=== PATIENT | female | born 1965 | race Caucasian/White ===

== ENCOUNTER 2021-01-22 23:50 | Inpatient (IN) | payer BC, SELFPAY ==
--- NOTE | ~2021-01-22 | XR_ITS ---
XR abdomen NG/feed tube insert DATE: 01/25/2021 14:02 INDICATION: NG tube placement TECHNIQUE: Portable AP view on 01/25/2021 at 1353 hours COMPARISON: 01/25/2021 portable view at 1007 hours FINDINGS: NG tube in the upper body of stomach. IMPRESSION: NG tube in the upper body of stomach Reviewed, dictated and finalized at [facility]. Reviewed, dictated and finalized at location A.
--- NOTE | ~2021-01-22 | XR_ITS ---
XR chest 1V portable DATE: 01/26/2021 10:19 INDICATION: Atelectasis TECHNIQUE: 01/26/2021 portable AP chest at 1006 hours COMPARISON: 01/23/2021 portable AP chest at 1700 hours FINDINGS: Cardiomegaly. There is pulmonary vascular congestion and redistribution. There are congenit ally perihilar and lower lung zone infiltrates and/atelectasis, left greater than right. Diffusion di agnosis includes pulmonary edema as well as pneumonia and atelectasis. NG tube is been removed since 01/23/2021. Right upper extremity PIC catheter overlies proximal superior vena cava. No pneumothorax. No pleural effusion is evident. Diffuse osteopenia IMPRESSION: Cardiomegaly, pulmonary vascular congestion, bilateral pulmonary infiltrates, suggesting congestive heart failure, possible pulmonary edema. Pneumonia and atelectasis are additional consider ations, especially in the left perihilar and lower lung zones Reviewed, dictated and finalized at location B. IMPRESSION: Cardiomegaly, pulmonary vascular congestion, bilateral pulmonary in filtrates, suggesting congestive heart failure, possible pulmonary edema. Pneum onia and atelectasis are additional considerations, especially in the left parrish hilar and lower lung zones
--- NOTE | ~2021-01-22 | XR_ITS ---
XR abdomen NG/feed tube insert DATE: 01/25/2021 10:24 INDICATION: NG tube replacement TECHNIQUE: Portable AP view on 01/25/2021 at 1007 hours COMPARISON: 01/25/2021 portable AP chest at 0 626 FINDINGS: NG tube in gastric fundus, proximal port approximately 6 cm distal to the diaphragmatic hia tus. Gas distended small bowel segments are noted. Bibasilar infiltrate and/atelectasis. IMPRESSION: NG tube in gastric fundus Reviewed, dictated and finalized at [facility]. Reviewed, dictated and finalized at location A. IMPRESSION: NG tube in gastric fundus
--- NOTE | ~2021-01-22 | XR_ITS ---
XR abdomen NG/feed tube insert DATE: 01/25/2021 06:34 INDICATION: NG tube insertion TECHNIQUE: Portable supine AP view on 01/25/2021 at 0626 hours COMPARISON: 01/23/2021 KUB FINDINGS: An NG tube is present in the proximal to mid body of the stomach. There are prominent gas distended small bowel segments. Postoperative change of the abdomen. Degenerative spurring of the thoracic and lumbar spine. Infiltrate and/atelectasis at the included lung bases. IMPRESSION: NG tube in body of stomach Reviewed, dictated and finalized at [facility]. Reviewed, dictated and finalized at location A. IMPRESSION: NG tube in body of stomach
--- NOTE | ~2021-01-22 | US_ITS ---
EXAMINATION: US biopsy liver DATE: 02/04/2021 13:29 INDICATION: Liver nodule. TECHNIQUE: The procedure including the risks and benefits was discussed with the patient. Risks discu ssed included bleeding and infection. The patient understood the risks and agreed to proceed. The sk in overlying the liver was prepped and draped in usual sterile fashion. Anesthetic was administered with 1% lidocaine subcutaneously. An 18 gauge core biopsy needle was advanced under continuous ultra sound observation to the lesion of interest. 3 core biopsy specimens were obtained. The needle was removed and the entry site was cleaned and dressed. Post procedure ultrasound demonstrated no hemorr isabela. COMPARISON: CT dated 01/23/2021 FINDINGS: Ultrasound images demonstrate a subtle approximately 2.5 cm hypoechoic nodule in segment 5 of the liver corresponding in size and location to the hypoenhancing nodule on the prior CT. IMPRESSION: 1. Successful Ultrasound-guided biopsy of a 2.5 cm hypoechoic right hepatic lobe nodule. Reviewed, dictated and finalized at location A. IMPRESSION: 1. Successful Ultrasound-guided biopsy of a 2.5 cm hypoechoic right hepatic lob e nodule.
--- NOTE | ~2021-01-22 | US_ITS ---
US abdomen limited DATE: 01/24/2021 10:56 INDICATION: Gallbladder distention TECHNIQUE: Real-time imaging of the liver, pancreas, gallbladder areas. Technologist notes that the examination is limited due to body habitus, inability of patient to fully cooperate, unable to roll. The patient was moaning through the entire examination, limiting evaluati on of Martinez's sign. COMPARISON: 01/23/2021 CT abdomen pelvis FINDINGS: There are numerous filling defects with associated acoustical shadowing involving the gallb ladder consistent with cholelithiasis. Mild gallbladder wall thickening is evident. Common bile duct measures 5.4 mm, within normal range. There is limited visualization of the liver and pancreas. Please note the right hepatic mass on the 1 CT abdomen pelvis examination IMPRESSION: Cholelithiasis, mild gallbladder wall thickening Reviewed, dictated and finalized at [facility]. Reviewed, dictated and finalized at location A.
--- NOTE | ~2021-01-22 | XR_ITS ---
EXAMINATION: XR abdomen/kub 1V DATE: 01/23/2021 15:50 INDICATION: Bowel perforation. TECHNIQUE: A supine view of the abdomen on 2 radiographs was obtained. COMPARISON: CT abdomen and pelvis 01/23/2021 FINDINGS: There are multiple dilated loops of small bowel. A surgical drain overlies right abdomen. T here are surgical clips from ventral hernia repair. Skin brayan are noted. The nasogastric tube tip is at the gastroesophageal junction. There are changes of gastric bypass procedure. IMPRESSION: 1. Dilated small bowel, consistent with adynamic ileus. 2. Nasogastric tube tip at the gastroesophageal junction with changes of gastric bypass procedure. Reviewed, dictated and finalized at location A. IMPRESSION: 1. Dilated small bowel, consistent with adynamic ileus. 2. Nasogastric tube tip at the gastroesophageal junction with changes of gastri c bypass procedure.
--- NOTE | ~2021-01-22 | XR_ITS ---
EXAMINATION: XR abdomen NG/feed tube insert INDICATION: Nasogastric tube repositioning TECHNIQUE: Portable AP KUB-NG at 2212 hours COMPARISON: 1537 hours FINDINGS: Nasogastric tube appears to coil in the gastric remnant. Could consider withdrawing 2 to 3 cm. In addition, there is rightward deviation of the nasogastric tube is a courses into the upper abd omen. On the earlier examination the nasogastric tube was midline but now projects beyond the right l ateral margin of the spine. Dilated small bowel loops are again noted. IMPRESSION: 1. Advanced nasogastric tube appears to coil within the stomach however there is also rightward devia tion of the tube beyond the right lateral margin of the lower thoracic spine. Although this could be due to pressure from the tube coiled in the stomach translating into the distal esophagus, recommend chest radiograph to assess the position of the proximal nasogastric tube. Reviewed, dictated and finalized at location F. IMPRESSION: 1. Advanced nasogastric tube appears to coil within the stomach however there i s also rightward deviation of the tube beyond the right lateral margin of the l ower thoracic spine. Although this could be due to pressure from the tube coile d in the stomach translating into the distal esophagus, recommend chest radiogr aph to assess the position of the proximal nasogastric tube.
--- NOTE | ~2021-01-22 | XR_ITS ---
EXAMINATION: XR chest PICC line DATE: 01/23/2021 17:06 INDICATION: Central line placement. TECHNIQUE: A single frontal view of the chest was obtained. COMPARISON: Chest single view 01/23/2021 at 3:21 PM, CT abdomen and pelvis 01/23/2021 FINDINGS: The lung volumes are small. There is mild atelectasis in left lower lung zone. No pleural e ffusion or pneumothorax. The nasogastric tube tip is in the stomach. There are changes of gastric byp ass procedure. A right upper extremity peripherally inserted central venous catheter (PICC) is seen w ith tip in the superior vena cava. IMPRESSION: 1. PICC tip in the superior vena cava. Reviewed, dictated and finalized at location A.
--- NOTE | ~2021-01-22 | XR_ITS ---
XR chest 1V portable 01/31/2021 10:56 Indication: Pneumonia. Shortness of breath. Procedure: AP portable chest Comparison: Comparison to multiple prior studies sequentially, with oldest reviewed study dated 12/28. Findings: Patchy bilateral airspace disease, compatible with pneumonia. No significant effusion or pn eumothorax. No acute osseous abnormality. Heart size normal for technique. No acute osseous abnormali ty. Impression: 1: Patchy bilateral airspace disease, compatible with pneumonia. Reviewed, dictated and finalized at location A. Impression: 1: Patchy bilateral airspace disease, compatible with pneumonia.
--- NOTE | ~2021-01-22 | XR_ITS ---
XR chest 1V portable DATE: 01/23/2021 15:50 INDICATION: Respiratory distress, increased oxygen needs. TECHNIQUE: Portable AP chest on 02/09 2021 at 1531 hours COMPARISON: 12/28/2016 PA and lateral chest FINDINGS: An NG tube is noted extending just beyond the diaphragmatic hiatus into the very proximal s tomach. There are patchy infiltrates and/atelectasis involving the upper and lower lung zones, greater in the lower lung stephens, especially on the left. Heart size is likely within normal range considering magnification associated with AP projection. No pleural effusion or pulmonary vascular congestion or pneumothorax. Degenerative spurring of the thoracic spine. IMPRESSION: Patchy bilateral infiltrates and/atelectasis, most prominently in the left lower lung NG tube in very proximal stomach Reviewed, dictated and finalized at location A. IMPRESSION: Patchy bilateral infiltrates and/atelectasis, most prominently in t he left lower lung NG tube in very proximal stomach
--- NOTE | ~2021-01-22 | CT_ITS ---
EXAMINATION: CT abdomen pelvis w con DATE: 01/23/2021 01:16 INDICATION: Right lower quadrant abdominal pain TECHNIQUE: Computed tomography (CT) of the abdomen and pelvis was performed with 100 cc Omnipaque 350 intravenous contrast. Automated exposure control and iterative reconstruction technique were employe d. Exam dose: 1678.30 mGy-cm total exam DLP. COMPARISON: None. FINDINGS: The lung bases are clear of infiltrate or consolidation. Cardiomegaly. No pericardial or pleural effusion. There is mild intraperitoneal free air, best demonstrated around the liver, periappendiceal area and interspersed with fluid in the posterior cul-de-sac. In the absence of any recent surgery, bowel perf oration is suspected. Consider perforated appendicitis. There were multiple mildly dilated gas contai jane small bowel segments, likely due to adynamic ileus. Status post gastric bypass surgery. There is an approximately 3 cm 11 defined mass of the right hepatic lobe; diffusion diagnosis include s hepatic abscess, primary hepatocellular neoplasm, hepatic metastasis. This would be amenable to CT- guided percutaneous needle biopsy as clinically appropriate. The gallbladder is distended. No pancreatic mass lesion, calcification or ductal dilatation. Normal splenic size. Normal morphology of the adrenal glands. 9.5 mm lower pole right renal cyst. There are approximately 4 small nonobstructing left renal calculi. A couple of pinpoint nonobstructin g right renal calculi are noted. No ureteral calculus or hydroureteronephrosis. Normal caliber of the abdominal aorta. No intraperitoneal or retroperitoneal or pelvic mass lesion or adenopathy or ascites. There is an IUD within the uterus. The urinary bladder is unremarkable. Ventral abdominal wall mesh repair. No suspicious osteolytic or osteoblastic lesions. Diffuse idiopathic skeletal hyperostosis of the low er thoracic spine. Degenerative change of the lumbar spine including moderately severe degenerative d isc disease at L3-4. IMPRESSION: Intraperitoneal free air, suggesting bowel perforation. Consider appendiceal perforation Probable adynamic ileus Ill-defined 3 cm right hepatic mass and focal diffusion diagnosis includes hepatic abscess, hepatocel lular primary malignancy or metastasis Status post gastric bypass surgery Reviewed, dictated and finalized at [facility]. Reviewed, dictated and finalized at location A. IMPRESSION: Intraperitoneal free air, suggesting bowel perforation. Consider a ppendiceal perforation Probable adynamic ileus Ill-defined 3 cm right hepatic mass and focal diffusion diagnosis includes hepa tic abscess, hepatocellular primary malignancy or metastasis Status post gastric bypass surgery
[2021-01-22 23:55] VITALS: BP 149/72; PULSE 94; RESP 39; TEMP 36.4; O2SAT 99
[2021-01-23] VITALS (30 sets, daily range): BP systolic 55–140; BP diastolic 27–95; PULSE 91–139; RESP 20–54; TEMP 36.2–36.9; O2SAT 84–100; BMI 66.6
--- NOTE | 2021-01-23 00:01 | ED.ABDPAIN ---
HPI - Abdominal Pain General Chief Complaint: Abdominal Pain Stated Complaint: rt quad pain Time Seen by Provider: 01/22/21 23:58 Source: patient History of Present Illness HPI narrative: Patient presents with abdominal pain. Reports sudden onset abdominal pain this evening. She reports history of bowel obstruction she feels like she is having a bowel obstruction. Her pain is primarily right lower quadrant constant sharp everything makes it worse radiates around her abdomen. She has nausea and vomiting she does report loose stools over the past few days she denies fevers. She reports she was recently seen at [place] where she had a CT scan and MRI and was told that she has a mass on her liver and a bowel obstruction reports she was discharged home from the ER with this findings. Related Data Allergies Allergy/AdvReac Type Severity Reaction Status Date / Time morphine Allergy Mild Unknown Verified 01/23/21 00:08 promethazine Allergy Mild Unknown Verified 01/23/21 00:08 Review of Systems Review of Systems: CONSTITUTIONAL: Denies fever, chills, or sweats. EYES: Denies visual changes, redness, or discharge. ENT: Denies rhinorrhea, congestion, sore throat, or otalgia. CARDIOVASCULAR: Denies chest pain, palpitations, or edema. RESPIRATORY: Denies cough or dyspnea. GASTROINTESTINAL: Reports abdominal pain GENITOURINARY: Denies dysuria or hematuria. SKIN: Denies rash or itching. MUSCULOSKELETAL: Denies back pain, joint pain, or myalgia. NEUROLOGIC: Denies headache, numbness, dizziness, or weakness. PSYCHIATRIC: Denies anxiety or depression. All systems reviewed & are unremarkable except as noted in HPI and below Exam Narrative: GENERAL: Well-appearing, well-nourished, in moderate distress due to pain HEAD: Normocephalic, atraumatic. EYES: PERRLA and EOMI. ENT: Nares clear, no rhinorrhea or epistaxis. Mucous membranes moist. NECK: Supple. No masses. No JVD ABDOMEN: Moderate diffuse pain most noted in the right lower quadrant with guarding soft, nondistended EXTREMITIES: Normal range of motion. No edema. SKIN: Warm, dry, no rash. NEURO: No focal deficits. Alert and oriented x3. PSYCH: Normal mood and affect. Course Reevaluation(s) Reevaluation #1: Patient continues to have pain labs and imaging return. Labs clinically unremarkable imaging concerning for perforated bowel obstruction. Page placed to general surgery Date: 01/23/21 Time: 03:01 Vital Signs Vital signs: Vital Signs Temperature 36.4 C 01/22/21 23:55 Pulse Rate 94 01/22/21 23:55 Respiratory Rate 39 H 01/22/21 23:55 Blood Pressure 149/72 H 01/22/21 23:55 Pulse Oximetry 99 01/22/21 23:55 Temperature 36.4 C 01/22/21 23:55 Pulse Rate 113 H 01/23/21 04:06 Respiratory Rate 33 H 01/23/21 04:06 Blood Pressure 133/85 01/23/21 04:06 Pulse Oximetry 98 01/23/21 04:06 MDM - Abdominal Pain MDM Narrative Medical decision making narrative: Patient presented with right lower quadrant abdominal pain of sudden onset. Patient appeared to be in moderate distress and she had an acute abdominal on exam. Labs and imaging obtained. Initially vital signs were reassuring labs are clinically unremarkable imaging was concerning for perforated appendicitis. Call placed to Dr. Gong initial plan was to admit the patient and likely operative management tomorrow. Patient continued to have severe pain here in the ER patient was given 100 fentanyl by EMS given additional 100 fentanyl here in the ER as well as over 2 mg of Dilaudid in the ER patient is still in severe pain. Dr. Gong was notified of patients sever pain and clinical picture. He coordinated with the OR team and patient was transported to the OR for further management. Lab Data Result diagrams: 01/23/21 00:26 01/23/21 00:26 Labs: Lab Results 01/23/21 01/23/21 01/23/21 Range/Units 00:26 00:26 01:54 WBC 6.7 (4.5-10.0) K/mm3 RBC 4.38 (4.2-5.4) M/mm3 Hgb
[2021-01-23] MEDS: SODIUM CHLORIDE 0.9% IV 1,000 ML 999 ML IV CONT ×4 (00:10→22:47)
[2021-01-23] MEDS: ONDANSETRON INJ 4 MG/2 ML VIAL IV PUSH ×2 (00:11→23:56)
[2021-01-23 00:36] LABS: Basophils Percent Auto 0.4 % (0.2-1.2); Eosinophils Absolute Auto 0.1 K/mm3 (0-0.3); Eosinophils Percent Auto 1.2 % (0-4.4); Hematocrit 39.4 % (37.0-47.0); Hemoglobin 11.5 g/dL (12.0-15.0); Immature Granulocyte Absolute 0.05 K/mm3 (0.00-0.031); Immature Granulocyte Percent A 0.7 % (0-0.5); Lymphocytes Absolute Auto 1.55 K/mm3 (0.9-3.2); Lymphocytes Percent Auto 23.2 % (18.3-44.2); Mean Corpuscular HGB Conc 29.2 g/dl (32-36); Mean Corpuscular Hemoglobin 26.3 pg (26-34); Mean Platelet Volume 10.3 fl (7.4-10.4); Monocytes Absolute Auto 0.3 K/mm3 (0.1-0.6); Monocytes Percent Auto 5.1 % (2.6-8.5); Neutrophils Absolute Auto 4.6 K/mm3 (1.3-6.7); Neutrophils Percent Auto 69.4 % (45.5-73.1); Platelet Count Result 204 k/mm3 (150-375); Red Blood Count 4.38 M/mm3 (4.2-5.4); Red Cell Distribution Width 17.3 % (11.5-14.5); White Blood Count 6.7 K/mm3 (4.5-10.0)
[2021-01-23 00:47] LABS: Hypochromasia 2+ (NORMAL); Platelet Estimate Adequate (Adequate)
[2021-01-23 00:49] LABS: Alanine Aminotransferase 25 U/L (4-35); Albumin Level 3.9 g/dL (3.5-5.1); Alkaline Phosphatase 108 U/L (38-126); Anion Gap 9 mmol/L (8-16); Aspartate Amino Transferase 22 U/L (14-36); Bilirubin,Total 0.5 mg/dL (0.2-1.3); Blood Urea Nitrogen 20 mg/dL (7-17); Calcium 8.4 mg/dL (8.4-10.2); Carbon Dioxide 26 mmol/L (22-30); Chloride 104 mmol/L (98-107); Estimated CRCL calculation 107 ml/min; Estimated Glomerular Filt Rate > 60; Glucose 124 mg/dL (65-110); Lipase 45 U/L (23-300); Potassium 3.8 mmol/L (3.4-5.0); Sodium 139 mmol/L (137-145)
[2021-01-23] MEDS: fentaNYL CITRATE INJ (*CRX) 100 MCG/2 ML VIAL IV PUSH (00:56)
--- NOTE | 2021-01-23 01:01 | PC.NURSE ---
contacted Rikki, patients brother, per pt's request and gave him an update.
--- NOTE | 2021-01-23 01:27 | PC.NURSE ---
pt refusing straight cath at this time for urine sample.
--- NOTE | 2021-01-23 01:57 | PC.NURSE ---
pt states that she urinated on herself. when going in the room to clean her up pt states what are you doing this RN states, We need to get you cleaned up so you are not sitting in your urine pt states, I have a pad on, don't clean me up I am in too much pain. pt has received pain medication and EDP is aware of her pain. This RN told pt multiple times that it is important that she does not sit in her urine and that we need to get her cleaned. pt still refusing to be cleaned. pt is alert and oriented x 4.
--- NOTE | 2021-01-23 02:13 | PC.NURSE ---
Pt pressed call light and requested pain medication. Pt states I need Dilaudid, they gave me that last time and it worked. CHUN Brantley notified.
[2021-01-23] MEDS: HYDROmorphone HCL INJ (*CRX) 1 MG/ML SYR 0.5 MG IV PUSH ×4 (02:26→23:24)
[2021-01-23 02:27] LABS: Lactic Acid Reflex 1.6 mmol/L (0.7-2.1)
--- NOTE | 2021-01-23 03:25 | PC.NURSE ---
Assumed care of pt at this time, report taken from Leann. Pt moved to room 4. ED charge Anisa, mike RN, Amber RN, and Bri (pathology tech) at bedside at this time to attempt to move pt off soiled linen. Pt is unable to tolerate any movement at this time, unable to sit up, and unable to roll. Pt yelling out in pain asking for RNs to stop attempting to move her. This RN attempted to utilize ceiling janette lift in room, but appropriate size sling was not stocked. ED charge Anisa called ICU in an attempt to obtain correct size for pt, but were sent a sling incompatible with ED janette.
--- NOTE | 2021-01-23 03:28 | ECG_ITS ---
Measurements Intervals Boon Rate: 116 P: 30 NV: 183 QRS: -29 QRSD: 77 T: 16 QT: 433 QTc: 602 Interpretive Statements SINUS TACHYCARDIA POSSIBLE LEFT ATRIAL ENLARGEMENT LEFT VENTRICULAR HYPERTROPHY WITH ST-T CHANGE EXTENSIVE ANTERIOR INFARCT, AGE INDETERMINATE INFERIOR INFARCT, AGE INDETERMINATE BASELINE ARTIFACT- I, III, AVR, AVL, AVF, V1 ABNORMAL ECG Electronically Signed On 01-23-2021 7:33:45 CDT by Bret Beckman D.O.
--- NOTE | 2021-01-23 03:45 | PC.NURSE ---
Per EDP Fercho, NG tube placement can be postponed until surgery.
--- NOTE | 2021-01-23 03:50 | PC.NURSE ---
Anesthesiologist and surgeon at bedside at this time.
--- NOTE | 2021-01-23 03:59 | PM.IMHP ---
H&P: HPI History of Present Illness Date/Time: 01/23/21 03:59 Pt is a 55 y/o F c multiple med issues including morbid obesity presenting to ED c/o sudden onset of RLQ abd pain. Pt reports pain started tonight and is constant, severe. Pt denies previous episodes. Pt also c/o N/V and reports pain radiates to R flank. Pt recently seen in ED at [place] for different abdominal pain and is setup for colonoscopy and bx of liver mass. Chief Complaint: abdominal pain, perforated appendicitis Review of Systems Constitutional: Constitutional: Reports anorexia, Denies chills, Reports fatigue, Denies fever(s), Denies headache(s), Reports lethargy, Reports malaise, Reports poor appetite, Reports weakness, Denies weight gain and Denies weight loss Eyes: Eyes: Reports no additional eye complaints ENT: Reports system reviewed and no additional complaints, except as documented Cardiovascular: Cardiovascular: Reports no additional cardiovascular complaints Respiratory: Respiratory: Reports no additional respiratory complaints Gastrointestinal: Gastrointestinal: Reports as per HPI, Reports abdominal pain, Denies belching, Reports bloating, Reports change in bowel habits, Reports change in stool character, Reports GI cramping, Reports diarrhea, Reports nausea and Reports vomiting Genitourinary: Genitourinary: Reports no additional female genitourinary complaints Musculoskeletal: Musculoskeletal: Reports no additional musculoskeletal complaints Integumentary/Breasts: Skin/Breast: Reports system reviewed and no additional complaints, except as docu Neurologic: Reports system reviewed and no additional complaints, except as documented Psychiatric: Psychiatric: Reports no additional psychiatric complaints Endocrine: Endocrine: Reports no additional endocrine complaints Hematologic/Lymphatic: Hematologic/Lymphatic: Reports no additional hematologic/lymphatic complaints Allergic/Immunologic: Allergic/Immunologic: Reports no additional allergic/immunologic complaints PMFSH Comments PMH - morbid obesity, anxiety PSH - gastric bypass, hernia repair SH - pt denies any ETOH, tobacco, illicit drug abuse FH - pt denies any h/o CRC, IBS Meds Home Medications and Allergies Allergies Allergy/AdvReac Type Severity Reaction Status Date / Time morphine Allergy Mild Unknown Verified 01/23/21 00:08 promethazine Allergy Mild Unknown Verified 01/23/21 00:08 Vital Signs Vital Signs - 24 hr 01/22/21 23:55 01/23/21 01:28 01/23/21 02:20 Temperature 36.4 C Pulse Rate 94 91 103 H Respiratory Rate 39 H 23 H 27 H Blood Pressure 149/72 H 140/73 137/87 Pulse Oximetry 99 99 98 Exam Const: General: acute distress severe, anxious, ill appearing and poor hygiene Nutritional Appearance: obese Orientation/consciousness: patient oriented x3 HENMT: Head: normal to inspection, normocephalic and atraumatic Ears: hearing grossly normal bilaterally General nose exam: Normal external nose present Mouth: Yes Normal oral and palatal mucosa present Eyes: General: appearance normal, both eyes and all related structures Pupils: Equal, round and reactive pupils present EOM: EOMs intact bilaterally Neck: Neck: normal visual inspection, full ROM and no lymphadenopathy Resp: Effort & Inspection: normal respiratory effort Auscultation: clear to auscultation bilaterally Cardio: Rate: tachycardic Rhythm: regular rhythm GI: Inspection: normal to inspection, distended and incision GI Palp: Yes abdominal tenderness and Yes Tenderness to palpation present (GI) Other: soft, sl dist, focal TTP RLQ, vol guard Skin: General skin exam: normal color and no rashes or lesions noted Neuro: General: patient oriented x3 and CN's II-XI intact bilaterally Extrem: General: normal to inspection and full ROM Psych: Appearance: disheveled H&P: Results Labs Labs: Short CBC 01/23/21 Range/Units 00:26 WBC 6.7 (4.5-10.0) K/mm3 Hgb 11.5 L (12.0-15.0) g/dL Hct 3
--- NOTE | 2021-01-23 04:06 | PC.NURSE ---
Recovery Nurse notified that we have actively been working on attempting to clean the patients soiled bed for over an hour and we have not been able to do so d/t patients in ability to tolerate any movement. Per Recovery Nurse she will call us right back.
--- NOTE | 2021-01-23 04:10 | PC.NURSE ---
Recover nurses at charge desk to assist with attempt to change patient and clean up her soiled sheets/bedding.
--- NOTE | 2021-01-23 04:13 | WPDHPUPDATE1 ---
History and Physical Update Update Date/Time: 01/23/21 04:13 History and Physical has been reviewed, including an updated exam of the patient. There are NO changes in the patient's condition. Risks, benefits, and alternatives have been discussed and questions answered. Patient agrees to proceed with procedure.
--- NOTE | 2021-01-23 04:15 | PC.NURSE ---
MD Kumari at bedside we will take patient to OR on the er stretcher, sedate on the stretcher, then clean the patient and move the patient all in one. Bedside RN asked if he would like us to start the patient antibiotics at this time and he said we can start them in the or, let's just get her ove there. Bedside RN and tech with OR team to the OR to assist with moving patient once sedated/intubated.
--- NOTE | 2021-01-23 04:15 | PC.NURSE ---
OR here to assist in transportation of pt at this time
[2021-01-23] MEDS: LACTATED RINGERS 1,000 ML 30 ML IV CONT ×2 (06:48)
--- NOTE | 2021-01-23 06:54 | WPDANESEPPF ---
Anes - Initial Pre Proc Eval Procedure: Operation Date: 01/23/21 04:00 Proposed Procedures p Laparoscopic Appendectomy - Christine Gong MD Date/Time: 01/23/21 06:54 Surgeon: Chrisitne Gong MD Pre Op Diagnosis: rt quad pain Patient Data Age: 55 Gender: F Height: 1.68 m Weight: 187.4 kg Last Vital Signs Temp 36.4 C 01/22/21 23:55 Pulse 113 H 01/23/21 04:06 Resp 33 H 01/23/21 04:06 BP 133/85 01/23/21 04:06 Pulse Ox 98 01/23/21 04:06 Allergies Allergy/AdvReac Type Severity Reaction Status Date / Time morphine Allergy Mild Unknown Verified 01/23/21 00:08 promethazine Allergy Mild Unknown Verified 01/23/21 00:08 Laboratory Tests 01/23/21 01/23/21 01/23/21 00:26 00:26 01:54 WBC 6.7 K/mm3 K/mm3 (4.5-10.0) RBC 4.38 M/mm3 M/mm3 (4.2-5.4) Hgb 11.5 g/dL L g/dL (12.0-15.0) Hct 39.4 % % (37.0-47.0) MCV 90.0 fl fl (80-100) MCH 26.3 pg pg (26-34) MCHC 29.2 g/dl L g/dl (32-36) RDW 17.3 % H % (11.5-14.5) Plt Count 204 k/mm3 k/mm3 (150-375) MPV 10.3 fl fl (7.4-10.4) Immature Gran % (Auto) 0.7 % H % (0-0.5) Neut % (Auto) 69.4 % % (45.5-73.1) Lymph % (Auto) 23.2 % % (18.3-44.2) Sullivan % (Auto) 5.1 % % (2.6-8.5) Eos % (Auto) 1.2 % % (0-4.4) Baso % (Auto) 0.4 % % (0.2-1.2) Lymph # (Auto) 1.55 K/mm3 K/mm3 (0.9-3.2) Sullivan # (Auto) 0.3 K/mm3 K/mm3 (0.1-0.6) Eos # (Auto) 0.1 K/mm3 K/mm3 (0-0.3) Baso # (Auto) 0.0 K/mm3 K/mm3 (0.0-0.1) Abs Immat Gran (auto) 0.05 K/mm3 H K/mm3 (0.00-0.031) Absolute Neuts (auto) 4.6 K/mm3 K/mm3 (1.3-6.7) Absolute Nucleated RBC 0.0 K/mm3 K/mm3 (0.0-0.012) Nucleated RBC % 0.0 % % (0.0-0.2) Platelet Estimate Adequate (Adequate) Hypochromasia 2+ (NORMAL) Sodium 139 mmol/L mmol/L (137-145) Potassium 3.8 mmol/L mmol/L (3.4-5.0) Chloride 104 mmol/L mmol/L (98-107) Carbon Dioxide 26 mmol/L mmol/L (22-30) Anion Gap 9 mmol/L mmol/L (8-16) BUN 20 mg/dL H mg/dL (7-17) Creatinine 0.90 mg/dL mg/dL (0.7-1.0) Estim Creat Clear Calc 107 ml/min ml/min Estimated GFR > 60 (59 - ) Glucose 124 mg/dL H mg/dL (65-110) Lactic Acid 1.6 mmol/L mmol/L (0.7-2.1) Calcium 8.4 mg/dL mg/dL (8.4-10.2) Total Bilirubin 0.5 mg/dL mg/dL (0.2-1.3) AST 22 U/L U/L (14-36) ALT 25 U/L U/L (4-35) Alkaline Phosphatase 108 U/L U/L (38-126) Total Protein 7.0 g/dL g/dL (6.3-8.2) Albumin 3.9 g/dL g/dL (3.5-5.1) Lipase 45 U/L U/L (23-300) Patient hx anesthesia problems: none Family hx anesthesia problems: none Results Review: All pre-operative results and documents have been reviewed as part of the pre-operative evaluation. [facility] Surgical History Surgical History (Updated 01/23/21 @ 06:54 by Bernardo Kumari MD) History of gastric bypass Anes - Eval Final PreProcedure Day of Procedure 01/23/21 06:54 Patient weight: super morbidly obese Heart: regular rate and rhythm Lungs: clear to auscultation Airway: Mallampati scale class II Neurological: alert and oriented Last oral intake: >/= 8 hours ASA classification: IV Emergent: yes Anesthetic plan: proceed Anesthesia type and monitoring: general ETT and standard monitoring Results Review: All pre-operative results and documents have been reviewed as part of the pre-operative evaluation. Informed Consent: The patient's anesthetic plan and its attendant risks and benefits were discussed before surgery in ER at 0330 with the patient/family/POA. Questions were solicited and answers provided to the satisfaction of the patient/family/POA.
[2021-01-23] MEDS: fentaNYL CITRATE INJ (*CRX) 100 MCG/2 ML VIAL 25 MCG IV PUSH ×6 (07:12→07:36)
--- NOTE | 2021-01-23 07:36 | W.PM.PROC2 ---
Procedure Note - Detailed Date of Procedure 01/23/21 Pre-op Diagnosis Perforated appendicitis Post-op Diagnosis other ( perforated cecum, acute appendicitis) Procedure Performed exploratory laparoscopy, laparoscopic appendectomy, conversion to open laparotomy with right hemicolectomy and mobilization of hepatic flexure, extensive intra-abdominal washout Surgeon Christine Gong MD Anesthesia general Indications 55-year-old female presenting with severe right lower quadrant abdominal pain that started acutely last night. Workup in the emergency department including CT scan was consistent with perforated appendicitis. Patient was unable to have her pain controlled in the emergency department despite heavy doses of narcotics. Her exam coupled with worsening vital signs dictated emergent laparoscopy. Findings Acute appendicitis, perforated cecum, extensive intra-abdominal soilage Description of Procedure The patient was taken to the operating room and placed in the supine position. After adequate induction of general anesthesia, the patient was prepped and draped in the normal sterile fashion. A time-out was then done to verify the patient's identity, as well as the procedure being performed. I began by making a 5 mm incision in the infraumbilical region. Through this incision I placed a Veress needle into the peritoneal cavity and CO2 gas was then insufflated. After adequate pneumoperitoneum was achieved, the Veress needle was removed and placed a 5 mm Optiview trocar under direct visualization. I then placed the laparoscope through this trocar site and noted extensive inflammation throughout the abdominal cavity. There was also noted to be a large amount of intra-abdominal soilage, succus. The entirety of the intestine was noted to be very dilated. It was difficult to visualize given the amount of intestinal dilation, however I was able to place a further 5 mm port in the suprapubic region and an additional 12 mm port in the left lower quadrant. I was able to identify the cecum, which was noted to be very distended and inflamed. I then located the appendix, which was noted to be inflamed but not obviously perforated. I was able to locate the base of the appendix with the cecum and I created a window with the [place] dissected between the appendix and the mesoappendix. I then used a vascular staple load on the Endo-ALEXANDRA to take down the mesoappendix. The stapler was re-loaded with a blue thick tissue staple load and I transected the base of the appendix with the cecum. An Endo pouch was placed through the 12 mm port site and the appendiceal specimen was placed into the Endo pouch and removed. Upon evaluation of the appendix, it was noted that there was no obvious perforation. I then continued to exam the cecum and it was noted at this point that there was a perforation of the cecum. Given the body habitus of the patient, decision was made to convert to an open procedure. The abdomen was desufflated and the ports were removed. I then made a generous midline incision incorporating the previously used 5 mm infraumbilical port. Once into the abdominal cavity, there was noted to be mesh in the upper midline we went ahead and cut. Once I got access into the abdominal cavity, there was noted to be an extensive amount succus. I was able to suction out approximately 1 L of succus at this point. I then was able to locate the perforation in the distal cecum, proximal ascending colon. I began by mobilizing the right colon laterally by taking down the white line of Toldt. I then went ahead and mobilized the hepatic flexure as well. Once this was mobilized, I was able to proceed with the transection. I 1st transected the terminal ileum approximately 10 cm from the ileocecal valve using a 75 ALEXANDRA stapler. I then transected the the colon approximately 10 cm distal to the perforation. I then used the LigaSure device to take down the mesenteric attachments, santa
--- NOTE | 2021-01-23 07:55 | SUR.PHASEI ---
[address] Gong no KUB needed he confirmed placement of NG in the OR
--- NOTE | 2021-01-23 08:05 | ADMGEN ---
This patient, Tori Miller, was admitted to 2 Medical Room 241-01. Patient/family oriented to hospital policies and general routines including ID bracelet, bed and alarms, visiting hours, pain management, procedures, bathroom and other care routines, personal items, smoking policy, room service/diet, and visiting hours. Information on how to activate the Rapid Response Team has been discussed. Patient/Family are encouraged to report perceived risks to care and to ask questions if they do not understand what they are told or what they should do.
[2021-01-23] MEDS: LACTATED RINGERS 1,000 ML 100 ML IV CONT (08:16)
[2021-01-23] MEDS: HYDROmorphone HCL INJ (*CRX) 1 MG/ML SYR IV PUSH ×2 (08:20→11:09)
[2021-01-23 08:52] LABS: Prothrombin Time 13.4 Seconds (11.1-14.7)
[2021-01-23 08:53] LABS: Partial Thromboplastin Time 26.4 SECONDS (22.3-36.8)
[2021-01-23] MEDS: FAMOTIDINE 20 MG/2 ML VIAL IV PUSH ×2 (10:03→20:57)
[2021-01-23] MEDS: ENOXAPARIN 40 MG/0.4 ML SYRINGE SUB-Q (10:03)
[2021-01-23 14:27] LABS: Add Urine Microscopic? YES; Appearance Urine Clear (Clear); Bacteria Urine Trace /hpf; Bilirubin Urine Negative (Negative); Blood Urine Negative (Negative); Color Urine Yellow (Yellow); Glucose Urine UA Negative (Negative); Ketones Urine 1+ mg/dL (Negative); Leukocyte Esterase Ur Negative LEU/UL (Negative); Mucus Urine Rare /lpf; Nitrate Urine Negative (Negative); Protein Urine 2+ mg/dL (Negative); RBC Urine 0-2 /hpf (0-2); Squamous Epithelial Cell Urine Occasional /hpf (Few); Urobilinogen Urine Negative mg/dL (<2.0); WBC Urine 0-3 /hpf
[2021-01-23 14:30] LABS: Specific Grav Ur 1.057 (1.001-1.035)
[2021-01-23] MEDS: SODIUM CHLORIDE 0.9% IV 250 ML 999 ML IV CONT (15:13)
[2021-01-23 15:19] LABS: Alveolar/Arterial O2 Gradient 209.6 mmHg; Base Excess ABG -11.7 mEq/l (+/-2.0); Fractional Inspired Oxygen 45 %; HCO3 ABG 12.4 mEq/l (22.0-26.0); Oxygen Content ABG 20.5 %vol (16.0-22.0); Oxygen Saturation ABG 95.6 % (95.0-100.0); Oxyhemoglobin 93.8 % THb (90.0-100.0); PO2 ABG 82.8 mmHg (80.0-100.0); PO2 FiO2 Ratio Arterial Blood 1.84 %; Total Hemoglobin 15.5 g/dL (12.0-18.0); pH ABG 7.315 (7.350-7.450)
[2021-01-23 15:20] LABS: Modified Allen's Test Unable to perform; Site Drawn LEFT RADIAL
[2021-01-23 15:21] LABS: Device NASAL CANNULA
--- NOTE | 2021-01-23 15:37 | PC.NURSE ---
Report called to Opal ELECTRONIC TEST TECHNICIAN.
--- NOTE | 2021-01-23 15:45 | PC.NURSE ---
To ICU via bed.
[2021-01-23 15:57] LABS: Glucose Point of Care 193 mg/dl (65-105)
[2021-01-23 16:01] LABS: Anion Gap 19 mmol/L (8-16); Blood Urea Nitrogen 21 mg/dL (7-17); Calcium 8.1 mg/dL (8.4-10.2); Carbon Dioxide 15 mmol/L (22-30); Chloride 105 mmol/L (98-107); Estimated CRCL calculation 50 ml/min; Estimated Glomerular Filt Rate 26; Glucose 207 mg/dL (65-110); Potassium 4.1 mmol/L (3.4-5.0); Sodium 139 mmol/L (137-145)
[2021-01-23 16:02] LABS: Lactic Acid Reflex 10.3 mmol/L (0.7-2.1)
--- NOTE | 2021-01-23 16:10 | PM.IMCN ---
Assessment and Plan Assessment and plan (1) Acute perforated appendicitis: Code(s): K35.32 - Acute appendicitis with perforation and localized peritonitis, without abscess Status: Acute Assessment and Plan: the patient underwent exploratory laparoscopy and laparoscopic appendectomy conversion to open laparotomy with right hemicolectomy and mobilization of hepatic flexure extensive intra-abdominal washoy. postop care per surgery team. Pain management per surgery. The patient's blood pressure is soft today so I did order her some IV Tylenol. I was called to rapid response as the patient was lethargic and was hypoxic. The patient was complaining of severe lower abdominal discomfort. The patient is going to the intensive care unit for sepsis. ABGs have been ordered and she has metabolic acidosis which could be secondary to her sepsis or her elevated blood sugar. I also ordered blood cultures. The patient is currently on Zosyn. (2) Respiratory distress: Code(s): R06.03 - Acute respiratory distress Status: Acute Assessment and Plan: The patient was placed on oxygen at 5 L due to hypoxia. I did order a chest x-ray. Which shows possible pneumonia versus atelectasis. When the patient wakes up she will need to use incentive spirometer the patient is currently on Zosyn. (3) Sepsis: Code(s): A41.9 - Sepsis, unspecified organism Status: Acute Assessment and Plan: I repeated her CBC and her lactic. Her lactic is up to 10.3. The patient's blood pressure was soft today. If the patient is fluid responsive will need to continue with her IV fluids. (4) Depression with anxiety: Code(s): F41.8 - Other specified anxiety disorders Status: Acute Assessment and Plan: The patient is NPO at this time. (5) Bowel obstruction: Code(s): K56.609 - Unspecified intestinal obstruction, unspecified as to partial versus complete obstruction Status: Acute Assessment and Plan: Patient has NG tube in the left near. (6) Liver mass: Code(s): R16.0 - Hepatomegaly, not elsewhere classified Status: Acute Assessment and Plan: Ill-defined 3 cm right hepatic mass and focal diffusion diagnosis includes hepatic abscess, hepatocellular primary malignancy or metastasis. From what I understand this is being worked up as outpatient. (7) Morbid obesity due to excess calories: Code(s): E66.01 - Morbid (severe) obesity due to excess calories Status: Acute HPI Data of Consult Consult date: 01/23/21 Requesting Physician: Christine Gong MD Primary Care Provider: PHYSICIAN NOT ON STAFF Consult Narrative Narrative: Tori Miller is a 55 year old female who came into the emergency room last night with the sudden onset of lower abdominal pain. She does have a history of obesity and about obstruction. Pain was mostly in the right lower quadrant consistent with sharp and radiates to her lower abdomen. She had nausea and vomiting and loose stools. It was reported that the patient was recently at [facility] and she had a CT scan and MRI and was told that she has a mass on her liver and a bowel obstruction and was discharged to home with these findings. She has had a history of gastric bypass as well. Patient was admitted for acute appendicitis with perforation and localized peritonitis without abscess. The patient had a laparoscopic appendectomy today early this morning. The patient has a WILLIAM drain. The patient became unresponsive today and had a low blood pressure which was difficulty here per nursing. A rapid response was called and the hospitalist group was asked to consult. The patient was complaining of severe lower abdominal pain. Her WILLIAM drain was draining without difficulty. Her abdomen was soft. The patient was also short of breath and oxygen was applied at 5 L per nasal cannula. When I came into the room the patient was more awake. ABGs h
[2021-01-23] MEDS: SODIUM BICARBONATE 8.4% 50 MEQ/50 ML SYRINGE 100 MEQ IV PUSH (17:13)
[2021-01-23 17:32] LABS: Hematocrit 41.5 % (37.0-47.0); Hemoglobin 12.2 g/dL (12.0-15.0); Mean Corpuscular HGB Conc 29.4 g/dl (32-36); Mean Corpuscular Hemoglobin 26.2 pg (26-34); Mean Corpuscular Volume 89.1 fl (80-100); Mean Platelet Volume 11.3 fl (7.4-10.4); Platelet Count Result 210 k/mm3 (150-375); Red Blood Count 4.66 M/mm3 (4.2-5.4); Red Cell Distribution Width 17.9 % (11.5-14.5); White Blood Count 6.1 K/mm3 (4.5-10.0)
[2021-01-23] MEDS: NOREPINEPHRINE 8 MG/D5W 250 ML 8 MG/250 ML BAG 9.38 MG IV CONT (17:33)
[2021-01-23 17:47] LABS: Lactic Acid Reflex 5.8 mmol/L (0.7-2.1)
[2021-01-23] MEDS: SODIUM CHLORIDE 0.9% IV 1,000 ML 150 ML IV CONT (18:06)
[2021-01-23] MEDS: FLUCONAZOLE 100 MG/NACL 50 ML 100 MG/50 ML BTL 50 MG IVPB (18:34)
[2021-01-23 18:43] LABS: Reflex Lactic Acid Yes or No Add Lactic
--- NOTE | 2021-01-23 19:46 | PC.NURSE ---
1530 PATIENT TRANSFERRED FROM 241 TO ICU 3. ORIENTED TO UNIT AND POLICIES. DR. VERDUGO UPDATED ON PATIENTS SITUATION AND ORDERS RECEIVED. WILL CONTINUE TO MONITOR.
[2021-01-23] MEDS: CENTRAL LINE FLUSH 10 ML IV PUSH (20:57)
[2021-01-23 21:28] LABS: Alveolar/Arterial O2 Gradient 143.8 mmHg; Base Excess ABG -8.4 mEq/l (+/-2.0); Carboxyhemoglobin 1.2 % THb (0-2.0); Fractional Inspired Oxygen 34 %; HCO3 ABG 14.1 mEq/l (22.0-26.0); Methemoglobin ABG 0.3 %THb (0-1.5); Oxygen Content ABG 19.5 %vol (16.0-22.0); Oxygen Saturation ABG 94.9 % (95.0-100.0); Oxyhemoglobin 93.7 % THb (90.0-100.0); PO2 ABG 71.7 mmHg (80.0-100.0); PO2 FiO2 Ratio Arterial Blood 2.11 %; Reduced Hemoglobin 4.8 %THb (0-5.0); Total Hemoglobin 14.8 g/dL (12.0-18.0); pH ABG 7.404 (7.350-7.450)
[2021-01-23 21:30] LABS: PCO2 ABG 23.1 mmHg (35.0-45.0)
[2021-01-23 21:31] LABS: Device NASAL CANNULA; Liters per Minute 3.5 LPM; Modified Allen's Test Pass; Site Drawn LEFT RADIAL
[2021-01-23 21:51] LABS: Lactic Acid Reflex 5.1 mmol/L (0.7-2.1)
--- NOTE | 2021-01-23 22:22 | PM.EVENT ---
Event Note Event Note Event Note: 01/23/2021 at 9:00 p.m. Nursing staff called to notify hospitalist service if the patient's respiratory rate was between 40 and 50. The patient's oxygen saturations were stable on 3 L nasal cannula. Patient was tachycardic with heart rates in the 130s. He was reporting intractable severe abdominal pain. The patient was not having any output from her NG. The patient had only minimal urine output despite a little over 2 L of fluid bolus during rapid response earlier in the day. High the patient was persistently hypotensive despite Levophed at 27. She was afebrile. Repeat lactic acid was obtained and demonstrated persistent lactic acidosis. Stat ABG was ordered which demonstrated severe metabolic acidosis with respiratory compensation with pH of 7.4 and pCO2 23. On exam the patient had absent bowel sounds. Her postsurgical dressing was clean dry and intact. She has shallow rapid respirations without any increased work of breathing. She had NG in place without any drainage. On further review the patient's chart abdominal x-ray was reviewed and could not identify in G-tube. Nursing staff evaluate the patient's NG in found curled it curled in the back of the patient's throat. The patient was alert and oriented x4, speech is clear. She did have generalized pallor and delayed cap refill. Given her low urine output tachycardia order was given for normal saline bolus. Given the patient's worsening renal function and persistent hypotension will aim for maps around 70. An order was given for a vasopressin. Initially I also given order for bicarb pushes however guest services assistant wanted to hold off on bicarb pushes currently. Nursing staff replace the patient's NG and I reviewed the KUB which demonstrated NG tube past the diaphragm. The patient had a small amount of white cottage cheese and blood-tinged material present. The patient is on GI prophylaxis with Pepcid. Assessment: 1. Metabolic acidosis with respiratory compensation: The patient's tachypnea is a likely due to respiratory compensation firm a severe metabolic acidosis. She does have a history of obstructive sleep apnea bowel hold off on placing patient on CPAP at this time as she is maintaining her oxygen saturations and is no evidence hypercarbia or decompensation. Specially in the setting of recent abdominal surgery. 2. Septic shock with severe lactic acidosis and acute renal failure--patient is on Levophed and vasopressin with bolus fluid administration as discussed above. Continue antimicrobial therapy with fluconazole and Zosyn. Will defer further management to the guest services assistant. 35 minutes spent in critical care activities. Due to a high probability of clinically significant, life threatening deterioration, the patient required my highest level of preparedness to intervene emergently and I personally spent this critical care time directly and personally managing the patient. This critical care time included obtaining a history; examining the patient; pulse oximetry; ordering and review of studies; arranging urgent treatment with development of a management plan; evaluation of patient's response to treatment; frequent reassessment; and discussions with other providers. It was exclusive of separately billable procedures and treating other patients and teaching time. Please see Assessment and Plan section and the rest of the note for further information on patient assessment and treatment.
[2021-01-23] MEDS: VASOPRESSIN INJ 100 UNITS in DEXTROSE 5% 95 ML IV CONT (22:29)
[2021-01-23] MEDS: SODIUM BICARBONATE 8.4% 150 MEQ in WATER, STERILE FOR INJECTION 950 ML IV CONT (23:24)
[2021-01-23] MEDS: HYDROCORTISONE SODIUM SUCCINATE 100 MG/2 ML VIAL IV PUSH (23:56)
[2021-01-24] VITALS (28 sets, daily range): BP systolic 77–136; BP diastolic 49–89; PULSE 104–140; RESP 25–52; TEMP 36.1–38.5; O2SAT 91–95
[2021-01-24 00:20] LABS: Glucose Point of Care 167 mg/dl (65-105)
[2021-01-24] MEDS: NOREPINEPHRINE 8 MG/D5W 250 ML 8 MG/250 ML BAG 48.75 MG IV CONT (00:46)
[2021-01-24] MEDS: HYDROmorphone HCL INJ (*CRX) 1 MG/ML SYR IV PUSH ×5 (01:25→15:10)
[2021-01-24 05:41] LABS: Hematocrit 46.1 % (37.0-47.0); Hemoglobin 13.6 g/dL (12.0-15.0); Mean Corpuscular HGB Conc 29.5 g/dl (32-36); Mean Corpuscular Hemoglobin 26.3 pg (26-34); Mean Corpuscular Volume 89.2 fl (80-100); Mean Platelet Volume 11.6 fl (7.4-10.4); Platelet Count Result 259 k/mm3 (150-375); Red Blood Count 5.17 M/mm3 (4.2-5.4); Red Cell Distribution Width 18.8 % (11.5-14.5)
[2021-01-24] MEDS: HYDROCORTISONE SODIUM SUCCINATE 100 MG/2 ML VIAL IV PUSH ×3 (05:41→21:59)
[2021-01-24] MEDS: LEVOTHYROXINE SODIUM INJ 100 MCG/5 ML VIAL 125 MCG IV PUSH (05:42)
[2021-01-24] MEDS: CENTRAL LINE FLUSH 10 ML IV PUSH ×3 (05:42→22:16)
[2021-01-24] MEDS: NOREPINEPHRINE 8 MG/D5W 250 ML 8 MG/250 ML BAG 52.5 MG IV CONT ×3 (05:45→17:01)
[2021-01-24 05:50] LABS: Lactic Acid Reflex 4.9 mmol/L (0.7-2.1)
[2021-01-24 05:51] LABS: Alveolar/Arterial O2 Gradient 139.5 mmHg; Carboxyhemoglobin 1.3 % THb (0-2.0); Fractional Inspired Oxygen 34 %; HCO3 ABG 16.1 mEq/l (22.0-26.0); Methemoglobin ABG 0.3 %THb (0-1.5); Oxygen Content ABG 18.5 %vol (16.0-22.0); Oxygen Saturation ABG 94.8 % (95.0-100.0); Oxyhemoglobin 93.1 % THb (90.0-100.0); PCO2 ABG 26.6 mmHg (35.0-45.0); PO2 ABG 71.9 mmHg (80.0-100.0); PO2 FiO2 Ratio Arterial Blood 2.11 %; Reduced Hemoglobin 5.3 %THb (0-5.0); Total Hemoglobin 14.1 g/dL (12.0-18.0); pH ABG 7.399 (7.350-7.450)
[2021-01-24 05:52] LABS: Device NASAL CANNULA; Liters per Minute 3.5 LPM; Modified Allen's Test Pass; Site Drawn LEFT RADIAL
[2021-01-24 05:58] LABS: Alanine Aminotransferase 44 U/L (4-35); Albumin Level 2.7 g/dL (3.5-5.1); Alkaline Phosphatase 82 U/L (38-126); Anion Gap 11 mmol/L (8-16); Aspartate Amino Transferase 88 U/L (14-36); Bilirubin,Total 1.1 mg/dL (0.2-1.3); Blood Urea Nitrogen 30 mg/dL (7-17); Calcium 6.7 mg/dL (8.4-10.2); Carbon Dioxide 19 mmol/L (22-30); Chloride 106 mmol/L (98-107); Estimated CRCL calculation 40 ml/min; Estimated Glomerular Filt Rate 20; Glucose 166 mg/dL (65-110); Magnesium 1.7 mg/dL (1.6-2.3); Potassium 5.1 mmol/L (3.4-5.0); Sodium 136 mmol/L (137-145)
[2021-01-24] MEDS: SODIUM CHLORIDE 0.9% IV 1,000 ML 500 ML (06:12)
[2021-01-24] MEDS: SODIUM CHLORIDE 0.9% IV 1,000 ML 999 ML IV CONT ×2 (06:20→15:06)
[2021-01-24 07:01] LABS: Hemoglobin A1C 5.4 % (<5.7)
[2021-01-24 07:08] LABS: Band Neutrophils Percent 26 % (0-6); Metamyelocytes Percent 4 %; Monocytes Absolute Manual 0.36 K/mm3 (0.1-0.90); Monocytes Percent Manual 2 % (3-9); Neutrophils Absolute Manual 14.22 K/mm3 (1.7-7.2); Neutrophils Percent Manual 53 % (46-73); Total Cells Counted 100
[2021-01-24 07:09] LABS: Platelet Estimate Adequate (Adequate)
[2021-01-24 07:10] LABS: Hypochromasia 1+ (NORMAL)
[2021-01-24 08:26] LABS: Reflex Lactic Acid Yes or No Add Lactic
[2021-01-24] MEDS: SODIUM BICARBONATE 8.4% 150 MEQ in WATER, STERILE FOR INJECTION 950 ML IV CONT ×2 (08:57→17:03)
[2021-01-24] MEDS: SODIUM BICARBONATE 8.4% 50 MEQ/50 ML SYRINGE 100 MEQ IV PUSH (09:03)
[2021-01-24] MEDS: CALCIUM GLUC 2,000 MG/NS 100ML 2,000 MG/100 ML BAG 100 MG IVPB (09:10)
[2021-01-24] MEDS: ALBUMIN HUMAN 5% 25 GM/500 ML BTL IV CONT (09:15)
[2021-01-24] MEDS: FAMOTIDINE 20 MG/2 ML VIAL IV PUSH ×2 (09:16→21:59)
[2021-01-24] MEDS: ENOXAPARIN 40 MG/0.4 ML SYRINGE SUB-Q (09:16)
[2021-01-24 09:57] LABS: Lactic Acid 4.3 mmol/L (0.7-2.1)
--- NOTE | 2021-01-24 10:25 | PM.IMPN ---
Progress Note: A&P Additional Plan START OF DOCTOR TAJ?S PROGRESS NOTE Subjective: The patient complains of diffuse abdominal pain. However upon further questions she indicates that is most prominent in the periumbilical region. She denies fever, rigors, nausea, vomiting, cough, wheeze, abdominal pain, chest pain, dyspnea, or any other concerns complaints. I have explained to the patient her current medical condition plan of care and I have answered all her questions Objective: General: -Alert -No acute distress -No dyspnea -No tachypnea -morbidly obese Heart: -iRegular rate -Regular rhythm -No murmurs -No gallops -No rubs Lungs: -No wheeze -No rhonchi -No rales Abdomen: -hypoactive bowel sounds in all 4 quadrants -No rebound -No guarding -tenderness to palpation of the periumbilical area and the right upper quadrant Extremities: -2/4 pulse in all four extremities -No clubbing -No cyanosis -No edema Additional Details / Additional Findings / Exceptions / Miscellaneous: Pertinent Laboratory Results / Pertinent Radiology Results / Pertinent Diagnostic Results / Pertinent Vital Signs: Heart rate 133, respirations 30, blood pressure 98/68, patient saturating 92% on 4 L, white blood count 80290, creatinine 2.5, calcium 7.9, AST 88, ALT 44 Assessment / Plan: Acute perforated appendicitis. Patient status post January 23, 2021 with General surgery: exploratory laparoscopy, laparoscopic appendectomy, conversion to open laparotomy with right hemicolectomy and mobilization of hepatic flexure, extensive intra-abdominal washout. Zosyn 3.375 g IV q.6 hours Hypotension. IV water +1 50 mEq sodium bicarbonate at 150 mL/hour plus hydrocortisone 100 mg IV q.8 hours plus IV Levophed drip per protocol was IV vasopressin drip per protocol Pneumonia. Zosyn 3.375 g IV q.6 hours 3 cm right hepatic lobe mass. Outpatient follow-up with her pcat instructor/oncologist Ileus. Nasogastric tube in place Gallbladder wall distention. Zosyn 3.375 g IV q.6 hours. Right upper quadrant ultrasound pending Obesity. Patient counseled regarding lifestyle modification Anxiety Depression Acute renal insufficiency. Will monitor creatinine intermittently. IV water +1 50 mEq sodium bicarbonate at 150 mL/hour plus albumin 25 g IV q.6 hours Hypocalcemia. Will monitor calcium levels intermittently and supplements as necessary Transaminitis. Will monitor LFTs periodically with CMP along with PT/INR. Right upper quadrant ultrasound pending Hypothyroidism. Synthroid 125 mg IV daily. Check TSH, free T4 GI prophylaxis. Pepcid 20 mg IV q.12 hours DVT prophylaxis. Lovenox 40 mg subcutaneously daily Disposition: END OF DOCTOR TAJ?S PROGRESS NOTE Subjective Date/time seen: 01/24/21 10:25 Objective Data Vital Signs Vital Signs: Vital Signs - 24 hr 01/23/21 15:05 01/23/21 15:10 01/23/21 15:12 Temperature 97.4 F L Pulse Rate Respiratory Rate Blood Pressure 56/27 L 118/81 Pulse Oximetry 96 01/23/21 15:15 01/23/21 15:28 01/23/21 16:15 Temperature Pulse Rate 130 H Respiratory Rate 45 H Blood Pressure 68/47 L 92/41 L Pulse Oximetry 94 96 92 01/23/21 16:31 01/23/21 16:35 01/23/21 17:00 Temperature 98 F Pulse Rate 130 H 130 H 129 H Respiratory Rate 41 H 20 43 H Blood Pressure 101/49 L 55/42 L 88/59 L Pulse Oximetry 92 84 L 95 01/23/21 17:33 01/23/21 18:07 01/23/21 19:43 Temperature Pulse Rate 124 H 131 H 125 H Respiratory Rate 42 H Blood Pressure 91/67 L 99/35 L 99/35 L Pulse Oximetry 94 01/23/21 20:00 01/23/21 20:15 01/23/21 21:20 Temperature 98.4 F Pulse Rate 132 H Respiratory Rate 54 H Blood Pressure 79/58 L 67/58 L Pulse Oximetry 93 94 01/23/21 22:00 01/23/21 22:29 01/24/21 00:00 Temperature 98.8 F Pulse Rate 139 H 138 H 134 H Respiratory Rate 52 H 52 H Blood Pressure 82/66 L 76/51 L 96/61 L Pulse O
--- NOTE | 2021-01-24 10:39 | WPDCNINT ---
Assessment and Plan Assessment and plan (1) Septic shock: Code(s): A41.9 - Sepsis, unspecified organism; R65.21 - Severe sepsis with septic shock Status: Acute Assessment and Plan: Septic shock secondary to perforated cecum acute appendicitis and fecal peritonitis Patient has received 4 L of fluids overnight Will give 500 mL of IV albumin 5% bolus now At 25% albumin Continue Levophed and vasopressin Continue maintenance IV IV bicarb for metabolic acidosis Her lactate is improving but is still elevated. Will continue to monitor Discuss with General surgery Dr. connolly and he does not think there is any benefit in repeating CT abdomen pelvis at this time If lactate increase further, will consider repeat CT Continue stress dose hydrocortisone Continue Zosyn and fluconazole IV Blood cultures have been sent and are pending (2) Acute kidney injury: Code(s): N17.9 - Acute kidney failure, unspecified Status: Acute Assessment and Plan: Likely secondary to septic shock CT showed for small nonobstructing renal stones on the left and right but no hydronephrosis Check CK Patient is getting fluids bicarb for metabolic acidosis and hyperkalemia Replace low calcium Two amps of bicarb given this morning for slightly elevated K and acidosis Monitor potassium other electrolytes urine output and creatinine (3) Liver mass: Code(s): R16.0 - Hepatomegaly, not elsewhere classified Status: Acute Assessment and Plan: Management as outpatient per physician team at [facility] (4) Hypothyroidism: Code(s): E03.9 - Hypothyroidism, unspecified Status: Chronic Assessment and Plan: Continue levothyroxine IV TSH, T3 and T4 ordered (5) Peritonitis: Code(s): K65.9 - Peritonitis, unspecified Status: Acute Assessment and Plan: Pain control p.r.n. Dilaudid (6) Acute appendicitis: Qualifiers: Acute appendicitis type: with generalized peritonitis Appendicitis abscess presence: unspecified whether abscess present Appendicitis gangrene presence: without gangrene Appendicitis perforation presence: with perforation Qualified Code(s): K35.20 - Acute appendicitis with generalized peritonitis, without abscess Code(s): K35.80 - Unspecified acute appendicitis Status: Acute Assessment and Plan: See above (7) Perforation of cecum: Code(s): K35.32 - Acute appendicitis with perforation and localized peritonitis, without abscess Status: Acute Assessment and Plan: See above Additional Plan DVT prophylaxis -SCDs, Lovenox Stress ulcer prophylaxis -Pepcid Nutrition -NPO Code Status - Full Code Family updated at bedside Total Critical Care Time - 40 minutes Due to a high probability of clinically significant, life threatening deterioration, the patient required my highest level of preparedness to intervene emergently and I personally spent this critical care time directly and personally managing the patient. This critical care time included obtaining a history; examining the patient; pulse oximetry; ordering and review of studies; arranging urgent treatment with development of a management plan; evaluation of patient's response to treatment; frequent reassessment; and discussions with other providers. It was exclusive of separately billable procedures and treating other patients and teaching time. Please see Assessment and Plan section and the rest of the note for further information on patient assessment and treatment Retail Warehouse Supervisor Consult Note Consult date: 01/24/21 Time Seen: 09:00 HPI: Tori Miller is a 55 year old morbidly obese female female who came into the emergency room on 1008 pot holder binder with the sudden onset of lower abdominal pain. She also complained of nausea vomiting. She was scheduled for colonoscopy and liver biopsy as an outpatient. CT abdomen pelvis showed Intraperitoneal free air, suggesting bowel per
[2021-01-24] MEDS: ONDANSETRON INJ 4 MG/2 ML VIAL IV PUSH (11:57)
--- NOTE | 2021-01-24 11:58 | PM.PNGS ---
Progress Note: A&P Assessment and Plan (1) Septic shock: Code(s): A41.9 - Sepsis, unspecified organism; R65.21 - Severe sepsis with septic shock Status: Acute Assessment and Plan: remains on 2 vasopressor agents. However it is very good sign that her mental status is reasonable and she is not on a mechanical ventilator. Continue aggressive critical care with IV antibiotics vasopressors and close monitoring. Lactic acid is slowly decreasing, another good sign. (2) Fecal peritonitis: Code(s): K65.8 - Other peritonitis Status: Acute Assessment and Plan: Significant degree of fecal soiling of the peritoneal cavity very high risk for septic shock, multiorgan system failure and . Patient actually doing better than I thought she would be considering the intraoperative findings. Discussed with and nursing. Probably will need a little more analgesics then she is getting. Continue bowel rest IV fluids antibiotics and critical care monitoring. (3) Perforation of cecum: Code(s): K35.32 - Acute appendicitis with perforation and localized peritonitis, without abscess Status: Acute Assessment and Plan: Very serious site to have perforation as stool is very liquid and extremely toxic. Status post ileocolic resection per Dr. Schmid. Wound healing well. Will start dressing changes. No signs of bowel function returning which is not at all surprising. (4) Acute kidney injury: Code(s): N17.9 - Acute kidney failure, unspecified Status: Acute Assessment and Plan: Creatinine up to 2.5 but is making reasonable amounts of urine. Continue to monitor closely. (5) Morbid obesity due to excess calories: Code(s): E66.01 - Morbid (severe) obesity due to excess calories Status: Chronic Subjective Subjective Date/Time Seen: 01/24/21 11:58 Post Op day: 1 Patient reports: still having pain, no flatus and no bowel movement Interval history: Patient pretty awake, not intubated or on mechanical ventilator. Still requiring 2 vasopressor agents. Review of Systems Review of Systems: All systems reviewed & are unremarkable except as noted in HPI and below Constitutional: Constitutional: Reports body ache(s), Denies headache(s) and Reports lethargy Cardiovascular: Cardiovascular: Denies chest pain and Denies dyspnea Respiratory: Respiratory: Denies cough and Denies dyspnea Gastrointestinal: Gastrointestinal: Reports as per HPI, Reports abdominal pain and Denies nausea Exam Const: General: no acute distress, awake, ill appearing and uncomfortable Nutritional Appearance: obese Orientation/consciousness: confusion GI: Inspection: incision ( Dry, intact, no significant drainage, no hematoma, looks good.) and obesity GI Palp: Yes abdominal tenderness, Yes Firmness to palpation present (GI), Yes Tenderness to palpation present (GI) and Yes Guarding due to palpation present (GI) Auscultation: absent bowel sounds Objective Data Vital Signs Vital Signs: Vital Signs - 24 hr 01/23/21 15:05 01/23/21 15:10 01/23/21 15:12 Temperature 36.3 C L Pulse Rate Respiratory Rate Blood Pressure 56/27 L 118/81 Pulse Oximetry 96 01/23/21 15:15 01/23/21 15:28 01/23/21 16:15 Temperature Pulse Rate 130 H Respiratory Rate 45 H Blood Pressure 68/47 L 92/41 L Pulse Oximetry 94 96 92 01/23/21 16:31 01/23/21 16:35 01/23/21 17:00 Temperature 36.6 C Pulse Rate 130 H 130 H 129 H Respiratory Rate 41 H 20 43 H Blood Pressure 101/49 L 55/42 L 88/59 L Pulse Oximetry 92 84 L 95 01/23/21 17:33 01/23/21 18:07 01/23/21 19:43 Temperature Pulse Rate 124 H 131 H 125 H Respiratory Rate 42 H Blood Pressure 91/67 L 99/35 L 99/35 L Pulse Oximetry 94 01/23/21 20:00 01/23/21 20:15 01/23/21 21:20 Temperature 36.9 C Pulse Rate 132 H Respiratory Rate 54 H Blood Pressure 79/58 L 67/58 L Pulse Oximetry 93 94 01/23/21
--- NOTE | 2021-01-24 12:11 | WPDANESPN ---
Anes - Prog Note Post-Op Date/Time: 01/24/21 12:11 Cardiovascular status: normal Respiratory status: normal Airway patency: baseline Mental status: baseline Post-Op hydration status: normal Vital Signs: Last Vital Signs Temp 37.1 C 01/24/21 08:00 Pulse 137 H 01/24/21 10:00 Resp 28 H 01/24/21 10:00 BP 90/63 L 01/24/21 10:00 Pulse Ox 93 01/24/21 10:00 Pain Score (VAS): 0 I/O: Intake & Output 01/23/21 01/24/21 01/24/21 23:59 07:59 15:59 Intake Total 3800 2450 1000 Output Total 0 460 Balance 3800 1990 1000 Laboratory Tests 01/24/21 05:03 01/24/21 05:03 01/23/21 01/23/21 01/23/21 13:54 15:05 15:13 WBC RBC Hgb Hct MCV MCH MCHC RDW Plt Count MPV Immature Gran % (Auto) Neut % (Auto) Lymph % (Auto) [place] % (Auto) Eos % (Auto) Baso % (Auto) Lymph # (Auto) [place] # (Auto) Eos # (Auto) Baso # (Auto) Abs Immat Gran (auto) Absolute Neuts (auto) Absolute Nucleated RBC Total Counted Neutrophils % (Manual) Band Neutrophils % Lymphocytes % (Manual) Monocytes % (Manual) Metamyelocytes % Nucleated RBC % Abs Neuts (Manual) Abs Lymphs (Manual) Abs Monocytes (Manual) Platelet Estimate Hypochromasia Puncture Site Left radial ABG pH 7.315 L ABG pCO2 25.0 L ABG pO2 82.8 ABG PO2/FiO2 Ratio 1.84 ABG HCO3 12.4 L ABG O2 Saturation 95.6 ABG O2 Content 20.5 ABG Base Excess -11.7 A-a Gradient 209.6 Oxyhemoglobin 93.8 Carboxyhemoglobin Methemoglobin Reduced Hemoglobin Total Hemoglobin 15.5 O2 Delivery Device Nasal cannula O2 Liters/Min 5.0 FiO2 45 Sodium Potassium Chloride Carbon Dioxide Anion Gap BUN Creatinine Estim Creat Clear Calc Estimated GFR Glucose POC Capillary Glucose 193 H Hemoglobin A1c Lactic Acid Calcium Magnesium Total Bilirubin AST ALT Alkaline Phosphatase Total Protein Albumin Urine Color Yellow Urine Appearance Clear Urine pH 5.0 Ur Specific [place] 1.057 H Urine Protein 2+ H Urine Glucose (UA) Negative Urine Ketones 1+ H Ur Blood (Man) Negative Urine Nitrate Negative Urine Bilirubin Negative Urine Urobilinogen Negative Leukocyte Esterase Rfl Negative Urine RBC 0-2 Urine WBC 0-3 Ur Squamous Epith Cells Occasional Urine Bacteria Trace Urine Mucus Rare 01/23/21 01/23/21 01/23/21 15:28 15:28 17:10 WBC 6.1 RBC 4.66 Hgb 12.2 Hct 41.5 MCV 89.1 MCH 26.2 MCHC 29.4 L RDW 17.9 H Plt Count 210 MPV 11.3 H Immature Gran % (Auto) Neut % (Auto) Lymph % (Auto) [place] % (Auto) Eos % (Auto) Baso % (Auto) Lymph # (Auto) [place] # (Auto) Eos # (Auto) Baso # (Auto) Abs Immat Gran (auto) Absolute Neuts (auto) Absolute Nucleated RBC Total Counted Neutrophils % (Manual) Band Neutrophils % Lymphocytes % (Manual) Monocytes % (Manual) Metamyelocytes % Nucleated RBC % Abs Neuts (Manual) Abs Lymphs (Manual) Abs Monocytes (Manual) Platelet Estimate Hypochromasia Puncture Site ABG pH ABG pCO2 ABG pO2 ABG PO2/FiO2 Ratio ABG HCO3 ABG O2 Saturation ABG O2 Content ABG Base Excess A-a Gradient Oxyhemoglobin Carboxyhemoglobin Methemoglobin Reduced Hemoglobin Total Hemoglobin O2 Delivery Device O2 Liters/Min FiO2 Sodium 139 Potassium 4.1 Chloride 105 Carbon Dioxide 15 L Anion Gap 19 H BUN 21 H Creatinine 2.00 H Estim Creat Clear Calc 50 Estimated GFR 26 L Glucose 207 H POC Capillary Glucose Hemoglobin A1c Lactic Acid 10.3 H* Calcium 8.1 L Magnesium Total Bilirubin AST ALT Alkaline Phosphatase Total Protein Albumin Urine Color Urine Appearance Urine pH
[2021-01-24] MEDS: ALBUMIN HUMAN 25% 25 GM/100 ML 100 ML IVPB ×2 (13:27→17:07)
[2021-01-24 13:56] LABS: Glucose Point of Care 136 mg/dl (65-105)
[2021-01-24 14:07] LABS: Lactic Acid Reflex 4.5 mmol/L (0.7-2.1)
[2021-01-24 14:23] LABS: Anion Gap 13 mmol/L (8-16); Blood Urea Nitrogen 32 mg/dL (7-17); Calcium 6.1 mg/dL (8.4-10.2); Carbon Dioxide 20 mmol/L (22-30); Chloride 95 mmol/L (98-107); Estimated CRCL calculation 40 ml/min; Estimated Glomerular Filt Rate 20; Glucose 412 mg/dL (65-110); Potassium 4.3 mmol/L (3.4-5.0); Sodium 128 mmol/L (137-145)
[2021-01-24 15:17] LABS: Free T4 Free Thyroxine 3.81 ng/mL (0.78-2.19)
[2021-01-24] MEDS: CALCIUM CHLOR 1,000MG/100ML NS 1,000 MG/100 ML BAG 100 MG IVPB (15:21)
[2021-01-24] MEDS: FLUCONAZOLE 100 MG/NACL 50 ML 100 MG/50 ML BTL 50 MG IVPB (17:40)
[2021-01-24 18:24] LABS: Glucose Point of Care 137 mg/dl (65-105)
[2021-01-24 19:37] LABS: Anion Gap 13 mmol/L (8-16); Blood Urea Nitrogen 37 mg/dL (7-17); Calcium 6.9 mg/dL (8.4-10.2); Carbon Dioxide 20 mmol/L (22-30); Chloride 104 mmol/L (98-107); Estimated CRCL calculation 36 ml/min; Estimated Glomerular Filt Rate 17; Glucose 150 mg/dL (65-110); Potassium 4.7 mmol/L (3.4-5.0); Sodium 137 mmol/L (137-145)
[2021-01-24 19:58] LABS: Lactic Acid Reflex 4.5 mmol/L (0.7-2.1)
[2021-01-24] MEDS: NOREPINEPHRINE 8 MG/D5W 250 ML 8 MG/250 ML BAG 45 MG IV CONT (21:55)
[2021-01-24 22:26] LABS: Reflex Lactic Acid Yes or No Add Lactic
[2021-01-25] VITALS (28 sets, daily range): BP systolic 117–140; BP diastolic 55–85; PULSE 102–113; RESP 22–37; TEMP 36.2–36.9; O2SAT 90–100
[2021-01-25] MEDS: ALBUMIN HUMAN 25% 25 GM/100 ML 100 ML IVPB ×4 (00:01→17:03)
[2021-01-25 00:23] LABS: Glucose Point of Care 162 mg/dl (65-105)
[2021-01-25] MEDS: SODIUM BICARBONATE 8.4% 150 MEQ in WATER, STERILE FOR INJECTION 950 ML IV CONT ×3 (02:46→18:43)
[2021-01-25] MEDS: HYDROmorphone HCL INJ (*CRX) 1 MG/ML SYR 0.5 MG IV PUSH ×3 (04:31→21:26)
[2021-01-25 04:36] LABS: INR 1.7; Prothrombin Time 19.7 Seconds (11.1-14.7)
[2021-01-25 04:36] LABS: Lactic Acid Reflex 3.1 mmol/L (0.7-2.1)
[2021-01-25 04:37] LABS: Alanine Aminotransferase 38 U/L (4-35); Albumin Level 3.1 g/dL (3.5-5.1); Alkaline Phosphatase 82 U/L (38-126); Anion Gap 10 mmol/L (8-16); Aspartate Amino Transferase 55 U/L (14-36); Bilirubin,Total 1.4 mg/dL (0.2-1.3); Blood Urea Nitrogen 42 mg/dL (7-17); Calcium 6.7 mg/dL (8.4-10.2); Carbon Dioxide 26 mmol/L (22-30); Chloride 101 mmol/L (98-107); Estimated CRCL calculation 34 ml/min; Estimated Glomerular Filt Rate 16; Glucose 149 mg/dL (65-110); Magnesium 1.6 mg/dL (1.6-2.3); Phosphorus 4.4 mg/dL (2.5-4.5); Potassium 4.2 mmol/L (3.4-5.0); Sodium 137 mmol/L (137-145)
[2021-01-25 04:50] LABS: Lipase < 10 U/L (23-300)
[2021-01-25 05:07] LABS: Hemoglobin 8.8 g/dL (12.0-15.0); Immature Platelet Fraction Pct 3.5 % (0.9-11.2); Mean Corpuscular HGB Conc 31.4 g/dl (32-36); Mean Corpuscular Hemoglobin 27.1 pg (26-34); Mean Corpuscular Volume 86.2 fl (80-100); Mean Platelet Volume 11.6 fl (7.4-10.4); Platelet Count Result 90 k/mm3 (150-375); Red Blood Count 3.25 M/mm3 (4.2-5.4); Red Cell Distribution Width 18.1 % (11.5-14.5); White Blood Count 10.7 K/mm3 (4.5-10.0)
[2021-01-25] MEDS: HYDROCORTISONE SODIUM SUCCINATE 100 MG/2 ML VIAL IV PUSH (05:32)
[2021-01-25] MEDS: LEVOTHYROXINE SODIUM INJ 100 MCG/5 ML VIAL 125 MCG IV PUSH (05:33)
[2021-01-25] MEDS: CENTRAL LINE FLUSH 10 ML IV PUSH ×3 (05:33→21:23)
--- NOTE | 2021-01-25 08:47 | WPDINTPN ---
Progress Note: A&P Assessment and Plan (1) Septic shock: Code(s): A41.9 - Sepsis, unspecified organism; R65.21 - Severe sepsis with septic shock Status: Acute Assessment and Plan: Septic shock secondary to perforated cecum acute appendicitis and fecal peritonitis Patient has received> 5 L of fluids in last 24-48 hours Continue 25% albumin Yesterday she was on Levophed and vasopressin which have been weaned off Continue maintenance IV fluids with bicarb for metabolic acidosis Her lactate has significantly improved DC stress dose hydrocortisone Continue Zosyn and fluconazole IV Blood cultures have been sent and are pending (2) Acute kidney injury: Code(s): N17.9 - Acute kidney failure, unspecified Status: Acute Assessment and Plan: Likely prerenal versus ATN secondary to septic shock Although her urine output has improved her creatinine is slightly worse at 3.[address] showed for small nonobstructing renal stones on the left and right but no hydronephrosis Patient is getting fluids bicarb for metabolic acidosis . Will re-evaluate after a BMP later today Replace low calcium Monitor potassium other electrolytes urine output and creatinine (3) Liver mass: Code(s): R16.0 - Hepatomegaly, not elsewhere classified Status: Acute Assessment and Plan: Management as outpatient per physician team at [facility] (4) Hypothyroidism: Code(s): E03.9 - Hypothyroidism, unspecified Status: Chronic Assessment and Plan: Continue levothyroxine IV TSH, T3 and T4 ordered (5) Peritonitis: Code(s): K65.9 - Peritonitis, unspecified Status: Deleted Assessment and Plan: Pain control p.r.n. Dilaudid (6) Acute appendicitis: Qualifiers: Acute appendicitis type: with generalized peritonitis Appendicitis abscess presence: unspecified whether abscess present Appendicitis gangrene presence: without gangrene Appendicitis perforation presence: with perforation Qualified Code(s): K35.20 - Acute appendicitis with generalized peritonitis, without abscess Code(s): K35.80 - Unspecified acute appendicitis Status: Deleted Assessment and Plan: See above (7) Perforation of cecum: Code(s): K35.32 - Acute appendicitis with perforation and localized peritonitis, without abscess Status: Acute Assessment and Plan: See above (8) Anemia: Code(s): D64.9 - Anemia, unspecified Status: Acute Assessment and Plan: Patient's hemoglobin was 8.8 this morning when she presented hemoglobin was 11.5 which increased to 13.6 after surgery which was likely from hemoconcentration from hypovolemia. Hemoglobin 8.8 today could be dilutional versus bleeding. Patient did receive significant amount IV fluids for her septic shock She did not had any significant output from her NG tube when it was in place. Patient is morbidly obese hence making abdominal exam limited Check CT abdomen pelvis without contrast to rule out any hematoma DC Lovenox and use SCDs Q4H are hemoglobin monitoring PPI IV q.12 hours Transfuse as needed (9) Thrombocytopenia: Code(s): D69.6 - Thrombocytopenia, unspecified Status: Acute Assessment and Plan: Likely secondary to sepsis and antibiotics Change Pepcid to Protonix Monitor platelet levels DC Lovenox (10) Delirium: Code(s): R41.0 - Disorientation, unspecified Status: Acute Assessment and Plan: Patient mildly confused as she is alert oriented x1, repeats answers, pulls out NG is couple of times But on orientation she is able to answer questions Likely delirium from surgery anesthesia pain and metabolic derangements Continue monitor May need to apply restraints to protect NG Additional Plan DVT prophylaxis -SCDs, Stress ulcer prophylaxis -PPI Nutrition -NPO Code Status - Full Code she states her sister Margaux and brother to make decisions on her behalf
--- NOTE | 2021-01-25 09:36 | PM.IMPN ---
Progress Note: A&P Additional Plan START OF DOCTOR JADON PROGRESS NOTE Subjective: Per nursing staff, overnight the patient was encephalopathic and needed to be restrained as she was attempting to remove her nasogastric tube. At the present time the patient is alert and oriented to name and year but not place. She endorses no complaints at this time. She denies fever, rigors, nausea, vomiting, cough, wheeze, abdominal pain, chest pain, or any other concerns complaints. Objective: General: -Alert -No acute distress -No dyspnea -No tachypnea -morbidly obese Heart: -iRegular rate -Regular rhythm -No murmurs -No gallops -No rubs Lungs: -No wheeze -No rhonchi -No rales Abdomen: -hypoactive bowel sounds in all 4 quadrants -No rebound -No guarding -tenderness to palpation of the periumbilical area and the right upper quadrant Extremities: -2/4 pulse in all four extremities -No clubbing -No cyanosis -No edema Additional Details / Additional Findings / Exceptions / Miscellaneous: Pertinent Laboratory Results / Pertinent Radiology Results / Pertinent Diagnostic Results / Pertinent Vital Signs: White blood cell count 10.7, hemoglobin 8.8, platelet count 03053, INR 1.7, creatinine 3, calcium 7.58, 2 runs 1.4, AST 55, ALT 34, heart rate 111, respirations 22, patient saturating 94% 2 L Assessment / Plan: Acute perforated appendicitis. Patient status post January 23, 2021 with General surgery: exploratory laparoscopy, laparoscopic appendectomy, conversion to open laparotomy with right hemicolectomy and mobilization of hepatic flexure, extensive intra-abdominal washout. Zosyn 3.375 g IV q.6 hours Hypotension. IV water +1 50 mEq sodium bicarbonate at 150 mL/hour plus IV Levophed drip per protocol was IV vasopressin drip per protocol Anemia. Will monitor hemoglobin level intermittently Thrombocytopenia. Monitor platelet count intermittently Pneumonia. Zosyn 3.375 g IV q.6 hours 3 cm right hepatic lobe mass. Outpatient follow-up with her heater furnace/oncologist Ileus. Nasogastric tube in place Gallbladder wall distention. Zosyn 3.375 g IV q.6 hours. Right upper quadrant ultrasound equivocal Cholelithiasis Coagulopathy. Will monitor PT/INR periodically Obesity. Patient counseled regarding lifestyle modification Anxiety Depression Acute renal insufficiency. Will monitor creatinine intermittently. IV water +1 50 mEq sodium bicarbonate at 150 mL/hour plus albumin 25 g IV q.6 hours Hypocalcemia. Will monitor calcium levels intermittently and supplements as necessary Transaminitis. Will monitor LFTs periodically with CMP along with PT/INR. Right upper quadrant ultrasound pending Hypothyroidism. Synthroid 125 mg IV daily. GI prophylaxis. Protonix 40 mg IV q.12 hours DVT prophylaxis. Lovenox 40 mg subcutaneously daily Disposition: END OF DOCTOR TAJ?S PROGRESS NOTE Subjective Date/time seen: 01/25/21 09:36 Objective Data Vital Signs Vital Signs: Vital Signs - 24 hr 01/24/21 10:00 01/24/21 12:00 01/24/21 12:39 Temperature 98.7 F Pulse Rate 137 H 136 H 135 H Respiratory Rate 28 H 37 H Blood Pressure 90/63 L 111/89 96/79 L Pulse Oximetry 93 94 01/24/21 14:00 01/24/21 16:00 01/24/21 17:01 Temperature 98.9 F Pulse Rate 133 H 125 H 125 H Respiratory Rate 28 H 27 H Blood Pressure 111/64 120/72 112/62 Pulse Oximetry 95 92 01/24/21 18:00 01/24/21 20:00 01/24/21 20:13 Temperature 96.9 F L Pulse Rate 120 H 114 H 119 H Respiratory Rate 27 H 29 H Blood Pressure 127/72 134/66 135/66 Pulse Oximetry 94 95 01/24/21 21:23 01/24/21 21:45 01/24/21 21:55 Temperature Pulse Rate 113 H 114 H 113 H Respiratory Rate 25 H Blood Pressure 130/69 116/87 Pulse Oximetry 94 01/24/21 22:00 01/24/21 22:15 01/24/21 22:30 Temperature 97.3 F L Pulse Rate 112 H 108 H 108 H Respiratory Rate 34 H Blood Pressure 123/72 123
--- NOTE | 2021-01-25 09:44 | PC.NURSE ---
Traveled to CT scan for CT abd/pelvis - patient was not able to advance into CT scanner. Dr. Cai notified.
[2021-01-25 10:20] LABS: Hematocrit 26.9 % (37.0-47.0); Hemoglobin 8.4 g/dL (12.0-15.0); Mean Corpuscular HGB Conc 31.2 g/dl (32-36); Mean Corpuscular Hemoglobin 26.8 pg (26-34); Mean Corpuscular Volume 85.9 fl (80-100); Mean Platelet Volume 11.3 fl (7.4-10.4); Platelet Count Result 88 k/mm3 (150-375); Red Blood Count 3.13 M/mm3 (4.2-5.4); Red Cell Distribution Width 18.4 % (11.5-14.5); White Blood Count 10.1 K/mm3 (4.5-10.0)
[2021-01-25] MEDS: CALCIUM GLUC 2,000 MG/NS 100ML 2,000 MG/100 ML BAG 100 MG IVPB (10:28)
[2021-01-25] MEDS: PANTOPRAZOLE SODIUM IV 40 MG VIAL IV PUSH ×2 (10:28→21:19)
[2021-01-25] MEDS: CALCIUM CHLOR 1,000MG/100ML NS 1,000 MG/100 ML BAG 100 MG IVPB (10:28)
[2021-01-25 11:46] LABS: Glucose Point of Care 124 mg/dl (65-105)
--- NOTE | 2021-01-25 13:17 | PM.PNGS ---
Progress Note: A&P Assessment and Plan (1) Perforation of cecum: Code(s): K35.32 - Acute appendicitis with perforation and localized peritonitis, without abscess Status: Acute Assessment and Plan: Status post ileal colic resection 2 days ago. No sign of surgical complication. Patient did have bowel movement. Is been pulling out NG tube. Will probably restrain to try and keep the NG tube in place. Continue critical care management. (2) Septic shock: Code(s): A41.9 - Sepsis, unspecified organism; R65.21 - Severe sepsis with septic shock Status: Acute Assessment and Plan: Continue IV antibiotics. Making progress. Has been weaned off vasopressor of agents. Urine output slightly better but creatinine up to 3.0. (3) Fecal peritonitis: Code(s): K65.8 - Other peritonitis Status: Acute Assessment and Plan: Source controlled but still has severe peritonitis and abdominal pain. (4) Delirium: Code(s): R41.0 - Disorientation, unspecified Status: Acute Assessment and Plan: Multifactorial. (5) Acute kidney injury: Code(s): N17.9 - Acute kidney failure, unspecified Status: Acute Assessment and Plan: Making urine, creatinine up to 3. Probably will reverse. Subjective Subjective Date/Time Seen: 01/25/21 13:17 Post Op day: 2 Patient reports: still having pain Interval history: Confused and restless, pulled out her NG tube and is pulling off her oxygen. Her hypotension however is much improved. She has been weaned off all her vasopressin of agents. She remains off mechanical ventilator. She still complains of abdominal pain and is restless and agitated from time to time. Review of Systems Review of Systems: All systems reviewed & are unremarkable except as noted in HPI and below Constitutional: Constitutional: Reports as per HPI, Reports daytime sleepiness and Denies fever(s) Cardiovascular: Cardiovascular: Reports no additional cardiovascular complaints, Denies chest pain and Denies dyspnea Respiratory: Respiratory: Reports no additional respiratory complaints, Denies cough and Denies dyspnea Gastrointestinal: Gastrointestinal: Reports abdominal pain, Denies nausea and Denies vomiting Neurologic: Reports confusion Psychiatric: Psychiatric: Reports as per HPI and Reports confusion Exam Const: General: no acute distress, awake, confusion, ill appearing and uncomfortable Nutritional Appearance: obese Orientation/consciousness: confusion and lethargic Limitations: altered mental status GI: Inspection: incision ( Dry, intact, no significant drainage, no hematoma, looks good.) and obesity GI Palp: Yes Firmness to palpation present (GI) and Yes Tenderness to palpation present (GI) Auscultation: absent bowel sounds Neuro: General: confusion Psych: Appearance: disheveled Speech and movement: Restless speech present Affect: Blunted affect present Insight: Poor insight present (Psych) Judgement: Poor judgement present (Psych) Objective Data Vital Signs Vital Signs: Vital Signs - 24 hr 01/24/21 14:00 01/24/21 16:00 01/24/21 17:01 Temperature 37.2 C Pulse Rate 133 H 125 H 125 H Respiratory Rate 28 H 27 H Blood Pressure 111/64 120/72 112/62 Pulse Oximetry 95 92 01/24/21 18:00 01/24/21 20:00 01/24/21 20:13 Temperature 36.1 C L Pulse Rate 120 H 114 H 119 H Respiratory Rate 27 H 29 H Blood Pressure 127/72 134/66 135/66 Pulse Oximetry 94 95 01/24/21 21:23 01/24/21 21:45 01/24/21 21:55 Temperature Pulse Rate 113 H 114 H 113 H Respiratory Rate 25 H Blood Pressure 130/69 116/87 Pulse Oximetry 94 01/24/21 22:00 01/24/21 22:15 01/24/21 22:30 Temperature 36.3 C L Pulse Rate 112 H 108 H 108 H Respiratory Rate 34 H Blood Pressure 123/72 123/77 136/65 Pulse Oximetry 94 01/24/21 22:45 01/24/21 22:54 01/24/21 23:00 Temperature Pulse Rate 108 H 108 H 106 H Respiratory Rate Blood P
[2021-01-25 15:03] LABS: Mean Corpuscular HGB Conc 30.8 g/dl (32-36); Mean Corpuscular Hemoglobin 26.5 pg (26-34); Mean Corpuscular Volume 86.1 fl (80-100); Mean Platelet Volume 11.1 fl (7.4-10.4); Platelet Count Result 81 k/mm3 (150-375); Red Blood Count 3.02 M/mm3 (4.2-5.4); Red Cell Distribution Width 18.2 % (11.5-14.5); White Blood Count 9.7 K/mm3 (4.5-10.0)
[2021-01-25 15:21] LABS: Anion Gap 9 mmol/L (8-16); Blood Urea Nitrogen 46 mg/dL (7-17); Calcium 7.7 mg/dL (8.4-10.2); Carbon Dioxide 33 mmol/L (22-30); Chloride 98 mmol/L (98-107); Estimated CRCL calculation 34 ml/min; Estimated Glomerular Filt Rate 16; Glucose 118 mg/dL (65-110); Sodium 140 mmol/L (137-145)
[2021-01-25 15:28] LABS: Potassium 4.1 mmol/L (3.4-5.0)
[2021-01-25 18:29] LABS: Glucose Point of Care 101 mg/dl (65-105)
[2021-01-25] MEDS: FLUCONAZOLE 100 MG/NACL 50 ML 100 MG/50 ML BTL 50 MG IVPB (18:42)
[2021-01-25 19:07] LABS: Hemoglobin 7.8 g/dL (12.0-15.0); Mean Corpuscular HGB Conc 31.2 g/dl (32-36); Mean Corpuscular Hemoglobin 26.3 pg (26-34); Mean Corpuscular Volume 84.2 fl (80-100); Platelet Count Result 77 k/mm3 (150-375); Red Blood Count 2.97 M/mm3 (4.2-5.4); Red Cell Distribution Width 18.2 % (11.5-14.5)
[2021-01-25 21:00] LABS: Glucose Point of Care 100 mg/dl (65-105)
[2021-01-26] VITALS (15 sets, daily range): BP systolic 111–144; BP diastolic 62–80; PULSE 106–117; RESP 22–38; TEMP 36.9–37.8; O2SAT 89–99; BMI 69.7
[2021-01-26] MEDS: ALBUMIN HUMAN 25% 25 GM/100 ML 100 ML IVPB ×2 (00:09→05:40)
[2021-01-26 00:22] LABS: Glucose Point of Care 101 mg/dl (65-105)
[2021-01-26] MEDS: SODIUM BICARBONATE 8.4% 150 MEQ in WATER, STERILE FOR INJECTION 950 ML IV CONT (02:14)
[2021-01-26] MEDS: HYDROmorphone HCL INJ (*CRX) 1 MG/ML SYR IV PUSH ×3 (03:06→22:10)
[2021-01-26 05:03] LABS: Hematocrit 25.2 % (37.0-47.0); Hemoglobin 7.8 g/dL (12.0-15.0); Immature Platelet Fraction Pct 5.5 % (0.9-11.2); Mean Corpuscular Hemoglobin 26.7 pg (26-34); Mean Corpuscular Volume 86.3 fl (80-100); Mean Platelet Volume 10.4 fl (7.4-10.4); Platelet Count Result 60 k/mm3 (150-375); Red Blood Count 2.92 M/mm3 (4.2-5.4); Red Cell Distribution Width 18.5 % (11.5-14.5); White Blood Count 7.2 K/mm3 (4.5-10.0)
[2021-01-26 05:11] LABS: INR 1.5
[2021-01-26 05:16] LABS: Alanine Aminotransferase 38 U/L (4-35); Albumin Level 3.7 g/dL (3.5-5.1); Alkaline Phosphatase 87 U/L (38-126); Anion Gap 8 mmol/L (8-16); Aspartate Amino Transferase 60 U/L (14-36); Bilirubin,Total 1.6 mg/dL (0.2-1.3); Blood Urea Nitrogen 49 mg/dL (7-17); Calcium 7.3 mg/dL (8.4-10.2); Carbon Dioxide 34 mmol/L (22-30); Chloride 97 mmol/L (98-107); Estimated CRCL calculation 36 ml/min; Estimated Glomerular Filt Rate 17; Glucose 116 mg/dL (65-110); Magnesium 1.8 mg/dL (1.6-2.3); Phosphorus 4.2 mg/dL (2.5-4.5); Sodium 139 mmol/L (137-145)
[2021-01-26] MEDS: CENTRAL LINE FLUSH 10 ML IV PUSH ×3 (05:40→20:50)
[2021-01-26] MEDS: LEVOTHYROXINE SODIUM INJ 100 MCG/5 ML VIAL 125 MCG IV PUSH (05:41)
[2021-01-26] MEDS: SODIUM CHLORIDE 0.9% IV 1,000 ML 75 ML IV CONT (08:05)
[2021-01-26] MEDS: CALCIUM CHLOR 1,000MG/100ML NS 1,000 MG/100 ML BAG 100 MG IVPB (08:21)
[2021-01-26] MEDS: PANTOPRAZOLE SODIUM IV 40 MG VIAL IV PUSH ×2 (08:26→20:49)
[2021-01-26 08:40] LABS: Glucose Point of Care 112 mg/dl (65-105)
--- NOTE | 2021-01-26 09:23 | PCOTNOTE ---
Attempted OT evaluation, patient unable to follow one step commands safety to complete OT evaluation at this time. will follow and attempt at later time.
--- NOTE | 2021-01-26 09:52 | PM.IMPN ---
Progress Note: A&P Additional Plan START OF DOCTOR TAJ?S PROGRESS NOTE Subjective: The patient is encephalopathic at the present time. Because of this I am unable to obtain information regarding symptomatology from her Objective: General: -Alert but encephalopathic -No acute distress -No dyspnea -mildly tachypnea -morbidly obese Heart: -iRegular rate -Regular rhythm -No murmurs -No gallops -No rubs Lungs: -No wheeze -No rhonchi -No rales Abdomen: -hypoactive bowel sounds in all 4 quadrants -No rebound -No guarding -tenderness to palpation of the periumbilical area and the right upper quadrant Extremities: -2/4 pulse in all four extremities -No clubbing -No cyanosis -No edema Additional Details / Additional Findings / Exceptions / Miscellaneous: Pertinent Laboratory Results / Pertinent Radiology Results / Pertinent Diagnostic Results / Pertinent Vital Signs: Heart rate 111 beats per minute, 89% on 5 L, respirations 36, hemoglobin 7.8, platelet count 43568, INR 1.5, creatinine 2.9, troponins 1.6, AST 60, ALT 38, calcium 7.63 Assessment / Plan: Acute perforated appendicitis. Patient status post January 23, 2021 with General surgery: exploratory laparoscopy, laparoscopic appendectomy, conversion to open laparotomy with right hemicolectomy and mobilization of hepatic flexure, extensive intra-abdominal washout. Zosyn 3.375 g IV q.6 hours Hypotension. IV normal saline 75 mL/hour Anemia. Will monitor hemoglobin level intermittently Thrombocytopenia. Monitor platelet count intermittently Pneumonia. Zosyn 3.375 g IV q.6 hours 3 cm right hepatic lobe mass. Outpatient follow-up with her retail cashier/oncologist Ileus. Nasogastric tube in place Gallbladder wall distention. Zosyn 3.375 g IV q.6 hours. Right upper quadrant ultrasound equivocal Cholelithiasis Coagulopathy. Will monitor PT/INR periodically Obesity. Patient counseled regarding lifestyle modification Anxiety Depression Acute renal insufficiency. Will monitor creatinine intermittently. IV normal saline 75 mL/hour Hypocalcemia. Will monitor calcium levels intermittently and supplements as necessary Transaminitis. Will monitor LFTs periodically with CMP along with PT/INR. Right upper quadrant ultrasound pending Hypothyroidism. Synthroid 125 mg IV daily. GI prophylaxis. Protonix 40 mg IV q.12 hours DVT prophylaxis. Lovenox 40 mg subcutaneously daily Disposition: END OF DOCTOR TAJ?S PROGRESS NOTE Subjective Date/time seen: 01/26/21 09:52 Objective Data Vital Signs Vital Signs: Vital Signs - 24 hr 01/25/21 10:00 01/25/21 12:00 01/25/21 14:00 Temperature 98.4 F Pulse Rate 112 H 109 H 109 H Respiratory Rate 35 H 28 H 32 H Blood Pressure 140/74 137/71 127/69 Pulse Oximetry 94 90 01/25/21 16:00 01/25/21 18:00 01/25/21 20:00 Temperature 98.2 F 98.0 F Pulse Rate 106 H 104 H 111 H Respiratory Rate 34 H 33 H 37 H Blood Pressure 134/68 138/79 140/78 Pulse Oximetry 91 90 01/25/21 22:00 01/25/21 23:57 01/26/21 00:00 Temperature 98.6 F Pulse Rate 112 H 106 H Respiratory Rate 28 H 33 H Blood Pressure 130/85 142/73 H Pulse Oximetry 90 93 94 01/26/21 02:00 01/26/21 04:00 01/26/21 06:00 Temperature 98.7 F Pulse Rate 109 H 114 H 108 H Respiratory Rate 33 H 29 H 31 H Blood Pressure 132/77 115/78 139/70 Pulse Oximetry 99 92 91 01/26/21 08:00 Temperature 98.5 F Pulse Rate 111 H Respiratory Rate 36 H Blood Pressure 136/80 Pulse Oximetry 89 L Intake/Output Intake/Output: Intake & Output 01/23/21 01/24/21 01/25/21 01/26/21 23:59 23:59 23:59 23:59 Intake Total 5950 7100 4040 2099.6 Output Total 755 836 3545 [facility] Balance 5340 6280 2100 1019.6 Meds/Results Medications: Active Medications Generic Name Dose Route Start Last Admin Trade Name Freq PRN Reason Stop Dose Admin Acetaminophen 650 mg 01/26/21 08:10 Acetaminophen 32
[2021-01-26] MEDS: CALCIUM GLUC 1,000 MG/NS 50 ML 1,000 MG/50 ML BAG 100 MG IVPB (10:45)
--- NOTE | 2021-01-26 11:01 | WPDINTPN ---
Progress Note: A&P Assessment and Plan (1) Septic shock: Code(s): A41.9 - Sepsis, unspecified organism; R65.21 - Severe sepsis with septic shock Status: Acute Assessment and Plan: Septic shock secondary to perforated cecum acute appendicitis and fecal peritonitis Patient has received significant amount of IV fluids And now currently off of vasopressors DC 25% albumin. Off hydrocortisone Her lactate has significantly improved Continue Zosyn and fluconazole IV Blood cultures have been sent and are negative (2) Acute kidney injury: Code(s): N17.9 - Acute kidney failure, unspecified Status: Acute Assessment and Plan: Likely prerenal versus ATN secondary to septic shock Her urine output has improved creatinine is trending down CT showed for small nonobstructing renal stones on the left and right but no hydronephrosis Patient is getting fluids bicarb for metabolic acidosis . Which I will DC Will discontinue IV fluids at this time Replace low calcium Monitor electrolytes urine output and creatinine (3) Peritonitis: Code(s): K65.9 - Peritonitis, unspecified Status: Deleted Assessment and Plan: Pain control p.r.n. Dilaudid (4) Acute appendicitis: Qualifiers: Acute appendicitis type: with generalized peritonitis Appendicitis abscess presence: unspecified whether abscess present Appendicitis gangrene presence: without gangrene Appendicitis perforation presence: with perforation Qualified Code(s): K35.20 - Acute appendicitis with generalized peritonitis, without abscess Code(s): K35.80 - Unspecified acute appendicitis Status: Deleted Assessment and Plan: See above (5) Perforation of cecum: Code(s): K35.32 - Acute appendicitis with perforation and localized peritonitis, without abscess Status: Acute Assessment and Plan: See above (6) Anemia: Code(s): D64.9 - Anemia, unspecified Status: Acute Assessment and Plan: Patient's hemoglobin was 8.8 yesterday when she presented hemoglobin was 11.5 which increased to 13.6 after surgery which was likely from hemoconcentration from hypovolemia. Hemoglobin 8.8 10/10 could be dilutional versus bleeding. Patient did receive significant amount IV fluids for her septic shock She did not had any significant output from her NG tube when it was in place. Patient was sent for CT scan but she was too big for our CT scanner and did not fit. Her hemoglobin was monitored q.4 hours and has only gradually trended down to 7.8 this morning. Patient also remains off of vasopressors and has stable blood pressure suggesting against any active bleeding Continue monitoring but less frequent and transfuse if less than 7 Patient is morbidly obese hence making abdominal exam limited Continue to hold Lovenox and use SCDs Continue PPI IV q.12 hours Transfuse if needed (7) Thrombocytopenia: Code(s): D69.6 - Thrombocytopenia, unspecified Status: Acute Assessment and Plan: Likely secondary to sepsis and antibiotics Changed Pepcid to Protonix Monitor platelet levels Continue to hold Lovenox (8) Delirium: Code(s): R41.0 - Disorientation, unspecified Status: Acute Assessment and Plan: Patient mildly confused as she is alert oriented x1, repeats answers, pulled out NG multiple times yesterday But on orientation she is able to answer questions Likely delirium from surgery anesthesia pain and metabolic derangements Continue monitor Sitter at bedside Avoid sedative except pain control (9) Liver mass: Code(s): R16.0 - Hepatomegaly, not elsewhere classified Status: Acute Assessment and Plan: Management as outpatient per physician team at [facility] (10) Hypothyroidism: Code(s): E03.9 - Hypothyroidism, unspecified Status: Chronic Assessment and Plan: Continue levothyroxine IV TSH, T3 and T4 ordered (11) Atelectas
[2021-01-26 11:47] LABS: Glucose Point of Care 113 mg/dl (65-105)
--- NOTE | 2021-01-26 13:38 | PM.PNGS ---
Progress Note: A&P Assessment and Plan (1) Perforation of cecum: Code(s): K35.32 - Acute appendicitis with perforation and localized peritonitis, without abscess Status: Acute Assessment and Plan: S/p lap appendectomy converted to open laparotomy with right hemicolectomy, POD3 and slowly improving. No longer requiring vasopressors. NG left out and soft-wrist restraints have been discontinued. Bowels reportedly moved yesterday. Will order a bedside swallow evaluation and if she passes, then she can start a clear liquid diet. Plan to transfer her out of the ICU today to med/surg with telemetry. Agree with PT/OT orders to start increasing activity and get her out of bed, which will be difficult given her abdominal pain and morbid obesity. Continue post-op management. Encourage IS use from staff given her delirium. Pathology pending. Repeat labs tomorrow. (2) Septic shock: Code(s): A41.9 - Sepsis, unspecified organism; R65.21 - Severe sepsis with septic shock Status: Acute Assessment and Plan: Secondary to #1 above. Continue IV antibiotics. WBC normal. Blood cx NGTD. Urine output improving. No longer requiring vasopressors and blood pressure is stable. (3) Fecal peritonitis: Code(s): K65.8 - Other peritonitis Status: Acute Assessment and Plan: Source controlled but still has severe peritonitis and abdominal pain. Continue IV abx and analgesics PRN. See plan above. (4) Delirium: Code(s): R41.0 - Disorientation, unspecified Status: Acute Assessment and Plan: Multifactorial. (5) Acute kidney injury: Code(s): N17.9 - Acute kidney failure, unspecified Status: Acute Assessment and Plan: Urine output continues to improve. Creatinine down to 2.9 today. Monitor labs. Additional Plan I have discussed the plan of care with Dr. Gong. Subjective Subjective Date/Time Seen: 01/26/21 11:38 Post Op day: 3 (exploratory laparoscopy, laparoscopic appendectomy, conversion to open laparotomy with right hemicolectomy and mobilization of hepatic flexure, extensive intra-abdominal washout) Patient reports: still having pain, flatus, bowel movement (bowels have moved since surgery, none reported yet today) and afebrile Interval history: 55 yo F who presented to the ER with abdominal pain and CT scan suggested possible perforated appendicitis. She was taken to the OR on 01/23/[address] Gong and had an exploratory laparoscopy, laparoscopic appendectomy, conversion to open laparotomy with right hemicolectomy and mobilization of hepatic flexure, extensive intra-abdominal washout. She was found to have a perforated cecum in surgery with fecal peritonitis. Following surgery, she was hypotensive on vasopressor requirements and in the ICU. She has had issues with encephalopathy and had pulled her NG tube out on multiple occasions. Due to inability to place the NG tube yesterday and her moving her bowels, this has remained out and she is currently NPO. The patient has had a sitter at the beside due to her delirium and pulling at lines/tubes, for her safety. Patient seen and examined today in the ICU with a sitter at the bedside. She is alert and oriented to the year and self, but does not answer appropriately to most of the rest of the questions I asked her, such as when asked to name the president she would answer yes. She did say yes to having pain but could not tell me where. At one point, she said all over pain . She could not follow commands to point to where she is having pain. Per the sitter and nurse, she has not had a BM today and no vomiting. No acute events overnight. She is no longer on vasopressors. She has not ambulated since surgery. Review of Systems Review of Systems: ROS unobtainable: Yes unobtainable due to medical condition Exam Const: General: comfortable, no acute distress, alert and awake Orientation/consciousness: oriented to person, No oriented to place, or
--- NOTE | 2021-01-26 16:00 | PCSTNOTE ---
Please refer to the Bedside Swallow Evaluation in the EMR. Please note, silent aspiration cannot be ruled out at bedside.
--- NOTE | 2021-01-26 16:12 | PC.NURSE ---
This patient, Tori Miller, was transferred to [ [facility]] on 01/26/21 at 1610. Personal belongings sent with patient. Report given to [ JUANY Sharp @ [phone]]. Appropriate documentation sent with patient.
[2021-01-26 16:38] LABS: Glucose Point of Care 106 mg/dl (65-105)
[2021-01-26 17:35] LABS: Hematocrit 25.2 % (37.0-47.0); Hemoglobin 7.8 g/dL (12.0-15.0); Immature Platelet Fraction Pct 7.4 % (0.9-11.2); Mean Corpuscular Hemoglobin 26.8 pg (26-34); Mean Corpuscular Volume 86.6 fl (80-100); Mean Platelet Volume 10.5 fl (7.4-10.4); Platelet Count Result 53 k/mm3 (150-375); Red Blood Count 2.91 M/mm3 (4.2-5.4); Red Cell Distribution Width 18.4 % (11.5-14.5); White Blood Count 6.6 K/mm3 (4.5-10.0)
[2021-01-26] MEDS: FLUCONAZOLE 100 MG/NACL 50 ML 100 MG/50 ML BTL 50 MG IVPB (17:48)
[2021-01-26 20:45] LABS: Glucose Point of Care 142 mg/dl (65-105)
[2021-01-27] VITALS (13 sets, daily range): BP systolic 131–145; BP diastolic 73–91; PULSE 93–104; RESP 18–22; TEMP 36.6–37.2; O2SAT 95–98; BMI 11.0
[2021-01-27] MEDS: CENTRAL LINE FLUSH 20 ML IV PUSH (05:08)
[2021-01-27 05:22] LABS: Hematocrit 24.8 % (37.0-47.0); Hemoglobin 7.6 g/dL (12.0-15.0); Immature Platelet Fraction Pct 7.1 % (0.9-11.2); Mean Corpuscular HGB Conc 30.6 g/dl (32-36); Mean Corpuscular Hemoglobin 26.5 pg (26-34); Mean Corpuscular Volume 86.4 fl (80-100); Mean Platelet Volume 10.6 fl (7.4-10.4); Platelet Count Result 47 k/mm3 (150-375); Red Blood Count 2.87 M/mm3 (4.2-5.4); Red Cell Distribution Width 18.5 % (11.5-14.5)
[2021-01-27 05:41] LABS: INR 1.4; Prothrombin Time 16.8 Seconds (11.1-14.7)
[2021-01-27 05:46] LABS: Alanine Aminotransferase 36 U/L (4-35); Albumin Level 3.5 g/dL (3.5-5.1); Alkaline Phosphatase 92 U/L (38-126); Anion Gap 11 mmol/L (8-16); Aspartate Amino Transferase 45 U/L (14-36); Bilirubin,Total 1.3 mg/dL (0.2-1.3); Blood Urea Nitrogen 50 mg/dL (7-17); Calcium 7.5 mg/dL (8.4-10.2); Carbon Dioxide 33 mmol/L (22-30); Chloride 98 mmol/L (98-107); Estimated CRCL calculation 33 ml/min; Estimated Glomerular Filt Rate 15; Glucose 141 mg/dL (65-110); Phosphorus 3.9 mg/dL (2.5-4.5); Potassium 3.6 mmol/L (3.4-5.0); Sodium 142 mmol/L (137-145)
[2021-01-27] MEDS: CENTRAL LINE FLUSH 10 ML IV PUSH ×3 (06:00→20:39)
[2021-01-27] MEDS: LEVOTHYROXINE SODIUM INJ 100 MCG/5 ML VIAL 125 MCG IV PUSH (06:01)
[2021-01-27 06:54] LABS: Glucose Point of Care 136 mg/dl (65-105)
[2021-01-27] MEDS: PANTOPRAZOLE SODIUM IV 40 MG VIAL IV PUSH ×2 (08:22→20:37)
--- NOTE | 2021-01-27 09:48 | PCPTNOTE ---
On 01/27/21, the student, Adolfo Waldrop, provided care and completed [facility] documentation on this patient. I have reviewed the student's documentation and agree with the findings.
--- NOTE | 2021-01-27 10:30 | PM.PNGS ---
Progress Note: A&P Assessment and Plan (1) Perforation of cecum: Code(s): K35.32 - Acute appendicitis with perforation and localized peritonitis, without abscess Status: Acute Assessment and Plan: S/p lap appendectomy converted to open laparotomy with right hemicolectomy, POD4 and slowly improving. Will start advancing diet as tolerated to soft diet. Ok to switch to oral medications and restart home meds per medicine. Continue IV antibiotics and IV fluconazole. She is deconditioned. Continue PT/OT to increase activity/mobilize patient. Will consult care coordination for possible placement after discharge for rehab. Pathology noted and was discussed with patient by Dr. Gong today. (Moderately differentiated colonic adenocarcinoma with perforation, pT4a pNO pMX) (2) Septic shock: Code(s): A41.9 - Sepsis, unspecified organism; R65.21 - Severe sepsis with septic shock Status: Acute Assessment and Plan: Secondary to #1 above. Continue IV antibiotics. WBC normal. Blood cx NGTD. Hemodynamically stable. Low-grade fever 100.1F last night, which resolved. Tachycardia also improving. She had a chest x-ray yesterday showing pulmonary congestion and possible pneumonia/atelectasis -- management per Hospitalist. Continue to encourage IS use. Oxygen requirement coming down. If fever recurs, then need to consider further workup with UA and/or repeat chest x-ray. (3) Fecal peritonitis: Code(s): K65.8 - Other peritonitis Status: Acute Assessment and Plan: See plan above. (4) Delirium: Code(s): R41.0 - Disorientation, unspecified Status: Acute Assessment and Plan: Improving. Much more alert and answering questions appropriately today. If continues to improve, may be able to stop using the sitter. (5) Acute kidney injury: Code(s): N17.9 - Acute kidney failure, unspecified Status: Acute Assessment and Plan: Urine output continues to improve. Creatinine 3.2 today. Management per hospitalist, monitor labs. Additional Plan I have discussed the plan of care with Dr. Gong. Subjective Subjective Date/Time Seen: 01/27/21 10:30 Post Op day: 4 Patient reports: no new complaints, feels better, tolerating liquids well, flatus and fever (100.1F last night, afebrile this morning) Interval history: Patient seen and examined this morning. Overall, she looks better. She is more alert and is oriented x 3 today. She is able to answer questions appropriately. She does not recall coming into the hospital or that she had surgery, but other memory seems more intact today. She reports still having some abdominal pain but appears more comfortable this morning. Reports some shortness of breath at rest, but no cough or sputum production. No chest pain or calf pain. She passed her swallow test yesterday and is tolerating liquids. Reports flatus but cannot recall if she had a BM overnight or this morning. Per the sitter, she worked with PT this morning and was able to sit on the side of the bed, still has not gotten up to chair or ambulated. Review of Systems Review of Systems: All systems reviewed & are unremarkable except as noted in HPI and below Constitutional: Constitutional: Reports as per HPI, Reports no additional constitutional complaints and Denies chills Cardiovascular: Cardiovascular: Reports no additional cardiovascular complaints, Denies chest pain and Denies leg edema Respiratory: Respiratory: Reports no additional respiratory complaints, Denies cough and Reports dyspnea Gastrointestinal: Gastrointestinal: Reports as per HPI and Reports no additional gastrointestinal complaints Neurologic: Reports system reviewed and no additional complaints, except as documented, Denies Abnormal speech present and Denies focal weakness Exam Const: General: comfortable, no acute distress, alert and awake Nutritional Appearance: obese Orientation/consciousness: patient oriented x3 Re
--- NOTE | 2021-01-27 11:22 | PC.NURSE ---
Pt's brother, Rikki, called asking about an update on pt. I answered his questions and informed him that we are still waiting on the pathology report. I also updated him on pt's lack of orientation. He asked if pt's sister called between 3-4pm today, if it could be put on speaker phone so pt could hear everyone's voices.
--- NOTE | 2021-01-27 12:22 | PM.IMPN ---
Progress Note: A&P Assessment and Plan (1) Liver mass: Code(s): R16.0 - Hepatomegaly, not elsewhere classified Status: Acute (2) Hypothyroidism: Code(s): E03.9 - Hypothyroidism, unspecified Status: Chronic (3) Morbid obesity due to excess calories: Code(s): E66.01 - Morbid (severe) obesity due to excess calories Status: Chronic (4) Septic shock: Code(s): A41.9 - Sepsis, unspecified organism; R65.21 - Severe sepsis with septic shock Status: Acute (5) Fecal peritonitis: Code(s): K65.8 - Other peritonitis Status: Acute (6) Delirium: Code(s): R41.0 - Disorientation, unspecified Status: Acute Additional Plan Acute perforated appendicitis. Patient status post January 23, 2021 with General surgery: exploratory laparoscopy, laparoscopic appendectomy, conversion to open laparotomy with right hemicolectomy and mobilization of hepatic flexure, extensive intra-abdominal washout. Zosyn 3.375 g IV q.6 hours Anemia. Hb is 7 today continue to watch Thrombocytopenia. Monitor platelet count intermittently Pneumonia. Zosyn 3.375 g IV q.6 hours 3 cm right hepatic lobe mass. Outpatient follow-up with her cable coverer/oncologist Ileus. resolved sp NG tube Gallbladder wall distention. Zosyn 3.375 g IV q.6 hours. Right upper quadrant ultrasound equivocal Cholelithiasis Coagulopathy. Will monitor PT/INR periodically Obesity. Patient counseled regarding lifestyle modification Anxiety Depression Acute renal insufficiency. creat is 3.2 IV normal saline 75 mL/hour Hypocalcemia. continue to watch Transaminitis. Will monitor LFTs periodically with CMP along with PT/INR. Right upper quadrant ultrasound pending Hypothyroidism. Synthroid 125 mg IV daily. Subjective Date/time seen: 01/27/21 12:22 Interval history: From admission history and physical 55 y/o F c multiple med issues including morbid obesity presenting to ED c/o sudden onset of RLQ abd pain. It was reported that the patient was recently at [facility] and she had a CT scan and MRI and was told that she has a mass on her liver and a bowel obstruction and was discharged to home with these findings. She has had a history of gastric bypass as well. Patient was admitted for acute appendicitis with perforation and localized peritonitis without abscess. Pt had rapid response was admitted to ICU was on pressors for septic shock. pt is pod day 4 S/p lap appendectomy converted to open laparotomy with right hemicolectomy. pathology report shows Moderately differentiated colonic adenocarcinoma. Pt is out of icu but has been pulling at her lines and drain, and appears vague with her answers. sitter in the room. Continue to watch closely Review of Systems Review of Systems: All systems reviewed & are unremarkable except as noted in HPI and below Exam Const: General: cooperative, ill appearing and other (tired vague ) Nutritional Appearance: other (morbidly obese) Resp: Effort & Inspection: normal respiratory effort Auscultation: clear to auscultation bilaterally Percussion: percussion normal Cardio: Palpation: normal PMI Rate: regular rate Rhythm: regular rhythm Heart sounds: S1 normal heart sound present and S2 normal heart sound present Peripheral pulses: Peripheral pulses 2+ throughout Skin: Wounds: wounds noted (dressing to mid abd d/i) Neuro: General: oriented to person Cranial nerves: Yes Equal, round and reactive pupils present and Yes Normal hearing present Extrem: General: normal to inspection Right upper extremity: normal to inspection Left upper extremity: normal to inspection Psych: Attitude: cooperative Insight: Limited insight present (Psych) Judgement: Limited judgement present (Psych) Objective Data Vital Signs Vital Signs: Vital Signs - 24 hr 01/26/21 14:00 01/26/21 16:10 01/26/21 16:15 Temperature 37.2 C Pulse Rate 107 H 107 H 108 H Respirato
[2021-01-27] MEDS: SODIUM CHLORIDE 0.9% IV 1,000 ML 100 ML IV CONT (12:52)
[2021-01-27 13:13] LABS: Glucose Point of Care 144 mg/dl (65-105)
[2021-01-27] MEDS: FLUCONAZOLE 100 MG/NACL 50 ML 100 MG/50 ML BTL IVPB (17:17)
[2021-01-27 17:32] LABS: Glucose Point of Care 116 mg/dl (65-105)
[2021-01-27 20:34] LABS: Glucose Point of Care 114 mg/dl (65-105)
[2021-01-27] MEDS: HYDROmorphone HCL INJ (*CRX) 1 MG/ML SYR IV PUSH (21:35)
[2021-01-28] VITALS (10 sets, daily range): BP systolic 131–146; BP diastolic 66–84; PULSE 86–100; RESP 20–22; TEMP 36.2–37; O2SAT 90–98
[2021-01-28 05:00] LABS: Hematocrit 26.8 % (37.0-47.0); Hemoglobin 8.2 g/dL (12.0-15.0); Immature Platelet Fraction Pct 8.3 % (0.9-11.2); Mean Corpuscular HGB Conc 30.6 g/dl (32-36); Mean Corpuscular Hemoglobin 26.8 pg (26-34); Mean Corpuscular Volume 87.6 fl (80-100); Mean Platelet Volume 11.1 fl (7.4-10.4); Platelet Count Result 52 k/mm3 (150-375); Red Blood Count 3.06 M/mm3 (4.2-5.4); Red Cell Distribution Width 18.6 % (11.5-14.5); White Blood Count 6.4 K/mm3 (4.5-10.0)
[2021-01-28 05:13] LABS: Alanine Aminotransferase 30 U/L (4-35); Alkaline Phosphatase 90 U/L (38-126); Anion Gap 6 mmol/L (8-16); Aspartate Amino Transferase 37 U/L (14-36); Blood Urea Nitrogen 53 mg/dL (7-17); Calcium 7.2 mg/dL (8.4-10.2); Carbon Dioxide 35 mmol/L (22-30); Chloride 100 mmol/L (98-107); Estimated CRCL calculation 41 ml/min; Estimated Glomerular Filt Rate 17; Glucose 114 mg/dL (65-110); Phosphorus 3.6 mg/dL (2.5-4.5); Potassium 3.4 mmol/L (3.4-5.0); Sodium 141 mmol/L (137-145)
[2021-01-28] MEDS: SODIUM CHLORIDE 0.9% IV 1,000 ML 100 ML IV CONT ×2 (05:18→18:21)
[2021-01-28] MEDS: CENTRAL LINE FLUSH 10 ML IV PUSH ×2 (05:45→12:21)
[2021-01-28] MEDS: CENTRAL LINE FLUSH 20 ML IV PUSH (05:45)
[2021-01-28] MEDS: LEVOTHYROXINE SODIUM INJ 100 MCG/5 ML VIAL 125 MCG IV PUSH (06:13)
[2021-01-28 06:43] LABS: Glucose Point of Care 123 mg/dl (65-105)
[2021-01-28] MEDS: PANTOPRAZOLE SODIUM IV 40 MG VIAL IV PUSH ×2 (08:22→20:39)
[2021-01-28] MEDS: HYDROmorphone HCL INJ (*CRX) 1 MG/ML SYR IV PUSH ×3 (08:34→20:48)
[2021-01-28] MEDS: ONDANSETRON INJ 4 MG/2 ML VIAL IV PUSH (08:34)
--- NOTE | 2021-01-28 10:04 | PC.NURSE ---
At approximately 0830, I passed pt's meds at which time pt was alert, awake, oriented x4. Pt stated she was nauseated and had back pain of 8/10. Pt stated she did not feel any more short of breath than normal. The CHIEF PSYCHOLOGIST came in and took pt's vitals at that same approximate time of which I observed pt's oxygenation was 90% and the wall oxygen meter showed 3L. I finished passing meds and assessing pt before leaving briefly to obtain pain and nausea meds for pt. I returned, passed the additional meds, and talked with pt for approximately 10 more minutes. During this time, pt was alert, oriented, talkative, and showing no signs of distress. I returned to the room approximately an hour later to assess the effectiveness of the pain med and found pt sleeping. Pt began stirring so I called her name and asked her about her pain level. Pt answered but her breathing seemed labored. I asked her if she was feeling short of breath to which she replied no. I applied a pulse ox to pt's left hand and it showed a pulse of 107 and oxygenation at 71%. I tried a different finger but got the same results. I tried a different hand and got the same results. I was talking to pt the entire time. I applied the pulse ox reader to my finger thinking the machine may be malfunctioning but the readings immediately changed to 80 and 100%. I asked pt again if she was feeling short of breath to which she replied that she was not. I reapplied the pulse ox to pt's finger and went and called for assistance. Another RN came to help and began assessing the situation. It was during this time that I noticed that the humidifier was not connected and the tubing was tucked along side the mattress. Assuming that there may be a kink in the oxygen tubing, I followed the tubing and removed it free from the bed (it was not kinked) and followed it to its source. It was at this time that I discovered that the oxygen tubing was run through the cpap machine beside pt's bed and the machine was turned off. The oxygen tubing from the wall distribution was not connected to the pt but to the cpap machine that was not connected to the pt. I immediately disconnected the tubing from the machine, connected it to the pt, and then to the wall distribution nozzle. At the instruction of the experienced RN who was assisting, I raised the oxygen level to 6L so pt could catch up. WPt's oxygenation immediately jumped up to within normal levels
--- NOTE | 2021-01-28 10:27 | PC.NURSE ---
I stayed with pt for 20 minutes with pulse ox continuously monitoring pt's levels to ensure that she has returned to within acceptable levels. On 4L of humidified nasal cannula oxygen, pt has been satting between 96-97. I lowered pt's oxygen down to 3L and it dropped to 94-95%. I will continue to monitor
[2021-01-28] MEDS: ALBUTEROL SULFATE (*SP) AEROSOL 1 PUFF 2 PUFF INHALATION (10:38)
--- NOTE | 2021-01-28 10:47 | PCDIET ---
Nutrition Follow-Up Complete: Nutrition Diagnosis: Inadequate oral intake related to appendicitis, peritonitis as evidenced by NPO diet. Nutrition Goal: Patient to meet estimated nutritional needs. Goal in progress. Patient reports tolerating full liquid diet, but eating little. Recommend 4oz Ensure Compact (220kcal, 9g protein) TID with meals. Patient agreeable to this. Last recorded weight is 238.5 kg which is significantly increased, possibly related to change in bed/scale. Bowel Motility: No documented BM. Labs Reviewed: RBC (3.06), Hgb (8.2), Ht (26.8), Glu (114), BUN (53), Cr (2.9), Alb (3.0), Gertrude Ca (8.0) Meds Noted: Albuterol, Diflucan, Dilaudid, Synthroid, Protonix, Zosyn Additional Notes: WILLIAM drain and incision to abdomen. Coccyx with friction area. Will continue to monitor with same goal. Nutrition Monitoring and Evaluation: Follow up every 5 days.
[2021-01-28 11:49] LABS: Glucose Point of Care 130 mg/dl (65-105)
--- NOTE | 2021-01-28 12:00 | PM.IMPN ---
Progress Note: A&P Assessment and Plan (1) Liver mass: Code(s): R16.0 - Hepatomegaly, not elsewhere classified Status: Acute Assessment and Plan: SEE BELOW (2) Hypothyroidism: Code(s): E03.9 - Hypothyroidism, unspecified Status: Chronic (3) Morbid obesity due to excess calories: Code(s): E66.01 - Morbid (severe) obesity due to excess calories Status: Chronic (4) Septic shock: Code(s): A41.9 - Sepsis, unspecified organism; R65.21 - Severe sepsis with septic shock Status: Acute Assessment and Plan: SEE BELOW (5) Fecal peritonitis: Code(s): K65.8 - Other peritonitis Status: Acute (6) Delirium: Code(s): R41.0 - Disorientation, unspecified Status: Acute Additional Plan Delirium improving post op day 5, sitter can be removed from room. Acute perforated appendicitis. Sp surgery January 23, 2021: exploratory laparoscopy, laparoscopic appendectomy, conversion to open laparotomy with right hemicolectomy and mobilization of hepatic flexure, extensive intra-abdominal washout for fecal peritonitis . 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 Anemia. Hb is 8 today continue to watch Thrombocytopenia. Monitor platelet count intermittently, low at 52 today Pneumonia. Zosyn 3.375 g IV q.6 hours, lactic level was high secondary to septic shock pt was in icu on vasopressors Septic shock resolved. 3 cm right hepatic lobe mass. Outpatient follow-up with her sewer maintenance supervisor/oncologist. Pt was meant to have a biopsy. Ileus. resolved sp NG tube Gallbladder wall distention. Zosyn 3.375 g IV q.6 hours. Right upper quadrant ultrasound equivocal Cholelithiasis Coagulopathy. Will monitor PT/INR intermittently Obesity. Patient counseled regarding lifestyle modification Anxiety chronic and stable Depression chronic and stable Acute renal insufficiency. creat is 2.9 IV normal saline 75 mL/hour Hypocalcemia. continue to watch Transaminitis. Will monitor LFTs periodically with CMP along with PT/INR. Right upper quadrant ultrasound pending Hypothyroidism. Synthroid 125 mg IV daily. Subjective Date/time seen: 01/28/21 12:00 Interval history: From admission history and physical 55 y/o F c multiple med issues including morbid obesity presenting to ED c/o sudden onset of RLQ abd pain. It was reported that the patient was recently at [facility] and she had a CT scan and MRI and was told that she has a mass on her liver and a bowel obstruction and was discharged to home with these findings. She has had a history of gastric bypass as well. Patient was admitted for acute appendicitis with perforation and localized peritonitis without abscess. Pt had rapid response was admitted to ICU was on pressors for septic shock. pt is pod day 5 S/p lap appendectomy converted to open laparotomy with right hemicolectomy. pathology report shows Moderately differentiated colonic adenocarcinoma. Pt looks less confused today, surgery has informed her of the pathology results. Pt does not appear aware when i talked to her. Review of Systems Review of Systems: All systems reviewed & are unremarkable except as noted in HPI and below Exam Const: General: cooperative, ill appearing and other (tired vague ) Nutritional Appearance: other (morbidly obese) Orientation/consciousness: oriented to person Eyes: Pupils: Equal, round and reactive pupils present Resp: Effort & Inspection: normal respiratory effort Auscultation: clear to auscultation bilaterally Cardio: Rate: regular rate Rhythm: regular rhythm Heart sounds: S1 normal heart sound present and S2 normal heart sound present Peripheral pulses: Peripheral pulses 2+ throughout GI: Inspection: other (pannus ) Skin: Wounds: no wounds (wounds to mid abdomen, pig tail drain in situ ) Neuro: General: orie
--- NOTE | 2021-01-28 12:10 | PM.PNGS ---
Progress Note: A&P Assessment and Plan (1) Perforation of cecum: Code(s): K35.32 - Acute appendicitis with perforation and localized peritonitis, without abscess Status: Acute Assessment and Plan: path reviewed, will get CEA, ?liver mets vs abscess, will need further oncologic workup as outpt, cont to encourage po, work on disposition Subjective Subjective Date/Time Seen: 01/28/21 12:10 much more alert today, jessie full liquids Review of Systems Review of Systems: All systems reviewed & are unremarkable except as noted in HPI and below Exam Const: General: cooperative, comfortable, no acute distress and ill appearing Nutritional Appearance: obese Orientation/consciousness: patient oriented x3 Resp: Effort & Inspection: normal respiratory effort Auscultation: diminished lung sounds Cardio: Rate: regular rate Rhythm: regular rhythm GI: Inspection: normal to inspection, distended and incision GI Palp: Yes Soft to palpation and Yes Tenderness to palpation present (GI) Other: soft, sl dist, trav TTP, incision C/D/I, WILLIAM c mod s/s output Objective Data Vital Signs Vital Signs: Vital Signs - 24 hr 01/27/21 14:00 01/27/21 16:00 01/27/21 19:34 Temperature 37.2 C 36.6 C Pulse Rate 101 H 99 93 Respiratory Rate 18 22 H Blood Pressure 145/91 H 144/74 H Pulse Oximetry 96 98 01/27/21 19:40 01/27/21 20:00 01/27/21 20:06 Temperature Pulse Rate 93 93 Respiratory Rate 22 H Blood Pressure Pulse Oximetry 98 98 01/27/21 21:30 01/28/21 00:00 01/28/21 02:21 Temperature 36.6 C Pulse Rate 95 Respiratory Rate 20 Blood Pressure 134/66 Pulse Oximetry 97 92 97 01/28/21 03:35 01/28/21 04:00 01/28/21 08:00 Temperature 36.2 C L 37.0 C Pulse Rate 96 90 95 Respiratory Rate 22 H 22 H Blood Pressure 143/70 H 146/84 H Pulse Oximetry 90 90 01/28/21 10:36 Temperature Pulse Rate Respiratory Rate Blood Pressure Pulse Oximetry 93 Intake/Output Intake/Output: Intake & Output 01/25/21 01/26/21 01/27/21 01/28/21 23:59 23:59 23:59 23:59 Intake Total 4040 2950.0 1910 1460 Output Total 1940 1950 1780 935 Balance 2100 1000.0 130 525 Meds/Results Medications: Active Medications Generic Name Dose Route Start Last Admin Trade Name Freq PRN Reason Stop Dose Admin Acetaminophen 650 mg 01/26/21 08:10 Acetaminophen 325 Mg Tablet PO Q4H PRN Fever Albuterol 2 puff 01/23/21 16:49 01/28/21 10:38 Albuterol Sulfate (*Sp) Aerosol 1 Puff INHALATION 2 puff Q6HRT PRN Administration Shortness Of Breath Dextrose 12.5 gm 01/24/21 14:38 Dextrose 50% 25 Gm/50 Ml Syringe IV PUSH PRN PRN Hypoglycemia Protocol Enoxaparin Sodium 40 mg 01/23/21 09:00 01/24/21 09:16 Enoxaparin 40 Mg/0.4 Ml Syringe SUB-Q 40 mg DAILY MAGGIE Administration Glucagon 1 mg 01/24/21 14:38 Glucagon For Inj 1 Mg Vial IM PRN PRN Hypoglycemia Protocol Glucose 15 gm 01/24/21 14:38 Glucose Oral Gel 15 Gm Of Glucse In 37.5 Gm Tube PO PRN PRN Hypoglycemia Protocol Hydromorphone HCl 0.5 mg 01/23/21 06:46 01/25/21 21:26 Hydromorphone Hcl Inj (*Crx) 1 Mg/Ml Syr IV PUSH 0.5 mg Q2H PRN Administration Pain Rated 4-6 Hydromorphone HCl 1 mg 01/23/21 06:46 01/28/21 08:34 Hydromorphone Hcl Inj (*Crx) 1 Mg/Ml Syr IV PUSH 1 mg Q3H PRN Administration Pain Rated 7-10 Fluconazole/Dextrose 100 mg in 50 mls @ 50 mls/hr 01/23/21 18:00 01/27/21 18:00 Diflucan 100 Mg/Nacl 50 Ml IVPB Infused QPM MAGGIE Infusion Dextrose 1,000 mls @ 100 mls/hr 01/24/21 14:38 Dextrose 5% 1,000 Ml IVPB PRN PRN Hypoglycemia Protocol Piperacillin Sod/Tazobactam Sod 2.25 gm in 50 mls @ 100 mls/hr 01/27/21 06:00 01/28/21 06:15 Zosyn 2.25 Gm/D5w 50 Ml IVPB Infused Q6HR MAGGIE Infusion Sodium Chloride 1,000 mls @ 100 mls/hr 01/27/21 12:35 01/28/21 08:22 Normal Saline Iv IV CONT No
[2021-01-28 13:10] LABS: Carcinoembryonic Antigen 22.7 ng/mL (0.0-3.0)
--- NOTE | 2021-01-28 13:54 | PC.NURSE ---
Slight discrepancy noted in patients documented weight from admission versus most recent documentation. Patent was hoyered out of bed, bed zeroed, and pt reweighed. Weight reading at 198kg.
--- NOTE | 2021-01-28 14:10 | PC.NURSE ---
Pt's brother, Rikki, called for an update on pt's condition. I answered his questions. I also informed him that pt is now alert and oriented x4. Rikki had additional questions regarding rehab placement for pt so I directed him to care coordination as they would be more informed to answer his specific questions.
[2021-01-28 17:08] LABS: Glucose Point of Care 129 mg/dl (65-105)
[2021-01-28] MEDS: FLUCONAZOLE 100 MG/NACL 50 ML 100 MG/50 ML BTL 50 MG IVPB (18:08)
[2021-01-28 20:59] LABS: Glucose Point of Care 128 mg/dl (65-105)
[2021-01-29] VITALS (17 sets, daily range): BP systolic 126–147; BP diastolic 59–81; PULSE 81–98; RESP 18–24; TEMP 33.2–37.3; O2SAT 92–100
[2021-01-29] MEDS: CENTRAL LINE FLUSH 10 ML IV PUSH ×4 (00:12→22:45)
[2021-01-29] MEDS: LEVOTHYROXINE SODIUM INJ 100 MCG/5 ML VIAL 125 MCG IV PUSH (05:43)
[2021-01-29 06:43] LABS: Hematocrit 27.8 % (37.0-47.0); Hemoglobin 8.5 g/dL (12.0-15.0); Mean Corpuscular HGB Conc 30.6 g/dl (32-36); Mean Corpuscular Hemoglobin 26.5 pg (26-34); Mean Corpuscular Volume 86.6 fl (80-100); Mean Platelet Volume 11.7 fl (7.4-10.4); Platelet Count Result 60 k/mm3 (150-375); Red Blood Count 3.21 M/mm3 (4.2-5.4); Red Cell Distribution Width 18.5 % (11.5-14.5); White Blood Count 7.8 K/mm3 (4.5-10.0)
[2021-01-29 07:00] LABS: Alanine Aminotransferase 28 U/L (4-35); Albumin Level 2.7 g/dL (3.5-5.1); Alkaline Phosphatase 108 U/L (38-126); Anion Gap 5 mmol/L (8-16); Aspartate Amino Transferase 38 U/L (14-36); Bilirubin,Total 0.8 mg/dL (0.2-1.3); Blood Urea Nitrogen 52 mg/dL (7-17); Calcium 7.2 mg/dL (8.4-10.2); Carbon Dioxide 34 mmol/L (22-30); Chloride 99 mmol/L (98-107); Estimated CRCL calculation 43 ml/min; Estimated Glomerular Filt Rate 21; Glucose 115 mg/dL (65-110); Magnesium 1.9 mg/dL (1.6-2.3); Phosphorus 3.4 mg/dL (2.5-4.5); Potassium 3.5 mmol/L (3.4-5.0); Sodium 138 mmol/L (137-145)
[2021-01-29 07:49] LABS: Glucose Point of Care 96 mg/dl (65-105)
[2021-01-29] MEDS: PANTOPRAZOLE SODIUM IV 40 MG VIAL IV PUSH ×2 (08:14→20:00)
[2021-01-29] MEDS: SODIUM CHLORIDE 0.9% IV 1,000 ML 100 ML IV CONT (08:25)
--- NOTE | 2021-01-29 08:51 | PM.IMPN ---
Progress Note: A&P Assessment and Plan (1) Perforation of cecum: Code(s): K35.32 - Acute appendicitis with perforation and localized peritonitis, without abscess Status: Acute Assessment and Plan: The sepsis has resolved. The patient remains afebrile. She is tolerating a clear liquid diet. She is now passing flatulence. Slowly improving. Management per his primary service. (2) Obstructive sleep apnea: Code(s): G47.33 - Obstructive sleep apnea (adult) (pediatric) Status: Acute Assessment and Plan: CPAP ordered (3) Delirium: Code(s): R41.0 - Disorientation, unspecified Status: Acute Assessment and Plan: Hospital associated delirium. The patient is actually alert oriented x3 currently. She is much more appropriate and during my prior exams. (4) Atelectasis: Code(s): J98.11 - Atelectasis Status: Acute Assessment and Plan: Incentive spirometer (5) Thrombocytopenia: Code(s): D69.6 - Thrombocytopenia, unspecified Status: Acute Assessment and Plan: Likely due to septic shock. Platelet count rebounding. Continue to monitor (6) Anemia: Qualifiers: Anemia type: unspecified type Qualified Code(s): D64.9 - Anemia, unspecified Code(s): D64.9 - Anemia, unspecified Status: Acute Assessment and Plan: Hemoglobin stable continue monitor (7) Fecal peritonitis: Code(s): K65.8 - Other peritonitis Status: Acute Assessment and Plan: Due to perforated cecum (8) Acute kidney injury: Code(s): N17.9 - Acute kidney failure, unspecified Status: Acute Assessment and Plan: Likely due to ATN in volume depletion with septic shock. Creatinine trending inappropriate direction. Time Spent With Patient Time with patient: 15 - 25 minutes Subjective Date/time seen: 01/29/21 08:51 Interval history: Patient has been afebrile overnight. She has been tolerating a clear liquid diet. She has had 285 out of her WILLIAM drains. She has had 2.9 L out in urine. Her fluid balance is-180 mL. She has not had a bowel movement. She has been passing gas. She has been compliant with CPAP. Review of Systems Constitutional: Constitutional: Reports as per HPI Exam Narrative: PHYSICAL EXAM: WEIGHT 198 kg BMI 70.5 General: Morbidly obese, no acute distress HEENT: Nasal cannula in place, mucous membranes are tacky, positive conjunctival pallor Respiratory: Decreased breath sounds at the bases, no increased work breathing Cardiovascular: Regular rate, regular rhythm, 2+ bilateral radial pedal pulses Gastrointestinal: Surgical dressing in place, right edge of surgical dressing is lifted with moist gauze underneath, WILLIAM drain in place, hypoactive bowel sounds Skin: Generalized pallor, non jaundice Musculoskeletal: No cyanosis, no clubbing Neurological: Alert and oriented x3, speech is clear, no facial asymmetry Psychiatric: Appropriate mood and affect, cooperative, pleasant : Cruz catheter in place draining clear yellow urine Hematologic/lymphatic: No petechiae, no excessive bruising Objective Data Vital Signs Vital Signs: Vital Signs - 24 hr 01/28/21 10:36 01/28/21 12:00 01/28/21 16:00 Temperature 98.1 F Pulse Rate 95 89 Respiratory Rate 22 H Blood Pressure 131/73 Pulse Oximetry 93 98 01/28/21 20:00 01/28/21 20:32 01/29/21 00:00 Temperature 97.1 F L 96.9 F L Pulse Rate 87 88 91 Respiratory Rate 22 H 22 H 20 Blood Pressure 141/72 H 147/81 H Pulse Oximetry 97 97 100 01/29/21 00:29 01/29/21 00:46 01/29/21 03:09 Temperature 91.8 F L Pulse Rate Respiratory Rate Blood Pressure Pulse Oximetry 96 98 01/29/21 03:50 01/29/21 04:00 01/29/21 07:36 Temperature 97.1 F L Pulse Rate 86 81 86 Respiratory Rate 20 Blood Pressure 137/76 Pulse Oximetry 94 92 Intake/Output Intake/Output: Intake & Output 01/26
[2021-01-29] MEDS: HYDROmorphone HCL INJ (*CRX) 1 MG/ML SYR 0.5 MG IV PUSH ×2 (09:21→17:22)
[2021-01-29 11:21] LABS: Glucose Point of Care 130 mg/dl (65-105)
--- NOTE | 2021-01-29 13:07 | PM.PNGS ---
Progress Note: A&P Assessment and Plan (1) Perforation of cecum: Code(s): K35.32 - Acute appendicitis with perforation and localized peritonitis, without abscess Status: Acute Assessment and Plan: With her post-op delirium and confusion, I reviewed pathology in detail again today. CEA 22.7. Concern of liver lesion. Will need further outpatient work-up. Tolerating her diet, peritonitis improving. Continue IV antibiotics and fluconazole. Increase activity, continue PT/OT. Care coordination working on plans for discharge disposition. Additional Plan I have discussed the plan of care with Dr. Gong. Subjective Subjective Date/Time Seen: 01/29/21 13:07 Post Op day: 6 Patient reports: no new complaints, feels better, tolerating a regular diet, flatus, no bowel movement and afebrile Interval history: Patient seems to be doing well. She is even more alert and able to conversate more today. Memory seems to be improving. She reports some mild nausea but no vomiting. No other acute issues or complaints. Review of Systems Review of Systems: All systems reviewed & are unremarkable except as noted in HPI and below Exam Const: General: comfortable, no acute distress, alert and awake Orientation/consciousness: patient oriented x3 Resp: Effort & Inspection: normal respiratory effort Auscultation: diminished lung sounds Cardio: Rate: regular rate Rhythm: regular rhythm GI: Inspection: non-distended, incision (Abdominal incisions with no erythema, but mod yellow/brown drainage w odor), Pannus present and obesity GI Palp: Yes Soft to palpation, Yes Tenderness to palpation present (GI) (incisional), No Guarding due to palpation present (GI) and No Rebound tenderness present Auscultation: normal bowel sounds Other: WILLIAM drain with serosanguineous drainage Skin: General skin exam: normal color Neuro: General: moves all extremities and no focal motor deficits Extrem: General: no clubbing, cyanosis or edema and no calf tenderness Psych: Mental Status: mental status grossly normal Insight: Fair insight present (Psych) (improving) Objective Data Vital Signs Vital Signs: Vital Signs - 24 hr 01/28/21 16:00 01/28/21 20:00 01/28/21 20:32 Temperature 98.1 F 97.1 F L Pulse Rate 89 87 88 Respiratory Rate 22 H 22 H 22 H Blood Pressure 131/73 141/72 H Pulse Oximetry 98 97 97 01/29/21 00:00 01/29/21 00:29 01/29/21 00:46 Temperature 96.9 F L 91.8 F L Pulse Rate 91 Respiratory Rate 20 Blood Pressure 147/81 H Pulse Oximetry 100 96 01/29/21 03:09 01/29/21 03:50 01/29/21 04:00 Temperature 97.1 F L Pulse Rate 86 81 Respiratory Rate 20 Blood Pressure 137/76 Pulse Oximetry 98 94 01/29/21 07:36 01/29/21 08:00 01/29/21 08:30 Temperature 99.1 F Pulse Rate 86 98 Respiratory Rate 20 Blood Pressure 126/71 Pulse Oximetry 92 93 93 Intake/Output Intake/Output: Intake & Output 01/26/21 01/27/21 01/28/21 01/29/21 23:59 23:59 23:59 23:59 Intake Total 2950.0 1910 3230 1820 Output Total 1950 1780 2365 1375 Balance 1000.0 130 865 445 Meds/Results Medications: Active Medications Generic Name Dose Route Start Last Admin Trade Name Freq PRN Reason Stop Dose Admin Acetaminophen 650 mg 01/26/21 08:10 Acetaminophen 325 Mg Tablet PO Q4H PRN Fever Albuterol 2 puff 01/23/21 16:49 01/28/21 10:38 Albuterol Sulfate (*Sp) Aerosol 1 Puff INHALATION 2 puff Q6HRT PRN Administration Shortness Of Breath Dextrose 12.5 gm 01/24/21 14:38 Dextrose 50% 25 Gm/50 Ml Syringe IV PUSH PRN PRN Hypoglycemia Protocol Enoxaparin Sodium 40 mg 01/23/21 09:00 01/24/21 09:16 Enoxaparin 40 Mg/0.4 Ml Syringe SUB-Q 40 mg DAILY MAGGIE Administration Glucagon 1 mg 01/24/21 14:38 Glucagon For Inj 1 Mg Vial IM PRN PRN Hypoglycemia Protocol Glucose 15 gm 01/24/21 14:38 Glucose Oral Gel 15 Gm Of Glucse In 37.5 Gm Tube PO PRN
[2021-01-29 16:43] LABS: Glucose Point of Care 99 mg/dl (65-105)
[2021-01-29] MEDS: FLUCONAZOLE 100 MG/NACL 50 ML 100 MG/50 ML BTL 50 MG IVPB (17:14)
[2021-01-29] MEDS: HYDROmorphone HCL INJ (*CRX) 1 MG/ML SYR IV PUSH (19:48)
[2021-01-29 22:48] LABS: Glucose Point of Care 104 mg/dl (65-105)
[2021-01-30] VITALS (13 sets, daily range): BP systolic 132–148; BP diastolic 52–57; PULSE 81–104; RESP 18–26; TEMP 36.6–36.7; O2SAT 91–99
[2021-01-30] MEDS: SODIUM CHLORIDE 0.9% IV 1,000 ML 100 ML IV CONT ×2 (01:03→23:51)
[2021-01-30] MEDS: CENTRAL LINE FLUSH 10 ML IV PUSH ×3 (05:56→20:24)
[2021-01-30] MEDS: LEVOTHYROXINE SODIUM INJ 100 MCG/5 ML VIAL 125 MCG IV PUSH (05:57)
[2021-01-30] MEDS: ALTEPLASE 2 MG VIAL (CATHFLO) IV PUSH ×2 (06:22→06:23)
[2021-01-30 07:53] LABS: Hematocrit 26.8 % (37.0-47.0); Hemoglobin 8.1 g/dL (12.0-15.0); Mean Corpuscular HGB Conc 30.2 g/dl (32-36); Mean Corpuscular Hemoglobin 26.7 pg (26-34); Mean Corpuscular Volume 88.4 fl (80-100); Mean Platelet Volume 12.1 fl (7.4-10.4); Platelet Count Result 76 k/mm3 (150-375); Red Blood Count 3.03 M/mm3 (4.2-5.4); Red Cell Distribution Width 18.2 % (11.5-14.5); White Blood Count 7.6 K/mm3 (4.5-10.0)
[2021-01-30 07:54] LABS: Glucose Point of Care 93 mg/dl (65-105)
[2021-01-30 08:12] LABS: Anion Gap 5 mmol/L (8-16); Blood Urea Nitrogen 49 mg/dL (7-17); Carbon Dioxide 32 mmol/L (22-30); Chloride 99 mmol/L (98-107); Estimated CRCL calculation 50 ml/min; Estimated Glomerular Filt Rate 24; Glucose 98 mg/dL (65-110); Potassium 3.7 mmol/L (3.4-5.0); Sodium 136 mmol/L (137-145)
[2021-01-30] MEDS: PANTOPRAZOLE SODIUM IV 40 MG VIAL IV PUSH ×2 (08:18→20:24)
--- NOTE | 2021-01-30 10:17 | PM.PNGS ---
Progress Note: A&P Assessment and Plan (1) Perforation of cecum: Code(s): K35.32 - Acute appendicitis with perforation and localized peritonitis, without abscess Status: Acute Assessment and Plan: doing well, soft diet, cont local wound care, WILLIAM drain care, encourage OOB/IS, will need rehab Subjective Subjective Date/Time Seen: 01/30/21 10:17 feels ok, no acute issues Review of Systems Review of Systems: All systems reviewed & are unremarkable except as noted in HPI and below Exam Const: General: comfortable and no acute distress Nutritional Appearance: obese Orientation/consciousness: patient oriented x3 Resp: Auscultation: diminished lung sounds Cardio: Rate: regular rate Rhythm: regular rhythm GI: Inspection: normal to inspection and incision GI Palp: Yes Soft to palpation, No Tenderness to palpation present (GI), No Guarding due to palpation present (GI) and No Rigid due to palpation Other: WILLIAM - serous output, wound - moderate dk brownish drainage Objective Data Vital Signs Vital Signs: Vital Signs - 24 hr 01/29/21 12:00 01/29/21 14:06 01/29/21 16:00 Temperature 36.9 C Pulse Rate 87 89 88 Respiratory Rate 20 Blood Pressure 130/72 Pulse Oximetry 93 01/29/21 19:53 01/29/21 20:00 01/29/21 20:21 Temperature 37.1 C Pulse Rate 89 91 89 Respiratory Rate 18 Blood Pressure 132/59 L Pulse Oximetry 97 97 93 01/29/21 23:00 01/29/21 23:24 01/30/21 00:00 Temperature Pulse Rate 83 84 89 Respiratory Rate 24 H Blood Pressure Pulse Oximetry 98 93 01/30/21 02:15 01/30/21 04:00 01/30/21 08:00 Temperature Pulse Rate 86 81 83 Respiratory Rate 23 H Blood Pressure Pulse Oximetry 95 01/30/21 09:05 Temperature Pulse Rate Respiratory Rate Blood Pressure Pulse Oximetry 91 Intake/Output Intake/Output: Intake & Output 01/27/21 01/28/21 01/29/21 01/30/21 23:59 23:59 23:59 23:59 Intake Total 1910 3230 4054 600 Output Total 1780 2365 3185 1860 Balance 130 865 869 -1260 Meds/Results Medications: Active Medications Generic Name Dose Route Start Last Admin Trade Name Freq PRN Reason Stop Dose Admin Acetaminophen 650 mg 01/26/21 08:10 Acetaminophen 325 Mg Tablet PO Q4H PRN Fever Albuterol 2 puff 01/23/21 16:49 01/28/21 10:38 Albuterol Sulfate (*Sp) Aerosol 1 Puff INHALATION 2 puff Q6HRT PRN Administration Shortness Of Breath Alteplase, Recombinant 2 mg 01/30/21 05:50 01/30/21 06:22 Alteplase 2 Mg Vial (Cathflo) IV PUSH 2 mg ONCE PRN Administration Line Occlusion Alteplase, Recombinant 2 mg 01/30/21 05:52 01/30/21 06:23 Alteplase 2 Mg Vial (Cathflo) IV PUSH 2 mg ONCE PRN Administration Line Occlusion Dextrose 12.5 gm 01/24/21 14:38 Dextrose 50% 25 Gm/50 Ml Syringe IV PUSH PRN PRN Hypoglycemia Protocol Enoxaparin Sodium 40 mg 01/23/21 09:00 01/24/21 09:16 Enoxaparin 40 Mg/0.4 Ml Syringe SUB-Q 40 mg DAILY MAGGIE Administration Glucagon 1 mg 01/24/21 14:38 Glucagon For Inj 1 Mg Vial IM PRN PRN Hypoglycemia Protocol Glucose 15 gm 01/24/21 14:38 Glucose Oral Gel 15 Gm Of Glucse In 37.5 Gm Tube PO PRN PRN Hypoglycemia Protocol Hydromorphone HCl 0.5 mg 01/23/21 06:46 01/29/21 17:22 Hydromorphone Hcl Inj (*Crx) 1 Mg/Ml Syr IV PUSH 0.5 mg Q2H PRN Administration Pain Rated 4-6 Hydromorphone HCl 1 mg 01/23/21 06:46 01/29/21 19:48 Hydromorphone Hcl Inj (*Crx) 1 Mg/Ml Syr IV PUSH 1 mg Q3H PRN Administration Pain Rated 7-10 Piperacillin/Tazobactam/Dextrose 3.375 gm in 50 mls @ 100 mls/hr 01/30/21 12:00 Zosyn 3.375 Gm/D5w 50ml Pm IVPB Q6H MAGGIE Fluconazole/Dextrose 100 mg in 50 mls @ 50 mls/hr 01/23/21 18:00 01/29/21 18:14 Diflucan 100 Mg/Nacl 50 Ml IVPB Infused QPM MAGGIE Infusion Dextrose 1,000 mls @ 100 mls/hr 01/24/21 14:38 Dextrose 5% 1,000 Ml
[2021-01-30 11:44] LABS: Glucose Point of Care 112 mg/dl (65-105)
[2021-01-30] MEDS: HYDROmorphone HCL INJ (*CRX) 1 MG/ML SYR IV PUSH (13:32)
--- NOTE | 2021-01-30 14:01 | PC.NURSE ---
Caitlin Brand RN came to look at [facility] PICC as it is positional , sluggish at times, then when Pt moves are to up by her head, flushes and has good blood return. Cathflo attempted this AM. Patency remains unchanged. Caitlin view Catheter with ultrasound, and it appears the catheter was placed at a steep angle against the vein causing it to be sluggish and occluded at times. She reports this is something Cathflo can not fix will need to continue to repositions arm PRN.
--- NOTE | 2021-01-30 15:17 | PM.IMPN ---
Progress Note: A&P Assessment and Plan (1) Perforation of cecum: Code(s): K35.32 - Acute appendicitis with perforation and localized peritonitis, without abscess Status: Acute Assessment and Plan: The sepsis has resolved. The patient remains hemodynamically stale and afebrile. Continue local wound care, WILLIAM drain care, encourage OOB/IS, She is tolerating a clear liquid diet. She is now passing flatus Slowly improving. Management per his primary service. (2) Obstructive sleep apnea: Code(s): G47.33 - Obstructive sleep apnea (adult) (pediatric) Status: Acute Assessment and Plan: CPAP ordered (3) Delirium: Code(s): R41.0 - Disorientation, unspecified Status: Acute Assessment and Plan: Hospital associated delirium, now resoloved. The patient is actually alert oriented x3 currently. She is much more appropriate and during my prior exams. (4) Atelectasis: Code(s): J98.11 - Atelectasis Status: Acute Assessment and Plan: Incentive spirometer (5) Thrombocytopenia: Code(s): D69.6 - Thrombocytopenia, unspecified Status: Acute Assessment and Plan: Likely due to septic shock. Platelet count rebounding. Continue to monitor (6) Anemia: Qualifiers: Anemia type: unspecified type Qualified Code(s): D64.9 - Anemia, unspecified Code(s): D64.9 - Anemia, unspecified Status: Acute Assessment and Plan: Moderate anemia, well tolerated. Hemoglobin stable continue monitor (7) Fecal peritonitis: Code(s): K65.8 - Other peritonitis Status: Acute Assessment and Plan: Due to perforated cecum; manage per primary service. (8) Acute kidney injury: Code(s): N17.9 - Acute kidney failure, unspecified Status: Acute Assessment and Plan: Likely prerenal versus ischemic ATN in volume depletion with septic shock. Baseline kidney function is presumed to be normal with a creatinine of 0.9 on 01/23/2021. Creatinine trending inappropriate direction. Additional Plan Acute perforated appendicitis. S/P surgery January 23, 2021: exploratory laparoscopy, laparoscopic appendectomy, conversion to open laparotomy with right hemicolectomy and mobilization of hepatic flexure, extensive intra-abdominal washout for fecal peritonitis . 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 Anemia. Hb is 8 today continue to watch Thrombocytopenia. Monitor platelet count intermittently, low at 52 today Pneumonia. Zosyn 3.375 g IV q.6 hours, lactic level was high secondary to septic shock pt was in icu on vasopressors Septic shock resolved. 3 cm right hepatic lobe mass. Outpatient follow-up with her technical business analyst/oncologist. Pt was meant to have a biopsy. Ileus. resolved sp NG tube Gallbladder wall distention. Zosyn 3.375 g IV q.6 hours. Right upper quadrant ultrasound equivocal Cholelithiasis Coagulopathy. Will monitor PT/INR intermittently Obesity. Patient counseled regarding lifestyle modification Anxiety chronic and stable Depression chronic and stable Acute renal insufficiency. creat is 2.1 Continue gentle hydration IV normal saline 75 mL/hour Hypocalcemia. continue to watch Transaminitis. Will monitor LFTs periodically with CMP along with PT/INR. Right upper quadrant ultrasound: Cholelithiasis, mild gallbladder wall thickening Hypothyroidism. Synthroid 125 mg IV daily. Discharge planning; will need rehab. Subjective Date/time seen: 01/30/21 11:17 Interval history: Patient has been afebrile overnight. She has been tolerating soft diet. She has had 290 out of her WILLIAM drains. She has had 3.8 L out in urine. Her fluid balance is -1.2L. She has not had a bowel movement. She has been passing gas. She has been compliant with CPAP. Review of [employer] [facility] [employer]
[2021-01-30 16:42] LABS: Glucose Point of Care 91 mg/dl (65-105)
[2021-01-30] MEDS: FLUCONAZOLE 100 MG/NACL 50 ML 100 MG/50 ML BTL 50 MG IVPB (17:07)
[2021-01-30] MEDS: ONDANSETRON INJ 4 MG/2 ML VIAL IV PUSH (20:26)
[2021-01-30] MEDS: HYDROmorphone HCL INJ (*CRX) 1 MG/ML SYR 0.5 MG IV PUSH (20:27)
[2021-01-30 21:29] LABS: Glucose Point of Care 178 mg/dl (65-105)
[2021-01-31] VITALS (11 sets, daily range): BP systolic 129–135; BP diastolic 60–65; PULSE 80–96; RESP 16–24; TEMP 36.6; O2SAT 96–98
[2021-01-31] MEDS: HYDROmorphone HCL INJ (*CRX) 1 MG/ML SYR 0.5 MG IV PUSH ×2 (04:27→20:46)
[2021-01-31] MEDS: LEVOTHYROXINE SODIUM INJ 100 MCG/5 ML VIAL 125 MCG IV PUSH (05:49)
[2021-01-31] MEDS: CENTRAL LINE FLUSH 10 ML IV PUSH ×3 (05:49→20:46)
[2021-01-31 07:54] LABS: Glucose Point of Care 117 mg/dl (65-105)
[2021-01-31] MEDS: PANTOPRAZOLE SODIUM IV 40 MG VIAL IV PUSH ×2 (08:40→20:46)
--- NOTE | 2021-01-31 09:22 | PM.PNGS ---
Progress Note: A&P Assessment and Plan (1) Perforation of cecum: Code(s): K35.32 - Acute appendicitis with perforation and localized peritonitis, without abscess Status: Acute Assessment and Plan: doing better, ADAT, await full return of bowel fxn, local wound care, PT/OT, await rehab disposition Subjective Subjective Date/Time Seen: 01/31/21 09:22 feels a little better today, getting stronger Review of Systems Review of Systems: All systems reviewed & are unremarkable except as noted in HPI and below Exam Const: General: cooperative and no acute distress Nutritional Appearance: obese Orientation/consciousness: patient oriented x3 Resp: Effort & Inspection: normal respiratory effort Auscultation: clear to auscultation bilaterally Cardio: Rate: regular rate Rhythm: regular rhythm GI: Inspection: normal to inspection and incision GI Palp: Yes Soft to palpation and Yes Tenderness to palpation present (GI) Other: soft, sl dist, trav TTP, dressing C/D/I, WILLIAM serous output Objective Data Vital Signs Vital Signs: Vital Signs - 24 hr 01/30/21 12:00 01/30/21 14:00 01/30/21 16:00 Temperature 36.6 C Pulse Rate 81 104 H 87 Respiratory Rate 18 Blood Pressure 148/52 H Pulse Oximetry 99 01/30/21 20:00 01/30/21 20:09 01/30/21 20:25 Temperature 36.7 C Pulse Rate 102 H 100 Respiratory Rate 18 Blood Pressure 132/57 L Pulse Oximetry 98 94 01/30/21 20:42 01/30/21 23:02 01/31/21 00:00 Temperature Pulse Rate 97 83 92 Respiratory Rate 26 H Blood Pressure Pulse Oximetry 94 97 01/31/21 02:22 01/31/21 04:00 01/31/21 04:48 Temperature 36.6 C Pulse Rate 83 88 90 Respiratory Rate 24 H 18 Blood Pressure 133/61 Pulse Oximetry 96 96 Intake/Output Intake/Output: Intake & Output 01/28/21 01/29/21 01/30/21 01/31/21 23:59 23:59 23:59 23:59 Intake Total 3230 4054 2530 870 Output Total 9404 1638 7936 2009 Balance 948 947 -1370 -0518 Meds/Results Medications: Active Medications Generic Name Dose Route Start Last Admin Trade Name Freq PRN Reason Stop Dose Admin Acetaminophen 650 mg 01/26/21 08:10 Acetaminophen 325 Mg Tablet PO Q4H PRN Fever Albuterol 2 puff 01/23/21 16:49 01/28/21 10:38 Albuterol Sulfate (*Sp) Aerosol 1 Puff INHALATION 2 puff Q6HRT PRN Administration Shortness Of Breath Alteplase, Recombinant 2 mg 01/30/21 05:50 01/30/21 06:22 Alteplase 2 Mg Vial (Cathflo) IV PUSH 2 mg ONCE PRN Administration Line Occlusion Alteplase, Recombinant 2 mg 01/30/21 05:52 01/30/21 06:23 Alteplase 2 Mg Vial (Cathflo) IV PUSH 2 mg ONCE PRN Administration Line Occlusion Dextrose 12.5 gm 01/24/21 14:38 Dextrose 50% 25 Gm/50 Ml Syringe IV PUSH PRN PRN Hypoglycemia Protocol Enoxaparin Sodium 40 mg 01/23/21 09:00 01/24/21 09:16 Enoxaparin 40 Mg/0.4 Ml Syringe SUB-Q 40 mg DAILY MAGGIE Administration Glucagon 1 mg 01/24/21 14:38 Glucagon For Inj 1 Mg Vial IM PRN PRN Hypoglycemia Protocol Glucose 15 gm 01/24/21 14:38 Glucose Oral Gel 15 Gm Of Glucse In 37.5 Gm Tube PO PRN PRN Hypoglycemia Protocol Hydromorphone HCl 0.5 mg 01/23/21 06:46 01/31/21 04:27 Hydromorphone Hcl Inj (*Crx) 1 Mg/Ml Syr IV PUSH 0.5 mg Q2H PRN Administration Pain Rated 4-6 Hydromorphone HCl 1 mg 01/23/21 06:46 01/30/21 13:32 Hydromorphone Hcl Inj (*Crx) 1 Mg/Ml Syr IV PUSH 1 mg Q3H PRN Administration Pain Rated 7-10 Piperacillin/Tazobactam/Dextrose 3.375 gm in 50 mls @ 100 mls/hr 01/30/21 12:00 01/31/21 05:49 Zosyn 3.375 Gm/D5w 50ml Pm IVPB 100 mls/hr Q6H MAGGIE Administration Fluconazole/Dextrose 100 mg in 50 mls @ 50 mls/hr 01/23/21 18:00 01/30/21 18:10 Diflucan 100 Mg/Nacl 50 Ml IVPB Infused QPM MAGGIE Infusion Dextrose 1,000 mls @ 100 mls/hr 01/24/21 14:38 Dextrose 5% 1,000 Ml IVPB PRN PRN Hy
--- NOTE | 2021-01-31 09:52 | PM.IMPN ---
Progress Note: A&P Assessment and Plan (1) Perforation of cecum: Code(s): K35.32 - Acute appendicitis with perforation and localized peritonitis, without abscess Status: Acute Assessment and Plan: Acute perforated appendicitis. S/P surgery January 23, 2021: exploratory laparoscopy, laparoscopic appendectomy, conversion to open laparotomy with right hemicolectomy and mobilization of hepatic flexure, extensive intra-abdominal washout for fecal peritonitis . Pt is on Zosyn 3.375 g IV q.6 hours. No bowel movement. She requests to speak with an oncology about future chemotherapy plans. The sepsis has resolved. The patient remains hemodynamically stale and afebrile. Continue local wound care, WILLIAM drain care, encourage OOB/IS, She is tolerating a clear liquid diet. She is now passing flatus Slowly improving. Management per his primary service. (2) Obstructive sleep apnea: Code(s): G47.33 - Obstructive sleep apnea (adult) (pediatric) Status: Acute Assessment and Plan: CPAP tolerated at [facility]. Currently on oxygen at 2 liters. (3) Delirium: Code(s): R41.0 - Disorientation, unspecified Status: Acute Assessment and Plan: Hospital associated delirium, now resolved. The patient is actually alert oriented x3 currently. (4) Atelectasis: Code(s): J98.11 - Atelectasis Status: Acute Assessment and Plan: Encourage the use of incentive spirometer (5) Thrombocytopenia: Code(s): D69.6 - Thrombocytopenia, unspecified Status: Acute Assessment and Plan: Likely due to septic shock. Platelet count is improving slowly. Continue to monitor (6) Anemia: Qualifiers: Anemia type: unspecified type Qualified Code(s): D64.9 - Anemia, unspecified Code(s): D64.9 - Anemia, unspecified Status: Acute Assessment and Plan: Moderate anemia, well tolerated. Hemoglobin stable continue monitor (7) Fecal peritonitis: Code(s): K65.8 - Other peritonitis Status: Acute Assessment and Plan: Due to perforated cecum; manage per primary service. (8) Acute kidney injury: Code(s): N17.9 - Acute kidney failure, unspecified Status: Acute Assessment and Plan: Likely prerenal versus ischemic ATN in volume depletion with septic shock. Baseline kidney function is presumed to be normal with a creatinine of 0.9 on 01/23/2021. Creatinine trending inappropriate direction. Creatinine is improving slowly with adequate urinary output which is very reassuring. Additional Plan Acute perforated appendicitis. S/P surgery January 23, 2021: exploratory laparoscopy, laparoscopic appendectomy, conversion to open laparotomy with right hemicolectomy and mobilization of hepatic flexure, extensive intra-abdominal washout for fecal peritonitis . 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 Anemia. Hb is 8 today continue to watch Thrombocytopenia. Monitor platelet count intermittently, improving at 76 today. Pneumonia. Zosyn 3.375 g IV q.6 hours, lactic level was high secondary to septic shock pt was in icu on vasopressors Septic shock resolved. 3 cm right hepatic lobe mass. Outpatient follow-up with her ribbon blocker/oncologist. Pt was meant to have a biopsy and is now requesting to speak with the local oncologist. Ileus. resolved sp NG tube Gallbladder wall distention. Zosyn 3.375 g IV q.6 hours. Right upper quadrant ultrasound equivocal Cholelithiasis Coagulopathy. Will monitor PT/INR intermittently Obesity. Patient counseled regarding lifestyle modification Anxiety chronic and stable Depression chronic and stable Acute renal insufficiency. creat is 2.1 Continue gentle hydration IV normal saline 75 mL/hour Hypocalcemia. continue to watch Transaminitis. Will monitor LFTs periodical
[2021-01-31] MEDS: SODIUM CHLORIDE 0.9% IV 1,000 ML 100 ML IV CONT (11:02)
[2021-01-31] MEDS: HYDROmorphone HCL INJ (*CRX) 1 MG/ML SYR IV PUSH (11:14)
[2021-01-31 12:10] LABS: Glucose Point of Care 121 mg/dl (65-105)
[2021-01-31 17:21] LABS: Glucose Point of Care 117 mg/dl (65-105)
[2021-01-31] MEDS: FLUCONAZOLE 100 MG/NACL 50 ML 100 MG/50 ML BTL 50 MG IVPB (19:08)
[2021-02-01] VITALS (16 sets, daily range): BP systolic 129–138; BP diastolic 55–60; PULSE 69–96; RESP 16–26; TEMP 36.4–36.7; O2SAT 92–100
[2021-02-01] MEDS: SODIUM CHLORIDE 0.9% IV 1,000 ML 100 ML IV CONT ×2 (05:24→17:44)
[2021-02-01] MEDS: CENTRAL LINE FLUSH 10 ML IV PUSH ×3 (05:25→22:00)
[2021-02-01] MEDS: HYDROmorphone HCL INJ (*CRX) 1 MG/ML SYR IV PUSH ×3 (05:25→22:43)
[2021-02-01] MEDS: LEVOTHYROXINE SODIUM INJ 100 MCG/5 ML VIAL 125 MCG IV PUSH (05:30)
[2021-02-01 05:42] LABS: Basophils Percent Auto 0.4 % (0.2-1.2); Eosinophils Absolute Auto 0.1 K/mm3 (0-0.3); Eosinophils Percent Auto 0.7 % (0-4.4); Hemoglobin 7.9 g/dL (12.0-15.0); Immature Granulocyte Absolute 0.09 K/mm3 (0.00-0.031); Immature Granulocyte Percent A 1.2 % (0-0.5); Lymphocytes Absolute Auto 1.36 K/mm3 (0.9-3.2); Lymphocytes Percent Auto 18.7 % (18.3-44.2); Mean Corpuscular HGB Conc 30.4 g/dl (32-36); Mean Corpuscular Hemoglobin 26.8 pg (26-34); Mean Corpuscular Volume 88.1 fl (80-100); Mean Platelet Volume 12.2 fl (7.4-10.4); Monocytes Absolute Auto 0.7 K/mm3 (0.1-0.6); Platelet Count Result 123 k/mm3 (150-375); Red Blood Count 2.95 M/mm3 (4.2-5.4); Red Cell Distribution Width 17.7 % (11.5-14.5); White Blood Count 7.3 K/mm3 (4.5-10.0)
[2021-02-01 05:57] LABS: Anion Gap 4 mmol/L (8-16); Blood Urea Nitrogen 41 mg/dL (7-17); Calcium 7.1 mg/dL (8.4-10.2); Carbon Dioxide 29 mmol/L (22-30); Chloride 102 mmol/L (98-107); Estimated CRCL calculation 58 ml/min; Estimated Glomerular Filt Rate 29; Glucose 113 mg/dL (65-110); Potassium 3.8 mmol/L (3.4-5.0); Sodium 135 mmol/L (137-145)
[2021-02-01 07:48] LABS: Glucose Point of Care 104 mg/dl (65-105)
--- NOTE | 2021-02-01 08:11 | PM.PNGS ---
Progress Note: A&P Assessment and Plan (1) Perforation of cecum: Code(s): K35.32 - Acute appendicitis with perforation and localized peritonitis, without abscess Status: Acute Assessment and Plan: recovering well, await CEA level, await rehab disposition Subjective Subjective Date/Time Seen: 02/01/21 08:11 no acute issues, pain cont to steadily improve Review of Systems Review of Systems: All systems reviewed & are unremarkable except as noted in HPI and below Exam Const: General: cooperative, comfortable, no acute distress and ill appearing Nutritional Appearance: obese Orientation/consciousness: patient oriented x3 Resp: Effort & Inspection: normal respiratory effort Auscultation: diminished lung sounds Cardio: Rate: regular rate Rhythm: regular rhythm GI: Inspection: normal to inspection, distended and incision GI Palp: Yes abdominal tenderness, Yes Soft to palpation and Yes Tenderness to palpation present (GI) Other: dressing C/D/I, WILLIAM c serous output Objective Data Vital Signs Vital Signs: Vital Signs - 24 hr 01/31/21 12:00 01/31/21 14:00 01/31/21 16:00 Temperature 36.6 C Pulse Rate 85 92 80 Respiratory Rate 18 Blood Pressure 135/60 Pulse Oximetry 98 01/31/21 20:45 01/31/21 21:06 01/31/21 23:05 Temperature 36.6 C Pulse Rate 96 Respiratory Rate 16 Blood Pressure 129/65 Pulse Oximetry 97 97 96 02/01/21 00:00 02/01/21 00:30 02/01/21 04:00 Temperature Pulse Rate 93 93 86 Respiratory Rate 26 H Blood Pressure Pulse Oximetry 96 02/01/21 07:21 Temperature 36.4 C Pulse Rate 89 Respiratory Rate 16 Blood Pressure 129/60 Pulse Oximetry 96 Intake/Output Intake/Output: Intake & Output 01/29/21 01/30/21 01/31/21 02/01/21 23:59 23:59 23:59 23:59 Intake Total 4054 2530 4300 350 Output Total 3185 4105 4345 1300 Balance 869 -1575 -45 -950 Meds/Results Medications: Active Medications Generic Name Dose Route Start Last Admin Trade Name Freq PRN Reason Stop Dose Admin Acetaminophen 650 mg 01/26/21 08:10 Acetaminophen 325 Mg Tablet PO Q4H PRN Fever Albuterol 2 puff 01/23/21 16:49 01/28/21 10:38 Albuterol Sulfate (*Sp) Aerosol 1 Puff INHALATION 2 puff Q6HRT PRN Administration Shortness Of Breath Alteplase, Recombinant 2 mg 01/30/21 05:50 01/30/21 06:22 Alteplase 2 Mg Vial (Cathflo) IV PUSH 2 mg ONCE PRN Administration Line Occlusion Alteplase, Recombinant 2 mg 01/30/21 05:52 01/30/21 06:23 Alteplase 2 Mg Vial (Cathflo) IV PUSH 2 mg ONCE PRN Administration Line Occlusion Dextrose 12.5 gm 01/24/21 14:38 Dextrose 50% 25 Gm/50 Ml Syringe IV PUSH PRN PRN Hypoglycemia Protocol Enoxaparin Sodium 40 mg 01/23/21 09:00 01/24/21 09:16 Enoxaparin 40 Mg/0.4 Ml Syringe SUB-Q 40 mg DAILY MAGGIE Administration Glucagon 1 mg 01/24/21 14:38 Glucagon For Inj 1 Mg Vial IM PRN PRN Hypoglycemia Protocol Glucose 15 gm 01/24/21 14:38 Glucose Oral Gel 15 Gm Of Glucse In 37.5 Gm Tube PO PRN PRN Hypoglycemia Protocol Hydromorphone HCl 0.5 mg 01/23/21 06:46 01/31/21 20:46 Hydromorphone Hcl Inj (*Crx) 1 Mg/Ml Syr IV PUSH 0.5 mg Q2H PRN Administration Pain Rated 4-6 Hydromorphone HCl 1 mg 01/23/21 06:46 02/01/21 05:25 Hydromorphone Hcl Inj (*Crx) 1 Mg/Ml Syr IV PUSH 1 mg Q3H PRN Administration Pain Rated 7-10 Piperacillin/Tazobactam/Dextrose 3.375 gm in 50 mls @ 100 mls/hr 01/30/21 12:00 02/01/21 05:55 Zosyn 3.375 Gm/D5w 50ml Pm IVPB Infused Q6H MAGGIE Infusion Fluconazole/Dextrose 100 mg in 50 mls @ 50 mls/hr 01/23/21 18:00 01/31/21 20:08 Diflucan 100 Mg/Nacl 50 Ml IVPB Infused QPM MAGGIE Infusion Dextrose 1,000 mls @ 100 mls/hr 01/24/21 14:38 Dextrose 5% 1,000 Ml IVPB PRN PRN Hypoglycemia Protocol Sodium Chloride 1,000 mls @ 100 mls/hr 01/27/21 12:35
[2021-02-01] MEDS: PANTOPRAZOLE SODIUM IV 40 MG VIAL IV PUSH ×2 (09:06→21:35)
[2021-02-01 11:41] LABS: Glucose Point of Care 126 mg/dl (65-105)
[2021-02-01 16:39] LABS: Glucose Point of Care 130 mg/dl (65-105)
--- NOTE | 2021-02-01 17:17 | PM.IMPN ---
Progress Note: A&P Assessment and Plan (1) Perforation of cecum: Code(s): K35.32 - Acute appendicitis with perforation and localized peritonitis, without abscess Status: Acute Assessment and Plan: Acute perforated appendicitis. S/P surgery January 23, 2021: exploratory laparoscopy, laparoscopic appendectomy, conversion to open laparotomy with right hemicolectomy and mobilization of hepatic flexure, extensive intra-abdominal washout for fecal peritonitis . Pt is on Zosyn 3.375 g IV q.6 hours. No bowel movement.She is feeling better today. The sepsis has resolved. The patient remains hemodynamically stale and afebrile. Continue local wound care, WILLIAM drain care, encourage OOB/IS, She is tolerating a clear liquid diet. She is now passing flatus; no bowel movement. Slowly improving. Management per his primary service. (2) Obstructive sleep apnea: Code(s): G47.33 - Obstructive sleep apnea (adult) (pediatric) Status: Acute Assessment and Plan: CPAP tolerated at [facility]. Currently on oxygen at 2 liters. (3) Delirium: Code(s): R41.0 - Disorientation, unspecified Status: Acute Assessment and Plan: Hospital associated delirium, now resolved. The patient is actually alert oriented x3 currently. (4) Atelectasis: Code(s): J98.11 - Atelectasis Status: Acute Assessment and Plan: Encourage the use of incentive spirometer (5) Thrombocytopenia: Code(s): D69.6 - Thrombocytopenia, unspecified Status: Acute Assessment and Plan: Likely due to septic shock. Platelet count is improving slowly. Continue to monitor (6) Anemia: Qualifiers: Anemia type: unspecified type Qualified Code(s): D64.9 - Anemia, unspecified Code(s): D64.9 - Anemia, unspecified Status: Acute Assessment and Plan: Moderate anemia, well tolerated. Hemoglobin stable continue monitor (7) Fecal peritonitis: Code(s): K65.8 - Other peritonitis Status: Acute Assessment and Plan: Due to perforated cecum; manage per primary service. (8) Acute kidney injury: Code(s): N17.9 - Acute kidney failure, unspecified Status: Acute Assessment and Plan: Likely prerenal versus ischemic ATN in volume depletion with septic shock. Baseline kidney function is presumed to be normal with a creatinine of 0.9 on 01/23/2021. Creatinine trending inappropriate direction. Creatinine is improving slowly with adequate urinary output which is very reassuring. Additional Plan Hypothyroidism. Synthroid 125 mg IV daily. Discharge planning; will need rehab. Subjective Date/time seen: 02/01/21 09:45 AM S: Patient is examined at the bedside. Pain control is better. Still no bowel movement. Review of Systems Review of Systems: All systems reviewed & are unremarkable except as noted in HPI and below Constitutional: Constitutional: Reports no additional constitutional complaints Eyes: Eyes: Reports no additional eye complaints ENT: Reports system reviewed and no additional complaints, except as documented Cardiovascular: Cardiovascular: Reports no additional cardiovascular complaints Respiratory: Respiratory: Reports no additional respiratory complaints Gastrointestinal: Gastrointestinal: Reports abdominal pain and Reports constipation Genitourinary: Genitourinary: Reports no additional female genitourinary complaints Musculoskeletal: Musculoskeletal: Reports no additional musculoskeletal complaints Integumentary/Breasts: Skin/Breast: Reports system reviewed and no additional complaints, except as docu Neurologic: Reports system reviewed and no additional complaints, except as documented Psychiatric: Psychiatric: Reports no additional psychiatric complaints Exam Narrative: PHYSICAL EXAM: WEIGHT 198 kg BMI 70.5 General: Morbidly obese, mild acute distress due to abdominal pain. HEENT: Nasal
--- NOTE | 2021-02-01 17:33 | PC.NURSE ---
when changing the patient's abdominal incision dressing this evening, I noticed some purulent, zayas drainage that had a strong odor. I notified Dr. Gong about the finding and he said he will look at it in the morning.
[2021-02-01] MEDS: FLUCONAZOLE 100 MG/NACL 50 ML 100 MG/50 ML BTL 50 MG IVPB (18:25)
[2021-02-01 23:06] LABS: Glucose Point of Care 101 mg/dl (65-105)
[2021-02-02] VITALS (13 sets, daily range): BP systolic 137–145; BP diastolic 54–62; PULSE 82–98; RESP 16–28; TEMP 36.4–37.1; O2SAT 93–98
[2021-02-02] MEDS: CENTRAL LINE FLUSH 10 ML IV PUSH ×3 (05:50→20:58)
[2021-02-02] MEDS: LEVOTHYROXINE SODIUM INJ 100 MCG/5 ML VIAL 125 MCG IV PUSH (05:51)
[2021-02-02] MEDS: SODIUM CHLORIDE 0.9% IV 1,000 ML 100 ML IV CONT ×2 (05:55→20:57)
[2021-02-02 06:02] LABS: Basophils Percent Auto 0.5 % (0.2-1.2); Eosinophils Absolute Auto 0.1 K/mm3 (0-0.3); Eosinophils Percent Auto 0.6 % (0-4.4); Hematocrit 25.7 % (37.0-47.0); Hemoglobin 7.8 g/dL (12.0-15.0); Immature Granulocyte Absolute 0.07 K/mm3 (0.00-0.031); Immature Granulocyte Percent A 0.9 % (0-0.5); Lymphocytes Absolute Auto 1.36 K/mm3 (0.9-3.2); Lymphocytes Percent Auto 17.4 % (18.3-44.2); Mean Corpuscular HGB Conc 30.4 g/dl (32-36); Mean Corpuscular Hemoglobin 26.9 pg (26-34); Mean Corpuscular Volume 88.6 fl (80-100); Mean Platelet Volume 11.9 fl (7.4-10.4); Monocytes Percent Auto 12.4 % (2.6-8.5); Neutrophils Absolute Auto 5.3 K/mm3 (1.3-6.7); Neutrophils Percent Auto 68.2 % (45.5-73.1); Platelet Count Result 154 k/mm3 (150-375); Red Cell Distribution Width 17.9 % (11.5-14.5); White Blood Count 7.8 K/mm3 (4.5-10.0)
[2021-02-02 06:13] LABS: Anion Gap 3 mmol/L (8-16); Blood Urea Nitrogen 35 mg/dL (7-17); Calcium 7.1 mg/dL (8.4-10.2); Carbon Dioxide 28 mmol/L (22-30); Chloride 104 mmol/L (98-107); Estimated CRCL calculation 58 ml/min; Estimated Glomerular Filt Rate 29; Glucose 102 mg/dL (65-110); Potassium 3.8 mmol/L (3.4-5.0); Sodium 135 mmol/L (137-145)
[2021-02-02] MEDS: HYDROmorphone HCL INJ (*CRX) 1 MG/ML SYR IV PUSH (06:26)
[2021-02-02 07:37] LABS: Glucose Point of Care 104 mg/dl (65-105)
[2021-02-02] MEDS: PANTOPRAZOLE SODIUM IV 40 MG VIAL IV PUSH ×2 (08:34→20:58)
--- NOTE | 2021-02-02 11:06 | PCWOUND ---
WOCN NOTE At patient's bedside with Radha Lopez PSYCHOLOGIST for Dr. Gong to assess abdominal incision to remove brayan and possibly apply wound vac to abdominal incision due to increased drainage and foul smelling exudate. Patient refuses to have abdomen looked at due to having a Counselor appointment that just can't be missed. Explained to patient that delaying care is not good for skin and that due to scheduling it may have to be delayed until tomorrow which not optimal due to overall health of the wound, patient understands and still refuses to have abdomen assessed. Radha PSYCHOLOGIST to reach out to wound center later today to see if available.
--- NOTE | 2021-02-02 11:07 | PCNFU ---
Nutrition Follow-Up Complete: Inadequate oral intake related to appendicitis, peritonitis as evidenced by NPO diet. Goal; Patient to meet estimated nutritional needs. Patient is progressing towards goal. We will continue current goal. Pt current nutrition is Low fiber with Ensure compact PRN. Last recorded weight is 203.5 kg, up from 196 kg on admit. Bowel Motility:+BM reported 02/01 Labs Reviewed:Na 135, BUN 35, Cr 1.8,Hct 25.7,Hgb 7.8 Meds Noted:Zosyn,Synthroid, NS, Protonix. Additional Notes: Nutrition follow up. Spoke with patient today,tolerating low fiber diet. Eating 20-50% of most meals. Patient is receiving Ensure Compact TID patient is wanting supplements PRN. Skin:Left lower ab drain, coccyx-friction. Agree with diet orders. Monitoring: Follow up every 5 days.
[2021-02-02 11:27] LABS: Glucose Point of Care 99 mg/dl (65-105)
--- NOTE | 2021-02-02 12:44 | PM.PNGS ---
Progress Note: A&P Assessment and Plan (1) Perforation of cecum: Code(s): K35.32 - Acute appendicitis with perforation and localized peritonitis, without abscess Status: Acute Assessment and Plan: Continues to slowly improve. CEA high at 22.7. Midline incision with large amounts of foul drainage. Brayan removed today and wound care consulted for potential wound vac. They feel it would be appropriate to start packing the wound for now, but the open wounds would not be adequate enough to pack the foam for the wound vac yet today. Depending on how the wound progresses, could consider the wound VAC in the near future if this opens up more. I also started oral analgesics now that she is tolerating a diet to help with controlling her post-op pain. Stop IV fluconazole. Continue IV Zosyn. Encouraged to increase activity and try standing at the side of the bed today. PT/OT following. Patient requested to speak to care coordination again today regarding SNF disposition, discussed with the nurse. Okay to remove the Cruz from a surgical standpoint if okay with the Hospitalist. May help mobilize her some more. Additional Plan I have discussed the plan of care with Dr. Gong. Subjective Subjective Date/Time Seen: 02/02/21 12:44 Post Op day: 10 Patient reports: tolerating a regular diet, flatus, bowel movement and afebrile Interval history: Patient seen and examined. She is frustrated this morning with social issues but otherwise feeling well. Tolerating a diet and bowels are moving. She has had issues with stool incontinence per the nurse and she actually has stool in the bed on my exam. She reports that she can tell when she is passing gas but not a BM. Still having incisional pain but feels it is improving. No other complaints at this time. Per the nurse, patient still has not gotten out of bed with PT/OT. Wound care at the bedside to examine the patient with me now. Review of Systems Review of Systems: All systems reviewed & are unremarkable except as noted in HPI and below Constitutional: Constitutional: Reports as per HPI, Reports no additional constitutional complaints, Denies chills and Denies fever(s) Cardiovascular: Cardiovascular: Reports no additional cardiovascular complaints, Denies chest pain and Denies leg edema Respiratory: Respiratory: Reports no additional respiratory complaints, Denies cough and Denies dyspnea Gastrointestinal: Gastrointestinal: Reports as per HPI and Reports no additional gastrointestinal complaints Neurologic: Reports system reviewed and no additional complaints, except as documented, Denies Abnormal speech present and Denies focal weakness Exam Const: General: comfortable, no acute distress, alert and awake Nutritional Appearance: obese Orientation/consciousness: patient oriented x3 Resp: Effort & Inspection: normal respiratory effort Auscultation: clear to auscultation bilaterally Cardio: Rate: regular rate Rhythm: regular rhythm GI: Inspection: Pannus present, obesity and other (WILLIAM drain with scant serous drainage) GI Palp: Yes Soft to palpation, Yes Tenderness to palpation present (GI) (incisional) and No Guarding due to palpation present (GI) Auscultation: normal bowel sounds Other: Midline incision with copious amount of zayas purulent drainage with foul-odor and superficial skin dehiscence near umbilicus and at the top of the incision. All brayan were removed. The wound undermines along the entire length of the incision with some yellow necrotic slough in the wound bed. Three open wounds but the skin in between these openings remained intact. Clean dry dressing applied. Skin: General skin exam: normal color Neuro: General: moves all extremities and no focal motor deficits Extrem: General: no clubbing, cyanosis or edema and no calf tenderness Psych: Mental Status: mental status grossly normal Judgement: Fair judgement present (Psych) Objective Data Vital Signs Vital Signs: Vi
[2021-02-02] MEDS: HYDROcodone/acetaminophen (*CRX) 10-325 MG TABLET 1 TAB PO ×2 (13:46→20:55)
--- NOTE | 2021-02-02 15:13 | P.PNIM_ITS ---
Progress Note: A&P Assessment and Plan (1) Perforation of cecum: Code(s): K35.32 - Acute appendicitis with perforation and localized peritonitis, without abscess Status: Acute Assessment and Plan: * Acute perforated appendicitis. S/P surgery January 23, 2021: exploratory laparoscopy, laparoscopic appendectomy, conversion to open laparotomy with right hemicolectomy and mobilization of hepatic flexure, extensive intra- abdominal washout for fecal peritonitis . Pt is on Zosyn 3.375 g IV q.6 hours. No bowel movement.She is feeling better today. * The sepsis has resolved. The patient remains hemodynamically stale and afebrile. * Currently improving slowly. Encourage physical activity and OOBC. * Continue local wound care, WILLIAM drain care, encourage OOB/IS, * She is tolerating her regular diet. She is now passing flatus; having bowel movement, complaining of incontinence. * Slowly improving. Management per his primary service. * Agree with coleman removal. (2) Obstructive sleep apnea: Code(s): G47.33 - Obstructive sleep apnea (adult) (pediatric) Status: Acute Assessment and Plan: * CPAP tolerated at [facility]. Currently on oxygen at 2 liters. (3) Delirium: Code(s): R41.0 - Disorientation, unspecified Status: Acute Assessment and Plan: * Hospital associated delirium, now resolved. The patient is actually alert oriented x3 currently. Good insight and fair judgement. (4) Atelectasis: Code(s): J98.11 - Atelectasis Status: Acute Assessment and Plan: * Encourage the use of incentive spirometer. OOBC and attempt at standig up every day. (5) Thrombocytopenia: Code(s): D69.6 - Thrombocytopenia, unspecified Status: Acute Assessment and Plan: * Likely due to septic shock. Platelet count is improving slowly. Continue to monitor (6) Anemia: Qualifiers: Anemia type: unspecified type Qualified Code(s): D64.9 - Anemia, unspecified Code(s): D64.9 - Anemia, unspecified Status: Acute Assessment and Plan: * Moderate anemia, well tolerated. * Hemoglobin stable continue monitor (7) Fecal peritonitis: Code(s): K65.8 - Other peritonitis Status: Acute Assessment and Plan: * Due to perforated cecum; manage per primary service. (8) Acute kidney injury: Code(s): N17.9 - Acute kidney failure, unspecified Status: Acute Assessment and Plan: * Likely prerenal versus ischemic ATN in volume depletion with septic shock. * Baseline kidney function is presumed to be normal with a creatinine of 0.9 on 01/23/2021. * Creatinine trending inappropriate direction. Creatinine is improving slowly with adequate urinary output which is very reassuring. Additional Plan Hypothyroidism. Synthroid 125 mg IV daily. Discharge planning; will need rehab. Subjective Date/time seen: 02/02/21 09:13 S: Patient was examined at the bedside. She reports incisional pain 11/25 and has already been medicated; she complains of fecal incontience; had a large bowel movement yesterday. Interval history: Patient has been afebrile overnight. She has been tolerating soft diet. She has had 25 mL out of her WILLIAM drains. She has had 2.0 L out in urine. Her fluid balance is -1.8L. She has not had a bowel movement. She has been passing gas. She has been compliant with CPAP. Exam Narrative: PHYSICAL EXAM: WEIGHT 198 kg BMI 70.5 General: Morbidly obese, mild acute distress due to
--- NOTE | 2021-02-02 15:13 | PM.IMPN ---
Progress Note: A&P Assessment and Plan (1) Perforation of cecum: Code(s): K35.32 - Acute appendicitis with perforation and localized peritonitis, without abscess Status: Acute Assessment and Plan: Acute perforated appendicitis. S/P surgery January 23, 2021: exploratory laparoscopy, laparoscopic appendectomy, conversion to open laparotomy with right hemicolectomy and mobilization of hepatic flexure, extensive intra-abdominal washout for fecal peritonitis . Pt is on Zosyn 3.375 g IV q.6 hours. No bowel movement.She is feeling better today. The sepsis has resolved. The patient remains hemodynamically stale and afebrile. Currently improving slowly. Encourage physical activity and OOBC. Continue local wound care, WILLIAM drain care, encourage OOB/IS, She is tolerating her regular diet. She is now passing flatus; having bowel movement, complaining of incontinence. Slowly improving. Management per his primary service. Agree with coleman removal. (2) Obstructive sleep apnea: Code(s): G47.33 - Obstructive sleep apnea (adult) (pediatric) Status: Acute Assessment and Plan: CPAP tolerated at [facility]. Currently on oxygen at 2 liters. (3) Delirium: Code(s): R41.0 - Disorientation, unspecified Status: Acute Assessment and Plan: Hospital associated delirium, now resolved. The patient is actually alert oriented x3 currently. Good insight and fair judgement. (4) Atelectasis: Code(s): J98.11 - Atelectasis Status: Acute Assessment and Plan: Encourage the use of incentive spirometer. OOBC and attempt at standig up every day. (5) Thrombocytopenia: Code(s): D69.6 - Thrombocytopenia, unspecified Status: Acute Assessment and Plan: Likely due to septic shock. Platelet count is improving slowly. Continue to monitor (6) Anemia: Qualifiers: Anemia type: unspecified type Qualified Code(s): D64.9 - Anemia, unspecified Code(s): D64.9 - Anemia, unspecified Status: Acute Assessment and Plan: Moderate anemia, well tolerated. Hemoglobin stable continue monitor (7) Fecal peritonitis: Code(s): K65.8 - Other peritonitis Status: Acute Assessment and Plan: Due to perforated cecum; manage per primary service. (8) Acute kidney injury: Code(s): N17.9 - Acute kidney failure, unspecified Status: Acute Assessment and Plan: Likely prerenal versus ischemic ATN in volume depletion with septic shock. Baseline kidney function is presumed to be normal with a creatinine of 0.9 on 01/23/2021. Creatinine trending inappropriate direction. Creatinine is improving slowly with adequate urinary output which is very reassuring. Additional Plan Hypothyroidism. Synthroid 125 mg IV daily. Discharge planning; will need rehab. Subjective Date/time seen: 02/02/21 09:13 S: Patient was examined at the bedside. She reports incisional pain 11/25 and has already been medicated; she complains of fecal incontience; had a large bowel movement yesterday. Interval history: Patient has been afebrile overnight. She has been tolerating soft diet. She has had 25 mL out of her WILLIAM drains. She has had 2.0 L out in urine. Her fluid balance is -1.8L. She has not had a bowel movement. She has been passing gas. She has been compliant with CPAP. Exam Narrative: PHYSICAL EXAM: WEIGHT 198 kg BMI 70.5 General: Morbidly obese, mild acute distress due to abdominal pain. HEENT: Nasal cannula in place, mucous membranes are tacky, positive conjunctival pallor Respiratory: Decreased breath sounds at the bases, no increased work breathing Cardiovascular: Regular rate, regular rhythm, 2+ bilateral radial pedal pulses Gastrointestinal: Surgical dressing in place, right edge of surgical dressing is lifted with moist gauze underneath, WILLIAM drain in place, hypoactive bowel sounds Skin: Generalized pallor, non jaundic
[2021-02-02 17:07] LABS: Glucose Point of Care 103 mg/dl (65-105)
[2021-02-02 23:56] LABS: Glucose Point of Care 114 mg/dl (65-105)
[2021-02-03] VITALS (11 sets, daily range): BP systolic 136–149; BP diastolic 55–61; PULSE 86–95; RESP 16–24; TEMP 36–37.1; O2SAT 94–99
[2021-02-03] MEDS: CENTRAL LINE FLUSH 10 ML IV PUSH (06:32)
[2021-02-03] MEDS: LEVOTHYROXINE SODIUM INJ 100 MCG/5 ML VIAL 125 MCG IV PUSH (06:34)
[2021-02-03 06:58] LABS: Basophils Percent Auto 0.4 % (0.2-1.2); Eosinophils Absolute Auto 0.1 K/mm3 (0-0.3); Eosinophils Percent Auto 0.8 % (0-4.4); Hemoglobin 7.7 g/dL (12.0-15.0); Immature Granulocyte Absolute 0.07 K/mm3 (0.00-0.031); Immature Granulocyte Percent A 0.9 % (0-0.5); Lymphocytes Absolute Auto 1.17 K/mm3 (0.9-3.2); Mean Corpuscular HGB Conc 30.8 g/dl (32-36); Mean Corpuscular Hemoglobin 26.6 pg (26-34); Mean Corpuscular Volume 86.2 fl (80-100); Mean Platelet Volume 11.2 fl (7.4-10.4); Monocytes Absolute Auto 1.1 K/mm3 (0.1-0.6); Monocytes Percent Auto 13.7 % (2.6-8.5); Neutrophils Absolute Auto 5.4 K/mm3 (1.3-6.7); Neutrophils Percent Auto 69.2 % (45.5-73.1); Platelet Count Result 182 k/mm3 (150-375); Red Cell Distribution Width 17.8 % (11.5-14.5); White Blood Count 7.8 K/mm3 (4.5-10.0)
[2021-02-03] MEDS: ALTEPLASE 2 MG VIAL (CATHFLO) IV PUSH ×2 (07:00→07:02)
[2021-02-03 07:30] LABS: Glucose Point of Care 79 mg/dl (65-105)
[2021-02-03 07:43] LABS: Anion Gap 7 mmol/L (8-16); Blood Urea Nitrogen 32 mg/dL (7-17); Carbon Dioxide 26 mmol/L (22-30); Chloride 106 mmol/L (98-107); Estimated CRCL calculation 62 ml/min; Estimated Glomerular Filt Rate 31; Glucose 96 mg/dL (65-110); Potassium 3.7 mmol/L (3.4-5.0); Sodium 139 mmol/L (137-145)
--- NOTE | 2021-02-03 08:46 | PM.IMPN ---
Progress Note: A&P Assessment and Plan (1) Perforation of cecum: Code(s): K35.32 - Acute appendicitis with perforation and localized peritonitis, without abscess Status: Acute Assessment and Plan: Acute perforated appendicitis. S/P surgery January 23, 2021: exploratory laparoscopy, laparoscopic appendectomy, conversion to open laparotomy with right hemicolectomy and mobilization of hepatic flexure, extensive intra-abdominal washout for fecal peritonitis . Pt is on Zosyn 3.375 g IV q.6 hours. pt is improving post op day 11 opening bowels, tolerating diet continue dressing causes and pt for possible vac treatments (2) Obstructive sleep apnea: Code(s): G47.33 - Obstructive sleep apnea (adult) (pediatric) Status: Acute Assessment and Plan: CPAP tolerated at night. (3) Delirium: Code(s): R41.0 - Disorientation, unspecified Status: Acute Assessment and Plan: Hospital associated delirium, resolved. Pt was very confused initally days in hospital pulling at lines etc (4) Atelectasis: Code(s): J98.11 - Atelectasis Status: Acute Assessment and Plan: Cont with incentive spirometry (5) Thrombocytopenia: Code(s): D69.6 - Thrombocytopenia, unspecified Status: Acute Assessment and Plan: plts are 182, Continue to monitor (6) Anemia: Qualifiers: Anemia type: unspecified type Qualified Code(s): D64.9 - Anemia, unspecified Code(s): D64.9 - Anemia, unspecified Status: Acute Assessment and Plan: Hb is 7 cont to monitor (7) Fecal peritonitis: Code(s): K65.8 - Other peritonitis Status: Acute Assessment and Plan: Due to perforated cecum; manage per surgery and medical teams (8) Acute kidney injury: Code(s): N17.9 - Acute kidney failure, unspecified Status: Acute Assessment and Plan: Likely prerenal versus ischemic ATN in volume depletion with septic shock. creat is 1.7 improving on fluids NS at 100cc per hour Subjective Date/time seen: 02/03/21 08:46 Interval history: Pt pod day 11 S/p lap appendectomy converted to open laparotomy with right hemicolectomy with mobilization of hepatic flexure, extensive intra-abdominal washout for fecal peritonitis. Pathology report shows Moderately differentiated colonic adenocarcinoma. Doing better, wound was opened up today, pt will benefit from wound vac treatments, awaiting placement. Pt is treated for peritonitis in the hospital and post op management. Pt had vac therapy started today. Pt to have CT guided liver biospy soon. Review of Systems Review of Systems: All systems reviewed & are unremarkable except as noted in HPI and below Exam Narrative: General: Morbidly obese lady HEENT: Nasal cannula in place Cardiovascular: Regular rate, regular rhythm, 2+ bilateral radial pedal pulses Gastrointestinal: midline wound with dehiscence pt will benefit from vac treatment Lungs: clear to ausculation BL Skin: Generalized pallor, non jaundice Musculoskeletal: No cyanosis, no clubbing Neurological: Alert and oriented x3, speech is clear, no facial asymmetry Psychiatric: Appropriate mood and affect, cooperative, pleasant Objective Data Vital Signs Vital Signs: Vital Signs - 24 hr 02/02/21 09:15 02/02/21 12:00 02/02/21 13:50 Temperature 37.0 C Pulse Rate 91 93 Respiratory Rate 20 Blood Pressure 137/54 L Pulse Oximetry 93 96 02/02/21 16:00 02/02/21 19:56 02/02/21 21:00 Temperature Pulse Rate 88 88 92 Respiratory Rate 20 Blood Pressure Pulse Oximetry 93 02/02/21 21:04 02/02/21 23:33 02/03/21 00:30 Temperature 37.1 C Pulse Rate 95 88 90 Respiratory Rate 16 28 H Blood Pressure 145/54 H Pulse Oximetry 95 94 02/03/21 01:56 02/03/21 04:00 02/03/21 05:02 Temperature 37.1 C Pulse Rate 92 86 89 Respiratory Rate 24 H 16 Blood Pressure 13
--- NOTE | 2021-02-03 09:34 | PM.PNGS ---
Progress Note: A&P Assessment and Plan (1) Perforation of cecum: Code(s): K35.32 - Acute appendicitis with perforation and localized peritonitis, without abscess Status: Acute Assessment and Plan: Continues to slowly improve. Midline incision has opened up and would be suitable for a wound VAC. I asked the wound care nurses to go by an apply a wound VAC today. Will reassess on Tuesday or sooner if necessary. WBC normal and afebrile, received 12 days of IV Zosyn. Will stop IV Zosyn today. Asked the nurse to remove Cruz catheter today if okay with Hospitalist. This will also help mobilize the patient more. Encouraged to continue increasing activity, PT/OT following. (2) Malfunction of peripheral inserted central catheter: Code(s): T82.598A - Other mechanical complication of other cardiac and vascular devices and implants, initial encounter Status: Acute Assessment and Plan: PICC line no longer functioning and is no longer in good placement, possibly kinked. Will remove PICC line today. Asked vascular access nurse to attempt a peripheral IV line for now to administer her IV medications. Additional Plan I have discussed the plan of care with Dr. Gong. Subjective Subjective Date/Time Seen: 02/03/21 09:34 Post Op day: 11 Patient reports: tolerating a regular diet, flatus, bowel movement and afebrile Interval history: Patient seen and examined today. She reports that she is still having some issues with stool incontinence but it sounds like this is primarily during flatus. She reportedly got up to the chair for a short period of time with therapy today using the janette lift. BM today. Tolerating her diet. No other complaints at this time. Per the nurse, her PICC line is no longer able to be flushed, and she has no peripheral line access. They attempted cathflo this morning without any improvement. IV access nurse reviewed the chest x-ray from 01/31 which shows the line appears pulled back and kinked in the arm. She has not received her 0600 and 1200 dose of IV Zosyn today due to this issue. Review of Systems Review of Systems: All systems reviewed & are unremarkable except as noted in HPI and below Constitutional: Constitutional: Reports as per HPI, Reports no additional constitutional complaints, Denies chills and Denies fever(s) Cardiovascular: Cardiovascular: Reports no additional cardiovascular complaints, Denies chest pain and Denies leg edema Respiratory: Respiratory: Reports no additional respiratory complaints, Denies cough and Denies dyspnea Gastrointestinal: Gastrointestinal: Reports as per HPI and Reports no additional gastrointestinal complaints Neurologic: Reports system reviewed and no additional complaints, except as documented, Denies Abnormal speech present and Denies focal weakness Exam Const: General: comfortable, no acute distress, alert and awake Orientation/consciousness: patient oriented x3 Resp: Effort & Inspection: normal respiratory effort Auscultation: clear to auscultation bilaterally (diminished in bases) Cardio: Rate: regular rate Rhythm: regular rhythm GI: Inspection: Pannus present and obesity GI Palp: Yes Soft to palpation, Yes Tenderness to palpation present (GI) (incisional), No Guarding due to palpation present (GI) and No Rigid due to palpation Auscultation: normal bowel sounds Other: Midline incision has superficial dehiscence of the skin and subcutaneous tissue with now an open wound the entire length of the incision. There is some yellow slough in the wound bed and zayas purulent drainage, but also noted are some islands of pink granulation tissue. Fascia appears to be intact. Urinary Catheter: Urinary Catheter: patent and draining and urine clear Skin: General skin exam: normal color Neuro: General: moves all extremities and no focal motor deficits Extrem: General: no clubbing, cyanosis or edema and no calf tenderness Psych: Mental Status: mental status gross
[2021-02-03 09:38] LABS: Hypochromasia 2+ (NORMAL); Platelet Estimate Adequate (Adequate)
[2021-02-03] MEDS: HYDROcodone/acetaminophen (*CRX) 10-325 MG TABLET 1 TAB PO ×2 (10:33→15:50)
[2021-02-03 11:42] LABS: Glucose Point of Care 107 mg/dl (65-105)
--- NOTE | 2021-02-03 12:47 | PDONCCN ---
HPI - Date of Consult Date/Time: 02/03/21 12:47 Requesting Physician: Christine Gong MD Primary Care Provider: PHYSICIAN NOT ON STAFF - Consult Narrative Reason for consult: Adenocarcinoma of colon Narrative: Tori Miller is a 55 year old morbidly obese female status post gastric bypass surgery 10 years ago with strong family history of cervical cancer in the mother as well as colon cancer in the mother and brother came into the hospital with sudden onset of right lower quadrant abdominal pain. She denies any nausea vomiting. Patient was trying to set up colonoscopy due to diffuse abdominal pain as well as biopsy of the liver mass seen previously. CT scan done on January 23 showed 3 cm right hepatic lobe mass as well as appendiceal perforation. Patient had emergent exploratory laparotomy, laparoscopic appendectomy in color regimen to open laparotomy with right hemicolectomy done on January 23, 2021. Pathology showed moderately differentiated adenocarcinoma of colon with perforation in cecum and extensive pericolonic disease and extension to the serosal surface. There was 12 benign pericolonic lymph nodes. Labs showed hemoglobin of 7.7 and CEA was elevated at 22.7. Review of Systems - Review of Systems All systems reviewed & are unremarkable except as noted in HPI and bel - Neurologic Reports system reviewed and no additional complaints, except as documented, Reports hearing normal, Reports confusion, Reports weakness, Denies abnormal speech, Denies headache(s), Denies focal weakness PMFSH Medical History: Medical History (Last Updated 01/26/21 @ 11:10 by Pedro Cai MD) Bowel obstruction Depression with anxiety Hypothyroidism Liver mass Obstructive sleep apnea Surgical History: Surgical History (Last Reviewed 01/24/21 @ 10:46 by Pedro Cai MD) H/O hernia repair History of gastric bypass S/P appendectomy Family History: Family History (Last Reviewed 01/24/21 @ 10:46 by Pedro Cai MD) Unknown Unknown family medical history - Social History Social History: Social History (Last Reviewed 01/24/21 @ 10:46 by Pedro Cai MD) Alcohol Use: Alcohol intake: current Drinks per week: 1 Substance Use: Substance use: never Substance use type: does not use Others: Spiritual care concerns: No Smoking Status: Smoking status: Never smoker Meds Home Medications Medication Instructions Recorded Confirmed Type albuterol sulfate 2 puff INHALATION QID PRN 01/23/21 01/23/21 History diclofenac sodium 75 mg PO DAILY 01/23/21 01/23/21 History levothyroxine 50 mcg PO DAILY 01/23/21 01/23/21 History levothyroxine 200 mcg PO DAILY 01/23/21 01/23/21 History meloxicam 15 mg PO DAILY 01/23/21 01/23/21 History omeprazole 40 mg PO DAILY 01/23/21 01/23/21 History ondansetron 4 mg PO QID 01/23/21 01/23/21 History oxycodone-acetaminophen 1 tablet PO TID PRN 01/23/21 01/26/21 History trazodone 100 mg PO HS PRN 01/23/21 01/23/21 History venlafaxine 150 mg PO DAILY 01/23/21 01/23/21 History venlafaxine 75 mg PO DAILY 01/26/21 01/26/21 History Allergies Allergy/AdvReac Type Severity Reaction Status Date / Time morphine Allergy Mild Unknown Verified 01/23/21 00:08 promethazine Allergy Mild Unknown Verified 01/23/21 00:08 Results - Labs CBC & Chem 7: 02/03/21 06:45 02/03/21 06:45 Labs: Short CBC 02/03/21 Range/Units 06:45 WBC 7.8 (4.5-10.0) K/mm3 Hgb 7.7 L (12.0-15.0) g/dL Hct 25.0 L (37.0-47.0) % Plt Count 182 (150-375) k/mm3 BMP 02/03/21 06:45 Sodium 139 Potassium 3.7 Chloride 106 Carbon Dioxide 26 BUN 32 H Creatinine 1.70 H Glucose 96 Calcium 7.0 L Assessment and Plan - Additional Plan Likely metastatic adenocarcinoma of colon status post exploratory laparotomy, laparoscopic appendectomy and conversion to open laparotomy with right hemicolectomy done on January 23, 2021. Pathology showed well-differe
[2021-02-03 14:19] LABS: Iron 12 ug/dL (37-170)
[2021-02-03 14:36] LABS: Percent Iron Saturation 6 % (20-50)
--- NOTE | 2021-02-03 14:49 | PCPTNOTE ---
Attempted to see patient for PT this afternoon. Patient emotional when I entered the room. Patient states she was not having a good day. Patient states a wound vac was applied today and she aslo spoke to the oncologist today. Plan made with patient for PT to return tomorrow in AM and practice bed mobility for sitting up EOB and transfers as tolerated.
--- NOTE | 2021-02-03 15:14 | PC.NURSE ---
On 02/03/21, the student, [ Violet Kenyon], provided care and completed [facility] documentation on this patient. I have reviewed the student's documentation and agree with the findings.
[2021-02-03] MEDS: SODIUM CHLORIDE 0.9% IV 1,000 ML 100 ML IV CONT (15:44)
[2021-02-03] MEDS: NEOMYCIN/POLYMYXIN/BACITRACIN OINTMENT PACKET 1 PACKET (15:45)
[2021-02-03 16:28] LABS: Folic Acid > 20.0 ng/mL (2.76->20); Vitamin B12 > 1000.0 pg/mL (239-931)
[2021-02-03 16:58] LABS: Glucose Point of Care 112 mg/dl (65-105)
[2021-02-03] MEDS: PANTOPRAZOLE SODIUM IV 40 MG VIAL IV PUSH (21:02)
[2021-02-03 22:02] LABS: Glucose Point of Care 89 mg/dl (65-105)
[2021-02-04] VITALS (12 sets, daily range): BP systolic 103–147; BP diastolic 56–67; PULSE 88–100; RESP 16–32; TEMP 35.9–36.9; O2SAT 96–100
[2021-02-04] MEDS: SODIUM CHLORIDE 0.9% IV 1,000 ML 100 ML IV CONT ×2 (02:04→13:56)
[2021-02-04 05:38] LABS: Basophils Absolute Auto 0.1 K/mm3 (0.0-0.1); Basophils Percent Auto 0.8 % (0.2-1.2); Eosinophils Percent Auto 0.5 % (0-4.4); Hematocrit 26.8 % (37.0-47.0); Immature Granulocyte Absolute 0.12 K/mm3 (0.00-0.031); Immature Granulocyte Percent A 1.6 % (0-0.5); Lymphocytes Absolute Auto 1.31 K/mm3 (0.9-3.2); Lymphocytes Percent Auto 17.5 % (18.3-44.2); Mean Corpuscular HGB Conc 29.9 g/dl (32-36); Mean Corpuscular Hemoglobin 26.7 pg (26-34); Mean Corpuscular Volume 89.3 fl (80-100); Mean Platelet Volume 11.3 fl (7.4-10.4); Monocytes Absolute Auto 1.2 K/mm3 (0.1-0.6); Monocytes Percent Auto 15.6 % (2.6-8.5); Neutrophils Absolute Auto 4.8 K/mm3 (1.3-6.7); Nucleated Red Blood Cells Perc 0.3 % (0.0-0.2); Platelet Count Result 221 k/mm3 (150-375); Red Cell Distribution Width 17.9 % (11.5-14.5); White Blood Count 7.5 K/mm3 (4.5-10.0)
[2021-02-04] MEDS: LEVOTHYROXINE SODIUM INJ 100 MCG/5 ML VIAL 125 MCG IV PUSH (05:42)
[2021-02-04 05:50] LABS: Anion Gap 6 mmol/L (8-16); Blood Urea Nitrogen 27 mg/dL (7-17); Calcium 7.2 mg/dL (8.4-10.2); Carbon Dioxide 26 mmol/L (22-30); Chloride 106 mmol/L (98-107); Estimated CRCL calculation 70 ml/min; Estimated Glomerular Filt Rate 36; Glucose 109 mg/dL (65-110); Potassium 3.4 mmol/L (3.4-5.0); Sodium 138 mmol/L (137-145)
[2021-02-04 06:59] LABS: Glucose Point of Care 90 mg/dl (65-105)
[2021-02-04] MEDS: PANTOPRAZOLE SODIUM IV 40 MG VIAL IV PUSH ×2 (08:02→21:31)
[2021-02-04] MEDS: POTASSIUM CHLORIDE 20 MEQ PACKET (FOR LIQUID) PO (08:02)
[2021-02-04] MEDS: HYDROcodone/acetaminophen (*CRX) 10-325 MG TABLET 1 TAB PO ×3 (10:07→21:31)
--- NOTE | 2021-02-04 10:44 | PC.NURSE ---
Pt and her advocate (her sister in law that works here) are concerned about where pt will go for rehab upon discharge. They did not want pt to go to [facility]. This information was passed along to care coordination with instruction to contact the sister in law regarding alternative locations.
--- NOTE | 2021-02-04 11:13 | PC.NURSE ---
This patient, Tori Miller, was transferred to [ID ] on 02/04/21 at 1113.
--- NOTE | 2021-02-04 11:15 | P.PNIM_ITS ---
Progress Note: A&P Assessment and Plan (1) Perforation of cecum: Code(s): K35.32 - Acute appendicitis with perforation and localized peritonitis, without abscess Status: Acute Assessment and Plan: * Acute perforated appendicitis. S/P surgery January 23, 2021: exploratory laparoscopy, laparoscopic appendectomy, conversion to open laparotomy with right hemicolectomy and mobilization of hepatic flexure, extensive intra- abdominal washout for fecal peritonitis . Pt is on Zosyn 3.375 g IV q.6 hours. Patient is having daily large bowel movemens and feels incontinent. She is feeling better today. * Pathology showed moderately differentiated adenocarcinoma of colon with perforation in cecum and extensive pericolonic disease and extension to the serosal surface. There was 12 benign pericolonic lymph nodes. Labs showed hemoglobin of 8 and CEA was elevated at 22.7. * Pathology showed well-differentiated adenocarcinoma with perforation in the cecum with extensive pericolonic disease and extension to the serosal surface T4 disease. [address] abdomen showed 3 cm hepatic mass. This is concerning for metastatic colon cancer. Patient is scheduled for a CT-guided biopsy of the liver mass. PET scan will be done as an outpatient * The sepsis has resolved. The patient remains hemodynamically stale and afebrile. * Currently improving slowly. Encourage physical activity and OOBC. * Continue local wound care, WILLIAM drain care, encourage OOB/IS, * She is tolerating her regular diet. She is now passing flatus; having bowel movement, complaining of incontinence. * Slowly improving. Management per his primary service. * OOBC adn stand up daily with PT. (2) Obstructive sleep apnea: Code(s): G47.33 - Obstructive sleep apnea (adult) (pediatric) Status: Acute Assessment and Plan: * CPAP tolerated at [facility]. Currently on oxygen at 2 liters. (3) Delirium: Code(s): R41.0 - Disorientation, unspecified Status: Acute Assessment and Plan: * Hospital associated delirium, now resolved. The patient is actually alert oriented x3 currently. Good insight and fair judgement. (4) Atelectasis: Code(s): J98.11 - Atelectasis Status: Acute Assessment and Plan: * Encourage the use of incentive spirometer. OOBC and attempt at standig up every day. (5) Thrombocytopenia: Code(s): D69.6 - Thrombocytopenia, unspecified Status: Acute Assessment and Plan: * Likely due to septic shock. Platelet count is improving slowly. Continue to monitor (6) Anemia: Qualifiers: Anemia type: unspecified type Qualified Code(s): D64.9 - Anemia, unspecified Code(s): D64.9 - Anemia, unspecified Status: Acute Assessment and Plan: * Moderate anemia, well tolerated. * Hemoglobin stable continue monitor (7) Fecal peritonitis: Code(s): K65.8 - Other peritonitis Status: Acute Assessment and Plan: * Due to perforated cecum; manage per primary service. (8) Acute kidney injury: Code(s): N17.9 - Acute kidney failure, unspecified Status: Acute Assessment and Plan: * Recovering acute kidney injury with 4 liters urinary output overnight. Likely represents the recovering phase of ATN. * Likely prerenal versus ischemic ATN in volume depletion with septic shock. * Baseline kidney function is presumed to be normal with a creatinine of 0.9 on 01/23/2021. * Creatinine trending inappropriate direction. Creatinine is improving slowly
--- NOTE | 2021-02-04 11:15 | PM.IMPN ---
Progress Note: A&P Assessment and Plan (1) Perforation of cecum: Code(s): K35.32 - Acute appendicitis with perforation and localized peritonitis, without abscess Status: Acute Assessment and Plan: Acute perforated appendicitis. S/P surgery January 23, 2021: exploratory laparoscopy, laparoscopic appendectomy, conversion to open laparotomy with right hemicolectomy and mobilization of hepatic flexure, extensive intra-abdominal washout for fecal peritonitis . Pt is on Zosyn 3.375 g IV q.6 hours. Patient is having daily large bowel movemens and feels incontinent. She is feeling better today. Pathology showed moderately differentiated adenocarcinoma of colon with perforation in cecum and extensive pericolonic disease and extension to the serosal surface. There was 12 benign pericolonic lymph nodes. Labs showed hemoglobin of 8 and CEA was elevated at 22.7. Pathology showed well-differentiated adenocarcinoma with perforation in the cecum with extensive pericolonic disease and extension to the serosal surface T4 disease. [address] abdomen showed 3 cm hepatic mass. This is concerning for metastatic colon cancer. Patient is scheduled for a CT-guided biopsy of the liver mass. PET scan will be done as an outpatient The sepsis has resolved. The patient remains hemodynamically stale and afebrile. Currently improving slowly. Encourage physical activity and OOBC. Continue local wound care, WILLIAM drain care, encourage OOB/IS, She is tolerating her regular diet. She is now passing flatus; having bowel movement, complaining of incontinence. Slowly improving. Management per his primary service. OOBC adn stand up daily with PT. (2) Obstructive sleep apnea: Code(s): G47.33 - Obstructive sleep apnea (adult) (pediatric) Status: Acute Assessment and Plan: CPAP tolerated at [facility]. Currently on oxygen at 2 liters. (3) Delirium: Code(s): R41.0 - Disorientation, unspecified Status: Acute Assessment and Plan: Hospital associated delirium, now resolved. The patient is actually alert oriented x3 currently. Good insight and fair judgement. (4) Atelectasis: Code(s): J98.11 - Atelectasis Status: Acute Assessment and Plan: Encourage the use of incentive spirometer. OOBC and attempt at standig up every day. (5) Thrombocytopenia: Code(s): D69.6 - Thrombocytopenia, unspecified Status: Acute Assessment and Plan: Likely due to septic shock. Platelet count is improving slowly. Continue to monitor (6) Anemia: Qualifiers: Anemia type: unspecified type Qualified Code(s): D64.9 - Anemia, unspecified Code(s): D64.9 - Anemia, unspecified Status: Acute Assessment and Plan: Moderate anemia, well tolerated. Hemoglobin stable continue monitor (7) Fecal peritonitis: Code(s): K65.8 - Other peritonitis Status: Acute Assessment and Plan: Due to perforated cecum; manage per primary service. (8) Acute kidney injury: Code(s): N17.9 - Acute kidney failure, unspecified Status: Acute Assessment and Plan: Recovering acute kidney injury with 4 liters urinary output overnight. Likely represents the recovering phase of ATN. Likely prerenal versus ischemic ATN in volume depletion with septic shock. Baseline kidney function is presumed to be normal with a creatinine of 0.9 on 01/23/2021. Creatinine trending inappropriate direction. Creatinine is improving slowly with adequate urinary output which is very reassuring. Additional Plan Hypothyroidism. Resume oral synthroid 200 mg daily. Discharge planning; Dischrge to acute rehab. Patient prefers [facility]. Subjective Date/time seen: Narrative.55 year old lady with acute perforated appendicitis, recently diagnosed with metastatic adenocarcinoma of colon status post exploratory laparotomy, laparoscopic appendectomy and co
--- NOTE | 2021-02-04 12:19 | PM.PNGS ---
Progress Note: A&P Assessment and Plan (1) Perforation of cecum: Code(s): K35.32 - Acute appendicitis with perforation and localized peritonitis, without abscess Status: Acute Assessment and Plan: doing well overall, vac working well, awaiting disposition Subjective Subjective Date/Time Seen: 02/04/21 12:19 no acute issues overnight, vac working well Review of Systems Review of Systems: All systems reviewed & are unremarkable except as noted in HPI and below Exam Const: General: cooperative, comfortable and no acute distress Nutritional Appearance: obese Resp: Effort & Inspection: normal respiratory effort Auscultation: diminished lung sounds Cardio: Rate: regular rate Rhythm: regular rhythm GI: Inspection: normal to inspection and incision GI Palp: Yes Soft to palpation and Yes Tenderness to palpation present (GI) Other: vac C/D/I, WILLIAM c serous drainage Objective Data Vital Signs Vital Signs: Vital Signs - 24 hr 02/03/21 14:00 02/03/21 16:00 02/03/21 19:29 Temperature 36.3 C L 36.0 C L Pulse Rate 87 89 90 Respiratory Rate 20 18 Blood Pressure 136/61 149/60 H Pulse Oximetry 99 98 02/03/21 20:00 02/03/21 20:32 02/04/21 00:00 Temperature Pulse Rate 95 90 100 Respiratory Rate 18 Blood Pressure Pulse Oximetry 96 02/04/21 03:03 02/04/21 04:00 02/04/21 07:59 Temperature 36.6 C 36.9 C Pulse Rate 96 96 89 Respiratory Rate 16 32 H Blood Pressure 134/56 L 147/67 H Pulse Oximetry 98 98 02/04/21 08:00 Temperature Pulse Rate 91 Respiratory Rate Blood Pressure Pulse Oximetry Intake/Output Intake/Output: Intake & Output 02/01/21 02/02/21 02/03/21 02/04/21 23:59 23:59 23:59 23:59 Intake Total 2230 5050 2646 2140 Output Total 7056 5055 2158 1200 Balance -1045 8335 -4454 940 Meds/Results Medications: Active Medications Generic Name Dose Route Start Last Admin Trade Name Freq PRN Reason Stop Dose Admin Acetaminophen 650 mg 01/26/21 08:10 Acetaminophen 325 Mg Tablet PO Q4H PRN Fever Hydrocodone Bitart/Acetaminophen 1 tab 02/02/21 12:46 Hydrocodone/Acetaminophen (*Crx) 5-325 Mg Tablet PO Q4H PRN Pain Rated 4-6 Hydrocodone Bitart/Acetaminophen 1 tab 02/02/21 12:49 02/04/21 10:07 Hydrocodone/Acetaminophen (*Crx) 10-325 Mg Tablet PO 1 tab Q4H PRN Administration Pain Rated 7-10 Albuterol 2 puff 01/23/21 16:49 01/28/21 10:38 Albuterol Sulfate (*Sp) Aerosol 1 Puff INHALATION 2 puff Q6HRT PRN Administration Shortness Of Breath Alteplase, Recombinant 2 mg 01/30/21 05:50 02/03/21 07:00 Alteplase 2 Mg Vial (Cathflo) IV PUSH 2 mg ONCE PRN Administration Line Occlusion Alteplase, Recombinant 2 mg 01/30/21 05:52 02/03/21 07:02 Alteplase 2 Mg Vial (Cathflo) IV PUSH 2 mg ONCE PRN Administration Line Occlusion Dextrose 12.5 gm 01/24/21 14:38 Dextrose 50% 25 Gm/50 Ml Syringe IV PUSH PRN PRN Hypoglycemia Protocol Enoxaparin Sodium 40 mg 01/23/21 09:00 01/24/21 09:16 Enoxaparin 40 Mg/0.4 Ml Syringe SUB-Q 40 mg DAILY MAGGIE Administration Glucagon 1 mg 01/24/21 14:38 Glucagon For Inj 1 Mg Vial IM PRN PRN Hypoglycemia Protocol Glucose 15 gm 01/24/21 14:38 Glucose Oral Gel 15 Gm Of Glucse In 37.5 Gm Tube PO PRN PRN Hypoglycemia Protocol Hydromorphone HCl 0.5 mg 02/02/21 12:49 Hydromorphone Hcl Inj (*Crx) 1 Mg/Ml Syr IV PUSH Q3H PRN Pain Rated 7-10 Sodium Chloride 1,000 mls @ 100 mls/hr 02/03/21 13:25 02/04/21 08:00 Normal Saline Iv IV CONT Not Given .Q10H MAGGIE Dextrose 1,000 mls @ 100 mls/hr 01/24/21 14:38 Dextrose 5% 1,000 Ml IVPB PRN PRN Hypoglycemia Protocol Insulin Aspart 3 - 6 units 01/27/21 08:00 02/04/21 07:42 Insulin Aspart (*Bkc) 100 Units/Ml SUB-Q Not Given TIDWM MAGGIE Protocol Levothyroxine Sodium 250 mcg 02/05/21 0
[2021-02-04 13:35] LABS: Glucose Point of Care 78 mg/dl (65-105)
--- NOTE | 2021-02-04 13:46 | PC.NURSE ---
This patient, Tori Miller, was received from [CT/US ] on 02/04/21 at 1346.
[2021-02-04 17:22] LABS: Glucose Point of Care 111 mg/dl (65-105)
[2021-02-04 21:38] LABS: Glucose Point of Care 111 mg/dl (65-105)
[2021-02-05] MEDS: SODIUM CHLORIDE 0.9% IV 1,000 ML 100 ML IV CONT ×2 (01:19→11:19)
[2021-02-05] MEDS: HYDROcodone/acetaminophen (*CRX) 10-325 MG TABLET 1 TAB PO ×3 (01:21→14:30)
[2021-02-05 03:25] VITALS: BP 104/47; PULSE 91; RESP 18; TEMP 36; O2SAT 99
[2021-02-05] MEDS: LEVOTHYROXINE SODIUM 125 MCG TABLET 250 MCG PO (06:03)
[2021-02-05 07:02] LABS: Hematocrit 25.8 % (37.0-47.0); Hemoglobin 7.8 g/dL (12.0-15.0); Mean Corpuscular HGB Conc 30.2 g/dl (32-36); Mean Corpuscular Hemoglobin 26.1 pg (26-34); Mean Corpuscular Volume 86.3 fl (80-100); Mean Platelet Volume 10.2 fl (7.4-10.4); Platelet Count Result 270 k/mm3 (150-375); Red Blood Count 2.99 M/mm3 (4.2-5.4); Red Cell Distribution Width 17.8 % (11.5-14.5); White Blood Count 7.8 K/mm3 (4.5-10.0)
[2021-02-05 07:12] LABS: Anion Gap 8 mmol/L (8-16); Blood Urea Nitrogen 23 mg/dL (7-17); Calcium 7.4 mg/dL (8.4-10.2); Carbon Dioxide 24 mmol/L (22-30); Chloride 106 mmol/L (98-107); Estimated CRCL calculation 70 ml/min; Estimated Glomerular Filt Rate 36; Glucose 98 mg/dL (65-110); Potassium 3.2 mmol/L (3.4-5.0); Sodium 138 mmol/L (137-145)
--- NOTE | 2021-02-05 07:14 | P.PNIM_ITS ---
Progress Note: A&P Assessment and Plan (1) Perforation of cecum: Code(s): K35.32 - Acute appendicitis with perforation and localized peritonitis, without abscess Status: Acute Assessment and Plan: * Acute perforated appendicitis. S/P surgery January 23, 2021: exploratory laparoscopy, laparoscopic appendectomy, conversion to open laparotomy with right hemicolectomy and mobilization of hepatic flexure, extensive intra- abdominal washout for fecal peritonitis . Pt remains on Zosyn 3.375 g IV q.6 hours. Patient is having daily large bowel movements and feels incontinent. She is feeling better today. * Pathology showed moderately differentiated adenocarcinoma of colon with perforation in cecum and extensive pericolonic disease and extension to the serosal surface. There was 12 benign pericolonic lymph nodes. Labs showed hemoglobin of 8 and CEA was elevated at 22.7. * Pathology showed well-differentiated adenocarcinoma with perforation in the cecum with extensive pericolonic disease and extension to the serosal surface T4 disease. [address] abdomen showed 3 cm hepatic mass. This is concerning for metastatic colon cancer. Patient underwent a CT-guided biopsy of the liver mass. PET scan will be done as an outpatient * The sepsis has resolved. The patient remains hemodynamically stale and afebrile. * Currently improving slowly. Encourage physical activity and OOBC. * Continue local wound care, WILLIAM drain care, encourage OOB/IS, * She is tolerating her regular diet. She is now passing flatus; having bowel movement, complaining of incontinence. * Slowly improving. Management per his primary service. * OOBC and stand up daily with PT. * Remove coleman catheter. (2) Obstructive sleep apnea: Code(s): G47.33 - Obstructive sleep apnea (adult) (pediatric) Status: Acute Assessment and Plan: * CPAP tolerated at [facility]. Currently on oxygen at 2 liters. (3) Delirium: Code(s): R41.0 - Disorientation, unspecified Status: Acute Assessment and Plan: * Hospital associated delirium, now resolved. The patient is actually alert oriented x3 currently. Good insight and fair judgement. (4) Atelectasis: Code(s): J98.11 - Atelectasis Status: Acute Assessment and Plan: * Encourage the use of incentive spirometer. OOBC and attempt at standig up every day. (5) Thrombocytopenia: Code(s): D69.6 - Thrombocytopenia, unspecified Status: Acute Assessment and Plan: * Likely due to septic shock. Platelet count is improving slowly. Continue to monitor (6) Anemia: Qualifiers: Anemia type: unspecified type Qualified Code(s): D64.9 - Anemia, unspecified Code(s): D64.9 - Anemia, unspecified Status: Acute Assessment and Plan: * Moderate anemia, well tolerated. * Hemoglobin stable continue monitor (7) Fecal peritonitis: Code(s): K65.8 - Other peritonitis Status: Acute Assessment and Plan: * Due to perforated cecum; manage per primary service. (8) Acute kidney injury: Code(s): N17.9 - Acute kidney failure, unspecified Status: Acute Assessment and Plan: * Recovering acute kidney injury with 4 liters urinary output overnight. Likely represents the recovering phase of ATN. * Likely prerenal versus ischemic ATN in volume depletion with septic shock. * Baseline kidney function is presumed to be normal with a creatinine of 0.9 on 01/23/2021. * Creatinine trending inappropriate direction. Deannaati
--- NOTE | 2021-02-05 07:14 | PM.IMPN ---
Progress Note: A&P Assessment and Plan (1) Perforation of cecum: Code(s): K35.32 - Acute appendicitis with perforation and localized peritonitis, without abscess Status: Acute Assessment and Plan: Acute perforated appendicitis. S/P surgery January 23, 2021: exploratory laparoscopy, laparoscopic appendectomy, conversion to open laparotomy with right hemicolectomy and mobilization of hepatic flexure, extensive intra-abdominal washout for fecal peritonitis . Pt remains on Zosyn 3.375 g IV q.6 hours. Patient is having daily large bowel movements and feels incontinent. She is feeling better today. Pathology showed moderately differentiated adenocarcinoma of colon with perforation in cecum and extensive pericolonic disease and extension to the serosal surface. There was 12 benign pericolonic lymph nodes. Labs showed hemoglobin of 8 and CEA was elevated at 22.7. Pathology showed well-differentiated adenocarcinoma with perforation in the cecum with extensive pericolonic disease and extension to the serosal surface T4 disease. [address] abdomen showed 3 cm hepatic mass. This is concerning for metastatic colon cancer. Patient underwent a CT-guided biopsy of the liver mass. PET scan will be done as an outpatient The sepsis has resolved. The patient remains hemodynamically stale and afebrile. Currently improving slowly. Encourage physical activity and OOBC. Continue local wound care, WILLIAM drain care, encourage OOB/IS, She is tolerating her regular diet. She is now passing flatus; having bowel movement, complaining of incontinence. Slowly improving. Management per his primary service. OOBC and stand up daily with PT. Remove coleman catheter. (2) Obstructive sleep apnea: Code(s): G47.33 - Obstructive sleep apnea (adult) (pediatric) Status: Acute Assessment and Plan: CPAP tolerated at [facility]. Currently on oxygen at 2 liters. (3) Delirium: Code(s): R41.0 - Disorientation, unspecified Status: Acute Assessment and Plan: Hospital associated delirium, now resolved. The patient is actually alert oriented x3 currently. Good insight and fair judgement. (4) Atelectasis: Code(s): J98.11 - Atelectasis Status: Acute Assessment and Plan: Encourage the use of incentive spirometer. OOBC and attempt at standig up every day. (5) Thrombocytopenia: Code(s): D69.6 - Thrombocytopenia, unspecified Status: Acute Assessment and Plan: Likely due to septic shock. Platelet count is improving slowly. Continue to monitor (6) Anemia: Qualifiers: Anemia type: unspecified type Qualified Code(s): D64.9 - Anemia, unspecified Code(s): D64.9 - Anemia, unspecified Status: Acute Assessment and Plan: Moderate anemia, well tolerated. Hemoglobin stable continue monitor (7) Fecal peritonitis: Code(s): K65.8 - Other peritonitis Status: Acute Assessment and Plan: Due to perforated cecum; manage per primary service. (8) Acute kidney injury: Code(s): N17.9 - Acute kidney failure, unspecified Status: Acute Assessment and Plan: Recovering acute kidney injury with 4 liters urinary output overnight. Likely represents the recovering phase of ATN. Likely prerenal versus ischemic ATN in volume depletion with septic shock. Baseline kidney function is presumed to be normal with a creatinine of 0.9 on 01/23/2021. Creatinine trending inappropriate direction. Creatinine is improving slowly with adequate urinary output which is very reassuring. Additional Plan Hypothyroidism. Resume oral synthroid 200 mg daily. Discharge planning; Discharge to acute rehab. Patient prefers [facility]. Subjective Date/time seen: 02/05/21 07:14 S: No acute issues overnight, vac working well. Interval history: Pt pod day 13 S/p lap appendectomy converted to open laparotomy with right hemic
[2021-02-05 08:02] VITALS: PULSE 95; RESP 18; O2SAT 96
[2021-02-05 08:08] LABS: Glucose Point of Care 76 mg/dl (65-105)
[2021-02-05 08:31] LABS: Anisocytosis 2+ (NORMAL); Band Neutrophils Percent 19 % (0-6); Lymphocytes Absolute Manual 1.71 K/mm3 (1.1-4.5); Monocytes Absolute Manual 0.54 K/mm3 (0.1-0.90); Monocytes Percent Manual 7 % (3-9); Neutrophils Absolute Manual 5.53 K/mm3 (1.7-7.2); Neutrophils Percent Manual 52 % (46-73); Platelet Estimate Adequate (Adequate); Total Cells Counted 100
[2021-02-05 08:32] LABS: Atypical Lymphocytes Present; Stomatocytes 1+ (NORMAL); Target Cells 1+ (NORMAL)
[2021-02-05 08:33] LABS: Tear Drop Cells 1+ (NORMAL)
[2021-02-05] MEDS: PANTOPRAZOLE SODIUM IV 40 MG VIAL IV PUSH ×2 (08:43→22:34)
--- NOTE | 2021-02-05 11:35 | PCOTNOTE ---
Attempted to see pt. at 11:35am this date. Pt. currently being cleaned up by nursing staff. Asked to come back later. Will attempt again if time allows.
[2021-02-05 12:21] LABS: Glucose Point of Care 84 mg/dl (65-105)
[2021-02-05 13:45] VITALS: BP 110/62; PULSE 94; RESP 20; TEMP 36.5; O2SAT 100
--- NOTE | 2021-02-05 14:02 | PM.PNGS ---
Progress Note: A&P Assessment and Plan (1) Perforation of cecum: Code(s): K35.32 - Acute appendicitis with perforation and localized peritonitis, without abscess Status: Acute Assessment and Plan: Doing well and making overall progress. No longer on IV antibiotics. Mostly wound care and physical therapy at this point. Will remove Cruz today. Wound vac is working well. Wound care plans to change this tomorrow. Care coordination still working on SNF placement for discharge. (2) Acute kidney injury: Code(s): N17.9 - Acute kidney failure, unspecified Status: Acute Assessment and Plan: Continues to improve. Creatinine 1.5 today. Discussed with the Hospitalist. Will stop her IV fluids. Labs ordered for tomorrow. (3) Morbid obesity due to excess calories: Code(s): E66.01 - Morbid (severe) obesity due to excess calories Status: Chronic Assessment and Plan: Mobility is a big issue for her right now, likely from significant deconditioning while hospitalized complicated by her morbid obesity and post-operative pain. Encouraged her to mobilize more and try to increase activity daily. Encouraged her not to refuse therapy and focus on working on her strength. Additional Plan I have discussed the plan of care with Dr. Gong. Subjective Subjective Date/Time Seen: 02/05/21 14:02 Post Op day: 13 Patient reports: no new complaints, tolerating a regular diet, flatus, bowel movement and afebrile Interval history: Patient was seen and examined this afternoon. She reports feeling exhausted. She reports having abdominal pain at the incision with any movement, otherwise no other pain or complaints. She still has not stood on her own out of bed and has not gotten up to the chair with the janette with PT today. She cannot recall doing that yesterday either. Review of Systems Review of Systems: All systems reviewed & are unremarkable except as noted in HPI and below Constitutional: Constitutional: Reports as per HPI, Reports no additional constitutional complaints, Denies chills and Denies fever(s) Cardiovascular: Cardiovascular: Reports no additional cardiovascular complaints, Denies chest pain and Reports other (no more swelling to lower extremities than normal) Respiratory: Respiratory: Reports no additional respiratory complaints, Denies cough and Denies dyspnea Gastrointestinal: Gastrointestinal: Reports as per HPI and Reports no additional gastrointestinal complaints Neurologic: Reports system reviewed and no additional complaints, except as documented, Denies Abnormal speech present and Denies focal weakness Exam Const: General: comfortable, no acute distress and awake Nutritional Appearance: obese Resp: Auscultation: clear to auscultation bilaterally (diminished in bases) Cardio: Rate: regular rate Rhythm: regular rhythm GI: Inspection: Pannus present, obesity and other (WILLIAM drain with zayas drainage) GI Palp: Yes Soft to palpation, Yes Tenderness to palpation present (GI) (incisional), No Guarding due to palpation present (GI) and No Rebound tenderness present Auscultation: normal bowel sounds Other: wound vac in place in open abdominal wound, functioning well, dry and intact. Urinary Catheter: Urinary Catheter: patent and draining and urine clear Skin: General skin exam: normal color Neuro: General: moves all extremities and no focal motor deficits Extrem: General: no pedal edema and no calf tenderness Psych: Mental Status: mental status grossly normal Insight: Good insight present (Psych) Judgement: Fair judgement present (Psych) Objective Data Vital Signs Vital Signs: Vital Signs - 24 hr 02/04/21 14:15 02/04/21 14:41 02/04/21 16:00 Temperature 97.7 F 98.0 F Pulse Rate 95 92 92 Respiratory Rate 24 H 28 H Blood Pressure 131/63 103/66 Pulse Oximetry 100 98 02/04/21 19:05 02/04/21 20:00 02/04/21 20:29 Temperature 96.6 F L Pulse Rate 95 88 97 Respiratory Ra
[2021-02-05] MEDS: POTASSIUM CHLORIDE 20 MEQ TABLET 40 MEQ PO (14:30)
[2021-02-05 16:49] LABS: Glucose Point of Care 94 mg/dl (65-105)
[2021-02-05 19:37] VITALS: BP 145/75; PULSE 97; RESP 20; TEMP 36.6; O2SAT 98
[2021-02-05 22:15] VITALS: O2SAT 97
[2021-02-06 03:27] VITALS: BP 148/62; PULSE 99; RESP 20; TEMP 36; O2SAT 97
[2021-02-06] MEDS: HYDROcodone/acetaminophen (*CRX) 10-325 MG TABLET 1 TAB PO ×3 (03:39→14:43)
[2021-02-06 05:42] LABS: Hematocrit 25.1 % (37.0-47.0); Hemoglobin 7.5 g/dL (12.0-15.0); Mean Corpuscular HGB Conc 29.9 g/dl (32-36); Mean Corpuscular Hemoglobin 26.6 pg (26-34); Mean Platelet Volume 10.2 fl (7.4-10.4); Platelet Count Result 289 k/mm3 (150-375); Red Blood Count 2.82 M/mm3 (4.2-5.4); Red Cell Distribution Width 17.7 % (11.5-14.5); White Blood Count 8.5 K/mm3 (4.5-10.0)
[2021-02-06 05:53] LABS: Anion Gap 4 mmol/L (8-16); Blood Urea Nitrogen 24 mg/dL (7-17); Calcium 7.5 mg/dL (8.4-10.2); Carbon Dioxide 24 mmol/L (22-30); Chloride 108 mmol/L (98-107); Estimated CRCL calculation 80 ml/min; Estimated Glomerular Filt Rate 42; Glucose 110 mg/dL (65-110); Potassium 3.1 mmol/L (3.4-5.0); Sodium 136 mmol/L (137-145)
[2021-02-06] MEDS: LEVOTHYROXINE SODIUM 125 MCG TABLET 250 MCG PO (06:04)
[2021-02-06] MEDS: HYDROmorphone HCL INJ (*CRX) 1 MG/ML SYR 0.5 MG IV PUSH ×2 (06:10→15:35)
[2021-02-06 07:13] LABS: Band Neutrophils Percent 12 % (0-6); Lymphocytes Absolute Manual 0.59 K/mm3 (1.1-4.5); Monocytes Absolute Manual 0.51 K/mm3 (0.1-0.90); Monocytes Percent Manual 6 % (3-9); Neutrophils Absolute Manual 7.39 K/mm3 (1.7-7.2); Neutrophils Percent Manual 75 % (46-73); Platelet Estimate Adequate (Adequate); Total Cells Counted 100
[2021-02-06 07:15] LABS: Anisocytosis 2+ (NORMAL)
[2021-02-06 07:16] LABS: Ovalocytes 2+ (NORMAL); Target Cells 1+ (NORMAL)
--- NOTE | 2021-02-06 08:20 | PM.PNGS ---
Progress Note: A&P Assessment and Plan (1) Perforation of cecum: Code(s): K35.32 - Acute appendicitis with perforation and localized peritonitis, without abscess Status: Acute Assessment and Plan: overall doing well, jessie diet, having bowel fxn, vac change today, awaiting disposition Subjective Subjective Date/Time Seen: 02/06/21 08:20 no acute issues, some nausea overnight Review of Systems Review of Systems: All systems reviewed & are unremarkable except as noted in HPI and below Exam Const: General: cooperative and comfortable Nutritional Appearance: obese Resp: Auscultation: diminished lung sounds Cardio: Rate: regular rate Rhythm: regular rhythm GI: Inspection: normal to inspection and incision GI Palp: Yes Soft to palpation, No Tenderness to palpation present (GI) and No Guarding due to palpation present (GI) Other: vac - C/D/I, WILLIAM c serous drainage Objective Data Vital Signs Vital Signs: Vital Signs - 24 hr 02/05/21 13:45 02/05/21 19:37 02/05/21 22:15 Temperature 36.5 C 36.6 C Pulse Rate 94 97 Respiratory Rate 20 20 Blood Pressure 110/62 145/75 H Pulse Oximetry 100 98 97 02/06/21 03:27 Temperature 36.0 C L Pulse Rate 99 Respiratory Rate 20 Blood Pressure 148/62 H Pulse Oximetry 97 Intake/Output Intake/Output: Intake & Output 02/03/21 02/04/21 02/05/21 02/06/21 23:59 23:59 23:59 23:59 Intake Total 2645 5250 2960 190 Output Total 6725 4700 2430 Balance -4080 550 530 190 Meds/Results Medications: Active Medications Generic Name Dose Route Start Last Admin Trade Name Freq PRN Reason Stop Dose Admin Acetaminophen 650 mg 01/26/21 08:10 Acetaminophen 325 Mg Tablet PO Q4H PRN Fever Hydrocodone Bitart/Acetaminophen 1 tab 02/02/21 12:46 Hydrocodone/Acetaminophen (*Crx) 5-325 Mg Tablet PO Q4H PRN Pain Rated 4-6 Hydrocodone Bitart/Acetaminophen 1 tab 02/02/21 12:49 02/06/21 03:39 Hydrocodone/Acetaminophen (*Crx) 10-325 Mg Tablet PO 1 tab Q4H PRN Administration Pain Rated 7-10 Albuterol 2 puff 01/23/21 16:49 10/13/21 10:38 Albuterol Sulfate (*Sp) Aerosol 1 Puff INHALATION 2 puff Q6HRT PRN Administration Shortness Of Breath Alteplase, Recombinant 2 mg 01/30/21 05:50 02/03/21 07:00 Alteplase 2 Mg Vial (Cathflo) IV PUSH 2 mg ONCE PRN Administration Line Occlusion Alteplase, Recombinant 2 mg 01/30/21 05:52 02/03/21 07:02 Alteplase 2 Mg Vial (Cathflo) IV PUSH 2 mg ONCE PRN Administration Line Occlusion Enoxaparin Sodium 40 mg 01/23/21 09:00 01/24/21 09:16 Enoxaparin 40 Mg/0.4 Ml Syringe SUB-Q 40 mg DAILY MAGGIE Administration Hydromorphone HCl 0.5 mg 02/02/21 12:49 02/06/21 06:10 Hydromorphone Hcl Inj (*Crx) 1 Mg/Ml Syr IV PUSH 0.5 mg Q3H PRN Administration Pain Rated 7-10 Potassium Chloride 20 meq/ 260 mls @ 130 mls/hr 02/06/21 07:30 Dextrose IVPB 02/06/21 09:29 ONCE ONE Levothyroxine Sodium 250 mcg 02/05/21 06:30 02/06/21 06:04 Levothyroxine Sodium 125 Mcg Tablet PO 250 mcg DAILY@0630 MAGGIE Administration Naloxone HCl 0.1 mg 01/23/21 06:46 Naloxone Hcl 0.4 Mg/Ml Vial IV PUSH Q2M PRN Opiate Reversal Ondansetron HCl 4 mg 01/23/21 06:46 01/30/21 20:26 Ondansetron Inj 4 Mg/2 Ml Vial IV PUSH 4 mg Q4H PRN Administration Nausea And Vomiting Pantoprazole Sodium 40 mg 01/25/21 09:00 02/05/21 22:34 Pantoprazole Sodium Iv 40 Mg Vial IV PUSH 40 mg Q12HR MAGGIE Administration Potassium Chloride 40 meq 02/06/21 07:30 Potassium Chloride 20 Meq Packet (For Liquid) PO 02/06/21 11:31 Q4H [facility] Radiology Results: ITS Impressions Abdomen/Pelvis CT 01/23/21 07:20 IMPRESSION: Intraperitoneal free air, suggesting bowel perforation. Consider appendiceal perforation Probable adynamic ileus Ill-defined 3 cm right hepatic mass and focal diffusion diagnosis includes hepatic abscess, hep
[2021-02-06] MEDS: POTASSIUM CHLORIDE 20 MEQ PACKET (FOR LIQUID) 40 MEQ PO ×2 (09:27→12:03)
[2021-02-06] MEDS: PANTOPRAZOLE SODIUM IV 40 MG VIAL IV PUSH ×2 (09:28→20:15)
[2021-02-06] MEDS: ONDANSETRON INJ 4 MG/2 ML VIAL IV PUSH (12:03)
--- NOTE | 2021-02-06 12:07 | PCNFU ---
Nutrition Follow-Up Complete: Inadequate oral intake related to appendicitis, peritonitis as evidenced by NPO diet. Goal: Patient to meet estimated nutritional needs. Patient is progressing towards goal. We will continue current goal. Pt current nutrition is Low Fiber diet, with Ensure Compact PRN. Last recorded weight is 203.5 kg, up from 196 kg on admit. Bowel Motility:+BM reported 02/05 Labs Reviewed:Cr 1.3,BUN 24, Na 136, K 3.1,Hct 25.1,Hgb 7.5 Meds Noted:Leighton, Dilaudid, Synthroid, Zofran,Protonix. Additional Notes: Nutrition follow up. Spoke with patient today, she did not sleep well last night. Nausea noted. Skin: left lower WILLIAM drain, wound vac-medial abdomen, to be changed today. Oral Intake has been 50-100% of a low fiber diet. Patient has been consuming Ensure compact which as been ordered PRN providing an additional 220 kcals and 9 gms protein. Monitoring: Follow up every 5 days.
--- NOTE | 2021-02-06 12:54 | P.PNIM_ITS ---
Progress Note: A&P Assessment and Plan (1) Perforation of cecum: Code(s): K35.32 - Acute appendicitis with perforation and localized peritonitis, without abscess Status: Acute Assessment and Plan: * Acute perforated appendicitis. S/P surgery January 23, 2021: exploratory laparoscopy, laparoscopic appendectomy, conversion to open laparotomy with right hemicolectomy and mobilization of hepatic flexure, extensive intra- abdominal washout for fecal peritonitis . Pt remains on Zosyn 3.375 g IV q.6 hours. Patient is having daily large bowel movements and feels incontinent. She is feeling better today, with complaints of mild nausea and incisional pain relieved with prescribed medications. * Pathology showed moderately differentiated adenocarcinoma of colon with perforation in cecum and extensive pericolonic disease and extension to the serosal surface. There was 12 benign pericolonic lymph nodes. Labs showed hemoglobin of 8 and CEA was elevated at 22.7. * CT abdomen showed 3 cm hepatic mass. This is concerning for metastatic colon cancer. Patient underwent a CT-guided biopsy of the liver mass. PET scan will be done as an outpatient * The sepsis has resolved. The patient remains hemodynamically stale and afebrile. * Currently improving slowly. Encourage physical activity: OOBC, stand up daily with PT.. * Continue local wound care, WILLIAM drain care, encourage OOB/IS, * She is tolerating her regular diet. She is now passing flatus; having bowel movement, complaining of incontinence. * Slowly improving. Management per his primary service. * Removed coleman catheter. * Plan to discharge to rehab at [facility]. (2) Obstructive sleep apnea: Code(s): G47.33 - Obstructive sleep apnea (adult) (pediatric) Status: Acute Assessment and Plan: * CPAP tolerated at [facility]. Currently on oxygen at 2 liters. (3) Delirium: Code(s): R41.0 - Disorientation, unspecified Status: Acute Assessment and Plan: * Hospital associated delirium, now resolved. The patient is actually alert oriented x3 currently. Good insight and fair judgement. (4) Atelectasis: Code(s): J98.11 - Atelectasis Status: Acute Assessment and Plan: * Encourage the use of incentive spirometer. OOBC and attempt at standig up every day. (5) Thrombocytopenia: Code(s): D69.6 - Thrombocytopenia, unspecified Status: Acute Assessment and Plan: * Likely due to septic shock. Platelet count is improving slowly. Continue to monitor (6) Anemia: Qualifiers: Anemia type: unspecified type Qualified Code(s): D64.9 - Anemia, unspecified Code(s): D64.9 - Anemia, unspecified Status: Acute Assessment and Plan: * Moderate anemia, well tolerated. Hemoglobin 7.5. Send iron panel. * Hemoglobin stable continue monitor (7) Fecal peritonitis: Code(s): K65.8 - Other peritonitis Status: Acute Assessment and Plan: * Due to perforated cecum; manage per primary service as above. (8) Acute kidney injury: Code(s): N17.9 - Acute kidney failure, unspecified Status: Acute Assessment and Plan: * Recovering acute kidney injury with 1.1 liters urinary output overnight. Creatinine has improved from 1.5-1.3. Creatinine is likely to continue to improve. * Likely prerenal versus ischemic ATN in volume depletion with septic shock. * Baseline kidney function is presumed to be normal with a creatinine of 0.9 on 01/23/2021. * Creatinine trending inappropriate
--- NOTE | 2021-02-06 12:54 | PM.IMPN ---
Progress Note: A&P Assessment and Plan (1) Perforation of cecum: Code(s): K35.32 - Acute appendicitis with perforation and localized peritonitis, without abscess Status: Acute Assessment and Plan: Acute perforated appendicitis. S/P surgery January 23, 2021: exploratory laparoscopy, laparoscopic appendectomy, conversion to open laparotomy with right hemicolectomy and mobilization of hepatic flexure, extensive intra-abdominal washout for fecal peritonitis . Pt remains on Zosyn 3.375 g IV q.6 hours. Patient is having daily large bowel movements and feels incontinent. She is feeling better today, with complaints of mild nausea and incisional pain relieved with prescribed medications. Pathology showed moderately differentiated adenocarcinoma of colon with perforation in cecum and extensive pericolonic disease and extension to the serosal surface. There was 12 benign pericolonic lymph nodes. Labs showed hemoglobin of 8 and CEA was elevated at 22.7. CT abdomen showed 3 cm hepatic mass. This is concerning for metastatic colon cancer. Patient underwent a CT-guided biopsy of the liver mass. PET scan will be done as an outpatient The sepsis has resolved. The patient remains hemodynamically stale and afebrile. Currently improving slowly. Encourage physical activity: OOBC, stand up daily with PT.. Continue local wound care, WILLIAM drain care, encourage OOB/IS, She is tolerating her regular diet. She is now passing flatus; having bowel movement, complaining of incontinence. Slowly improving. Management per his primary service. Removed coleman catheter. Plan to discharge to rehab at [facility]. (2) Obstructive sleep apnea: Code(s): G47.33 - Obstructive sleep apnea (adult) (pediatric) Status: Acute Assessment and Plan: CPAP tolerated at [facility] [place]. Currently on oxygen at 2 liters. (3) Delirium: Code(s): R41.0 - Disorientation, unspecified Status: Acute Assessment and Plan: Hospital associated delirium, now resolved. The patient is actually alert oriented x3 currently. Good insight and fair judgement. (4) Atelectasis: Code(s): J98.11 - Atelectasis Status: Acute Assessment and Plan: Encourage the use of incentive spirometer. OOBC and attempt at standig up every day. (5) Thrombocytopenia: Code(s): D69.6 - Thrombocytopenia, unspecified Status: Acute Assessment and Plan: Likely due to septic shock. Platelet count is improving slowly. Continue to monitor (6) Anemia: Qualifiers: Anemia type: unspecified type Qualified Code(s): D64.9 - Anemia, unspecified Code(s): D64.9 - Anemia, unspecified Status: Acute Assessment and Plan: Moderate anemia, well tolerated. Hemoglobin 7.5. Send iron panel. Hemoglobin stable continue monitor (7) Fecal peritonitis: Code(s): K65.8 - Other peritonitis Status: Acute Assessment and Plan: Due to perforated cecum; manage per primary service as above. (8) Acute kidney injury: Code(s): N17.9 - Acute kidney failure, unspecified Status: Acute Assessment and Plan: Recovering acute kidney injury with 1.1 liters urinary output overnight. Creatinine has improved from 1.5-1.3. Creatinine is likely to continue to improve. Likely prerenal versus ischemic ATN in volume depletion with septic shock. Baseline kidney function is presumed to be normal with a creatinine of 0.9 on 01/23/2021. Creatinine trending inappropriate direction. Creatinine is improving slowly with adequate urinary output which is very reassuring. (9) Hypokalemia: Code(s): E87.6 - Hypokalemia Status: Acute Assessment and Plan: Currently supplemented with oral and IV potassium. Monitor repeat potassium level in morning. Additional Plan Hypothyroidism. Continue oral synthroid 200 mg daily. Discharge planning; Discharge to acute rehab. Patient pref
[2021-02-06 14:00] VITALS: BP 133/63; PULSE 90; RESP 18; TEMP 36.4; O2SAT 100
--- NOTE | 2021-02-06 14:46 | PCPTNOTE ---
PT attempted to see patient 3x today. Patient receiving RT treatment and then with nursing on first attempt in A.M. Attempted again at 1310 and patient declined stating I need some time to do nothing and asked PT to return in ~ 45 min. PT returned at ~1415 and patient refused PT stating she had wound vac changed and does not want to move. Educated patient in the importance of increasing her activity and begin sitting EOB and transfers. Patient voices understanding and stets I know I need to move. I want to get out of here!
[2021-02-06 19:55] VITALS: BP 136/65; PULSE 96; RESP 20; TEMP 36.2; O2SAT 97
[2021-02-06 22:25] VITALS: O2SAT 96
[2021-02-06] MEDS: HYDROcodone/acetaminophen (*CRX) 5-325 MG TABLET 1 TAB PO (23:36)
[2021-02-07 04:23] VITALS: BP 126/57; PULSE 94; RESP 20; TEMP 37.2; O2SAT 100
[2021-02-07] MEDS: HYDROcodone/acetaminophen (*CRX) 10-325 MG TABLET 1 TAB PO ×5 (04:40→22:31)
[2021-02-07 05:45] LABS: Hematocrit 25.5 % (37.0-47.0); Hemoglobin 7.6 g/dL (12.0-15.0); Mean Corpuscular HGB Conc 29.8 g/dl (32-36); Mean Corpuscular Hemoglobin 26.6 pg (26-34); Mean Corpuscular Volume 89.2 fl (80-100); Mean Platelet Volume 10.2 fl (7.4-10.4); Platelet Count Result 341 k/mm3 (150-375); Red Blood Count 2.86 M/mm3 (4.2-5.4); Red Cell Distribution Width 17.9 % (11.5-14.5); White Blood Count 9.8 K/mm3 (4.5-10.0)
[2021-02-07 05:56] LABS: Anion Gap 8 mmol/L (8-16); Blood Urea Nitrogen 22 mg/dL (7-17); Calcium 7.7 mg/dL (8.4-10.2); Carbon Dioxide 23 mmol/L (22-30); Chloride 107 mmol/L (98-107); Estimated CRCL calculation 74 ml/min; Estimated Glomerular Filt Rate 39; Glucose 94 mg/dL (65-110); Potassium 3.5 mmol/L (3.4-5.0); Sodium 138 mmol/L (137-145)
[2021-02-07] MEDS: LEVOTHYROXINE SODIUM 125 MCG TABLET 250 MCG PO (06:11)
[2021-02-07 07:42] LABS: Band Neutrophils Percent 30 % (0-6); Basophils Absolute Manual 0.19 K/mm3 (0.0-0.1); Basophils Percent Manual 2 % (0-1); Eosinophils Absolute Manual 0.09 K/mm3 (0.02-0.5); Eosinophils Percent Manual 1 % (0-4); Lymphocytes Absolute Manual 1.27 K/mm3 (1.1-4.5); Monocytes Absolute Manual 0.88 K/mm3 (0.1-0.90); Monocytes Percent Manual 9 % (3-9); Neutrophils Absolute Manual 7.35 K/mm3 (1.7-7.2); Neutrophils Percent Manual 45 % (46-73); Total Cells Counted 100
--- NOTE | 2021-02-07 07:56 | P.PNIM_ITS ---
Progress Note: A&P Assessment and Plan (1) Perforation of cecum: Code(s): K35.32 - Acute appendicitis with perforation and localized peritonitis, without abscess Status: Acute Assessment and Plan: * Acute perforated appendicitis. S/P surgery January 23, 2021: exploratory laparoscopy, laparoscopic appendectomy, conversion to open laparotomy with right hemicolectomy and mobilization of hepatic flexure, extensive intra- abdominal washout for fecal peritonitis . Pt remains on Zosyn 3.375 g IV q.6 hours. Patient is having daily large bowel movements and feels incontinent. She is feeling better today, with complaints of incisional pain relieved with prescribed medications. * Pathology showed moderately differentiated adenocarcinoma of colon with perforation in cecum and extensive pericolonic disease and extension to the serosal surface. There was 12 benign pericolonic lymph nodes. Labs showed hemoglobin of 8 and CEA was elevated at 22.7. * CT abdomen showed 3 cm hepatic mass. This is concerning for metastatic colon cancer. Patient underwent a CT-guided biopsy of the liver mass. PET scan will be done as an outpatient * The sepsis has resolved. The patient remains hemodynamically stale and afebr ile. * Currently improving slowly. Encourage physical activity: OOBC, stand up daily with PT.. * Continue local wound care, WILLIAM drain care, encourage OOB/IS, * She is tolerating her regular diet. She is now passing flatus; having bowel movement, complaining of incontinence. * Slowly improving. Management per his primary service. * Plan to discharge to rehab at [facility] [place]. (2) Obstructive sleep apnea: Code(s): G47.33 - Obstructive sleep apnea (adult) (pediatric) Status: Acute Assessment and Plan: * CPAP tolerated at night. Currently on oxygen at 2 liters. (3) Delirium: Code(s): R41.0 - Disorientation, unspecified Status: Acute Assessment and Plan: * Hospital associated delirium, now resolved. The patient is actually alert oriented x3 currently. Good insight and fair judgement. (4) Atelectasis: Code(s): J98.11 - Atelectasis Status: Acute Assessment and Plan: * Encourage the use of incentive spirometer. OOBC and attempt at standig up e very day. (5) Thrombocytopenia: Code(s): D69.6 - Thrombocytopenia, unspecified Status: Acute Assessment and Plan: * Likely due to septic shock. Platelet count is improving slowly. Continue to monitor (6) Anemia: Qualifiers: Anemia type: unspecified type Qualified Code(s): D64.9 - Anemia, unspecified Code(s): D64.9 - Anemia, unspecified Status: Acute Assessment and Plan: * Moderate anemia, well tolerated. Hemoglobin 7.5. start oral iron supplementation. * Hemoglobin stable continue monitor (7) Fecal peritonitis: Code(s): K65.8 - Other peritonitis Status: Acute Assessment and Plan: * Due to perforated cecum; manage per primary service as above. (8) Acute kidney injury: Code(s): N17.9 - Acute kidney failure, unspecified Status: Acute Assessment and Plan: * Recovering acute kidney injury with 1.1 liters urinary output overnight. Creatinine has plateaued at 1.4. Creatinine is likely to continue to improve. * Likely prerenal versus ischemic ATN in volume depletion with septic shock. * Baseline kidney function is presumed to be normal with a creatinine of 0.9 on 01/23/2021. * Creatinine trending inappropriate direction. Creatinine is improving s
--- NOTE | 2021-02-07 07:56 | PM.IMPN ---
Progress Note: A&P Assessment and Plan (1) Perforation of cecum: Code(s): K35.32 - Acute appendicitis with perforation and localized peritonitis, without abscess Status: Acute Assessment and Plan: Acute perforated appendicitis. S/P surgery January 23, 2021: exploratory laparoscopy, laparoscopic appendectomy, conversion to open laparotomy with right hemicolectomy and mobilization of hepatic flexure, extensive intra-abdominal washout for fecal peritonitis . Pt remains on Zosyn 3.375 g IV q.6 hours. Patient is having daily large bowel movements and feels incontinent. She is feeling better today, with complaints of incisional pain relieved with prescribed medications. Pathology showed moderately differentiated adenocarcinoma of colon with perforation in cecum and extensive pericolonic disease and extension to the serosal surface. There was 12 benign pericolonic lymph nodes. Labs showed hemoglobin of 8 and CEA was elevated at 22.7. CT abdomen showed 3 cm hepatic mass. This is concerning for metastatic colon cancer. Patient underwent a CT-guided biopsy of the liver mass. PET scan will be done as an outpatient The sepsis has resolved. The patient remains hemodynamically stale and afebrile. Currently improving slowly. Encourage physical activity: OOBC, stand up daily with PT.. Continue local wound care, WILLIAM drain care, encourage OOB/IS, She is tolerating her regular diet. She is now passing flatus; having bowel movement, complaining of incontinence. Slowly improving. Management per his primary service. Plan to discharge to rehab at [facility]. (2) Obstructive sleep apnea: Code(s): G47.33 - Obstructive sleep apnea (adult) (pediatric) Status: Acute Assessment and Plan: CPAP tolerated at night. Currently on oxygen at 2 liters. (3) Delirium: Code(s): R41.0 - Disorientation, unspecified Status: Acute Assessment and Plan: Hospital associated delirium, now resolved. The patient is actually alert oriented x3 currently. Good insight and fair judgement. (4) Atelectasis: Code(s): J98.11 - Atelectasis Status: Acute Assessment and Plan: Encourage the use of incentive spirometer. OOBC and attempt at standig up every day. (5) Thrombocytopenia: Code(s): D69.6 - Thrombocytopenia, unspecified Status: Acute Assessment and Plan: Likely due to septic shock. Platelet count is improving slowly. Continue to monitor (6) Anemia: Qualifiers: Anemia type: unspecified type Qualified Code(s): D64.9 - Anemia, unspecified Code(s): D64.9 - Anemia, unspecified Status: Acute Assessment and Plan: Moderate anemia, well tolerated. Hemoglobin 7.5. start oral iron supplementation. Hemoglobin stable continue monitor (7) Fecal peritonitis: Code(s): K65.8 - Other peritonitis Status: Acute Assessment and Plan: Due to perforated cecum; manage per primary service as above. (8) Acute kidney injury: Code(s): N17.9 - Acute kidney failure, unspecified Status: Acute Assessment and Plan: Recovering acute kidney injury with 1.1 liters urinary output overnight. Creatinine has plateaued at 1.4. Creatinine is likely to continue to improve. Likely prerenal versus ischemic ATN in volume depletion with septic shock. Baseline kidney function is presumed to be normal with a creatinine of 0.9 on 01/23/2021. Creatinine trending inappropriate direction. Creatinine is improving slowly with adequate urinary output which is very reassuring. (9) Hypokalemia: Code(s): E87.6 - Hypokalemia Status: Acute Assessment and Plan: Currently supplemented with oral and IV potassium. Monitor repeat potassium level in morning. Additional Plan Hypothyroidism. Continue oral synthroid 200 mg daily. Discharge planning; Discharge to acute rehab. Patient prefers [facility] Subjective
[2021-02-07 08:01] LABS: Platelet Estimate Adequate (Adequate); Smudge Cells FEW
[2021-02-07] MEDS: PANTOPRAZOLE SODIUM IV 40 MG VIAL IV PUSH ×2 (09:05→19:51)
[2021-02-07 10:00] VITALS: O2SAT 99
--- NOTE | 2021-02-07 10:52 | PCOTNOTE ---
Patient declined treatment x1 due to pain; recieving [facility]SE [employer]ACTITIONER care x1 and not available x1 attempt this date.
[2021-02-07 14:35] VITALS: BP 128/52; PULSE 91; RESP 18; TEMP 36.1; O2SAT 100
--- NOTE | 2021-02-07 18:08 | PM.PNGS ---
Progress Note: A&P Assessment and Plan (1) Perforation of cecum: Code(s): K35.32 - Acute appendicitis with perforation and localized peritonitis, without abscess Status: Acute Assessment and Plan: overall doing well, jessie diet, having bowel fxn, vac change yesterday -- canister has brownish cloudy fluid within it , awaiting disposition for ECF /rehab. pathology was back from the ultrasound-guided liver biopsy I let her know that this also showed adenocarcinoma most likely related to the tumor from the cecum. (2) Morbid obesity due to excess calories: Code(s): E66.01 - Morbid (severe) obesity due to excess calories Status: Chronic Assessment and Plan: Patient tolerating diet and we are following following calorie count. (3) Obstructive sleep apnea: Code(s): G47.33 - Obstructive sleep apnea (adult) (pediatric) Status: Acute Assessment and Plan: using CPAP. (4) Primary adenocarcinoma of ascending colon: Code(s): C18.2 - Malignant neoplasm of ascending colon Status: Acute Assessment and Plan: Path returned from the right colon resection. Also from the liver biopsy so pathologic diagnosis is now pT4a, pN0, pM1a. Subjective Subjective Date/Time Seen: 02/07/21 16:08 Post Op day: Patient reports: no new complaints and feels better Interval history: Patient is approximately 2 weeks postop. Still waiting on PT to get further equipment to allow her to start walking with them. Complained to the hospitalist that she was having difficulty detecting when she was about to have a bowel movement but states to me this afternoon that this is gradually improving and she is able to sense this now. She states she is planning to go to rehab to try to get back to walking. Review of Systems Review of Systems: All systems reviewed & are unremarkable except as noted in HPI and below Eyes: Eyes: Reports no additional eye complaints ENT: Reports system reviewed and no additional complaints, except as documented and Denies headache(s) Cardiovascular: Cardiovascular: Reports no additional cardiovascular complaints, Denies chest pain, Denies dyspnea and Reports other (no more swelling to lower extremities than normal) Respiratory: Respiratory: Reports no additional respiratory complaints, Denies cough and Denies dyspnea Gastrointestinal: Gastrointestinal: Reports as per HPI, Denies abdominal pain, Reports loose stools and Denies nausea Genitourinary: Genitourinary: Reports no additional female genitourinary complaints Musculoskeletal: Musculoskeletal: Reports no additional musculoskeletal complaints Integumentary/Breasts: Skin/Breast: Reports system reviewed and no additional complaints, except as docu Neurologic: Reports system reviewed and no additional complaints, except as documented, Denies Abnormal speech present, Reports confusion, Denies headache(s), Denies focal weakness and Reports weakness Psychiatric: Psychiatric: Reports no additional psychiatric complaints and Reports as per HPI Endocrine: Endocrine: Reports no additional endocrine complaints and Reports fatigue Hematologic/Lymphatic: Hematologic/Lymphatic: Reports no additional hematologic/lymphatic complaints Allergic/Immunologic: Allergic/Immunologic: Reports no additional allergic/immunologic complaints Exam Const: General: cooperative, comfortable, no acute distress, alert, awake, acute distress severe, anxious, confusion, ill appearing, lethargic, poor hygiene and uncomfortable Nutritional Appearance: obese Orientation/consciousness: oriented to person, No oriented to place, oriented to time, confusion and lethargic Limitations: altered mental status Eyes: General: appearance normal, both eyes and all related structures Pupils: Equal, round and reactive pupils present EOM: EOMs intact bilaterally Neck: Neck: normal visual inspection, full ROM and no lymphadenopathy Resp: Effort & Inspection:
[2021-02-07] MEDS: HYDROmorphone HCL INJ (*CRX) 1 MG/ML SYR 0.5 MG IV PUSH (19:49)
[2021-02-07 21:15] VITALS: BP 123/50; PULSE 64; RESP 16; TEMP 36.9; O2SAT 92
[2021-02-08] MEDS: HYDROmorphone HCL INJ (*CRX) 1 MG/ML SYR 0.5 MG IV PUSH ×3 (01:22→18:00)
[2021-02-08] MEDS: ONDANSETRON INJ 4 MG/2 ML VIAL IV PUSH ×2 (01:30→06:34)
[2021-02-08 05:22] VITALS: BP 108/53; PULSE 101; RESP 16; TEMP 37.1; O2SAT 95
[2021-02-08 05:24] LABS: Hematocrit 25.5 % (37.0-47.0); Hemoglobin 7.4 g/dL (12.0-15.0); Mean Corpuscular Hemoglobin 26.1 pg (26-34); Mean Corpuscular Volume 89.8 fl (80-100); Mean Platelet Volume 10.1 fl (7.4-10.4); Platelet Count Result 354 k/mm3 (150-375); Red Blood Count 2.84 M/mm3 (4.2-5.4); Red Cell Distribution Width 17.9 % (11.5-14.5); White Blood Count 11.4 K/mm3 (4.5-10.0)
[2021-02-08 05:43] LABS: Anion Gap 10 mmol/L (8-16); Blood Urea Nitrogen 24 mg/dL (7-17); Calcium 7.4 mg/dL (8.4-10.2); Carbon Dioxide 21 mmol/L (22-30); Chloride 109 mmol/L (98-107); Estimated CRCL calculation 86 ml/min; Estimated Glomerular Filt Rate 46; Glucose 88 mg/dL (65-110); Potassium 3.5 mmol/L (3.4-5.0); Sodium 140 mmol/L (137-145)
[2021-02-08 06:26] VITALS: O2SAT 98
[2021-02-08] MEDS: HYDROcodone/acetaminophen (*CRX) 10-325 MG TABLET 1 TAB PO ×4 (06:33→22:47)
[2021-02-08] MEDS: LEVOTHYROXINE SODIUM 125 MCG TABLET 250 MCG PO (06:34)
--- NOTE | 2021-02-08 08:01 | P.PNIM_ITS ---
Progress Note: A&P Assessment and Plan (1) Perforation of cecum: Code(s): K35.32 - Acute appendicitis with perforation and localized peritonitis, without abscess Status: Acute Assessment and Plan: * Acute perforated appendicitis. S/P surgery January 23, 2021: exploratory laparoscopy, laparoscopic appendectomy, conversion to open laparotomy with right hemicolectomy and mobilization of hepatic flexure, extensive intra- abdominal washout for fecal peritonitis . Pt remains on Zosyn 3.375 g IV q.6 hours. Patient is having daily large bowel movements and feels incontinent. She is feeling better today, with complaints of incisional pain relieved with prescribed medications. * Pathology showed moderately differentiated adenocarcinoma of colon with perforation in cecum and extensive pericolonic disease and extension to the serosal surface. There was 12 benign pericolonic lymph nodes. Labs showed hemoglobin of 8 and CEA was elevated at 22.7. * CT abdomen showed 3 cm hepatic mass. This is concerning for metastatic colon cancer. Patient underwent a CT-guided biopsy of the liver mass. Liver my ass biopsy positive for adenocarcinoma. PET scan will be done as an outpatient. Consult oncology. * The sepsis has resolved. The patient remains hemodynamically stale and afebrile. * Currently improving slowly. Encourage physical activity: OOBC, stand up daily with PT.. * Continue local wound care, WILLIAM drain care, encourage OOB/IS, * She is tolerating her regular diet. She is now passing flatus; having bowel movement, complaining of incontinence. * Slowly improving. Management per his primary service. * Plan to discharge to rehab at [facility]. (2) Obstructive sleep apnea: Code(s): G47.33 - Obstructive sleep apnea (adult) (pediatric) Status: Acute Assessment and Plan: * CPAP tolerated at night. Currently on oxygen at 2 liters. (3) Delirium: Code(s): R41.0 - Disorientation, unspecified Status: Acute Assessment and Plan: * Hospital associated delirium, now resolved. The patient is alert oriented x3 currently. Good insight and fair judgement. (4) Atelectasis: Code(s): J98.11 - Atelectasis Status: Acute Assessment and Plan: * Encourage the use of incentive spirometer. OOBC and attempt at standig up every day. (5) Thrombocytopenia: Code(s): D69.6 - Thrombocytopenia, unspecified Status: Acute Assessment and Plan: * Likely due to septic shock. Platelet count is improving slowly. Continue to monitor This has resolved (6) Anemia: Qualifiers: Anemia type: unspecified type Qualified Code(s): D64.9 - Anemia, unspecified Code(s): D64.9 - Anemia, unspecified Status: Acute Assessment and Plan: * Postoperative blood loss anemia baseline hemoglobin on admission was 12.2. Moderate anemia, well tolerated. Hemoglobin 7.5. start oral iron supplementation. * Hemoglobin stable continue monitor (7) Fecal peritonitis: Code(s): K65.8 - Other peritonitis Status: Acute Assessment and Plan: * Due to perforated cecum; manage per primary service as above. (8) Acute kidney injury: Code(s): N17.9 - Acute kidney failure, unspecified Status: Acute Assessment and Plan: * Recovering acute kidney injury; urinary output not charted overnight. Creatinine still improving down to 1.2. Creatinine is likely to continue to improve. * Likely prerenal versus ischemic ATN in volume depletion with septic shock.
--- NOTE | 2021-02-08 08:01 | PM.IMPN ---
Progress Note: A&P Assessment and Plan (1) Perforation of cecum: Code(s): K35.32 - Acute appendicitis with perforation and localized peritonitis, without abscess Status: Acute Assessment and Plan: Acute perforated appendicitis. S/P surgery January 23, 2021: exploratory laparoscopy, laparoscopic appendectomy, conversion to open laparotomy with right hemicolectomy and mobilization of hepatic flexure, extensive intra-abdominal washout for fecal peritonitis . Pt remains on Zosyn 3.375 g IV q.6 hours. Patient is having daily large bowel movements and feels incontinent. She is feeling better today, with complaints of incisional pain relieved with prescribed medications. Pathology showed moderately differentiated adenocarcinoma of colon with perforation in cecum and extensive pericolonic disease and extension to the serosal surface. There was 12 benign pericolonic lymph nodes. Labs showed hemoglobin of 8 and CEA was elevated at 22.7. CT abdomen showed 3 cm hepatic mass. This is concerning for metastatic colon cancer. Patient underwent a CT-guided biopsy of the liver mass. Liver my ass biopsy positive for adenocarcinoma. PET scan will be done as an outpatient. Consult oncology. The sepsis has resolved. The patient remains hemodynamically stale and afebrile. Currently improving slowly. Encourage physical activity: OOBC, stand up daily with PT.. Continue local wound care, WILLIAM drain care, encourage OOB/IS, She is tolerating her regular diet. She is now passing flatus; having bowel movement, complaining of incontinence. Slowly improving. Management per his primary service. Plan to discharge to rehab at [facility]. (2) Obstructive sleep apnea: Code(s): G47.33 - Obstructive sleep apnea (adult) (pediatric) Status: Acute Assessment and Plan: CPAP tolerated at night. Currently on oxygen at 2 liters. (3) Delirium: Code(s): R41.0 - Disorientation, unspecified Status: Acute Assessment and Plan: Hospital associated delirium, now resolved. The patient is alert oriented x3 currently. Good insight and fair judgement. (4) Atelectasis: Code(s): J98.11 - Atelectasis Status: Acute Assessment and Plan: Encourage the use of incentive spirometer. OOBC and attempt at standig up every day. (5) Thrombocytopenia: Code(s): D69.6 - Thrombocytopenia, unspecified Status: Acute Assessment and Plan: Likely due to septic shock. Platelet count is improving slowly. Continue to monitor This has resolved (6) Anemia: Qualifiers: Anemia type: unspecified type Qualified Code(s): D64.9 - Anemia, unspecified Code(s): D64.9 - Anemia, unspecified Status: Acute Assessment and Plan: Postoperative blood loss anemia baseline hemoglobin on admission was 12.2. Moderate anemia, well tolerated. Hemoglobin 7.5. start oral iron supplementation. Hemoglobin stable continue monitor (7) Fecal peritonitis: Code(s): K65.8 - Other peritonitis Status: Acute Assessment and Plan: Due to perforated cecum; manage per primary service as above. (8) Acute kidney injury: Code(s): N17.9 - Acute kidney failure, unspecified Status: Acute Assessment and Plan: Recovering acute kidney injury; urinary output not charted overnight. Creatinine still improving down to 1.2. Creatinine is likely to continue to improve. Likely prerenal versus ischemic ATN in volume depletion with septic shock. Baseline kidney function is presumed to be normal with a creatinine of 0.9 on 01/23/2021. Creatinine trending inappropriate direction. Creatinine is improving slowly with adequate urinary output which is very reassuring. (9) Hypokalemia: Code(s): E87.6 - Hypokalemia Status: Acute Assessment and Plan: Currently supplemented with oral potassium. Monitor repeat potassium level in morning. Place potassium
[2021-02-08 08:12] LABS: Band Neutrophils Percent 13 % (0-6); Lymphocytes Absolute Manual 2.39 K/mm3 (1.1-4.5); Metamyelocytes Percent 1 %; Monocytes Absolute Manual 0.79 K/mm3 (0.1-0.90); Monocytes Percent Manual 7 % (3-9); Neutrophils Absolute Manual 8.09 K/mm3 (1.7-7.2); Neutrophils Percent Manual 58 % (46-73); Nucleated Red Blood Cells 1 %; Total Cells Counted 100
[2021-02-08 08:13] LABS: Anisocytosis 1+ (NORMAL); Platelet Estimate Adequate (Adequate)
[2021-02-08] MEDS: PANTOPRAZOLE 40 MG TABLET PO (09:35)
[2021-02-08] MEDS: POTASSIUM CHLORIDE 20 MEQ PACKET (FOR LIQUID) PO (09:35)
--- NOTE | 2021-02-08 13:07 | PM.PNGS ---
Progress Note: A&P Assessment and Plan (1) Perforation of cecum: Code(s): K35.32 - Acute appendicitis with perforation and localized peritonitis, without abscess Status: Acute Assessment and Plan: overall doing well, jessie diet, having bowel fxn, vac change planned for Tuesday -- canister has brownish cloudy fluid within it , awaiting disposition for ECF /rehab. pathology was back from the ultrasound-guided liver biopsy so I let her know that this also showed adenocarcinoma most likely related to the tumor from the cecum. (2) Morbid obesity due to excess calories: Code(s): E66.01 - Morbid (severe) obesity due to excess calories Status: Chronic Assessment and Plan: Patient tolerating diet and we are following following calorie count. (3) Obstructive sleep apnea: Code(s): G47.33 - Obstructive sleep apnea (adult) (pediatric) Status: Acute Assessment and Plan: using CPAP. (4) Primary adenocarcinoma of ascending colon: Code(s): C18.2 - Malignant neoplasm of ascending colon Status: Acute Assessment and Plan: Path returned from the right colon resection. Also from the liver biopsy so pathologic diagnosis is now pT4a, pN0, pM1a. Additional Plan I have discussed the plan of care with Dr. Birch (hospitalist) she agreed it might be toth for this patient to see medical oncology during the hospitalization as she awaits for placement since it will be difficult for her to get to their office. I believe she will be putting in a medical oncology consultation for Tuesday02/09/2021 ( all path reports her now back because the patient has had to stay longer so they will have plenty of information to discussed with the patient). Subjective Subjective Date/Time Seen: 02/08/21 13:07 Interval history: The patient states she is feeling all right although had some nausea overnight. States all she did was drink some coffee or juice for breakfast. Yesterday she was able to start feeling the sensation of knowing when she needs to have a bowel movement. She states she is not nauseated now and will try some lunch. The patient confirms today that she did have a gastric bypass in her 40s at [place] with Dr. Zack Mcintosh who I believe is still there. She is interested in trying to go back to him to consider further care/possible revision. Review of Systems Review of Systems: All systems reviewed & are unremarkable except as noted in HPI and below ROS unobtainable: Yes unobtainable due to medical condition Constitutional: Constitutional: Reports fatigue, Denies fever(s) and Reports weakness Eyes: Eyes: Reports no additional eye complaints ENT: Reports system reviewed and no additional complaints, except as documented and Denies headache(s) Cardiovascular: Cardiovascular: Reports no additional cardiovascular complaints, Denies chest pain, Denies dyspnea and Reports other (no more swelling to lower extremities than normal) Respiratory: Respiratory: Reports no additional respiratory complaints, Denies cough and Denies dyspnea Gastrointestinal: Gastrointestinal: Reports loose stools and Reports nausea ( Some during the evening yesterday but this has now passed.) Genitourinary: Genitourinary: Reports no additional female genitourinary complaints Musculoskeletal: Musculoskeletal: Reports no additional musculoskeletal complaints Integumentary/Breasts: Skin/Breast: Reports system reviewed and no additional complaints, except as docu Neurologic: Reports system reviewed and no additional complaints, except as documented, Denies Abnormal speech present, Denies headache(s), Denies focal weakness and Reports weakness Psychiatric: Psychiatric: Reports no additional psychiatric complaints and Reports as per HPI Endocrine: Endocrine: Reports no additional endocrine complaints and Reports fatigue Hematologic/Lymphatic: Hematologic/Lymphatic: Reports no additional hematologic/lymphatic compl
[2021-02-08 14:00] VITALS: BP 117/50; PULSE 95; RESP 20; TEMP 36.4; O2SAT 100
[2021-02-08] MEDS: HYDROGEN PEROXIDE 3% SOLN(*SP) 473 ML BOTTLE IRRIGATION (18:27)
[2021-02-08 22:00] VITALS: BP 112/56; PULSE 93; RESP 21; TEMP 37.2; O2SAT 100
[2021-02-09] MEDS: HYDROmorphone HCL INJ (*CRX) 1 MG/ML SYR 0.5 MG IV PUSH ×4 (00:20→21:39)
[2021-02-09] MEDS: HYDROcodone/acetaminophen (*CRX) 10-325 MG TABLET 1 TAB PO ×4 (03:28→20:35)
[2021-02-09 05:35] LABS: Hematocrit 24.1 % (37.0-47.0); Hemoglobin 7.3 g/dL (12.0-15.0); Mean Corpuscular HGB Conc 30.3 g/dl (32-36); Mean Corpuscular Hemoglobin 26.2 pg (26-34); Mean Corpuscular Volume 86.4 fl (80-100); Mean Platelet Volume 9.7 fl (7.4-10.4); Platelet Count Result 377 k/mm3 (150-375); Red Blood Count 2.79 M/mm3 (4.2-5.4); Red Cell Distribution Width 17.9 % (11.5-14.5); White Blood Count 9.8 K/mm3 (4.5-10.0)
[2021-02-09 06:00] VITALS: BP 119/61; PULSE 97; RESP 18; TEMP 36.4; O2SAT 96
[2021-02-09 06:00] LABS: Anion Gap 10 mmol/L (8-16); Blood Urea Nitrogen 26 mg/dL (7-17); Calcium 7.3 mg/dL (8.4-10.2); Carbon Dioxide 21 mmol/L (22-30); Chloride 107 mmol/L (98-107); Estimated CRCL calculation 86 ml/min; Estimated Glomerular Filt Rate 46; Glucose 94 mg/dL (65-110); Magnesium 1.4 mg/dL (1.6-2.3); Potassium 3.3 mmol/L (3.4-5.0); Sodium 138 mmol/L (137-145)
[2021-02-09] MEDS: LEVOTHYROXINE SODIUM 125 MCG TABLET 250 MCG PO (06:06)
[2021-02-09 06:38] LABS: Band Neutrophils Percent 13 % (0-6); Eosinophils Absolute Manual 0.09 K/mm3 (0.02-0.5); Eosinophils Percent Manual 1 % (0-4); Lymphocytes Absolute Manual 2.25 K/mm3 (1.1-4.5); Monocytes Absolute Manual 0.58 K/mm3 (0.1-0.90); Monocytes Percent Manual 6 % (3-9); Neutrophils Absolute Manual 6.86 K/mm3 (1.7-7.2); Neutrophils Percent Manual 57 % (46-73); Nucleated Red Blood Cells 3 %; Total Cells Counted 100
[2021-02-09] MEDS: ONDANSETRON INJ 4 MG/2 ML VIAL IV PUSH ×3 (06:54→18:04)
[2021-02-09 07:46] VITALS: O2SAT 99
--- NOTE | 2021-02-09 07:48 | P.PNIM_ITS ---
Progress Note: A&P Assessment and Plan (1) Perforation of cecum: Code(s): K35.32 - Acute appendicitis with perforation and localized peritonitis, without abscess Status: Acute Assessment and Plan: * Acute perforated appendicitis. S/P surgery January 23, 2021: exploratory laparoscopy, laparoscopic appendectomy, conversion to open laparotomy with right hemicolectomy and mobilization of hepatic flexure, extensive intra- abdominal washout for fecal peritonitis . Pt remains on Zosyn 3.375 g IV q.6 hours. Patient is having daily large bowel movements and feels incontinent. She is feeling better today, with complaints of incisional pain relieved with prescribed medications. * Pathology showed moderately differentiated adenocarcinoma of colon with perforation in cecum and extensive pericolonic disease and extension to the serosal surface. There was 12 benign pericolonic lymph nodes. Labs showed hemoglobin of 8 and CEA was elevated at 22.7. * CT abdomen showed 3 cm hepatic mass. This is concerning for metastatic colon cancer. Patient underwent a CT-guided biopsy of the liver mass. Liver my ass biopsy positive for adenocarcinoma. PET scan will be done as an outpatient * The sepsis has resolved. The patient remains hemodynamically stale and afebrile. * Currently improving slowly. Encourage physical activity: OOBC, stand up daily with PT.. * Continue local wound care, WILLIAM drain care, encourage OOB/IS, * She is tolerating her regular diet. She is now passing flatus; having bowel movement, complaining of incontinence. * Slowly improving. Management per his primary service. * Plan to discharge to rehab at [facility]. (2) Obstructive sleep apnea: Code(s): G47.33 - Obstructive sleep apnea (adult) (pediatric) Status: Acute Assessment and Plan: * CPAP tolerated at night. Currently on oxygen at 2 liters. (3) Delirium: Code(s): R41.0 - Disorientation, unspecified Status: Acute Assessment and Plan: * Hospital associated delirium, now resolved. The patient is alert oriented x3 currently. Good insight and fair judgement. (4) Atelectasis: Code(s): J98.11 - Atelectasis Status: Acute Assessment and Plan: * Encourage the use of incentive spirometer. OOBC and attempt at standig up every day. (5) Thrombocytopenia: Code(s): D69.6 - Thrombocytopenia, unspecified Status: Acute Assessment and Plan: * Likely due to septic shock. Platelet count is improving slowly. Continue to monitor This has resolved (6) Anemia: Qualifiers: Anemia type: unspecified type Qualified Code(s): D64.9 - Anemia, unspecified Code(s): D64.9 - Anemia, unspecified Status: Acute Assessment and Plan: * Postoperative blood loss anemia baseline hemoglobin on admission was 12.2. Moderate anemia, well tolerated. Hemoglobin 7.5. start oral iron sup plementation. * Hemoglobin stable continue monitor (7) Fecal peritonitis: Code(s): K65.8 - Other peritonitis Status: Acute Assessment and Plan: * Due to perforated cecum; manage per primary service as above. (8) Acute kidney injury: Code(s): N17.9 - Acute kidney failure, unspecified Status: Acute Assessment and Plan: * Recovering acute kidney injury with 1.1 liters urinary output overnight. Creatinine has plateaued at 1.4. Creatinine is likely to continue to improve. * Likely prerenal versus ischemic ATN in volume depletion with septic shock. * Baseline kidney function is pr
--- NOTE | 2021-02-09 07:48 | PM.IMPN ---
Progress Note: A&P Assessment and Plan (1) Perforation of cecum: Code(s): K35.32 - Acute appendicitis with perforation and localized peritonitis, without abscess Status: Acute Assessment and Plan: Acute perforated appendicitis. S/P surgery January 23, 2021: exploratory laparoscopy, laparoscopic appendectomy, conversion to open laparotomy with right hemicolectomy and mobilization of hepatic flexure, extensive intra-abdominal washout for fecal peritonitis . Pt remains on Zosyn 3.375 g IV q.6 hours. Patient is having daily large bowel movements and feels incontinent. She is feeling better today, with complaints of incisional pain relieved with prescribed medications. Pathology showed moderately differentiated adenocarcinoma of colon with perforation in cecum and extensive pericolonic disease and extension to the serosal surface. There was 12 benign pericolonic lymph nodes. Labs showed hemoglobin of 8 and CEA was elevated at 22.7. CT abdomen showed 3 cm hepatic mass. This is concerning for metastatic colon cancer. Patient underwent a CT-guided biopsy of the liver mass. Liver my ass biopsy positive for adenocarcinoma. PET scan will be done as an outpatient The sepsis has resolved. The patient remains hemodynamically stale and afebrile. Currently improving slowly. Encourage physical activity: OOBC, stand up daily with PT.. Continue local wound care, WILLIAM drain care, encourage OOB/IS, She is tolerating her regular diet. She is now passing flatus; having bowel movement, complaining of incontinence. Slowly improving. Management per his primary service. Plan to discharge to rehab at [facility]. (2) Obstructive sleep apnea: Code(s): G47.33 - Obstructive sleep apnea (adult) (pediatric) Status: Acute Assessment and Plan: CPAP tolerated at night. Currently on oxygen at 2 liters. (3) Delirium: Code(s): R41.0 - Disorientation, unspecified Status: Acute Assessment and Plan: Hospital associated delirium, now resolved. The patient is alert oriented x3 currently. Good insight and fair judgement. (4) Atelectasis: Code(s): J98.11 - Atelectasis Status: Acute Assessment and Plan: Encourage the use of incentive spirometer. OOBC and attempt at standig up every day. (5) Thrombocytopenia: Code(s): D69.6 - Thrombocytopenia, unspecified Status: Acute Assessment and Plan: Likely due to septic shock. Platelet count is improving slowly. Continue to monitor This has resolved (6) Anemia: Qualifiers: Anemia type: unspecified type Qualified Code(s): D64.9 - Anemia, unspecified Code(s): D64.9 - Anemia, unspecified Status: Acute Assessment and Plan: Postoperative blood loss anemia baseline hemoglobin on admission was 12.2. Moderate anemia, well tolerated. Hemoglobin 7.5. start oral iron supplementation. Hemoglobin stable continue monitor (7) Fecal peritonitis: Code(s): K65.8 - Other peritonitis Status: Acute Assessment and Plan: Due to perforated cecum; manage per primary service as above. (8) Acute kidney injury: Code(s): N17.9 - Acute kidney failure, unspecified Status: Acute Assessment and Plan: Recovering acute kidney injury with 1.1 liters urinary output overnight. Creatinine has plateaued at 1.4. Creatinine is likely to continue to improve. Likely prerenal versus ischemic ATN in volume depletion with septic shock. Baseline kidney function is presumed to be normal with a creatinine of 0.9 on 01/23/2021. Creatinine trending inappropriate direction. Creatinine is improving slowly with adequate urinary output which is very reassuring. (9) Hypokalemia: Code(s): E87.6 - Hypokalemia Status: Acute Assessment and Plan: Currently supplemented with oral and IV potassium. Monitor repeat potassium level in morning. Place potassium today so replace m
[2021-02-09] MEDS: POTASSIUM CHLORIDE 20 MEQ PACKET (FOR LIQUID) 40 MEQ PO (08:28)
[2021-02-09] MEDS: HYDROGEN PEROXIDE 3% SOLN(*SP) 473 ML BOTTLE IRRIGATION (08:28)
[2021-02-09] MEDS: MAGNESIUM SULF 2 GM/WATER 50ML 2 GM/50 ML BAG IVPB (08:28)
[2021-02-09] MEDS: PANTOPRAZOLE 40 MG TABLET PO (08:29)
--- NOTE | 2021-02-09 09:40 | PM.PNGS ---
Progress Note: A&P Assessment and Plan (1) Primary adenocarcinoma of ascending colon: Code(s): C18.2 - Malignant neoplasm of ascending colon Status: Acute Assessment and Plan: stable, cont diet, cont PT/OT, vac change today, oncology consult Subjective Subjective Date/Time Seen: 02/09/21 09:40 feels ok, had large incontinent stool this am, jessie diet Review of Systems Review of Systems: All systems reviewed & are unremarkable except as noted in HPI and below Exam GI: Inspection: normal to inspection and incision GI Palp: Yes Soft to palpation and No Tenderness to palpation present (GI) Other: vac - C/D/I Objective Data Vital Signs Vital Signs: Vital Signs - 24 hr 02/08/21 14:00 02/08/21 22:00 02/09/21 06:00 Temperature 36.4 C 37.2 C 36.4 C Pulse Rate 95 93 97 Respiratory Rate 20 21 H 18 Blood Pressure 117/50 L 112/56 L 119/61 Pulse Oximetry 100 100 96 02/09/21 07:46 Temperature Pulse Rate Respiratory Rate Blood Pressure Pulse Oximetry 99 Intake/Output Intake/Output: Intake & Output 02/06/21 02/07/21 02/08/21 02/09/21 23:59 23:59 23:59 23:59 Intake Total 2590 816 500 990 Output Total 308 625 Balance 2590 508 -125 990 Meds/Results Medications: Active Medications Generic Name Dose Route Start Last Admin Trade Name Freq PRN Reason Stop Dose Admin Acetaminophen 650 mg 01/26/21 08:10 Acetaminophen 325 Mg Tablet PO Q4H PRN Fever Hydrocodone Bitart/Acetaminophen 1 tab 02/02/21 12:46 02/06/21 23:36 Hydrocodone/Acetaminophen (*Crx) 5-325 Mg Tablet PO 1 tab Q4H PRN Administration Pain Rated 4-6 Hydrocodone Bitart/Acetaminophen 1 tab 02/02/21 12:49 02/09/21 03:28 Hydrocodone/Acetaminophen (*Crx) 10-325 Mg Tablet PO 1 tab Q4H PRN Administration Pain Rated 7-10 Albuterol 2 puff 01/23/21 16:49 01/28/21 10:38 Albuterol Sulfate (*Sp) Aerosol 1 Puff INHALATION 2 puff Q6HRT PRN Administration Shortness Of Breath Alteplase, Recombinant 2 mg 10/15/21 05:50 02/03/21 07:00 Alteplase 2 Mg Vial (Cathflo) IV PUSH 2 mg ONCE PRN Administration Line Occlusion Alteplase, Recombinant 2 mg 01/30/21 05:52 02/03/21 07:02 Alteplase 2 Mg Vial (Cathflo) IV PUSH 2 mg ONCE PRN Administration Line Occlusion Enoxaparin Sodium 40 mg 01/23/21 09:00 01/24/21 09:16 Enoxaparin 40 Mg/0.4 Ml Syringe SUB-Q 40 mg DAILY MAGGIE Administration Hydrogen Peroxide/Benzyl Alcohol 0 ml 02/08/21 09:00 02/09/21 08:28 Hydrogen Peroxide 3% Soln(*Sp) 473 Ml Bottle IRRIGATION 5 ml DAILY MAGGIE Administration Hydromorphone HCl 0.5 mg 02/02/21 12:49 02/09/21 00:20 Hydromorphone Hcl Inj (*Crx) 1 Mg/Ml Syr IV PUSH 0.5 mg Q3H PRN Administration Pain Rated 7-10 Levothyroxine Sodium 250 mcg 02/05/21 06:30 02/09/21 06:06 Levothyroxine Sodium 125 Mcg Tablet PO 250 mcg DAILY@0630 MAGGIE Administration Naloxone HCl 0.1 mg 01/23/21 06:46 Naloxone Hcl 0.4 Mg/Ml Vial IV PUSH Q2M PRN Opiate Reversal Ondansetron HCl 4 mg 01/23/21 06:46 02/09/21 06:54 Ondansetron Inj 4 Mg/2 Ml Vial IV PUSH 4 mg Q4H PRN Administration Nausea And Vomiting Pantoprazole Sodium 40 mg 02/08/21 09:00 02/09/21 08:29 Pantoprazole 40 Mg Tablet PO 40 mg QAM MAGGIE Administration Radiology Results: ITS Impressions Abdomen/Pelvis CT 01/23/21 07:20 IMPRESSION: Intraperitoneal free air, suggesting bowel perforation. Consider appendiceal perforation Probable adynamic ileus Ill-defined 3 cm right hepatic mass and focal diffusion diagnosis includes hepatic abscess, hepatocellular primary malignancy or metastasis Status post gastric bypass surgery Abdomen Ultrasound 01/24/21 11:38 IMPRESSION: Cholelithiasis, mild gallbladder wall thickening Abdomen X-Ray 01/25/21 14:29 IMPRESSION: NG tube in the upper body of stomach Chest X-Ray 01/31/21 11:07 Impre
[2021-02-09 11:30] VITALS: BMI 10.0
[2021-02-09 13:35] VITALS: BP 112/56; PULSE 94; RESP 18; TEMP 36.6; O2SAT 99
[2021-02-09 20:10] VITALS: BP 123/57; PULSE 90; RESP 22; TEMP 36.3; O2SAT 100
--- NOTE | 2021-02-09 22:41 | PC.NURSE ---
1049 pain reassessment for Dilaudid admin pt states pain still 9/10 but closer to tolerable. Pt having difficulty keeping eyes open during conversation.
[2021-02-10] MEDS: HYDROcodone/acetaminophen (*CRX) 10-325 MG TABLET 1 TAB PO ×5 (00:12→23:08)
[2021-02-10] MEDS: HYDROcodone/acetaminophen (*CRX) 5-325 MG TABLET 1 TAB PO (01:54)
[2021-02-10 03:21] VITALS: BP 132/59; PULSE 95; RESP 22; TEMP 36.1; O2SAT 100
[2021-02-10 05:52] LABS: Hematocrit 24.6 % (37.0-47.0); Hemoglobin 7.3 g/dL (12.0-15.0); Mean Corpuscular HGB Conc 29.7 g/dl (32-36); Mean Corpuscular Volume 91.1 fl (80-100); Mean Platelet Volume 9.5 fl (7.4-10.4); Platelet Count Result 347 k/mm3 (150-375); White Blood Count 8.5 K/mm3 (4.5-10.0)
[2021-02-10 06:07] LABS: Anion Gap 8 mmol/L (8-16); Blood Urea Nitrogen 26 mg/dL (7-17); Calcium 7.6 mg/dL (8.4-10.2); Carbon Dioxide 21 mmol/L (22-30); Chloride 109 mmol/L (98-107); Estimated CRCL calculation 88 ml/min; Estimated Glomerular Filt Rate 51; Glucose 88 mg/dL (65-110); Potassium 3.8 mmol/L (3.4-5.0); Sodium 138 mmol/L (137-145)
[2021-02-10] MEDS: LEVOTHYROXINE SODIUM 125 MCG TABLET 250 MCG PO (06:12)
[2021-02-10 06:43] LABS: Band Neutrophils Percent 15 % (0-6); Eosinophils Absolute Manual 0.08 K/mm3 (0.02-0.5); Eosinophils Percent Manual 1 % (0-4); Metamyelocytes Percent 1 %; Monocytes Absolute Manual 0.76 K/mm3 (0.1-0.90); Monocytes Percent Manual 9 % (3-9); Neutrophils Absolute Manual 6.46 K/mm3 (1.7-7.2); Neutrophils Percent Manual 61 % (46-73); Platelet Estimate Adequate (Adequate); Total Cells Counted 100
[2021-02-10 06:44] LABS: Anisocytosis 1+ (NORMAL); Poikilocytosis 1+ (NORMAL)
[2021-02-10 07:31] LABS: Magnesium 1.8 mg/dL (1.6-2.3)
[2021-02-10] MEDS: HYDROGEN PEROXIDE 3% SOLN(*SP) 473 ML BOTTLE IRRIGATION (08:26)
[2021-02-10] MEDS: PANTOPRAZOLE 40 MG TABLET PO (08:26)
[2021-02-10] MEDS: ONDANSETRON INJ 4 MG/2 ML VIAL IV PUSH (08:30)
--- NOTE | 2021-02-10 13:35 | PM.IMPN ---
Progress Note: A&P Assessment and Plan (1) Perforation of cecum: Code(s): K35.32 - Acute appendicitis with perforation and localized peritonitis, without abscess Status: Acute Assessment and Plan: Acute perforated appendicitis. S/P surgery January 23, 2021: exploratory laparoscopy, laparoscopic appendectomy, conversion to open laparotomy with right hemicolectomy and mobilization of hepatic flexure, extensive intra-abdominal washout for fecal peritonitis . Pt remains on Zosyn 3.375 g IV q.6 hours. Patient is having daily large bowel movements and feels incontinent. She is feeling better today, with complaints of incisional pain relieved with prescribed medications. Pathology showed moderately differentiated adenocarcinoma of colon with perforation in cecum and extensive pericolonic disease and extension to the serosal surface. There was 12 benign pericolonic lymph nodes. Labs showed hemoglobin of 8 and CEA was elevated at 22.7. CT abdomen showed 3 cm hepatic mass. This is concerning for metastatic colon cancer. Patient underwent a CT-guided biopsy of the liver mass. Liver my ass biopsy positive for adenocarcinoma. PET scan will be done as an outpatient. Consult oncology. The sepsis has resolved. The patient remains hemodynamically stale and afebrile. Currently improving slowly. Encourage physical activity: OOBC, stand up daily with PT.. Continue local wound care, WILLIAM drain care, encourage OOB/IS, She is tolerating her regular diet. She is now passing flatus; having bowel movement, complaining of incontinence. Slowly improving. Management per his primary service. Plan to discharge to rehab at [facility]. 02/10/21 13:35 Interval history Patient is a 55 year morbidly obese female presented emergency department with a complaint abdominal pain CT scan of the abdomen 01/[address] scan done on January 23 showed 3 cm right hepatic lobe mass as well as appendiceal perforation. Patient had emergent exploratory laparotomy, laparoscopic appendectomy in color regimen to open laparotomy with right hemicolectomy done on January 23, 2021, patient clinical symptoms improved is able to tolerate diet had a BM, wound is managed by wound team and wound VAC is placed, patient seen by surgery service, patient seen by Oncology and suspect patient has liver metastasis and further recommendation to follow, patient is seen by PT OT and patient will benefit going to assisted living for wound management and rehabilitation (2) Obstructive sleep apnea: Code(s): G47.33 - Obstructive sleep apnea (adult) (pediatric) Status: Acute Assessment and Plan: CPAP tolerated at night. Currently on oxygen at 2 liters. (3) Delirium: Code(s): R41.0 - Disorientation, unspecified Status: Acute Assessment and Plan: Hospital associated delirium, now resolved. The patient is alert oriented x3 currently. Good insight and fair judgement. (4) Atelectasis: Code(s): J98.11 - Atelectasis Status: Acute Assessment and Plan: Encourage the use of incentive spirometer. OOBC and attempt at standig up every day. (5) Thrombocytopenia: Code(s): D69.6 - Thrombocytopenia, unspecified Status: Acute Assessment and Plan: Likely due to septic shock. Platelet count is improving slowly. Continue to monitor This has resolved (6) Anemia: Qualifiers: Anemia type: unspecified type Qualified Code(s): D64.9 - Anemia, unspecified Code(s): D64.9 - Anemia, unspecified Status: Acute Assessment and Plan: Postoperative blood loss anemia baseline hemoglobin on admission was 12.2. Moderate anemia, well tolerated. Hemoglobin 7.5. start oral iron supplementation. Hemoglobin stable continue monitor (7) Fecal peritonitis: Code(s): K65.8 - Other peritonitis Status: Acute Assessment and Plan: Due to perforated cecum; manage per primary servi
--- NOTE | 2021-02-10 13:44 | PCPTNOTE ---
On 02/10/21, the student, Adolfo Waldrop, provided care and completed [facility] documentation on this patient. I have reviewed the student's documentation and agree with the findings.
[2021-02-10 14:10] VITALS: BP 111/51; PULSE 96; RESP 18; TEMP 36.6; O2SAT 96
--- NOTE | 2021-02-10 15:44 | PM.PNGS ---
Progress Note: A&P Assessment and Plan (1) Primary adenocarcinoma of ascending colon: Code(s): C18.2 - Malignant neoplasm of ascending colon Status: Acute Assessment and Plan: Stable from a surgical standpoint. CC working on disposition - refused [facility], so referrals sent to LTAC and awaiting their reply. Continue wound vac therapy, plan to change tomorrow with wound care. Discussed the importance of working on strength and mobility with PT/OT. We had a long discussion to encourage her on mobilizing more and working on this a few times daily. Oncology was consulted and saw patient last week, they recommend f/u as an outpatient for further discussion and likely PET scan. Additional Plan I have discussed the patient's case and plan of care with Dr. Gong. She would be stable for discharge once disposition is set up. Subjective Subjective Date/Time Seen: 02/10/21 15:44 Post Op day: 18 Patient reports: no new complaints, still having pain, tolerating a regular diet, flatus, bowel movement and afebrile Interval history: Patient seen and examined today with her sister at the bedside. Her main complaint is she is feeling depressed with being hospitalized this long and due to the new diagnosis of metastatic colon cancer. She is still having some abdominal pain that is at the open abdominal wound/vac. No nausea or vomiting. She feels this has been controlled with oral analgesics. She reports that she is still working with PT/OT but has refused to get back into the chair with a janette due to being scared that she will fall and scared of sitting in the chair on her own. She was able to dangle her feet on the side of the bed today, but still has not physically stood on her feet since surgery I don't believe per the patient. Review of Systems Review of Systems: All systems reviewed & are unremarkable except as noted in HPI and below Constitutional: Constitutional: Reports as per HPI, Reports no additional constitutional complaints, Denies chills and Denies fever(s) Cardiovascular: Cardiovascular: Reports no additional cardiovascular complaints, Denies chest pain and Reports leg edema (reports having chronic pedal edema) Respiratory: Respiratory: Reports no additional respiratory complaints, Denies cough and Denies dyspnea Gastrointestinal: Gastrointestinal: Reports as per HPI and Reports no additional gastrointestinal complaints Neurologic: Reports system reviewed and no additional complaints, except as documented, Denies Abnormal speech present and Denies focal weakness Exam Const: General: no acute distress, alert and awake Nutritional Appearance: obese Resp: Effort & Inspection: normal respiratory effort Auscultation: clear to auscultation bilaterally (diminished in bases) Cardio: Rate: regular rate Rhythm: regular rhythm GI: Inspection: Pannus present and obesity GI Palp: Yes Soft to palpation (soft laterally but fullness felt surrounding the open abd wound), Yes Tenderness to palpation present (GI) (throughout, hypersensitive), No Guarding due to palpation present (GI), No Rigid due to palpation and No Rebound tenderness present Auscultation: normal bowel sounds Other: Wound vac is clean and dry, working well, drainage in the canister appears zayas/pink. LLQ incision open with packing in place, no surrounding erythema or warmth. Small suprapubic incision without erythema or warmth. Skin: General skin exam: normal color Neuro: General: moves all extremities and no focal motor deficits Extrem: General: no calf tenderness and edema bilateral (bilateral lower leg and pedal edema, 2+ pitting) Psych: Mental Status: mental status grossly normal Insight: Fair insight present (Psych) Judgement: Fair judgement present (Psych) Objective Data Vital Signs Vital Signs: Vital Signs - 24 hr 02/09/21 20:10 02/10/21 03:21 02/10/21 14:10 Temperature 97.3 F L 96.9 F L 97.9 F Pulse Rate 90 95 96 Respiratory Rate 22 H 2
[2021-02-10 19:52] VITALS: BP 120/59; PULSE 96; RESP 22; TEMP 36.3; O2SAT 100
[2021-02-10 20:18] VITALS: O2SAT 93
[2021-02-10 21:54] VITALS: PULSE 71; RESP 22; O2SAT 93
[2021-02-11] VITALS (7 sets, daily range): BP systolic 113–132; BP diastolic 45–53; PULSE 91–96; RESP 18–22; TEMP 35.9–36.4; O2SAT 94–100
[2021-02-11] MEDS: HYDROcodone/acetaminophen (*CRX) 10-325 MG TABLET 1 TAB PO ×4 (03:53→18:20)
[2021-02-11 05:32] LABS: Hematocrit 24.9 % (37.0-47.0); Hemoglobin 7.3 g/dL (12.0-15.0); Mean Corpuscular HGB Conc 29.3 g/dl (32-36); Mean Corpuscular Hemoglobin 26.2 pg (26-34); Mean Corpuscular Volume 89.2 fl (80-100); Mean Platelet Volume 9.6 fl (7.4-10.4); Platelet Count Result 353 k/mm3 (150-375); Red Blood Count 2.79 M/mm3 (4.2-5.4)
[2021-02-11] MEDS: ONDANSETRON INJ 4 MG/2 ML VIAL IV PUSH ×3 (05:33→18:20)
[2021-02-11] MEDS: LEVOTHYROXINE SODIUM 125 MCG TABLET 250 MCG PO (05:33)
[2021-02-11 05:47] LABS: Anion Gap 9 mmol/L (8-16); Blood Urea Nitrogen 24 mg/dL (7-17); Calcium 7.6 mg/dL (8.4-10.2); Carbon Dioxide 21 mmol/L (22-30); Chloride 110 mmol/L (98-107); Estimated CRCL calculation 81 ml/min; Estimated Glomerular Filt Rate 46; Glucose 95 mg/dL (65-110); Magnesium 1.8 mg/dL (1.6-2.3); Potassium 3.3 mmol/L (3.4-5.0); Sodium 140 mmol/L (137-145)
[2021-02-11 07:02] LABS: Band Neutrophils Percent 15 % (0-6); Lymphocytes Absolute Manual 1.71 K/mm3 (1.1-4.5); Monocytes Absolute Manual 1.26 K/mm3 (0.1-0.90); Monocytes Percent Manual 14 % (3-9); Neutrophils Absolute Manual 6.03 K/mm3 (1.7-7.2); Neutrophils Percent Manual 52 % (46-73); Nucleated Red Blood Cells 1 %; Platelet Estimate Adequate (Adequate); Total Cells Counted 100
[2021-02-11] MEDS: HYDROGEN PEROXIDE 3% SOLN(*SP) 473 ML BOTTLE IRRIGATION (10:22)
[2021-02-11] MEDS: PANTOPRAZOLE 40 MG TABLET PO (10:22)
--- NOTE | 2021-02-11 10:35 | PCNFU ---
Nutrition Follow-Up Complete: Inadequate oral intake related to appendicitis, peritonitis as evidenced by NPO diet. Goal: Patient to meet estimated nutritional needs. Patient has limited progress towards goal. We will continue current goal. Pt current nutrition is Low fiber diet with Ensure compact PRN. Last recorded weight is 186 kg, down from 196 kg on admit. Bowel Motility:+BM reported 02/09 Labs Reviewed:Cr 1.2,BUN 24, K 3.3,Hct 24.9,Hgb 7.3 Meds Noted:[place], Zofran, Protonix, Synthroid. Additional Notes: Nutrition follow up. Patient having wound vac changed today. Oral Intake has been 15-50% of most meals. Patient has been complaining about nausea, Zofran has been given. PO intake has been encouraged. Diet supplements will continue of ensure compact, providing an additional 220 kcals and 9 gms protein. Plans for LTAC at discharge. Monitoring: Follow up every 3 days.
--- NOTE | 2021-02-11 12:55 | P.PNONC_ITS ---
Progress Note: A/P - Additional Plan Metastatic adenocarcinoma of colon status post ultrasound-guided liver biopsy done on January 2021. CEA was elevated at 22.7 Patient remains quite tired and fatigue and recovering from her surgery for perforated appendicitis done January 23, 2021. She is not a candidate to start any chemotherapy at this point. I have given her my office information for follow-up. She will need MediPort placement as an outpatient. Iron deficiency anemia. Hemoglobin remains low. She has received IV iron infusion. We give her another round of iron infusion. - Time Spent With Patient Total time spent is greater than 50% in coordination of care (as documented) at patient's floor/unit and/or counseling patient: 15 - 25 minutes Subjective Interval history: Metastatic colon cancer with liver involvement status post liver biopsy on February 04, 2021 Review of Systems - Review of Systems Patient looks quite tired and fatigued. Denies any bleeding bruising. She has poor appetite. Does have some abdominal pain. No nausea vomiting. She seems to be quite depressed. - Neurologic Reports system reviewed and no additional complaints, except as documented, Reports hearing normal, Reports confusion, Reports weakness, Denies abnormal speech, Denies headache(s), Denies focal weakness Exam Vital signs: Temp Pulse Resp BP Pulse Ox 36.4 C 96 22 H 113/50 L 98 02/11/21 09:09 02/11/21 09:09 02/11/21 09:09 02/11/21 09:09 02/11/21 09:09 Narrative: Lungs are clear to auscultation bilaterally Cardiovascular regular rate rhythm no murmurs Abdomen is tenderness in the mid epigastric region bowel sounds are positive Extremities no edema PN: Objective Data - Labs CBC & Chem 7: 02/11/21 04:59 02/11/21 04:59 Labs: Laboratory Results - last 24 hr 02/11/21 02/11/21 04:59 04:59 WBC 9.0 RBC 2.79 L Hgb 7.3 L Hct 24.9 L MCV 89.2 MCH 26.2 MCHC 29.3 L RDW 18.0 H Plt Count 353 MPV 9.6 Immature Gran % (Auto) Not Reportable Neut % (Auto) Not Reportable Lymph % (Auto) Not Reportable [place] % (Auto) Not Reportable Eos % (Auto) Not Reportable Baso % (Auto) Not Reportable Lymph # (Auto) Not Reportable [place] # (Auto) Not Reportable Eos # (Auto) Not Reportable Baso # (Auto) Not Reportable Abs Immat Gran (auto) Not Reportable Absolute Neuts (auto) Not Reportable Absolute Nucleated RBC Not Reportable Total Counted 100 Neutrophils % (Manual) 52 Band Neutrophils % 15 H Lymphocytes % (Manual) 19.0 Monocytes % (Manual) 14 H Nucleated RBC % Not Reportable Abs Neuts (Manual) 6.03 Abs Lymphs (Manual) 1.71 Abs Monocytes (Manual) 1.26 H Nucleated RBCs 1 Platelet Estimate Adequate Sodium 140 Potassium 3.3 L Chloride 110 H Carbon Dioxide 21 L Anion Gap 9 BUN 24 H Creatinine 1.20 H Estim Creat Clear Calc 81 Estimated GFR 46 L Glucose 95 Calcium 7.6 L Magnesium 1.8
--- NOTE | 2021-02-11 13:18 | PM.PNGS ---
Progress Note: A&P Assessment and Plan (1) Primary adenocarcinoma of ascending colon: Code(s): C18.2 - Malignant neoplasm of ascending colon Status: Acute Assessment and Plan: Not much improvement of the wound with the current wound VAC therapy. Will switch her to Instill irrigating wound VAC with sterile normal saline. Reassess the wound on Tuesday and decide further plan of care. With her now exposed mesh, she needs to be seen at a tertiary care facility for possible mesh removal and washout. If she does not improve with current treatment, then this may need to be done acutely. Otherwise, if she is improving and stable, we could try to discharge her to the LTAC and have her be surgically evaluated as an outpatient. Continue PT/OT. Care coordination working on disposition to LTAC (potentially will be accepted at [facility]). Oncology recommendations noted and appreciated. F/u as an outpatient. Additional Plan I have discussed the patient's case and plan of care with Dr. Gong. Subjective Subjective Date/Time Seen: 02/11/21 09:18 Post Op day: 19 Patient reports: still having pain, tolerating a regular diet, voiding w/o difficulty, flatus, bowel movement, nausea (pt reports intermittent, depends on the day ) and afebrile Interval history: Patient seen today with the wound care nurses and Dr. Gong. She is still feeling fatigued, tired, and depressed. She is taking the oral analgesics for her abdominal pain, which seems to be helping control this. She is reporting this morning that she has intermittent nausea depending on the day, but no vomiting. She is eating, but has not felt like eating much the past few days. No other complaints at this time. Review of Systems Review of Systems: All systems reviewed & are unremarkable except as noted in HPI and below Exam Const: General: comfortable, no acute distress and alert Nutritional Appearance: obese Orientation/consciousness: oriented to person Resp: Effort & Inspection: normal respiratory effort Auscultation: clear to auscultation bilaterally (diminished in bases) Cardio: Rate: regular rate Rhythm: regular rhythm GI: Inspection: Pannus present and obesity GI Palp: Yes Soft to palpation (soft except for some fullness felt all around the open abdominal wound), Yes Tenderness to palpation present (GI) (in central abd mostly near open abdominal wound), No Guarding due to palpation present (GI) and No Rebound tenderness present Auscultation: normal bowel sounds Other: Wound vac changed. Odor noted. Some pink granulation tissue is forming around the edges of the open wound, about 80% of the wound is covered with yellow/zayas loose slough. Dr. Gong sharply debrided some of the loose necrotic slough and after this we were able to visualize the mesh in the base of the wound bed. Some suture material noted as well with the loose suture material debrided by Dr. Gong. No active pooling drainage noted. (See wound care note for measurements) LLQ incision open with packing in place, no surrounding erythema or warmth. Small suprapubic incision without erythema or warmth. Neuro: General: moves all extremities and no focal motor deficits Extrem: General: normal to inspection and edema bilateral (bilateral lower leg and pedal edema, 2+ pitting) Psych: Appearance: disheveled Insight: Fair insight present (Psych) Judgement: Fair judgement present (Psych) Objective Data Vital Signs Vital Signs: Vital Signs - 24 hr 02/10/21 14:10 02/10/21 19:52 02/10/21 20:18 Temperature 97.9 F 97.4 F L Pulse Rate 96 96 Respiratory Rate 18 22 H Blood Pressure 111/51 L 120/59 L Pulse Oximetry 96 100 93 02/10/21 21:54 02/11/21 03:38 02/11/21 08:34 Temperature 96.9 F L Pulse Rate 71 93 Respiratory Rate 22 H 22 H Blood Pressure 123/51 L Pulse Oximetry 93 100 95 02/11/21 09:09 Temperature 97.6 F Pulse Rate 96 Respiratory Rate 22 H Blood Pressure 113/50 L Pulse Oximetry 98 Int
--- NOTE | 2021-02-11 14:06 | PM.IMPN ---
Progress Note: A&P Assessment and Plan (1) Perforation of cecum: Code(s): K35.32 - Acute appendicitis with perforation and localized peritonitis, without abscess Status: Acute Assessment and Plan: Acute perforated appendicitis. S/P surgery January 23, 2021: exploratory laparoscopy, laparoscopic appendectomy, conversion to open laparotomy with right hemicolectomy and mobilization of hepatic flexure, extensive intra-abdominal washout for fecal peritonitis . Pt remains on Zosyn 3.375 g IV q.6 hours. Patient is having daily large bowel movements and feels incontinent. She is feeling better today, with complaints of incisional pain relieved with prescribed medications. Pathology showed moderately differentiated adenocarcinoma of colon with perforation in cecum and extensive pericolonic disease and extension to the serosal surface. There was 12 benign pericolonic lymph nodes. Labs showed hemoglobin of 8 and CEA was elevated at 22.7. CT abdomen showed 3 cm hepatic mass. This is concerning for metastatic colon cancer. Patient underwent a CT-guided biopsy of the liver mass. Liver my ass biopsy positive for adenocarcinoma. PET scan will be done as an outpatient. Consult oncology. The sepsis has resolved. The patient remains hemodynamically stale and afebrile. Currently improving slowly. Encourage physical activity: OOBC, stand up daily with PT.. Continue local wound care, WILLIAM drain care, encourage OOB/IS, She is tolerating her regular diet. She is now passing flatus; having bowel movement, complaining of incontinence. Slowly improving. Management per his primary service. Plan to discharge to rehab at [facility]. 02/10/21 13:35 Interval history Patient is a 55 year morbidly obese female presented emergency department with a complaint abdominal pain CT scan of the abdomen 01/[address] scan done on January 23 showed 3 cm right hepatic lobe mass as well as appendiceal perforation. Patient had emergent exploratory laparotomy, laparoscopic appendectomy in color regimen to open laparotomy with right hemicolectomy done on January 23, 2021, patient clinical symptoms improved is able to tolerate diet had a BM, wound is managed by wound team and wound VAC is placed, patient seen by surgery service, patient seen by Oncology and suspect patient has liver metastasis and further recommendation to follow, patient is seen by PT OT and patient will benefit going to assisted living for wound management and rehabilitation 02/11/2021 Interval history: today patient was seen by surgery service wound dressing was changed and VAC was placed, patient is clinically stable has no new complaints, social service working on placing the patient in assisted living, patient is encouraged increase to ambulate and participate in physical therapy will continue to monitor and further recommendation to follow. (2) Obstructive sleep apnea: Code(s): G47.33 - Obstructive sleep apnea (adult) (pediatric) Status: Acute Assessment and Plan: CPAP tolerated at night. Currently on oxygen at 2 liters. (3) Delirium: Code(s): R41.0 - Disorientation, unspecified Status: Acute Assessment and Plan: Hospital associated delirium, now resolved. The patient is alert oriented x3 currently. Good insight and fair judgement. (4) Atelectasis: Code(s): J98.11 - Atelectasis Status: Acute Assessment and Plan: Encourage the use of incentive spirometer. OOBC and attempt at standig up every day. (5) Thrombocytopenia: Code(s): D69.6 - Thrombocytopenia, unspecified Status: Acute Assessment and Plan: Likely due to septic shock. Platelet count is improving slowly. Continue to monitor This has resolved (6) Anemia: Qualifiers: Anemia type: unspecified type Qualified Code(s): D64.9 - Anemia, unspecified Code(s): D64.9 - Anemia, unspecified Status: Acute Assess
[2021-02-11] MEDS: IRON SUCROSE COMPLEX 500 MG in SODIUM CHLORIDE 0.9% IV 250 ML 79 MG IVPB (15:02)
[2021-02-12] MEDS: HYDROcodone/acetaminophen (*CRX) 10-325 MG TABLET 1 TAB PO ×4 (01:39→19:28)
[2021-02-12] MEDS: ONDANSETRON INJ 4 MG/2 ML VIAL IV PUSH ×2 (02:43→19:26)
[2021-02-12 03:25] VITALS: BP 124/53; PULSE 100; RESP 20; TEMP 35.8; O2SAT 99
[2021-02-12 05:16] LABS: Hematocrit 25.6 % (37.0-47.0); Hemoglobin 7.6 g/dL (12.0-15.0); Mean Corpuscular HGB Conc 29.7 g/dl (32-36); Mean Corpuscular Volume 90.8 fl (80-100); Mean Platelet Volume 9.2 fl (7.4-10.4); Platelet Count Result 296 k/mm3 (150-375); Red Blood Count 2.82 M/mm3 (4.2-5.4); Red Cell Distribution Width 17.7 % (11.5-14.5); White Blood Count 8.5 K/mm3 (4.5-10.0)
[2021-02-12 05:22] LABS: Magnesium 1.7 mg/dL (1.6-2.3)
[2021-02-12] MEDS: LEVOTHYROXINE SODIUM 125 MCG TABLET 250 MCG PO (05:42)
[2021-02-12 07:31] LABS: Band Neutrophils Percent 19 % (0-6); Lymphocytes Absolute Manual 2.12 K/mm3 (1.1-4.5); Metamyelocytes Percent 2 %; Monocytes Absolute Manual 0.51 K/mm3 (0.1-0.90); Monocytes Percent Manual 6 % (3-9); Neutrophils Absolute Manual 5.69 K/mm3 (1.7-7.2); Neutrophils Percent Manual 48 % (46-73); Nucleated Red Blood Cells 3 %; Platelet Estimate Adequate (Adequate); Total Cells Counted 100
[2021-02-12 07:32] LABS: Hypochromasia 2+ (NORMAL)
[2021-02-12] MEDS: HYDROGEN PEROXIDE 3% SOLN(*SP) 473 ML BOTTLE IRRIGATION (08:01)
[2021-02-12] MEDS: PANTOPRAZOLE 40 MG TABLET PO (08:02)
[2021-02-12 08:14] LABS: Anion Gap 7 mmol/L (8-16); Blood Urea Nitrogen 26 mg/dL (7-17); Calcium 7.6 mg/dL (8.4-10.2); Carbon Dioxide 22 mmol/L (22-30); Chloride 111 mmol/L (98-107); Estimated CRCL calculation 87 ml/min; Estimated Glomerular Filt Rate 51; Glucose 90 mg/dL (65-110); Potassium 3.2 mmol/L (3.4-5.0); Sodium 140 mmol/L (137-145)
--- NOTE | 2021-02-12 11:55 | PCOTNOTE ---
Attempted to see Patient for OT treatment sesnt session at this time. Upon entering the room Patient was tearful and upset. Se verbalized she had gotten horrible news about her friend and was having increased pain and nausea. Patient stated I can not participate at this time. RN notified and aware.
--- NOTE | 2021-02-12 12:12 | PM.IMPN ---
Progress Note: A&P Assessment and Plan (1) Perforation of cecum: Code(s): K35.32 - Acute appendicitis with perforation and localized peritonitis, without abscess Status: Acute Assessment and Plan: Acute perforated appendicitis. S/P surgery January 23, 2021: exploratory laparoscopy, laparoscopic appendectomy, conversion to open laparotomy with right hemicolectomy and mobilization of hepatic flexure, extensive intra-abdominal washout for fecal peritonitis . Pt remains on Zosyn 3.375 g IV q.6 hours. Patient is having daily large bowel movements and feels incontinent. She is feeling better today, with complaints of incisional pain relieved with prescribed medications. Pathology showed moderately differentiated adenocarcinoma of colon with perforation in cecum and extensive pericolonic disease and extension to the serosal surface. There was 12 benign pericolonic lymph nodes. Labs showed hemoglobin of 8 and CEA was elevated at 22.7. CT abdomen showed 3 cm hepatic mass. This is concerning for metastatic colon cancer. Patient underwent a CT-guided biopsy of the liver mass. Liver my ass biopsy positive for adenocarcinoma. PET scan will be done as an outpatient. Consult oncology. The sepsis has resolved. The patient remains hemodynamically stale and afebrile. Currently improving slowly. Encourage physical activity: OOBC, stand up daily with PT.. Continue local wound care, WILLIAM drain care, encourage OOB/IS, She is tolerating her regular diet. She is now passing flatus; having bowel movement, complaining of incontinence. Slowly improving. Management per his primary service. Plan to discharge to rehab at [facility]. 02/12/21 12:12 Interval history Patient is a 55 year morbidly obese female presented emergency department with a complaint abdominal pain CT scan of the abdomen 01/[address] scan done on January 23 showed 3 cm right hepatic lobe mass as well as appendiceal perforation. Patient had emergent exploratory laparotomy, laparoscopic appendectomy in color regimen to open laparotomy with right hemicolectomy done on January 23, 2021, patient clinical symptoms improved is able to tolerate diet had a BM, wound is managed by wound team and wound VAC is placed, patient seen by surgery service, patient seen by Oncology and suspect patient has liver metastasis and further recommendation to follow, patient is seen by PT OT and patient will benefit going to assisted living for wound management and rehabilitation 02/11/2021 Interval history: today patient was seen by surgery service wound dressing was changed and VAC was placed, patient is clinically stable has no new complaints, social service working on placing the patient in assisted living, patient is encouraged increase to ambulate and participate in physical therapy will continue to monitor and further recommendation to follow. 02/12/2021 Interval history: today patient states feeling better has no new complaints, patient is clinically stable, social service is waiting to hear from LTAC, and authorization once available will discharge the patient, patient be seen by surgery service for wound management and further recommendation to follow (2) Obstructive sleep apnea: Code(s): G47.33 - Obstructive sleep apnea (adult) (pediatric) Status: Acute Assessment and Plan: CPAP tolerated at night. Currently on oxygen at 2 liters. (3) Delirium: Code(s): R41.0 - Disorientation, unspecified Status: Acute Assessment and Plan: Hospital associated delirium, now resolved. The patient is alert oriented x3 currently. Good insight and fair judgement. (4) Atelectasis: Code(s): J98.11 - Atelectasis Status: Acute Assessment and Plan: Encourage the use of incentive spirometer. OOBC and attempt at standig up every day. (5) Thrombocytopenia: Code(s): D69.6 - Thrombocytopenia, unspecified Status: Acute Assess
--- NOTE | 2021-02-12 12:25 | PM.PNGS ---
Progress Note: A&P Assessment and Plan (1) Metastatic colon cancer to liver: Code(s): C18.9 - Malignant neoplasm of colon, unspecified; C78.7 - Secondary malignant neoplasm of liver and intrahepatic bile duct Status: Acute Assessment and Plan: stable, cont vac, cont to work on disposition Subjective Subjective Date/Time Seen: 02/12/21 12:25 pt feels ok, some pain c movt Review of Systems Review of Systems: All systems reviewed & are unremarkable except as noted in HPI and below Exam Const: General: cooperative, comfortable and no acute distress Resp: Effort & Inspection: normal respiratory effort Auscultation: diminished lung sounds Cardio: Rate: regular rate Rhythm: regular rhythm GI: Inspection: normal to inspection, non-distended and incision GI Palp: Yes Soft to palpation and Yes Tenderness to palpation present (GI) Other: vac - C/D/I Objective Data Vital Signs Vital Signs: Vital Signs - 24 hr 02/11/21 13:40 02/11/21 13:58 02/11/21 19:58 Temperature 36.4 C 35.9 C L 36.0 C L Pulse Rate 95 94 91 Respiratory Rate 18 20 22 H Blood Pressure 114/52 L 123/45 L 132/53 L Pulse Oximetry 99 99 99 02/11/21 20:28 02/12/21 03:25 Temperature 35.8 C L Pulse Rate 96 100 Respiratory Rate 22 H 20 Blood Pressure 124/53 L Pulse Oximetry 94 99 Intake/Output Intake/Output: Intake & Output 02/09/21 02/10/21 02/11/21 02/12/21 23:59 23:59 23:59 23:59 Intake Total 2370 1380 1350 190 Output Total 2 2 Balance 2370 1380 1348 188 Meds/Results Medications: Active Medications Generic Name Dose Route Start Last Admin Trade Name Freq PRN Reason Stop Dose Admin Acetaminophen 650 mg 01/26/21 08:10 Acetaminophen 325 Mg Tablet PO Q4H PRN Fever Hydrocodone Bitart/Acetaminophen 1 tab 02/02/21 12:46 02/10/21 01:54 Hydrocodone/Acetaminophen (*Crx) 5-325 Mg Tablet PO 1 tab Q4H PRN Administration Pain Rated 4-6 Hydrocodone Bitart/Acetaminophen 1 tab 02/02/21 12:49 02/12/21 05:42 Hydrocodone/Acetaminophen (*Crx) 10-325 Mg Tablet PO 1 tab Q4H PRN Administration Pain Rated 7-10 Albuterol 2 puff 01/23/21 16:49 01/28/21 10:38 Albuterol Sulfate (*Sp) Aerosol 1 Puff INHALATION 2 puff Q6HRT PRN Administration Shortness Of Breath Alteplase, Recombinant 2 mg 01/30/21 05:50 02/03/21 07:00 Alteplase 2 Mg Vial (Cathflo) IV PUSH 2 mg ONCE PRN Administration Line Occlusion Alteplase, Recombinant 2 mg 01/30/21 05:52 02/03/21 07:02 Alteplase 2 Mg Vial (Cathflo) IV PUSH 2 mg ONCE PRN Administration Line Occlusion Enoxaparin Sodium 40 mg 01/23/21 09:00 01/24/21 09:16 Enoxaparin 40 Mg/0.4 Ml Syringe SUB-Q 40 mg DAILY MAGGIE Administration Hydrogen Peroxide/Benzyl Alcohol 0 ml 02/08/21 09:00 02/12/21 08:01 Hydrogen Peroxide 3% Soln(*Sp) 473 Ml Bottle IRRIGATION 1 ml DAILY MAGGIE Administration Sodium Chloride 1,000 mls @ 0 mls/hr 02/11/21 11:09 Normal Saline Irrig IRRIGATION .Q0M PRN Wound Care Per Protocol Levothyroxine Sodium 250 mcg 02/05/21 06:30 02/12/21 05:42 Levothyroxine Sodium 125 Mcg Tablet PO 250 mcg DAILY@0630 MAGGIE Administration Naloxone HCl 0.1 mg 01/23/21 06:46 Naloxone Hcl 0.4 Mg/Ml Vial IV PUSH Q2M PRN Opiate Reversal Ondansetron HCl 4 mg 01/23/21 06:46 02/12/21 02:43 Ondansetron Inj 4 Mg/2 Ml Vial IV PUSH 4 mg Q4H PRN Administration Nausea And Vomiting Pantoprazole Sodium 40 mg 02/08/21 09:00 02/12/21 08:02 Pantoprazole 40 Mg Tablet PO 40 mg QAM MAGGIE Administration Radiology Results: ITS Impressions Abdomen/Pelvis CT 01/23/21 07:20 IMPRESSION: Intraperitoneal free air, suggesting bowel perforation. Consider appendiceal perforation Probable adynamic ileus Ill-defined 3 cm right hepatic mass and focal diffusion diagnosis includes hepatic abscess, hepatocellular primary malignancy or metastasis Status
[2021-02-12] MEDS: POTASSIUM CHLORIDE 20 MEQ TABLET 40 MEQ PO (12:48)
--- NOTE | 2021-02-12 13:48 | PCOTNOTE ---
Attempted to see patient this afternoon, patient declined OT services this date stating, I'll letitia up later this afternoon, I'm kicking it tomorrow. Discussed the benefits of Occupational Therapy and patient continued to kindly decline.
--- NOTE | 2021-02-12 13:55 | PC.NURSE ---
Pt to US per stretcher.
[2021-02-12 14:00] VITALS: BP 115/55; PULSE 99; RESP 20; TEMP 36.3; O2SAT 98
--- NOTE | 2021-02-12 15:31 | PCPTNOTE ---
Patient refused treatment this afternoon, stating that she didn't want to do too much to make her sick.
[2021-02-12] MEDS: POTASSIUM CHLORIDE 20 MEQ TABLET.ER PO (17:40)
--- NOTE | 2021-02-12 18:59 | PC.NURSE ---
Pt to CT per stretcher 02/12/21 [id number]
[2021-02-12 19:46] VITALS: BP 118/50; PULSE 100; RESP 16; TEMP 36.7; O2SAT 100
[2021-02-12 19:54] VITALS: PULSE 94; RESP 18; O2SAT 96
[2021-02-12] MEDS: ASPIRIN 81 MG ENTERIC TABLET PO (21:14)
[2021-02-13 00:13] VITALS: PULSE 94; RESP 25; O2SAT 95
[2021-02-13 02:00] VITALS: PULSE 94; RESP 22; O2SAT 95
[2021-02-13 05:44] LABS: Anion Gap 7 mmol/L (8-16); Blood Urea Nitrogen 25 mg/dL (7-17); Calcium 7.5 mg/dL (8.4-10.2); Carbon Dioxide 21 mmol/L (22-30); Chloride 113 mmol/L (98-107); Estimated CRCL calculation 87 ml/min; Estimated Glomerular Filt Rate 51; Glucose 87 mg/dL (65-110); Magnesium 1.7 mg/dL (1.6-2.3); Potassium 3.8 mmol/L (3.4-5.0); Sodium 141 mmol/L (137-145)
[2021-02-13 06:00] VITALS: BP 120/55; PULSE 98; RESP 18; TEMP 36.7; O2SAT 100
[2021-02-13] MEDS: LEVOTHYROXINE SODIUM 125 MCG TABLET 250 MCG PO (07:07)
[2021-02-13] MEDS: PANTOPRAZOLE 40 MG TABLET PO (08:42)
[2021-02-13] MEDS: HYDROGEN PEROXIDE 3% SOLN(*SP) 473 ML BOTTLE IRRIGATION (08:43)
--- NOTE | 2021-02-13 09:56 | PM.PNGS ---
Progress Note: A&P Assessment and Plan (1) Metastatic colon cancer to liver: Code(s): C18.9 - Malignant neoplasm of colon, unspecified; C78.7 - Secondary malignant neoplasm of liver and intrahepatic bile duct Status: Acute Assessment and Plan: stable, vac change today, await disposition, encourage po intake, encourage OOB/IS Subjective Subjective Date/Time Seen: 02/13/21 09:56 feels ok, still weak, no acute issues Review of Systems Review of Systems: All systems reviewed & are unremarkable except as noted in HPI and below Exam Const: General: cooperative, comfortable and no acute distress Orientation/consciousness: patient oriented x3 Resp: Effort & Inspection: normal respiratory effort Auscultation: diminished lung sounds Cardio: Rate: regular rate Rhythm: regular rhythm GI: Inspection: normal to inspection and incision GI Palp: Yes abdominal tenderness, Yes Soft to palpation and Yes Tenderness to palpation present (GI) Other: vac - C/D/I, brownish discharge (unchanged) Objective Data Vital Signs Vital Signs: Vital Signs - 24 hr 02/12/21 14:00 02/12/21 19:46 02/12/21 19:54 Temperature 36.3 C L 36.7 C Pulse Rate 99 100 94 Respiratory Rate 20 16 18 Blood Pressure 115/55 L 118/50 L Pulse Oximetry 98 100 96 02/13/21 00:13 02/13/21 02:00 02/13/21 06:00 Temperature 36.7 C Pulse Rate 94 94 98 Respiratory Rate 25 H 22 H 18 Blood Pressure 120/55 L Pulse Oximetry 95 95 100 Intake/Output Intake/Output: Intake & Output 02/10/21 02/11/21 02/12/21 02/13/21 23:59 23:59 23:59 23:59 Intake Total 1380 1350 580 300 Output Total 2 2 500 Balance 1380 1348 578 -200 Meds/Results Medications: Active Medications Generic Name Dose Route Start Last Admin Trade Name Freq PRN Reason Stop Dose Admin Acetaminophen 650 mg 01/26/21 08:10 Acetaminophen 325 Mg Tablet PO Q4H PRN Fever Hydrocodone Bitart/Acetaminophen 1 tab 02/02/21 12:46 02/10/21 01:54 Hydrocodone/Acetaminophen (*Crx) 5-325 Mg Tablet PO 1 tab Q4H PRN Administration Pain Rated 4-6 Hydrocodone Bitart/Acetaminophen 1 tab 02/02/21 12:49 02/12/21 19:28 Hydrocodone/Acetaminophen (*Crx) 10-325 Mg Tablet PO 1 tab Q4H PRN Administration Pain Rated 7-10 Albuterol 2 puff 01/23/21 16:49 01/28/21 10:38 Albuterol Sulfate (*Sp) Aerosol 1 Puff INHALATION 2 puff Q6HRT PRN Administration Shortness Of Breath Alteplase, Recombinant 2 mg 01/30/21 05:50 02/03/21 07:00 Alteplase 2 Mg Vial (Cathflo) IV PUSH 2 mg ONCE PRN Administration Line Occlusion Alteplase, Recombinant 2 mg 01/30/21 05:52 02/03/21 07:02 Alteplase 2 Mg Vial (Cathflo) IV PUSH 2 mg ONCE PRN Administration Line Occlusion Aspirin 81 mg 02/12/21 19:29 02/12/21 21:14 Aspirin 81 Mg Enteric Tablet PO 81 mg QAM MAGGIE Administration Enoxaparin Sodium 40 mg 01/23/21 09:00 01/24/21 09:16 Enoxaparin 40 Mg/0.4 Ml Syringe SUB-Q 40 mg DAILY MAGGIE Administration Hydrogen Peroxide/Benzyl Alcohol 0 ml 02/08/21 09:00 02/13/21 08:43 Hydrogen Peroxide 3% Soln(*Sp) 473 Ml Bottle IRRIGATION 1 ml DAILY MAGGIE Administration Sodium Chloride 1,000 mls @ 0 mls/hr 02/11/21 11:09 Normal Saline Irrig IRRIGATION .Q0M PRN Wound Care Per Protocol Levothyroxine Sodium 250 mcg 02/05/21 06:30 02/13/21 07:07 Levothyroxine Sodium 125 Mcg Tablet PO 250 mcg DAILY@0630 MAGGIE Administration Naloxone HCl 0.1 mg 01/23/21 06:46 Naloxone Hcl 0.4 Mg/Ml Vial IV PUSH Q2M PRN Opiate Reversal Ondansetron HCl 4 mg 01/23/21 06:46 02/12/21 19:26 Ondansetron Inj 4 Mg/2 Ml Vial IV PUSH 4 mg Q4H PRN Administration Nausea And Vomiting Pantoprazole Sodium 40 mg 02/08/21 09:00 02/13/21 08:42 Pantoprazole 40 Mg Tablet PO 40 mg QAM MAGGIE Administration Potassium Chloride 20 meq 02/13/21 09:00 Potassium Chloride 20 Meq Packet (For Liq
[2021-02-13] MEDS: POTASSIUM CHLORIDE 20 MEQ PACKET (FOR LIQUID) PO ×2 (10:10→16:38)
[2021-02-13] MEDS: HYDROcodone/acetaminophen (*CRX) 10-325 MG TABLET 1 TAB PO ×3 (10:10→20:39)
[2021-02-13] MEDS: ASPIRIN 81 MG ENTERIC TABLET PO (10:10)
--- NOTE | 2021-02-13 11:27 | PCNFU ---
Nutrition Follow-Up Complete: Inadequate oral intake related to appendicitis, peritonitis as evidenced by NPO diet. Goal: Patient to meet estimated nutritional needs. Patient has limited progress towards goal. We will continue current goal. Pt current nutrition is Low fiber with Ensure compact BID and Banatrol TID. Last recorded weight is 197 kg, up from 196 kg on admit. Bowel Motility:+BM reported 02/13-loose stools. Labs Reviewed:Cr 1.10,BUN 25 Meds Noted:[place], Synthroid, Zofran, Protonix, KCL powder. Additional Notes: Nutrition follow up. Spoke with patient today. Oral intake has been 0-50% of trays. Discussed added Banatrol TID for stool bulking. Patient is aware that it will be mixed with applesauce. PO intake was encouraged with patient and brother. Skin: wound vac-Medial Ab. Head CT has been ordered. Monitoring: Follow up every 3 days.
--- NOTE | 2021-02-13 12:55 | PM.IMPN ---
Progress Note: A&P Assessment and Plan (1) Perforation of cecum: Code(s): K35.32 - Acute appendicitis with perforation and localized peritonitis, without abscess Status: Acute Assessment and Plan: Acute perforated appendicitis. S/P surgery January 23, 2021: exploratory laparoscopy, laparoscopic appendectomy, conversion to open laparotomy with right hemicolectomy and mobilization of hepatic flexure, extensive intra-abdominal washout for fecal peritonitis . Pt remains on Zosyn 3.375 g IV q.6 hours. Patient is having daily large bowel movements and feels incontinent. She is feeling better today, with complaints of incisional pain relieved with prescribed medications. Pathology showed moderately differentiated adenocarcinoma of colon with perforation in cecum and extensive pericolonic disease and extension to the serosal surface. There was 12 benign pericolonic lymph nodes. Labs showed hemoglobin of 8 and CEA was elevated at 22.7. CT abdomen showed 3 cm hepatic mass. This is concerning for metastatic colon cancer. Patient underwent a CT-guided biopsy of the liver mass. Liver my ass biopsy positive for adenocarcinoma. PET scan will be done as an outpatient. Consult oncology. The sepsis has resolved. The patient remains hemodynamically stale and afebrile. Currently improving slowly. Encourage physical activity: OOBC, stand up daily with PT.. Continue local wound care, WILLIAM drain care, encourage OOB/IS, She is tolerating her regular diet. She is now passing flatus; having bowel movement, complaining of incontinence. Slowly improving. Management per his primary service. Plan to discharge to rehab at [facility]. 02/13/21 12:55 Interval history Patient is a 55 year morbidly obese female presented emergency department with a complaint abdominal pain CT scan of the abdomen 01/[address] scan done on January 23 showed 3 cm right hepatic lobe mass as well as appendiceal perforation. Patient had emergent exploratory laparotomy, laparoscopic appendectomy in color regimen to open laparotomy with right hemicolectomy done on January 23, 2021, patient clinical symptoms improved is able to tolerate diet had a BM, wound is managed by wound team and wound VAC is placed, patient seen by surgery service, patient seen by Oncology and suspect patient has liver metastasis and further recommendation to follow, patient is seen by PT OT and patient will benefit going to assisted living for wound management and rehabilitation 02/11/2021 Interval history: today patient was seen by surgery service wound dressing was changed and VAC was placed, patient is clinically stable has no new complaints, social service working on placing the patient in assisted living, patient is encouraged increase to ambulate and participate in physical therapy will continue to monitor and further recommendation to follow. 02/12/2021 Interval history: today patient states feeling better has no new complaints, patient is clinically stable, social service is waiting to hear from LT[facility], and authorization once available will discharge the patient, patient be seen by surgery service for wound management and further recommendation to follow. 02/13/2021 Interval history: today patient had dressing change, has no new complaint, a brother is in the room, there was a concern patient has a facial asymmetry unfortunately patient is morbidly obese and unable to do CT scan of the head however we have started the patient aspirin 81 mg q.day, patient is been excepted by the LTAC and waiting for the bed availability and will discharge the patient. (2) Obstructive sleep apnea: Code(s): G47.33 - Obstructive sleep apnea (adult) (pediatric) Status: Acute Assessment and Plan: CPAP tolerated at night. Currently on oxygen at 2 liters. (3) Delirium: Code(s): R41.0 - Disorientation, unspecified Status: Acute Assessment and Plan: Hospital associated deliriu
[2021-02-13 14:00] VITALS: BP 117/55; PULSE 99; RESP 20; TEMP 36.8; O2SAT 100
[2021-02-13] MEDS: ONDANSETRON HCL ODT 4 MG TABLET PO (15:05)
--- NOTE | 2021-02-13 17:03 | PCPTNOTE ---
Patient refused LE exercises and attempts to participate in supine to sit transfers and sit EOB. Patient refused due to c/o abdominal pain. Educated patient in the importance of increasing activity with transfers and strengthening. Patient verbalizes understanding, however continues to decline. Patient very emotional stating several times I just don't know why this is happening to me! I have done nothing wrong!
[2021-02-13 19:51] VITALS: PULSE 96; RESP 20; O2SAT 95
[2021-02-13 21:13] VITALS: BP 117/60; PULSE 93; RESP 16; TEMP 36.2; O2SAT 100
[2021-02-14] MEDS: HYDROcodone/acetaminophen (*CRX) 10-325 MG TABLET 1 TAB PO ×3 (02:54→20:02)
[2021-02-14] MEDS: ONDANSETRON HCL ODT 4 MG TABLET PO ×2 (02:55→20:02)
[2021-02-14 05:27] VITALS: BP 108/44; PULSE 99; RESP 16; TEMP 36.1; O2SAT 100
[2021-02-14] MEDS: LEVOTHYROXINE SODIUM 125 MCG TABLET 250 MCG PO (05:35)
[2021-02-14 06:09] LABS: Magnesium 1.7 mg/dL (1.6-2.3)
[2021-02-14] MEDS: PANTOPRAZOLE 40 MG TABLET PO (08:20)
[2021-02-14] MEDS: POTASSIUM CHLORIDE 20 MEQ PACKET (FOR LIQUID) PO ×2 (08:20→17:24)
[2021-02-14] MEDS: HYDROGEN PEROXIDE 3% SOLN(*SP) 473 ML BOTTLE IRRIGATION (08:20)
[2021-02-14] MEDS: ASPIRIN 81 MG ENTERIC TABLET PO (08:20)
--- NOTE | 2021-02-14 09:24 | PM.IMPN ---
Progress Note: A&P Assessment and Plan (1) Perforation of cecum: Code(s): K35.32 - Acute appendicitis with perforation and localized peritonitis, without abscess Status: Acute Assessment and Plan: Acute perforated appendicitis. S/P surgery January 23, 2021: exploratory laparoscopy, laparoscopic appendectomy, conversion to open laparotomy with right hemicolectomy and mobilization of hepatic flexure, extensive intra-abdominal washout for fecal peritonitis . Pt remains on Zosyn 3.375 g IV q.6 hours. Patient is having daily large bowel movements and feels incontinent. She is feeling better today, with complaints of incisional pain relieved with prescribed medications. Pathology showed moderately differentiated adenocarcinoma of colon with perforation in cecum and extensive pericolonic disease and extension to the serosal surface. There was 12 benign pericolonic lymph nodes. Labs showed hemoglobin of 8 and CEA was elevated at 22.7. CT abdomen showed 3 cm hepatic mass. This is concerning for metastatic colon cancer. Patient underwent a CT-guided biopsy of the liver mass. Liver my ass biopsy positive for adenocarcinoma. PET scan will be done as an outpatient. Consult oncology. The sepsis has resolved. The patient remains hemodynamically stale and afebrile. Currently improving slowly. Encourage physical activity: OOBC, stand up daily with PT.. Continue local wound care, WILLIAM drain care, encourage OOB/IS, She is tolerating her regular diet. She is now passing flatus; having bowel movement, complaining of incontinence. Slowly improving. Management per his primary service. Plan to discharge to rehab at [facility]. 02/13/21 12:55 Interval history Patient is a 55 year morbidly obese female presented emergency department with a complaint abdominal pain CT scan of the abdomen 01/[address] scan done on January 23 showed 3 cm right hepatic lobe mass as well as appendiceal perforation. Patient had emergent exploratory laparotomy, laparoscopic appendectomy in color regimen to open laparotomy with right hemicolectomy done on January 23, 2021, patient clinical symptoms improved is able to tolerate diet had a BM, wound is managed by wound team and wound VAC is placed, patient seen by surgery service, patient seen by Oncology and suspect patient has liver metastasis and further recommendation to follow, patient is seen by PT OT and patient will benefit going to assisted living for wound management and rehabilitation 02/11/2021 Interval history: today patient was seen by surgery service wound dressing was changed and VAC was placed, patient is clinically stable has no new complaints, social service working on placing the patient in assisted living, patient is encouraged increase to ambulate and participate in physical therapy will continue to monitor and further recommendation to follow. 02/12/2021 Interval history: today patient states feeling better has no new complaints, patient is clinically stable, social service is waiting to hear from [facility], and authorization once available will discharge the patient, patient be seen by surgery service for wound management and further recommendation to follow. 02/13/2021 Interval history: today patient had dressing change, has no new complaint, a brother is in the room, there was a concern patient has a facial asymmetry unfortunately patient is morbidly obese and unable to do CT scan of the head however we have started the patient aspirin 81 mg q.day, patient is been excepted by the LTAC and waiting for the bed availability and will discharge the patient. 02/14/2021 Interval history:Patient remains clinically stable has no new complaint pain is controlled, will continue to monitor the patient as patient is waiting for bed available at [facility]. patient is encouraged to work with PT OT will continue to monitor and further recommendation to follow (2) Obstructive sleep apnea: Code(s): G47.33 - Obstruc
--- NOTE | 2021-02-14 10:51 | PM.PNGS ---
Progress Note: A&P Assessment and Plan (1) Metastatic colon cancer to liver: Code(s): C18.9 - Malignant neoplasm of colon, unspecified; C78.7 - Secondary malignant neoplasm of liver and intrahepatic bile duct Status: Acute Assessment and Plan: stable, await disposition, encourage po intake, encourage OOB/IS (2) Sacral decubitus ulcer: Qualifiers: Pressure injury stage: unspecified pressure injury stage Qualified Code(s): L89.159 - Pressure ulcer of sacral region, unspecified stage Code(s): L89.159 - Pressure ulcer of sacral region, unspecified stage Status: Acute Assessment and Plan: Patient incontinent and not able to get up to urinate. Will replace Cruz so that she doesn't have contamination of her sacral/buttocks wounds. (3) Morbid obesity due to excess calories: Code(s): E66.01 - Morbid (severe) obesity due to excess calories Status: Chronic Subjective Subjective Date/Time Seen: 02/14/21 10:51 Interval history: Lying in bed. No new complaints. Very hesitant to participate in any wound care or other medical care. Doesn't even want to look at Wound Vac tubing or drainage canister. Exam Const: General: comfortable and no acute distress Orientation/consciousness: patient oriented x3 Resp: Effort & Inspection: normal respiratory effort Auscultation: diminished lung sounds Cardio: Rate: regular rate Rhythm: regular rhythm GI: Inspection: normal to inspection and incision GI Palp: Yes abdominal tenderness, Yes Soft to palpation and Yes Tenderness to palpation present (GI) Other: vac - C/D/I, brownish discharge (unchanged) Objective Data Vital Signs Vital Signs: Vital Signs - 24 hr 02/13/21 14:00 02/13/21 19:51 02/13/21 21:13 Temperature 36.8 C 36.2 C L Pulse Rate 99 96 93 Respiratory Rate 20 20 16 Blood Pressure 117/55 L 117/60 Pulse Oximetry 100 95 100 02/14/21 05:27 Temperature 36.1 C L Pulse Rate 99 Respiratory Rate 16 Blood Pressure 108/44 L Pulse Oximetry 100 Intake/Output Intake/Output: Intake & Output 02/11/21 02/12/21 02/13/21 02/14/21 23:59 23:59 23:59 23:59 Intake Total 1350 580 900 510 Output Total 2 2 650 150 Balance 1348 578 250 360 Meds/Results Medications: Active Medications Generic Name Dose Route Start Last Admin Trade Name Freq PRN Reason Stop Dose Admin Acetaminophen 650 mg 01/26/21 08:10 Acetaminophen 325 Mg Tablet PO Q4H PRN Fever Hydrocodone Bitart/Acetaminophen 1 tab 02/02/21 12:46 02/10/21 01:54 Hydrocodone/Acetaminophen (*Crx) 5-325 Mg Tablet PO 1 tab Q4H PRN Administration Pain Rated 4-6 Hydrocodone Bitart/Acetaminophen 1 tab 02/02/21 12:49 02/14/21 08:23 Hydrocodone/Acetaminophen (*Crx) 10-325 Mg Tablet PO 1 tab Q4H PRN Administration Pain Rated 7-10 Albuterol 2 puff 01/23/21 16:49 01/28/21 10:38 Albuterol Sulfate (*Sp) Aerosol 1 Puff INHALATION 2 puff Q6HRT PRN Administration Shortness Of Breath Alteplase, Recombinant 2 mg 01/30/21 05:50 02/03/21 07:00 Alteplase 2 Mg Vial (Cathflo) IV PUSH 2 mg ONCE PRN Administration Line Occlusion Alteplase, Recombinant 2 mg 01/30/21 05:52 02/03/21 07:02 Alteplase 2 Mg Vial (Cathflo) IV PUSH 2 mg ONCE PRN Administration Line Occlusion Aspirin 81 mg 02/12/21 19:29 02/14/21 08:20 Aspirin 81 Mg Enteric Tablet PO 81 mg QAM MAGGIE Administration Enoxaparin Sodium 40 mg 01/23/21 09:00 01/24/21 09:16 Enoxaparin 40 Mg/0.4 Ml Syringe SUB-Q 40 mg DAILY MAGGIE Administration Hydrogen Peroxide/Benzyl Alcohol 0 ml 02/08/21 09:00 02/14/21 08:20 Hydrogen Peroxide 3% Soln(*Sp) 473 Ml Bottle IRRIGATION 473 ml DAILY MAGGIE Administration Sodium Chloride 1,000 mls @ 0 mls/hr 02/11/21 11:09 Normal Saline Irrig IRRIGATION .Q0M PRN Wound Care Per Protocol Levothyroxine Sodium 250 mcg 02/05/21 06:30 02/14/21 05:35 Levothyroxin
[2021-02-14 10:57] LABS: Hematocrit 24.3 % (37.0-47.0); Mean Corpuscular HGB Conc 28.8 g/dl (32-36); Mean Corpuscular Hemoglobin 26.7 pg (26-34); Mean Corpuscular Volume 92.7 fl (80-100); Mean Platelet Volume 9.4 fl (7.4-10.4); Platelet Count Result 303 k/mm3 (150-375); Red Blood Count 2.62 M/mm3 (4.2-5.4); Red Cell Distribution Width 18.3 % (11.5-14.5); White Blood Count 9.2 K/mm3 (4.5-10.0)
[2021-02-14 11:09] LABS: Magnesium 1.6 mg/dL (1.6-2.3)
[2021-02-14 11:10] LABS: Anion Gap 6 mmol/L (8-16); Blood Urea Nitrogen 26 mg/dL (7-17); Calcium 7.4 mg/dL (8.4-10.2); Carbon Dioxide 20 mmol/L (22-30); Chloride 112 mmol/L (98-107); Estimated CRCL calculation 100 ml/min; Estimated Glomerular Filt Rate 57; Glucose 91 mg/dL (65-110); Potassium 3.9 mmol/L (3.4-5.0); Sodium 138 mmol/L (137-145)
[2021-02-14 14:00] VITALS: BP 128/58; PULSE 98; RESP 18; TEMP 36.9; O2SAT 97
[2021-02-14 18:17] LABS: Hematocrit 23.7 % (37.0-47.0); Hemoglobin 7.2 g/dL (12.0-15.0)
[2021-02-14 21:58] VITALS: BP 115/52; PULSE 100; RESP 18; TEMP 36.8; O2SAT 100
[2021-02-14 22:00] VITALS: PULSE 99; O2SAT 95
[2021-02-14 22:10] VITALS: PULSE 94; RESP 20; O2SAT 97
[2021-02-15] VITALS (8 sets, daily range): BP systolic 115–127; BP diastolic 50–58; PULSE 90–102; RESP 16–24; TEMP 35.8–36.8; O2SAT 98–100
[2021-02-15] MEDS: ONDANSETRON HCL ODT 4 MG TABLET PO ×2 (00:16→05:36)
[2021-02-15] MEDS: HYDROcodone/acetaminophen (*CRX) 10-325 MG TABLET 1 TAB PO ×3 (00:16→23:42)
[2021-02-15] MEDS: ALPRAZolam (*CRX) 0.25 MG TABLET PO (00:16)
[2021-02-15] MEDS: LEVOTHYROXINE SODIUM 125 MCG TABLET 250 MCG PO (05:37)
[2021-02-15 06:21] LABS: Hematocrit 23.8 % (37.0-47.0); Mean Corpuscular HGB Conc 28.2 g/dl (32-36); Mean Corpuscular Hemoglobin 26.6 pg (26-34); Mean Corpuscular Volume 94.4 fl (80-100); Mean Platelet Volume 9.6 fl (7.4-10.4); Platelet Count Result 297 k/mm3 (150-375); Red Blood Count 2.52 M/mm3 (4.2-5.4); White Blood Count 8.4 K/mm3 (4.5-10.0)
[2021-02-15 06:32] LABS: Hemoglobin 6.7 g/dL (12.0-15.0)
[2021-02-15 06:34] LABS: Anion Gap 6 mmol/L (8-16); Blood Urea Nitrogen 26 mg/dL (7-17); Calcium 7.3 mg/dL (8.4-10.2); Carbon Dioxide 22 mmol/L (22-30); Chloride 111 mmol/L (98-107); Estimated CRCL calculation 102 ml/min; Estimated Glomerular Filt Rate 57; Glucose 83 mg/dL (65-110); Potassium 4.1 mmol/L (3.4-5.0); Sodium 139 mmol/L (137-145)
[2021-02-15] MEDS: POTASSIUM CHLORIDE 20 MEQ PACKET (FOR LIQUID) PO ×2 (08:39→16:30)
[2021-02-15] MEDS: PANTOPRAZOLE 40 MG TABLET PO (08:39)
[2021-02-15] MEDS: ASPIRIN 81 MG ENTERIC TABLET PO (08:39)
[2021-02-15] MEDS: SODIUM CHLORIDE 0.9% IV 250 ML 30 ML IV CONT (08:39)
[2021-02-15] MEDS: WATER FOR IRRIGATION, STERILE 1,000 ML BOTTLE 2000 ML (08:40)
[2021-02-15] MEDS: HYDROGEN PEROXIDE 3% SOLN(*SP) 473 ML BOTTLE IRRIGATION (08:40)
[2021-02-15 09:09] LABS: Iron 20 ug/dL (37-170)
[2021-02-15 09:18] LABS: Percent Iron Saturation 18 % (20-50)
--- NOTE | 2021-02-15 09:37 | PM.IMPN ---
Progress Note: A&P Assessment and Plan (1) Perforation of cecum: Code(s): K35.32 - Acute appendicitis with perforation and localized peritonitis, without abscess Status: Acute Assessment and Plan: Acute perforated appendicitis. S/P surgery January 23, 2021: exploratory laparoscopy, laparoscopic appendectomy, conversion to open laparotomy with right hemicolectomy and mobilization of hepatic flexure, extensive intra-abdominal washout for fecal peritonitis . Pt remains on Zosyn 3.375 g IV q.6 hours. Patient is having daily large bowel movements and feels incontinent. She is feeling better today, with complaints of incisional pain relieved with prescribed medications. Pathology showed moderately differentiated adenocarcinoma of colon with perforation in cecum and extensive pericolonic disease and extension to the serosal surface. There was 12 benign pericolonic lymph nodes. Labs showed hemoglobin of 8 and CEA was elevated at 22.7. CT abdomen showed 3 cm hepatic mass. This is concerning for metastatic colon cancer. Patient underwent a CT-guided biopsy of the liver mass. Liver my ass biopsy positive for adenocarcinoma. PET scan will be done as an outpatient. Consult oncology. The sepsis has resolved. The patient remains hemodynamically stale and afebrile. Currently improving slowly. Encourage physical activity: OOBC, stand up daily with PT.. Continue local wound care, WILLIAM drain care, encourage OOB/IS, She is tolerating her regular diet. She is now passing flatus; having bowel movement, complaining of incontinence. Slowly improving. Management per his primary service. Plan to discharge to rehab at [facility]. 02/15/21 09:37 Interval history Patient is a 55 year morbidly obese female presented emergency department with a complaint abdominal pain CT scan of the abdomen 01/[address] scan done on January 23 showed 3 cm right hepatic lobe mass as well as appendiceal perforation. Patient had emergent exploratory laparotomy, laparoscopic appendectomy in color regimen to open laparotomy with right hemicolectomy done on January 23, 2021, patient clinical symptoms improved is able to tolerate diet had a BM, wound is managed by wound team and wound VAC is placed, patient seen by surgery service, patient seen by Oncology and suspect patient has liver metastasis and further recommendation to follow, patient is seen by PT OT and patient will benefit going to assisted living for wound management and rehabilitation 02/11/2021 Interval history: today patient was seen by surgery service wound dressing was changed and VAC was placed, patient is clinically stable has no new complaints, social service working on placing the patient in assisted living, patient is encouraged increase to ambulate and participate in physical therapy will continue to monitor and further recommendation to follow. 02/12/2021 Interval history: today patient states feeling better has no new complaints, patient is clinically stable, social service is waiting to hear from [facility], and authorization once available will discharge the patient, patient be seen by surgery service for wound management and further recommendation to follow. 02/13/2021 Interval history: today patient had dressing change, has no new complaint, a brother is in the room, there was a concern patient has a facial asymmetry unfortunately patient is morbidly obese and unable to do CT scan of the head however we have started the patient aspirin 81 mg q.day, patient is been excepted by the LTAC and waiting for the bed availability and will discharge the patient. 02/14/2021 Interval history:Patient remains clinically stable has no new complaint pain is controlled, will continue to monitor the patient as patient is waiting for bed available at [facility]. patient is encouraged to work with PT OT will continue to monitor and further recommendation to follow. 02/15/2021 Interval history:Patient hemoglobin is low today, rama
[2021-02-15 10:16] LABS: Vitamin B12 > 1000.0 pg/mL (239-931)
--- NOTE | 2021-02-15 10:40 | PCRCNOTE ---
Spoke to Dr. Mari MCCURDY to discontinue Ex-pap.
--- NOTE | 2021-02-15 10:55 | PM.PNGS ---
Progress Note: A&P Assessment and Plan (1) Metastatic colon cancer to liver: Code(s): C18.9 - Malignant neoplasm of colon, unspecified; C78.7 - Secondary malignant neoplasm of liver and intrahepatic bile duct Status: Acute Assessment and Plan: stable, await disposition, encourage po intake, encourage OOB/IS, wound VAC change tomorrow (2) Sacral decubitus ulcer: Qualifiers: Pressure injury stage: unspecified pressure injury stage Qualified Code(s): L89.159 - Pressure ulcer of sacral region, unspecified stage Code(s): L89.159 - Pressure ulcer of sacral region, unspecified stage Status: Acute Assessment and Plan: Patient incontinent and not able to get up to urinate. Cruz placed so that she doesn't have contamination of her sacral/buttocks wounds. (3) Morbid obesity due to excess calories: Code(s): E66.01 - Morbid (severe) obesity due to excess calories Status: Chronic Subjective Subjective Date/Time Seen: 02/15/21 10:55 Interval history: Still tired and fatigued. Hemoglobin low and getting a unit packed red blood cells this morning. Bowels moving and tolerating diet. Pain controlled. Exam Const: General: comfortable and no acute distress Orientation/consciousness: patient oriented x3 Resp: Effort & Inspection: normal respiratory effort Auscultation: diminished lung sounds Cardio: Rate: regular rate Rhythm: regular rhythm GI: Inspection: normal to inspection and incision GI Palp: Yes abdominal tenderness, Yes Soft to palpation and Yes Tenderness to palpation present (GI) Other: vac - C/D/I, brownish discharge (unchanged) Objective Data Vital Signs Vital Signs: Vital Signs - 24 hr 02/14/21 14:00 02/14/21 21:58 02/14/21 22:00 Temperature 36.9 C 36.8 C Pulse Rate 98 100 99 Respiratory Rate 18 18 Blood Pressure 128/58 L 115/52 L Pulse Oximetry 97 100 95 02/14/21 22:10 02/15/21 05:03 02/15/21 10:30 Temperature 36.6 C 36.8 C Pulse Rate 94 93 102 H Respiratory Rate 20 16 19 Blood Pressure 118/58 L 122/50 L Pulse Oximetry 97 100 99 02/15/21 10:45 Temperature 36.4 C L Pulse Rate 90 Respiratory Rate 18 Blood Pressure 127/57 L Pulse Oximetry 100 Intake/Output Intake/Output: Intake & Output 02/12/21 02/13/21 02/14/21 02/15/21 23:59 23:59 23:59 23:59 Intake Total 580 900 750 600 Output Total 2 333 446 2998 Balance 578 250 -150 -850 Meds/Results Medications: Active Medications Generic Name Dose Route Start Last Admin Trade Name Freq PRN Reason Stop Dose Admin Acetaminophen 650 mg 01/26/21 08:10 Acetaminophen 325 Mg Tablet PO Q4H PRN Fever Hydrocodone Bitart/Acetaminophen 1 tab 02/02/21 12:46 02/10/21 01:54 Hydrocodone/Acetaminophen (*Crx) 5-325 Mg Tablet PO 1 tab Q4H PRN Administration Pain Rated 4-6 Hydrocodone Bitart/Acetaminophen 1 tab 02/02/21 12:49 02/15/21 05:37 Hydrocodone/Acetaminophen (*Crx) 10-325 Mg Tablet PO 1 tab Q4H PRN Administration Pain Rated 7-10 Albuterol 2 puff 01/23/21 16:49 01/28/21 10:38 Albuterol Sulfate (*Sp) Aerosol 1 Puff INHALATION 2 puff Q6HRT PRN Administration Shortness Of Breath Alteplase, Recombinant 2 mg 01/30/21 05:50 02/03/21 07:00 Alteplase 2 Mg Vial (Cathflo) IV PUSH 2 mg ONCE PRN Administration Line Occlusion Alteplase, Recombinant 2 mg 01/30/21 05:52 02/03/21 07:02 Alteplase 2 Mg Vial (Cathflo) IV PUSH 2 mg ONCE PRN Administration Line Occlusion Aspirin 81 mg 02/12/21 19:29 02/15/21 08:39 Aspirin 81 Mg Enteric Tablet PO 81 mg QAM MAGGIE Administration Enoxaparin Sodium 40 mg 01/23/21 09:00 01/24/21 09:16 Enoxaparin 40 Mg/0.4 Ml Syringe SUB-Q 40 mg DAILY MAGGIE Administration Hydrogen Peroxide/Benzyl Alcohol 0 ml 02/08/21 09:00 02/15/21 08:40 Hydrogen Peroxide 3% Soln(*Sp) 473 Ml Bottle IRRIGATION 473 ml DAILY MAGGIE Administration Sodium Chloride 1,000
[2021-02-15] MEDS: FUROSEMIDE INJ 40 MG/4 ML VIAL IV PUSH (13:49)
--- NOTE | 2021-02-15 14:46 | PCPTNOTE ---
Attempted to see pt. for PT treatment. Pt. declined therapy reporting she was just getting ready to be poked and prodded and wasn't up for it today. We will attempt to see patient tomorrow per POC.
[2021-02-15 15:09] LABS: Hemoglobin 8.1 g/dL (12.0-15.0)
[2021-02-15] MEDS: HYDROcodone/acetaminophen (*CRX) 5-325 MG TABLET 1 TAB PO (21:53)
[2021-02-16] MEDS: HYDROcodone/acetaminophen (*CRX) 5-325 MG TABLET 1 TAB PO (02:03)
[2021-02-16] MEDS: ACETAMINOPHEN 325 MG TABLET 650 MG PO (03:00)
[2021-02-16 03:44] VITALS: BP 123/41; PULSE 96; RESP 17; TEMP 35.8; O2SAT 99
[2021-02-16 05:12] LABS: Hematocrit 25.3 % (37.0-47.0); Hemoglobin 7.6 g/dL (12.0-15.0); Mean Corpuscular Hemoglobin 26.6 pg (26-34); Mean Corpuscular Volume 88.5 fl (80-100); Mean Platelet Volume 9.4 fl (7.4-10.4); Platelet Count Result 300 k/mm3 (150-375); Red Blood Count 2.86 M/mm3 (4.2-5.4); Red Cell Distribution Width 17.7 % (11.5-14.5); White Blood Count 8.1 K/mm3 (4.5-10.0)
[2021-02-16 05:15] LABS: Anion Gap 6 mmol/L (8-16); Blood Urea Nitrogen 26 mg/dL (7-17); Calcium 7.5 mg/dL (8.4-10.2); Carbon Dioxide 21 mmol/L (22-30); Chloride 109 mmol/L (98-107); Estimated CRCL calculation 93 ml/min; Estimated Glomerular Filt Rate 51; Glucose 105 mg/dL (65-110); Potassium 3.9 mmol/L (3.4-5.0); Sodium 136 mmol/L (137-145)
[2021-02-16] MEDS: LEVOTHYROXINE SODIUM 125 MCG TABLET 250 MCG PO (05:45)
[2021-02-16] MEDS: HYDROcodone/acetaminophen (*CRX) 10-325 MG TABLET 1 TAB PO ×2 (06:17→16:48)
[2021-02-16] MEDS: POTASSIUM CHLORIDE 20 MEQ PACKET (FOR LIQUID) PO ×2 (08:22→16:48)
[2021-02-16] MEDS: FUROSEMIDE INJ 40 MG/4 ML VIAL IV PUSH (08:22)
[2021-02-16] MEDS: PANTOPRAZOLE 40 MG TABLET PO (08:23)
[2021-02-16] MEDS: HYDROGEN PEROXIDE 3% SOLN(*SP) 473 ML BOTTLE IRRIGATION (08:23)
[2021-02-16] MEDS: ASPIRIN 81 MG ENTERIC TABLET PO (08:23)
[2021-02-16 09:31] LABS: Magnesium 1.6 mg/dL (1.6-2.3); Phosphorus 4.1 mg/dL (2.5-4.5)
--- NOTE | 2021-02-16 09:59 | PM.PNGS ---
Progress Note: A&P Assessment and Plan (1) Metastatic colon cancer to liver: Code(s): C18.9 - Malignant neoplasm of colon, unspecified; C78.7 - Secondary malignant neoplasm of liver and intrahepatic bile duct Status: Acute Assessment and Plan: stable, vac change, await disposition Subjective Subjective Date/Time Seen: 02/16/21 09:59 no acute issues, seems depressed, resting comfortably Review of Systems Review of Systems: All systems reviewed & are unremarkable except as noted in HPI and below Exam Const: General: cooperative and no acute distress Resp: Auscultation: diminished lung sounds Cardio: Rate: regular rate Rhythm: regular rhythm GI: Inspection: normal to inspection, distended and incision GI Palp: Yes Soft to palpation and Yes Tenderness to palpation present (GI) Other: vac C/DI Objective Data Vital Signs Vital Signs: Vital Signs - 24 hr 02/15/21 10:30 02/15/21 10:45 02/15/21 11:45 Temperature 36.8 C 36.4 C L 35.9 C L Pulse Rate 102 H 90 92 Respiratory Rate 19 18 18 Blood Pressure 122/50 L 127/57 L 126/55 L Pulse Oximetry 99 100 99 02/15/21 13:06 02/15/21 15:16 02/15/21 19:16 Temperature 35.8 C L 36.2 C L 36.1 C L Pulse Rate 95 94 102 H Respiratory Rate 20 16 18 Blood Pressure 122/55 L 115/52 L 127/50 L Pulse Oximetry 100 100 100 02/15/21 22:18 02/16/21 03:44 Temperature 35.8 C L Pulse Rate 94 96 Respiratory Rate 24 H 17 Blood Pressure 123/41 L Pulse Oximetry 98 99 Intake/Output Intake/Output: Intake & Output 02/13/21 02/14/21 02/15/21 02/16/21 23:59 23:59 23:59 23:59 Intake Total 994 482 9637 400 Output Total 262 322 5032 1100 Balance 634 -737 -5071 -700 Meds/Results Medications: Active Medications Generic Name Dose Route Start Last Admin Trade Name Freq PRN Reason Stop Dose Admin Acetaminophen 650 mg 01/26/21 08:10 02/16/21 03:00 Acetaminophen 325 Mg Tablet PO 650 mg Q4H PRN Administration Fever Hydrocodone Bitart/Acetaminophen 1 tab 02/02/21 12:46 02/16/21 02:03 Hydrocodone/Acetaminophen (*Crx) 5-325 Mg Tablet PO 1 tab Q4H PRN Administration Pain Rated 4-6 Hydrocodone Bitart/Acetaminophen 1 tab 02/02/21 12:49 02/16/21 06:17 Hydrocodone/Acetaminophen (*Crx) 10-325 Mg Tablet PO 1 tab Q4H PRN Administration Pain Rated 7-10 Albuterol 2 puff 01/23/21 16:49 01/28/21 10:38 Albuterol Sulfate (*Sp) Aerosol 1 Puff INHALATION 2 puff Q6HRT PRN Administration Shortness Of Breath Aspirin 81 mg 02/12/21 19:29 02/16/21 08:23 Aspirin 81 Mg Enteric Tablet PO 81 mg QAM MAGGIE Administration Enoxaparin Sodium 40 mg 01/23/21 09:00 01/24/21 09:16 Enoxaparin 40 Mg/0.4 Ml Syringe SUB-Q 40 mg DAILY MAGGIE Administration Furosemide 40 mg 02/15/21 13:15 02/16/21 08:22 Furosemide Inj 40 Mg/4 Ml Vial IV PUSH 40 mg DAILY MAGGIE Administration Hydrogen Peroxide/Benzyl Alcohol 0 ml 02/08/21 09:00 02/16/21 08:23 Hydrogen Peroxide 3% Soln(*Sp) 473 Ml Bottle IRRIGATION 5 ml DAILY MAGGIE Administration Sodium Chloride 1,000 mls @ 0 mls/hr 02/11/21 11:09 Normal Saline Irrig IRRIGATION .Q0M PRN Wound Care Per Protocol Levothyroxine Sodium 250 mcg 02/05/21 06:30 02/16/21 05:45 Levothyroxine Sodium 125 Mcg Tablet PO 250 mcg DAILY@0630 MAGGIE Administration Naloxone HCl 0.1 mg 01/23/21 06:46 Naloxone Hcl 0.4 Mg/Ml Vial IV PUSH Q2M PRN Opiate Reversal Ondansetron HCl 4 mg 02/13/21 13:53 02/15/21 05:36 Ondansetron Hcl Odt 4 Mg Tablet PO 4 mg Q4H PRN Administration Nausea And Vomiting Pantoprazole Sodium 40 mg 02/08/21 09:00 02/16/21 08:23 Pantoprazole 40 Mg Tablet PO 40 mg QAM MAGGIE Administration Potassium Chloride 20 meq 02/13/21 09:00 02/16/21 08:22 Potassium Chloride 20 Meq Packet (For Liquid) PO 20 meq BIDWM MAGGIE Administration Radiology Results: ITS Impressions Abdomen/Pelvis CT
--- NOTE | 2021-02-16 12:17 | PCNFU ---
Nutrition Follow-Up Complete: Inadequate oral intake related to appendicitis, peritonitis as evidenced by NPO diet. Goal: Patient to meet estimated nutritional needs. Patient is progressing towards goal. We will continue current goal. Pt current nutrition is Low Fiber with Banatrol TID Last recorded weight is 201 kg, up from 196 kg on admit. Bowel Motility:+BM reported 02/16 Labs Reviewed:Cr 1.10,BUN 26, Na 136, Hct 25.3,Hgb 7.6 Meds Noted:KCL powder, Lasix, Synthroid, Protonix, [place] Additional Notes: Nutrition follow up. Spoke with nursing today due to patient somewhat confused today. Breakfast 50% of cereal eaten. Weekend PO intake's about 50-100% of meals. Patient remains on Banatrol Plus for stool bulking. BM have been decreased. Skin: wound vac-Medial Ab. Agree with diet orders. Plans for patient today transfer to LTAC at discharge. Monitoring: Follow up every 5 days.
[2021-02-16 13:55] VITALS: BP 127/58; PULSE 99; RESP 18; TEMP 36.7; O2SAT 99
--- NOTE | 2021-02-16 15:36 | PCPTNOTE ---
Attempted to see patient for PT, however patient refused. Encouraged patient to participate, patient's nurse attempted to encourage patient to participate in therapy, patient continued to refuse. Patient seemed a little confused, patient forgot she had lunch and reported she needed to eat lunch first.
--- NOTE | 2021-02-16 17:11 | PM.IMPN ---
Progress Note: A&P Assessment and Plan (1) Acute perforated appendicitis: Code(s): K35.32 - Acute appendicitis with perforation and localized peritonitis, without abscess Status: Acute (2) Fecal peritonitis: Code(s): K65.8 - Other peritonitis Status: Acute (3) Acute kidney injury: Code(s): N17.9 - Acute kidney failure, unspecified Status: Acute (4) Metastatic colon cancer to liver: Code(s): C18.9 - Malignant neoplasm of colon, unspecified; C78.7 - Secondary malignant neoplasm of liver and intrahepatic bile duct Status: Acute (5) Primary adenocarcinoma of ascending colon: Code(s): C18.2 - Malignant neoplasm of ascending colon Status: Acute (6) Hypothyroidism: Qualifiers: Hypothyroidism type: unspecified Qualified Code(s): E03.9 - Hypothyroidism, unspecified Code(s): E03.9 - Hypothyroidism, unspecified Status: Chronic (7) Morbid obesity due to excess calories: Code(s): E66.01 - Morbid (severe) obesity due to excess calories Status: Chronic (8) Depression with anxiety: Code(s): F41.8 - Other specified anxiety disorders Status: Acute (9) Septic shock: Code(s): A41.9 - Sepsis, unspecified organism; R65.21 - Severe sepsis with septic shock Status: Resolved (10) Anemia: Qualifiers: Anemia type: unspecified type Qualified Code(s): D64.9 - Anemia, unspecified Code(s): D64.9 - Anemia, unspecified Status: Acute (11) Acute blood loss anemia: Code(s): D62 - Acute posthemorrhagic anemia Status: Resolved (12) Metabolic acidosis: Code(s): E87.2 - Acidosis Status: Acute (13) S/P exploratory laparotomy: Code(s): Z98.890 - Other specified postprocedural states Status: Acute (14) S/P right hemicolectomy: Code(s): Z90.49 - Acquired absence of other specified parts of digestive tract Status: Acute (15) Postoperative ileus: Code(s): K91.89 - Other postprocedural complications and disorders of digestive system; K56.7 - Ileus, unspecified Status: Resolved (16) Physical deconditioning: Code(s): R53.81 - Other malaise Status: Acute Additional Plan 1. Acute perforated appendicitis with fecal peritonitis status post ex lap and hemicolectomy: -status post ex lap with hemicolectomy and abdominal washout on 01/23 -postop course, as reported above, was complicated by ileus requiring NG tube. -patient course was also complicated by acute septic shock requiring vasopressors -this has all resolved and patient is continuing to improve -she completed IV Zosyn IV fluconazole this purpose. 2. Physical deconditioning: -awaiting insurance authorization to be transferred to rehab/LTAC 3. New diagnosis of metastatic adenocarcinoma to the liver: -as per biopsy and pathology results -patient already seen by cultural centre manager oncologist lying in the hospital -to be followed for further management as outpatient 4. Acute on chronic anemia: -required PRBC transfusion on 02/14 -hemoglobin stable this time at -continued iron-deficiency anemia Time Spent With Patient Time with patient: 25 - 35 minutes Subjective Date/time seen: 02/16/21 17:11 Interval history: 55-year-old female with past medical history significant for morbid obesity, status post gastric bypass surgery, anxiety and hypothyroidism presented with abdominal pain and managed as a case of perforated appendicitis and fecal peritonitis. She is status post exploratory laparotomy and right hemicolectomy with mobilization of the hepatic flexure and extensive intra-abdominal washout 01/23. Postop course was complicated by septic shock requiring pressor support with Levophed and vasopressin, DAVID and ileus requiring NG tube for which reason she required ICU level of care. She continued to receive IV antibiotics and was then transferred out of the ICU to regular floors. Pathology r
[2021-02-16] MEDS: ONDANSETRON HCL ODT 4 MG TABLET PO (21:52)
[2021-02-16 22:00] VITALS: BP 119/70; PULSE 99; RESP 20; TEMP 37; O2SAT 96
[2021-02-17] MEDS: HYDROcodone/acetaminophen (*CRX) 10-325 MG TABLET 1 TAB PO ×5 (03:31→22:06)
[2021-02-17 04:52] VITALS: BP 114/50; PULSE 100; RESP 18; TEMP 36.7; O2SAT 97
[2021-02-17 05:42] LABS: Basophils Percent Auto 0.4 % (0.2-1.2); Eosinophils Absolute Auto 0.1 K/mm3 (0-0.3); Hematocrit 25.9 % (37.0-47.0); Hemoglobin 7.8 g/dL (12.0-15.0); Immature Granulocyte Absolute 0.14 K/mm3 (0.00-0.031); Immature Granulocyte Percent A 1.7 % (0-0.5); Lymphocytes Absolute Auto 2.25 K/mm3 (0.9-3.2); Lymphocytes Percent Auto 27.8 % (18.3-44.2); Mean Corpuscular HGB Conc 30.1 g/dl (32-36); Mean Corpuscular Hemoglobin 27.8 pg (26-34); Mean Corpuscular Volume 92.2 fl (80-100); Mean Platelet Volume 9.9 fl (7.4-10.4); Monocytes Absolute Auto 0.9 K/mm3 (0.1-0.6); Monocytes Percent Auto 11.1 % (2.6-8.5); Neutrophils Absolute Auto 4.7 K/mm3 (1.3-6.7); Nucleated Red Blood Cells Absolute Auto 0.1 K/mm3 (0.0-0.012); Nucleated Red Blood Cells Perc 0.6 % (0.0-0.2); Platelet Count Result 292 k/mm3 (150-375); Red Blood Count 2.81 M/mm3 (4.2-5.4); Red Cell Distribution Width 18.3 % (11.5-14.5); White Blood Count 8.1 K/mm3 (4.5-10.0)
[2021-02-17 05:49] LABS: Alanine Aminotransferase 13 U/L (4-35); Albumin Level 1.9 g/dL (3.5-5.1); Alkaline Phosphatase 160 U/L (38-126); Anion Gap 6 mmol/L (8-16); Aspartate Amino Transferase 16 U/L (14-36); Bilirubin,Total 0.5 mg/dL (0.2-1.3); Blood Urea Nitrogen 27 mg/dL (7-17); Calcium 7.5 mg/dL (8.4-10.2); Carbon Dioxide 21 mmol/L (22-30); Chloride 108 mmol/L (98-107); Estimated CRCL calculation 100 ml/min; Estimated Glomerular Filt Rate 57; Glucose 87 mg/dL (65-110); Magnesium 1.5 mg/dL (1.6-2.3); Phosphorus 4.1 mg/dL (2.5-4.5); Potassium 4.2 mmol/L (3.4-5.0); Sodium 135 mmol/L (137-145)
[2021-02-17] MEDS: LEVOTHYROXINE SODIUM 125 MCG TABLET 250 MCG PO (07:25)
[2021-02-17] MEDS: PANTOPRAZOLE 40 MG TABLET PO (08:44)
[2021-02-17] MEDS: POTASSIUM CHLORIDE 20 MEQ PACKET (FOR LIQUID) PO ×2 (08:44→16:22)
[2021-02-17] MEDS: HYDROGEN PEROXIDE 3% SOLN(*SP) 473 ML BOTTLE IRRIGATION (08:45)
[2021-02-17] MEDS: FUROSEMIDE INJ 40 MG/4 ML VIAL IV PUSH (08:45)
[2021-02-17] MEDS: ASPIRIN 81 MG ENTERIC TABLET PO (08:45)
--- NOTE | 2021-02-17 13:20 | PM.IMPN ---
Progress Note: A&P Assessment and Plan (1) Physical deconditioning: Code(s): R53.81 - Other malaise Status: Acute (2) S/P right hemicolectomy: Code(s): Z90.49 - Acquired absence of other specified parts of digestive tract Status: Acute (3) S/P exploratory laparotomy: Code(s): Z98.890 - Other specified postprocedural states Status: Acute (4) Acute blood loss anemia: Code(s): D62 - Acute posthemorrhagic anemia Status: Resolved (5) Acute perforated appendicitis: Code(s): K35.32 - Acute appendicitis with perforation and localized peritonitis, without abscess Status: Acute (6) Sacral decubitus ulcer: Qualifiers: Pressure injury stage: unspecified pressure injury stage Qualified Code(s): L89.159 - Pressure ulcer of sacral region, unspecified stage Code(s): L89.159 - Pressure ulcer of sacral region, unspecified stage Status: Acute (7) Metastatic colon cancer to liver: Code(s): C18.9 - Malignant neoplasm of colon, unspecified; C78.7 - Secondary malignant neoplasm of liver and intrahepatic bile duct Status: Acute (8) Primary adenocarcinoma of ascending colon: Code(s): C18.2 - Malignant neoplasm of ascending colon Status: Acute (9) Fecal peritonitis: Code(s): K65.8 - Other peritonitis Status: Acute (10) Acute kidney injury: Code(s): N17.9 - Acute kidney failure, unspecified Status: Resolved (11) Septic shock: Code(s): A41.9 - Sepsis, unspecified organism; R65.21 - Severe sepsis with septic shock Status: Resolved (12) Hypothyroidism: Qualifiers: Hypothyroidism type: unspecified Qualified Code(s): E03.9 - Hypothyroidism, unspecified Code(s): E03.9 - Hypothyroidism, unspecified Status: Chronic Additional Plan 1. Acute perforated appendicitis with fecal peritonitis status post ex lap and hemicolectomy: -status post ex lap with hemicolectomy and abdominal washout on 01/23 -postop course, as reported above, was complicated by ileus requiring NG tube. -patient course was also complicated by acute septic shock requiring vasopressors -this has all resolved and patient is continuing to improve -she completed IV Zosyn IV fluconazole this purpose. 2. Physical deconditioning: -awaiting insurance authorization to be transferred to rehab/LTAC 3. New diagnosis of metastatic adenocarcinoma to the liver: -as per biopsy and pathology results -patient already seen by elementary math tutor oncologist lying in the hospital -to be followed for further management as outpatient 4. Acute on chronic anemia: -required PRBC transfusion on 02/14 -hemoglobin stable this time at -continued iron-deficiency anemia Time Spent With Patient Time with patient: 15 - 25 minutes Subjective Date/time seen: 02/17/21 13:20 Interval history: 55-year-old female with past medical history significant for morbid obesity, status post gastric bypass surgery, anxiety and hypothyroidism presented with abdominal pain and managed as a case of perforated appendicitis and fecal peritonitis. She is status post exploratory laparotomy and right hemicolectomy with mobilization of the hepatic flexure and extensive intra-abdominal washout 01/23. Postop course was complicated by septic shock requiring pressor support with Levophed and vasopressin, DAVID and ileus requiring NG tube for which reason she required ICU level of care. She continued to receive IV antibiotics and was then transferred out of the ICU to regular floors. Pathology report resulted with concerns of colonic adenocarcinoma which the patient was informed about. She is also noted to 3 cm right hepatic lobe mass which was biopsied and was positive for metastatic adenocarcinoma with Colorectal as a primary. Overall he is continuing to improve in terms of her infection status and is also being followed by General surgery, Oncology. She is to be discharged to to rehab
--- NOTE | 2021-02-17 13:22 | PM.PNGS ---
Progress Note: A&P Assessment and Plan (1) Metastatic colon cancer to liver: Code(s): C18.9 - Malignant neoplasm of colon, unspecified; C78.7 - Secondary malignant neoplasm of liver and intrahepatic bile duct Status: Acute Assessment and Plan: stable, cont wound care c vac, encourage po, OOB, IS, await transfer to LTAC Subjective Subjective Date/Time Seen: 02/17/21 13:22 no acute issues, still weak, depressed Review of Systems Review of Systems: All systems reviewed & are unremarkable except as noted in HPI and below Exam Const: General: cooperative, comfortable, no acute distress, ill appearing and tired appearing Nutritional Appearance: obese Resp: Auscultation: clear to auscultation bilaterally Cardio: Rate: regular rate Rhythm: regular rhythm GI: Inspection: normal to inspection and incision GI Palp: Yes Tenderness to palpation present (GI) Other: vac - C/D/I Objective Data Vital Signs Vital Signs: Vital Signs - 24 hr 02/16/21 13:55 02/16/21 22:00 02/17/21 04:52 Temperature 36.7 C 37.0 C 36.7 C Pulse Rate 99 99 100 Respiratory Rate 18 20 18 Blood Pressure 127/58 L 119/70 114/50 L Pulse Oximetry 99 96 97 Intake/Output Intake/Output: Intake & Output 02/14/21 02/15/21 02/16/21 02/17/21 23:59 23:59 23:59 23:59 Intake Total 750 2004 1260 450 Output Total 900 7075 4025 1400 [facility], [place] -150 [phone] Meds/Results Medications: Active Medications Generic Name Dose Route Start Last Admin Trade Name Papiq PRN Reason Stop Dose Admin Acetaminophen 650 mg 01/26/21 08:10 02/16/21 03:00 Acetaminophen 325 Mg Tablet PO 650 mg Q4H PRN Administration Fever Hydrocodone Bitart/Acetaminophen 1 tab 02/02/21 12:46 02/16/21 02:03 Hydrocodone/Acetaminophen (*Crx) 5-325 Mg Tablet PO 1 tab Q4H PRN Administration Pain Rated 4-6 Hydrocodone Bitart/Acetaminophen 1 tab 02/02/21 12:49 02/17/21 12:19 Hydrocodone/Acetaminophen (*Crx) 10-325 Mg Tablet PO 1 tab Q4H PRN Administration Pain Rated 7-10 Albuterol 2 puff 01/23/21 16:49 01/28/21 10:38 Albuterol Sulfate (*Sp) Aerosol 1 Puff INHALATION 2 puff Q6HRT PRN Administration Shortness Of Breath Aspirin 81 mg 02/12/21 19:29 02/17/21 08:45 Aspirin 81 Mg Enteric Tablet PO 81 mg QAM MAGGIE Administration Enoxaparin Sodium 40 mg 01/23/21 09:00 01/24/21 09:16 Enoxaparin 40 Mg/0.4 Ml Syringe SUB-Q 40 mg DAILY MAGGIE Administration Furosemide 40 mg 02/15/21 13:15 02/17/21 08:45 Furosemide Inj 40 Mg/4 Ml Vial IV PUSH 40 mg DAILY MAGGIE Administration Hydrogen Peroxide/Benzyl Alcohol 0 ml 02/08/21 09:00 02/17/21 08:45 Hydrogen Peroxide 3% Soln(*Sp) 473 Ml Bottle IRRIGATION 5 ml DAILY MAGGIE Administration Sodium Chloride 1,000 mls @ 0 mls/hr 02/11/21 11:09 Normal Saline Irrig IRRIGATION .Q0M PRN Wound Care Per Protocol Levothyroxine Sodium 250 mcg 02/05/21 06:30 02/17/21 07:25 Levothyroxine Sodium 125 Mcg Tablet PO 250 mcg DAILY@0630 MAGGIE Administration Naloxone HCl 0.1 mg 01/23/21 06:46 Naloxone Hcl 0.4 Mg/Ml Vial IV PUSH Q2M PRN Opiate Reversal Ondansetron HCl 4 mg 02/13/21 13:53 02/16/21 21:52 Ondansetron Hcl Odt 4 Mg Tablet PO 4 mg Q4H PRN Administration Nausea And Vomiting Pantoprazole Sodium 40 mg 02/08/21 09:00 02/17/21 08:44 Pantoprazole 40 Mg Tablet PO 40 mg QAM MAGGIE Administration Potassium Chloride 20 meq 02/13/21 09:00 02/17/21 08:44 Potassium Chloride 20 Meq Packet (For Liquid) PO 20 meq BIDWM MAGGIE Administration Radiology Results: ITS Impressions Abdomen/Pelvis CT 01/23/21 07:20 IMPRESSION: Intraperitoneal free air, suggesting bowel perforation. Consider appendiceal perforation Probable adynamic ileus Ill-defined 3 cm right hepatic mass and focal diffusion diagnosis includes hepatic abscess, hepatocellular primary malignancy or metastasis Status
[2021-02-17 13:53] VITALS: BMI 10.0
[2021-02-17 14:30] VITALS: BP 116/54; PULSE 99; RESP 20; TEMP 36.3; O2SAT 99
[2021-02-17 20:53] VITALS: BP 111/55; PULSE 102; RESP 20; TEMP 36.1; O2SAT 100
[2021-02-18] MEDS: HYDROcodone/acetaminophen (*CRX) 10-325 MG TABLET 1 TAB PO ×2 (02:05→12:16)
[2021-02-18 05:39] VITALS: BP 111/56; PULSE 100; RESP 20; TEMP 36.4; O2SAT 98
[2021-02-18 05:39] LABS: Anion Gap 6 mmol/L (8-16); Blood Urea Nitrogen 28 mg/dL (7-17); Calcium 7.5 mg/dL (8.4-10.2); Carbon Dioxide 22 mmol/L (22-30); Chloride 106 mmol/L (98-107); Estimated CRCL calculation 100 ml/min; Estimated Glomerular Filt Rate 57; Glucose 94 mg/dL (65-110); Sodium 134 mmol/L (137-145)
[2021-02-18] MEDS: LEVOTHYROXINE SODIUM 125 MCG TABLET 250 MCG PO (06:52)
[2021-02-18] MEDS: PANTOPRAZOLE 40 MG TABLET PO (08:34)
[2021-02-18] MEDS: POTASSIUM CHLORIDE 20 MEQ PACKET (FOR LIQUID) PO (08:34)
[2021-02-18] MEDS: ASPIRIN 81 MG ENTERIC TABLET PO (08:34)
[2021-02-18] MEDS: FUROSEMIDE INJ 40 MG/4 ML VIAL IV PUSH (08:34)
[2021-02-18 09:00] VITALS: TEMP 36.8
--- NOTE | 2021-02-18 11:34 | PM.DS ---
DS: Admitting Diagnosis Discharge Date 02/18/2021 Admitting Diagnosis abdominal pain DS: Discharge Diagnosis Discharge Diagnosis (1) Physical deconditioning: Code(s): R53.81 - Other malaise Status: Acute (2) S/P right hemicolectomy: Code(s): Z90.49 - Acquired absence of other specified parts of digestive tract Status: Acute (3) S/P exploratory laparotomy: Code(s): Z98.890 - Other specified postprocedural states Status: Acute (4) Postoperative ileus: Code(s): K91.89 - Other postprocedural complications and disorders of digestive system; K56.7 - Ileus, unspecified Status: Resolved (5) Acute blood loss anemia: Code(s): D62 - Acute posthemorrhagic anemia Status: Resolved (6) Acute perforated appendicitis: Code(s): K35.32 - Acute appendicitis with perforation and localized peritonitis, without abscess Status: Acute (7) Metastatic colon cancer to liver: Code(s): C18.9 - Malignant neoplasm of colon, unspecified; C78.7 - Secondary malignant neoplasm of liver and intrahepatic bile duct Status: Acute (8) Primary adenocarcinoma of ascending colon: Code(s): C18.2 - Malignant neoplasm of ascending colon Status: Acute (9) Fecal peritonitis: Code(s): K65.8 - Other peritonitis Status: Acute DS: Summary Hospital Course Reason for hospitalization: Perforated appendicitis Fecal peritonitis Hemicolectomy Ex lap Hospital Course: 55-year-old female with past medical history significant for morbid obesity, status post gastric bypass surgery, anxiety and hypothyroidism presented with abdominal pain and managed as a case of perforated appendicitis and fecal peritonitis. She is status post exploratory laparotomy and right hemicolectomy with mobilization of the hepatic flexure and extensive intra-abdominal washout 01/23. Postop course was complicated by septic shock requiring pressor support with Levophed and vasopressin, DAVID and ileus requiring NG tube for which reason she required ICU level of care. She continued to receive IV antibiotics and was then transferred out of the ICU to regular floors. Pathology report resulted with concerns of colonic adenocarcinoma which the patient was informed about. She is also noted to 3 cm right hepatic lobe mass which was biopsied and was positive for metastatic adenocarcinoma with Colorectal as a primary. Patient continued to improve and is now being discharges to [facility] for physical deconditioning after prolonged inpatiet sta and therapy purposes. Status at Discharge Overall status at discharge: patient is progressing back to baseline Time Spent with Patient Time attestation: Total time spent providing and/or coordinating discharge services: Time spent: Greater than 30 minutes Exam Narrative: Patient is comfortable, NAD BMI of 66 HEENT: eyes are clear and none icteric LUNGS: normal respiratory effort ABD: morbidly obese wound dressing in place Lower extremities: obese edema SKIN: nonjaundiced Neuro: grossly intact DS: Data Data Completed and Pending Completed studies during hospitalization: Pending at discharge 01/23/21 04:58 Surgical [PTH] Routine Surgical [PTH] Routine Labs on day of discharge: Labs from last 24 hours 02/18/21 04:27 Sodium 134 L Potassium 4.0 Chloride 106 Carbon Dioxide 22 Anion Gap 6 L BUN 28 H Creatinine 1.00 Estim Creat Clear Calc 100 Estimated GFR 57 L Glucose 94 Calcium 7.5 L Discharge Plan Discharge Attending physician on discharge: Felicitas Mae Consulting providers: ; Greg,Caren Spivey ; Pedro Cai ; Antoine Arriaga Discharging Clinician: Felicitas Mae Anticipated Discharge Date/Time: 02/18/21 11:42 Patient Disposition: [facility] Activity: as tolerated Diet: heart healthy Discharge Instructions: Please call Dr [facility] Tuesday for an outpatient appointment to
--- NOTE | 2021-02-18 12:03 | PM.PNGS ---
Progress Note: A&P Assessment and Plan (1) Primary adenocarcinoma of ascending colon: Code(s): C18.2 - Malignant neoplasm of ascending colon Status: Acute Assessment and Plan: no acute issues, cont vac/wound care, ok to dc to LTAC from surgical standpoint, will need f/u in wound care clinic, cont to encourage po, OOB Subjective Subjective Date/Time Seen: 02/18/21 12:03 Pt seen and examined. No acute issues or c/o. Preparing for transfer to LTAC this afternoon. Review of Systems Review of Systems: All systems reviewed & are unremarkable except as noted in HPI and below Exam Const: General: cooperative, comfortable, no acute distress and ill appearing Nutritional Appearance: obese Resp: Auscultation: diminished lung sounds Cardio: Rate: regular rate Rhythm: regular rhythm GI: Inspection: normal to inspection, non-distended and incision GI Palp: Yes Soft to palpation and Yes Tenderness to palpation present (GI) Other: vac - C/D/I, serous drainage Objective Data Vital Signs Vital Signs: Vital Signs - 24 hr 02/17/21 14:30 02/17/21 20:53 02/18/21 05:39 Temperature 36.3 C L 36.1 C L 36.4 C L Pulse Rate 99 102 H 100 Respiratory Rate 20 20 20 Blood Pressure 116/54 L 111/55 L 111/56 L Pulse Oximetry 99 100 98 02/18/21 09:00 Temperature 36.8 C Pulse Rate Respiratory Rate Blood Pressure Pulse Oximetry Intake/Output Intake/Output: Intake & Output 02/15/21 02/16/21 02/17/21 02/18/21 23:59 23:59 23:59 23:59 Intake Total 2003 1260 1240 670 Output Total 7075 4025 4575 1725 [facility]5071 [phone] Meds/Results Medications: Active Medications Generic Name Dose Route Start Last Admin Trade Name Freq PRN Reason Stop Dose Admin Acetaminophen 650 mg 01/26/21 08:10 02/16/21 03:00 Acetaminophen 325 Mg Tablet PO 650 mg Q4H PRN Administration Fever Hydrocodone Bitart/Acetaminophen 1 tab 02/02/21 12:46 02/16/21 02:03 Hydrocodone/Acetaminophen (*Crx) 5-325 Mg Tablet PO 1 tab Q4H PRN Administration Pain Rated 4-6 Hydrocodone Bitart/Acetaminophen 1 tab 02/02/21 12:49 02/18/21 02:05 Hydrocodone/Acetaminophen (*Crx) 10-325 Mg Tablet PO 1 tab Q4H PRN Administration Pain Rated 7-10 Albuterol 2 puff 01/23/21 16:49 01/28/21 10:38 Albuterol Sulfate (*Sp) Aerosol 1 Puff INHALATION 2 puff Q6HRT PRN Administration Shortness Of Breath Aspirin 81 mg 02/12/21 19:29 02/18/21 08:34 Aspirin 81 Mg Enteric Tablet PO 81 mg QAM MAGGIE Administration Enoxaparin Sodium 40 mg 01/23/21 09:00 01/24/21 09:16 Enoxaparin 40 Mg/0.4 Ml Syringe SUB-Q 40 mg DAILY MAGGIE Administration Furosemide 40 mg 02/18/21 17:00 Furosemide 40 Mg Tablet PO BID [facility] Hydrogen Peroxide/Benzyl Alcohol 0 ml 02/08/21 09:00 02/18/21 08:57 Hydrogen Peroxide 3% Soln(*Sp) 473 Ml Bottle IRRIGATION Not Given DAILY [facility] Sodium Chloride 1,000 mls @ 0 mls/hr 02/11/21 11:09 Normal Saline Irrig IRRIGATION .Q0M PRN Wound Care Per Protocol Levothyroxine Sodium 250 mcg 02/05/21 06:30 02/18/21 06:52 Levothyroxine Sodium 125 Mcg Tablet PO 250 mcg DAILY@0630 [facility] Administration Naloxone HCl 0.1 mg 01/23/21 06:46 Naloxone Hcl 0.4 Mg/Ml Vial IV PUSH Q2M PRN Opiate Reversal Ondansetron HCl 4 mg 02/13/21 13:53 02/16/21 21:52 Ondansetron Hcl Odt 4 Mg Tablet PO 4 mg Q4H PRN Administration Nausea And Vomiting Pantoprazole Sodium 40 mg 02/08/21 09:00 02/18/21 08:34 Pantoprazole 40 Mg Tablet PO 40 mg QAM [facility] Administration Potassium Chloride 20 meq 02/13/21 09:00 02/18/21 08:34 Potassium Chloride 20 Meq Packet (For Liquid) PO 20 meq BIDWM MAGGIE Administration Radiology Results: ITS Impressions Abdomen/Pelvis CT 01/23/21 07:20 IMPRESSION: Intraperitoneal free air, suggesting bowel perforation. Consider appendiceal perforation Probable adynamic ileus Ill-
--- NOTE | 2021-02-18 12:04 | PC.NURSE ---
This nurse called Dr. Gong's office to inquire if they were okay with the patient being discharged to the [facility] today. Per Dr. Gong's office and Dr. Gong himself in the patients room stated that they were okay with the patient being discharged today to go to the facility.
--- NOTE | 2021-02-18 12:58 | PC.NURSE ---
No discharge wound photos taken due to the wound care nurses assessment states that the wounds are all friction pricilla. Mepilexs are all protective.
[2021-02-18] MEDS: ONDANSETRON HCL ODT 4 MG TABLET PO (14:28)
== END 2021-02-18 14:39 | DRG 329 ==
LOC: ANHED 01-23 03:42 → ANHSURGERY 01-23 03:44 → ANH2MED 01-23 12:27 → ANHICU 02-19 10:23
PROVIDERS: Family Medicine; Internal Medicine; Internal Medicine Hematology & Oncology; Nurse Practitioner; Nurse Practitioner Family; Admitting Provider Surgery; Emergency Provider Emergency Medicine; PCP General Practice; Visit Provider Internal Medicine
PROC: 0DTJ4ZZ Resection of Appendix, Percutaneous Endoscopic Approach (ICD-10-PCS; CPT 44970; principal; 2021-01-23 04:00)
DX: K35.32 Acute appendicitis with perforation, localized peritonitis, and gangrene, without abscess (principal); A41.9 Sepsis, unspecified organism; J18.9 Pneumonia, unspecified organism; R65.21 Severe sepsis with septic shock; N17.0 Acute kidney failure with tubular necrosis; K56.609 Unspecified intestinal obstruction, unspecified as to partial versus complete obstruction; Z68.44 Body mass index [BMI] 60.0-69.9, adult; E87.2 Acidosis; N17.9 Acute kidney failure, unspecified; K56.7 Ileus, unspecified; G93.40 Encephalopathy, unspecified; D68.9 Coagulation defect, unspecified; D62 Acute posthemorrhagic anemia; C18.2 Malignant neoplasm of ascending colon; C78.7 Secondary malignant neoplasm of liver and intrahepatic bile duct; K91.89 Other postprocedural complications and disorders of digestive system; R16.0 Hepatomegaly, not elsewhere classified; E66.01 Morbid (severe) obesity due to excess calories; R73.9 Hyperglycemia, unspecified; F32.A Depression, unspecified; R06.03 Acute respiratory distress; Z98.84 Bariatric surgery status; E03.9 Hypothyroidism, unspecified; G47.33 Obstructive sleep apnea (adult) (pediatric); D64.9 Anemia, unspecified; D69.59 Other secondary thrombocytopenia; R41.0 Disorientation, unspecified; E83.51 Hypocalcemia; R74.01 Elevation of levels of liver transaminase levels; E86.9 Volume depletion, unspecified; F41.8 Other specified anxiety disorders; E87.6 Hypokalemia; Y83.8 Other surgical procedures as the cause of abnormal reaction of the patient, or of later complication, without mention of misadventure at the time of the procedure; Y92.230 Patient room in hospital as the place of occurrence of the external cause; Z53.31 Laparoscopic surgical procedure converted to open procedure; L89.159 Pressure ulcer of sacral region, unspecified stage; R32 Unspecified urinary incontinence; Z23 Encounter for immunization
CPT/HCPCS: 36415; 36430; 36569; 36600; 47000; 71045; 74018; 74177; 76705; 76942; 80048; 80053; 81001; 82375; 82378; 82607; 82728; 82746; 82805; 82948; 83036; 83050; 83540; 83550; 83605; 83690; 83735; 84100; 84439; 84443; 85014; 85018; 85025; 85027; 85055; 85610; 85730; 86850; 86900; 86901; 86920; 87040; 87324; 87493; 88304; 88307; 88309; 88342; 90471; 90653; 92610; 93005; 94640; 94660; 94668; 96361; 96365; 96367; 96375; 96376; 97110; 97161; 97165; 97168; 97530; 97535; 99285; A9270; C1751; C9113; G0008; J0131; J0610; J1170; J1450; J1650; J1720; J1756; J1940; J2250; J2405; J2543; J2704; J2997; J3010; J3475; J3480; J7030; J7050; J7060; J7120; P9016; P9045; P9047; Q9967